=== PATIENT | female | born 1940 | race Caucasian/White ===

== ENCOUNTER → 2019-02-24 | Outpatient (CLI) | payer MEDICARE ==
[2019-02-24 11:57] LABS: African American GFR (CKD) >90 (>60 ml/min/1.73 sqM); Blood Urea Nitrogen 6 mg/dL (7-17); Non-African American GFR(CKD) >90 (>60 ml/min/1.73 sqM)
--- NOTE | 2019-02-24 14:17 | CT ---
EXAMINATION TYPE: CT pelvis w con DATE OF EXAM: 02/24/2019 COMPARISON: None INDICATION: Soft tissue lesion pelvic region DLP: 496.4 mGycm, Automated exposure control for dose reduction was used. CONTRAST: 100 mL of Isovue 300. Study performed with Oral Contrast TECHNIQUE: Axial images were obtained from above the diaphragm to the pubic rami in the axial plane a t 5 mm thick sections. Reconstructed images are reviewed on the computer in the coronal plane. FINDINGS: Limited CT sections are obtained the lung bases. The lung bases are clear. Limited CT ABDOMEN: Portions of the liver within the [id number] is unremarkable. Partial visualization of the gallblad glenroy appears normal. Portion of the pancreas visualized is normal. Inferior poles the kidneys are esse ntially unremarkable. Tiny cortical renal cyst may be on the mid left kidney. Vascular calcifications within the abdominal aorta. Inferior vena cava is unremarkable. CT PELVIS: Loops of bowel within the pelvis are normal. Diverticular changes are noted within the sigmoid colon . There are loops of bowel which are incompletely distended or lack oral contrast limiting their ev aluation. Appendix: Not visualized. No suspicious inflammatory changes or dilated tubular structures are eviden t. Urinary bladder: Normal. Genitourinary structures: There is a 2.0 cm cyst on the right ovary. Uterus is unremarkable. Left adn exal region is clear. Osseous structures: No suspicious lytic or sclerotic lesions. Facet changes are within the lumbar spi ne IMPRESSIONS: 1. Diverticulosis without acute diverticulitis. 2. No suspicious soft tissue masses are identified
== END | disposition home or self-care (01) ==
LOC: RADCTMAIN 10:45
PROVIDERS: ATTEND Internal Medicine
DX: M79.89 Other specified soft tissue disorders (principal); K57.30 Diverticulosis of large intestine without perforation or abscess without bleeding
CPT/HCPCS: 82565; 84520; 72193; 36415; Q9967

== ENCOUNTER → 2019-04-13 | Outpatient (CLI) | payer MEDICARE ==
--- NOTE | 2019-04-13 14:57 | US ---
EXAMINATION TYPE: US transvaginal DATE OF EXAM: 04/13/2019 COMPARISON: CT dated 02/24/2019 CLINICAL HISTORY: N83.0 ovarian cyst. TECHNIQUE: Transvaginal (TV). Date of LMP: postmenopausal, no HRT EXAM MEASUREMENTS: Uterus: 4.6 x 2.0 x 3.1 cm Endometrial Stripe: 0.3 cm Right Ovary: 3.5 x 2.4 x 3.2 cm Left Ovary: not visualized 1. Uterus: Anteverted hetergenous 2. Endometrium: wnl, small cystic area within measures 0.2 x 0.2 cm 3. Right Ovary: cystic structure seen measures 2.9 x 1.9 x 3.0 cm, there a thick wall seen with vasc ular flow and mural nodule seen measuring 6 mm on image 11/05/2003, page 35/43. 4. Left Ovary: not visualized 5. Bilateral Adnexa: extensive peristalsing bowel noted 6. Posterior cul-de-sac: no free fluid IMPRESSION: There is a 3.0 cm right renal cyst. There is also an internal mural nodule measuring 6 mm on image 35/43. Given the internal complexity either follow-up pelvic MRI with contrast or consultat ion with gynecologic/oncologic surgery are recommended.
== END | disposition home or self-care (01) ==
LOC: RADUSWWP 11:50
PROVIDERS: ATTEND Obstetrics & Gynecology
DX: N83.299 Other ovarian cyst, unspecified side (principal)
CPT/HCPCS: 76830

== ENCOUNTER → 2019-09-02 | Outpatient (CLI) | payer MEDICARE ==
--- NOTE | 2019-09-02 14:15 | US ---
EXAMINATION TYPE: US transvaginal DATE OF EXAM: 09/02/2019 COMPARISON: 04/13/2019 CLINICAL HISTORY: N83.201 right ovarian cyst. follow up right ovarian cyst TECHNIQUE: Transvaginal (TV) Date of LMP: unknown EXAM MEASUREMENTS: Uterus: 4.6 x 1.9 x 2.8 cm Endometrial Stripe: 0.2 cm Right Ovary: 3.2 x 2.3 x 3.0 cm Left Ovary: unable to visualize 1. Uterus: Anteverted heterogeneous 2. Endometrium: Trace amount of fluid noted within 3. Right Ovary: cystic area = 2.9 x 2.2 x 2.5cm with hyperechoic mural nodule measuring 0.8 x 0.8cm . This previously measured 2.9 x 1.9 x 3.0 cm on 04/13/2019. 4. Left Ovary: Obscured by overlying bowel gas 5. Bilateral Adnexa: appears wnl 6. Posterior cul-de-sac: wnl IMPRESSION: 1. No overall significant interval growth in comparison to the prior of 04/13/2019 of the complex left ovarian lesion with a mural nodule. Again the mural nodule does make this suspicious for neoplasm. 2. Very trace amount of intramural endometrial fluid may be on the basis of endometrial atrophy as th e endometrium measures only 0.2 cm. Ensure no postmenopausal bleeding clinically.
== END | disposition home or self-care (01) ==
LOC: RADUSWWP 13:22
PROVIDERS: ATTEND Obstetrics & Gynecology
DX: N83.201 Unspecified ovarian cyst, right side (principal); N83.8 Other noninflammatory disorders of ovary, fallopian tube and broad ligament; N83.299 Other ovarian cyst, unspecified side; R19.09 Other intra-abdominal and pelvic swelling, mass and lump
CPT/HCPCS: 36415; 76830; 86304

== ENCOUNTER → 2019-10-21 | Outpatient (CLI) | payer MEDICARE ==
--- NOTE | 2019-10-21 08:00 | US ---
EXAMINATION TYPE: US abdomen complete DATE OF EXAM: 10/21/2019 COMPARISON: None CLINICAL HISTORY: R10.11 RUQ Abd pain. EXAM MEASUREMENTS: Liver Length: 14.2 cm Gallbladder Wall: 0.2 cm CBD: 0.7 cm Spleen: 7.2 cm Right Kidney: 10.1 x 4.2 x 4.6 cm Left Kidney: 9.6 x 5.3 x 3.5 cm Pancreas: Tail obscured by overlying bowel gas, visualized portions appear wnl Liver: wnl Gallbladder: wnl Evidence for sonographic Corley's sign: No CBD: wnl for patient's age Spleen: wnl Right Kidney: No hydronephrosis or masses seen Left Kidney: No hydronephrosis or masses seen Upper IVC: wnl Abd Aorta: Atherosclerotic changes, no AAA IMPRESSION: 1. Limited assessment of the pancreas due to bowel gas otherwise no acute process
== END | disposition home or self-care (01) ==
LOC: RADUSWWP 06:56
PROVIDERS: ATTEND Internal Medicine
DX: R10.11 Right upper quadrant pain (principal)
CPT/HCPCS: 76700

== ENCOUNTER 2019-11-09 19:01 | Inpatient (IN) | payer MEDICARE ==
[2019-11-09] MEDS ORDERED: SODIUM CHLORIDE 0.9% 1,000 ML IV STA (19:10)
[2019-11-09] MEDS ORDERED: MORPHINE SULFATE 4 MG/ML SYRINGE IV STA (19:10)
--- NOTE | 2019-11-09 19:13 | ED ---
Back Pain HPI - General Chief Complaint: Back Pain/Injury Stated Complaint: weight loss/back pain Time Seen by Provider: 11/09/19 19:10 Source: patient, RN notes reviewed, old records reviewed Limitations: no limitations - History of Present Illness Initial Comments: This is an 79-year-old female DF for evaluation. This patient presents today for evaluation regards to pain. Patient has mild nausea no vomiting elevated heart rate heart racing. Significant recent weight losspatient states the pain started 2 weeks ago MD Complaint: back pain -: days(s) Similar Symptoms Previously: No Place: home Radiation: none Severity: moderate Severity scale (1-10): 4 Consistency: constant Improves With: none Worsens With: none Associated Symptoms: nausea/vomiting - Related Data Home Medications Medication Instructions Recorded Confirmed Aspirin EC [Ecotrin Low Dose] 81 mg PO HS 11/09/19 11/09/19 Ergocalciferol [Vitamin D2] 50,000 unit PO FR 11/09/19 11/09/19 L.acidoph,Paracasei, B.lactis 1 cap PO DAILY 11/09/19 11/09/19 [Probiotic] Levothyroxine Sodium [Synthroid] 50 mcg PO DAILY 11/09/19 11/09/19 Lovastatin [Altoprev] 20 mg PO HS 11/09/19 11/09/19 Montelukast Sodium [Singulair] 10 mg PO DAILY 11/09/19 11/09/19 atenoloL [Atenolol] 25 mg PO DAILY 11/09/19 11/09/19 Allergies Allergy/AdvReac Type Severity Reaction Status Date / Time No Known Allergies Allergy Verified 11/09/19 21:50 Review of Systems ROS Statement: Those systems with pertinent positive or pertinent negative responses have been documented in the HPI. ROS Other: All systems not noted in ROS Statement are negative. Past Medical History Past Medical History: Hyperlipidemia, Hypertension, Thyroid Disorder Additional Past Medical History / Comment(s): seasonal allergies History of Any Multi-Drug Resistant Organisms: None Reported Past Surgical History: Appendectomy, Section, Tonsillectomy, Tubal Ligation Past Psychological History: No Psychological Hx Reported Smoking Status: Never smoker Past Alcohol Use History: None Reported Past Drug Use History: None Reported General Exam Limitations: no limitations General appearance: alert, in no apparent distress Head exam: Present: atraumatic, normocephalic, normal inspection Eye exam: Present: normal appearance, PERRL, EOMI. Absent: scleral icterus, conjunctival injection, periorbital swelling ENT exam: Present: normal exam, mucous membranes moist Neck exam: Present: normal inspection. Absent: tenderness, meningismus, lympha denopathy Respiratory exam: Present: normal lung sounds bilaterally. Absent: respiratory distress, wheezes, rales, rhonchi, stridor Cardiovascular Exam: Present: tachycardia, irregular rhythm, normal heart sounds. Absent: systolic murmur, diastolic murmur, rubs, gallop, clicks GI/Abdominal exam: Present: soft, normal bowel sounds. Absent: distended, tenderness, guarding, rebound, rigid Extremities exam: Present: normal inspection, full ROM, normal capillary refill. Absent: tenderness, pedal edema, joint swelling, calf tenderness Back exam: Present: normal inspection Neurological exam: Present: alert, oriented X3, CN II-XII intact Psychiatric exam: Present: normal affect, normal mood Skin exam: Present: warm, dry, intact, normal color. Absent: rash Course Vital Signs 11/09/19 11/09/19 11/09/19 19:04 20:10 21:15 Temperature 97.9 F Pulse Rate 137 H 147 H 105 H Respiratory 18 18 18 Rate Blood Pressure 133/84 132/77 116/81 O2 Sat by Pulse 95 98 96 Oximetry - Reevaluation(s) Reevaluation #1: 11/09/19 20:49 Medical record is reviewed Reevaluation #2: 11/09/19 20:49 heart rate is significantly improved Reevaluation #3: 11/09/19 22:12 Patient still does have severe back pain Reevaluation #4: 11/09/19 22:12 Heart rate is continued remained much improved Medical Decision Making - Medical Decision Making 79 female DF for evaluation she presents today for evaluation of weakness palpitations found to be nature fibrillation with RVR now rate controlled, some shortness of breath and recent weight loss history of smoking with new lung can cer diagnosis. Patient be admitted - Lab Data Result diagrams: 11/09/19 19:40 11/09/19 19:40 Lab Results 11/09/19 11/09/19 11/09/19 Range/Units 19:40 19:40 19:40 WBC 11.4 H (3.8-10.6) k/uL RBC 4.27 (3.80-5.40) m/uL Hgb 13.5 (11.4-16.0) gm/dL Hct 40.5 (34.0-46.0) % MCV 94.7 (80.0-100.0) fL MCH 31.5 (25.0-35.0) pg MCHC 33.3 (31.0-37.0) g/dL RDW 11.5 (11.5-15.5) % Plt Count 291 (150-450) k/uL Neutrophils % 70 % Lymphocytes % 21 % Monocytes % 6 % Eosinophils % 1 % Basophils % 0 % Neutrophils # 8.0 H (1.3-7.7) k/uL Lymphocytes # 2.3 (1.0-4.8) k/uL Monocytes # 0.7 (0-1.0) k/uL Eosinophils # 0.1 (0-0.7) k/uL Basophils # 0.1 (0-0.2) k/uL PT 11.0 (9.0-12.0) sec INR 1.1 (<1.2) APTT 24.6 (22.0-30.0) sec Sodium 131 L (137-145) mmol/L Potassium 4.0 (3.5-5.1) mmol/L Chloride 97 L (98-107) mmol/L Carbon Dioxide 26 (22-30) mmol/L Anion Gap 8 mmol/L BUN 9 (7-17) mg/dL Creatinine 0.44 L (0.52-1.04) mg/dL Est GFR (CKD-EPI)AfAm >90 (>60 ml/min/1.73 sqM) Est GFR (CKD-EPI)NonAf >90 (>60 ml/min/1.73 sqM) Glucose 102 H (74-99) mg/dL Plasma Lactic Acid Imchael (0.7-2.0) mmol/L Calcium 10.7 H (8.4-10.2) mg/dL Phosphorus 3.1 (2.5-4.5) mg/dL Magnesium 1.7 (1.6-2.3) mg/dL Total Bilirubin 0.8 (0.2-1.3) mg/dL AST 23 (14-36) U/L ALT 9 (4-34) U/L Alkaline Phosphatase 67 (38-126) U/L Creatine Kinase 64 (30-135) U/L Troponin I (0.000-0.034) ng/mL Total Protein 6.2 L (6.3-8.2) g/dL Albumin 3.7 (3.5-5.0) g/dL Urine Color Urine Appearance (Clear) Urine pH (5.0-8.0) Ur Specific [place] (1.001-1.035) Urine Protein (Negative) Urine Glucose (UA) (Negative) Urine Ketones (Negative) Urine Blood (Negative) Urine Nitrite (Negative) Urine Bilirubin (Negative) Urine Urobilinogen (<2.0) mg/dL Ur Leukocyte Esterase (Negative) 11/09/19 11/09/19 11/09/19 Range/Units 19:40 19:40 21:37 WBC (3.8-10.6) k/uL RBC (3.80-5.40) m/uL Hgb (11.4-16.0) gm/dL Hct (34.0-46.0) % MCV (80.0-100.0) fL MCH (25.0-35.0) pg MCHC (31.0-37.0) g/dL RDW (11.5-15.5) % Plt Count (150-450) k/uL Neutrophils % % Lymphocytes % % Monocytes % % Eosinophils % % Basophils % % Neutrophils # (1.3-7.7) k/uL Lymphocytes # (1.0-4.8) k/uL Monocytes # (0-1.0) k/uL Eosinophils # (0-0.7) k/uL Basophils # (0-0.2) k/uL PT (9.0-12.0) sec INR (<1.2) APTT (22.0-30.0) sec Sodium (137-145) mmol/L Potassium (3.5-5.1) mmol/L Chloride (98-107) mmol/L Carbon Dioxide (22-30) mmol/L Anion Gap mmol/L BUN (7-17) mg/dL Creatinine (0.52-1.04) mg/dL Est GFR (CKD-EPI)AfAm (>60 ml/min/1.73 sqM) Est GFR (CKD-EPI)NonAf (>60 ml/min/1.73 sqM) Glucose (74-99) mg/dL Plasma Lactic Acid Michael 1.2 (0.7-2.0) mmol/L Calcium (8.4-10.2) mg/dL Phosphorus (2.5-4.5) mg/dL Magnesium (1.6-2.3) mg/dL Total Bilirubin (0.2-1.3) mg/dL AST (14-36) U/L ALT (4-34) U/L Alkaline Phosphatase (38-126) U/L Creatine Kinase (30-135) U/L Troponin I <0.012 (0.000-0.034) ng/mL Total Protein (6.3-8.2) g/dL Albumin (3.5-5.0) g/dL Urine Color Colorless Urine Appearance Clear (Clear) Urine pH 7.0 (5.0-8.0) Ur Specific [place] 1.018 (1.001-1.035) Urine Protein Negative (Negative) Urine Glucose (UA) Negative (Negative) Urine Ketones Trace H (Negative) Urine Blood Negative (Negative) Urine Nitrite Negative (Negative) Urine Bilirubin Negative (Negative) Urine Urobilinogen <2.0 (<2.0) mg/dL Ur Leukocyte Esterase Negative (Negative) - EKG Data -: EKG Interpreted by Me (EKG is A. fib 145 QRS 66 QTC 453) - Radiology Data Radiology results: report reviewed (CTA chest abdomen pelvis does show positive lung cancer no signs of metastasis to spine), image reviewed Critical Care Time Critical Care Time: Yes Total Critical Care Time: 31 Disposition Clinical Impression: Weight loss, Lung cancer, Atrial fibrillation with RVR Disposition: ADMITTED IP TO THIS HOSP Condition: Fair Is patient prescribed a controlled substance at d/c from ED?: No Referrals: Dorita Hoover MD [Primary Care Provider] - 1-2 days
[2019-11-09] MEDS ORDERED: DILTIAZEM DRIP BOLUS FROM BAG 1 MG SOLN IV ONE (19:48)
[2019-11-09 19:52] LABS: Basophils # (A) 0.1 k/uL (0-0.2); Basophils % (A) 0 %; Eosinophils # (A) 0.1 k/uL (0-0.7); Eosinophils % (A) 1 %; HCT 40.5 % (34.0-46.0); HGB 13.5 gm/dL (11.4-16.0); Lymphocytes # (A) 2.3 k/uL (1.0-4.8); Lymphocytes % (A) 21 %; MCH 31.5 pg (25.0-35.0); MCHC 33.3 g/dL (31.0-37.0); MCV 94.7 fL (80.0-100.0); Mean Platelet Volume 8.9; Monocytes # (A) 0.7 k/uL (0-1.0); Monocytes % (A) 6 %; Neutrophils % (A) 70 %; Platelet Count 291 k/uL (150-450); RBC 4.27 m/uL (3.80-5.40); RDW 11.5 % (11.5-15.5); WBC 11.4 k/uL (3.8-10.6)
[2019-11-09 20:04] LABS: INR 1.1 (<1.2); Partial Thromboplastin Time 24.6 sec (22.0-30.0)
[2019-11-09 20:11] LABS: ALT 9 U/L (4-34); AST 23 U/L (14-36); African American GFR (CKD) >90 (>60 ml/min/1.73 sqM); Albumin 3.7 g/dL (3.5-5.0); Alkaline Phosphatase 67 U/L (38-126); Anion Gap 8 mmol/L; Blood Urea Nitrogen 9 mg/dL (7-17); Calcium 10.7 mg/dL (8.4-10.2); Carbon Dioxide 26 mmol/L (22-30); Chloride 97 mmol/L (98-107); Creatine Kinase 64 U/L (30-135); Glucose 102 mg/dL (74-99); Magnesium 1.7 mg/dL (1.6-2.3); Non-African American GFR(CKD) >90 (>60 ml/min/1.73 sqM); Phosphorus 3.1 mg/dL (2.5-4.5); Sodium 131 mmol/L (137-145); Total Bilirubin 0.8 mg/dL (0.2-1.3); Total Protein 6.2 g/dL (6.3-8.2)
[2019-11-09] MEDS ORDERED: DILTIAZEM 125 MG in SODIUM CHLORIDE 0.9% 100 ML IV SCH (20:30)
--- NOTE | 2019-11-09 21:31 | CT ---
EXAMINATION TYPE: CT angio chest DATE OF EXAM: 11/09/2019 COMPARISON: None HISTORY: posterior chest pain CT DLP: 236.1 mGycm Automated exposure control for dose reduction was used. CONTRAST: CTA scan of the thorax is performed with IV Contrast, patient injected with 100 mL of Isovue 370, pul monary embolism protocol. MIP images are created and reviewed. 3D reconstructed images are created on an independent workstation and reviewed. FINDINGS: LUNGS: The lungs are remarkable for a left lower lobe lung mass injury approximately 3.5 x 3.5 cm in AP transverse dimension, the lesion extends from the pleural margin into the left perihilar location shows a transverse dimension of approximately 9.5 cm. Bilateral emphysematous changes are present in the lungs. There is no pleural effusion or pneumothorax seen. The tracheobronchial tree is patent. AORTA: No additional significant abnormality is seen. MEDIASTINUM: There is satisfactory enhancement of the pulmonary artery and its branches, there is no CT evidence for pulmonary embolism. There is bilateral hilar adenopathy, subcarinal adenopathy, retro caval pretracheal adenopathy and prevascular adenopathy. No pericardial effusion is seen. OTHER: Diverticular change seen in the colon. Mild prominence of the adrenal glands noted. Reflux of contrast into the inferior vena cava and hepatic veins may be indicative of right heart failure. The re is a small hiatal hernia. IMPRESSION: PROBABLE LUNG CARCINOMA. Additional findings above.
--- NOTE | 2019-11-09 21:40 | CT ---
EXAMINATION TYPE: CT abdomen pelvis w con DATE OF EXAM: 11/09/2019 COMPARISON: CT chest same date HISTORY: abdominal and flank pain, weight loss CT DLP: 656.6 mGycm Automated exposure control for dose reduction was used. TECHNIQUE: Helical acquisition of images from the lung bases through the pelvis have been completed. CONTRAST: Performed without Oral Contrast and with IV Contrast, patient injected with 100 mL of Isovue 370. FINDINGS: LUNG BASES: Left lower lobe lung mass and subcarinal adenopathy again noted. AORTA: No significant abnormality is appreciated. LIVER/GB: No significant abnormality is appreciated. PANCREAS: No significant abnormality is seen. SPLEEN: No significant abnormality is seen. ADRENALS: Question some minimal prominence of the adrenal glands, nodularity4. KIDNEYS: No significant abnormality is seen. REPRODUCTIVE ORGANS: There is a probable right ovarian cystic mass measuring 2.4 cm BOWEL: Extensive diverticular change noted within the colon FREE AIR: No Free Air visible. ASCITES: None visible. PELVIC ADENOPATHY: None visualized. RETROPERITONEAL ADENOPATHY: No Retroperitoneal Adenopathy visible. URINARY BLADDER: No significant abnormality is seen. OSSEOUS STRUCTURES: Degenerative disc change is present, there are facet arthropathy changes at the lower lumbar spine. IMPRESSION: DIVERTICULOSIS. LEFT LOWER LOBE LUNG MASS. ADDITIONAL FINDINGS ABOVE.
[2019-11-09 21:56] LABS: Appearance,Urine Clear (Clear); Bilirubin,Urine Negative (Negative); Blood,Urine Negative (Negative); Color,Urine Colorless; Glucose,Urine (UA) Negative (Negative); Ketones,Urine Trace (Negative); Leukocyte Esterase,Urine Negative (Negative); Nitrite,Urine Negative (Negative); Protein,Urine Negative (Negative); Specific Gravity,Urine 1.018 (1.001-1.035); Urobilinogen,Urine <2.0 mg/dL (<2.0)
[2019-11-09] MEDS ORDERED: NITROGLYCERIN SL TABS 0.4 MG TAB SUBLINGUAL PRN (22:09)
[2019-11-09] MEDS ORDERED: ASPIRIN 81 MG PO STA (22:09)
[2019-11-10 02:29] LABS: Cholesterol 106 mg/dL (<200); HDL Cholesterol 31 mg/dL (40-60); LDL Cholesterol,Calculated 60 mg/dL (0-99); Triglycerides 74 mg/dL (<150)
[2019-11-10] MEDS ORDERED: ASPIRIN 325 MG TAB PO SCH (09:00)
[2019-11-10] MEDS ORDERED: HEPARIN SODIUM,PORCINE 5,000 UNIT/ML 1 ML VIAL IV ONE (09:18)
[2019-11-10] MEDS ORDERED: HEPARIN SODIUM,PORCINE 5,000 UNIT/ML 1 ML VIAL IV PRN (09:18)
[2019-11-10] MEDS: METOPROLOL TARTRATE 50 MG TAB PO SCH ×2 (10:10→20:51)
[2019-11-10] MEDS: HEPARIN SOD,PORK IN 0.45% NACL 25,000 UNIT in 0.45% NACL 1 250ML.BAG IV SCH (10:11)
--- NOTE | 2019-11-10 10:20 | CONS ---
CONSULTATION Mrs. Harrington is an 79-year-old female who presented to the emergency room with symptoms of palpitations, was noted to be in atrial fibrillation with rapid ventricular response. She subsequently converted to sinus mechanism. She has been feeling fatigued and nauseated and has lost weight. She denies any prior cardiac history. She denies any palpitation in the past. No chest pain. No PND, orthopnea. No peripheral edema. Patient coronary risk factors are remarkable for hyperlipidemia and hypertension. The patient has been losing weight and her CT scan of the chest performed in the emergency room has revealed a lung mass in the left lower lobe highly suggestive of malignancy. Patient has been complaining of back discomfort. She was scheduled to be seen by Dr. Ngo as an outpatient. REVIEW OF SYSTEMS: RESPIRATORY SYSTEM: She has no recent wheezing or cough. She had dyspnea on exertion. GI SYSTEM: No recent nausea, no vomiting. No GI bleeding. SYSTEM: No dysuria or hematuria. NERVOUS SYSTEM: No stroke or seizure. PHYSICAL EXAMINATION: She is an 79-year-old female, alert, oriented, in no apparent distress. Blood pressure 121/60 with a heart rate in the 60s. HEAD: Normocephalic. EYES Sclerae nonicteric. NECK: Good upstroke, no bruit, no jugular venous distention. LUNGS: Clear to auscultation. HEART: Regular rate and rhythm, S1, S2. No S3 with a systolic murmur heard at the base. No diastolic murmur, no rub. ABDOMEN: Soft, nontender, positive bowel sounds, no organomegaly. EXTREMITIES: No edema, intact pulses. LAB DATA: Revealed cholesterol 106, LDL of 60, BUN and creatinine of 9 and 0.44, potassium 4.0, hemoglobin 13.5. Initial EKG in the emergency room revealed atrial fibrillation with rapid ventricular response, a rate of [address]-T wave changes. IMPRESSION: 1. Paroxysmal atrial fibrillation back in sinus mechanism. 2. Lung mass highly suggestive of malignancy with weight loss. 3. History of hypertension. 4. Hyperlipidemia. RECOMMENDATION: I will stop her IV Cardizem. Will continue on the beta rachna, the lovastatin. I will hold on adding oral anticoagulation at this time pending the workup of her lung mass. Will check her thyroid function test and depending on her progress, further condition will be made. Thank you for this consult. Will follow with you. MMODL / IJN: [id number] / MTDD
[2019-11-10] MEDS ORDERED: METOPROLOL TARTRATE 50 MG TAB PO STA (11:18)
--- NOTE | 2019-11-10 14:38 | P.CNPUL ---
History of Present Illness Consult date: 11/10/19 Reason for consult: dyspnea, chest pain, lung mass Chief complaint: left lower lobe lung mass, weight loss, back pain History of present illness: This is a 79-year-old white female patient of Dr. Hoover, with past medical history of hypertension, hyperlipidemia, hypothyroidism, previous history of smoking, in remission for last 30 years, patient quit smoking in her 50s, did smoke 1,5 packs a day for 35 years. patient presented to the emergency department on 11/09/2019 for evaluation of back pain, and elevated heart rate. Her back pain is in her left buttock area traveling across her lower back. EKG showed atrial fibrillation with rapid ventricular response and the rate of 145 BPM, patient was started on Cardizem drip for rate control, she had since converted to sinus rhythm, and it isn't drip has been discontinued, echocardiogram is pending, cardiology has been consulted, patient denies any hemoptysis, no cough, no congestion. However patient has been experiencing weight loss, and she has lost over 20 pounds in the last 3 months, she has been experiencing back pain, and lack of appetite.denied any fever or chills. lab work showed a white blood cell count of 11.4, hemoglobin of 13.5, sodium of 131, potassium is 4.0, chloride is 97, CO2 is 26, BUN of 9 creatinine 0.44, lactic acid was 1.2, LFTs were within normal limits, troponins were less than 0.0123, TSH was within normal limits at 3.0, urinalysis was positive for ketones but negative for any signs of infection. CT angios of the chest was completed showing left lower lobe lung mass measuring 3.5 x 3.5 cm in the AP transverse dimension extending from the pleural margin into the left perihilar location, there were bilateral emphysematous changes present in the lungs, with bilateral hilar adenopathy, subcarinal adenopathy, retrocaval pretracheal adenopathy, and prevascular adenopathy. There was no evidence of pulmonary embolism. Review of Systems All systems: negative Constitutional: Reports anorexia, Reports weight loss, Denies chills, Denies fever Eyes: denies blurred vision, denies pain Ears, nose, mouth and throat: Denies headache, Denies sore throat Cardiovascular: Reports chest pain, Denies shortness of breath Respiratory: Denies cough Gastrointestinal: Denies abdominal pain, Denies diarrhea, Denies nausea, Denies vomiting Genitourinary: Denies dysuria, Denies hematuria Musculoskeletal: Denies myalgias Integumentary: Denies pruritus, Denies rash Neurological: Denies numbness, Denies weakness Psychiatric: Denies anxiety, Denies depression Endocrine: Denies fatigue, Denies weight change Past Medical History Past Medical History: Hyperlipidemia, Hypertension, Thyroid Disorder Additional Past Medical History / Comment(s): seasonal allergies History of Any Multi-Drug Resistant Organisms: None Reported Past Surgical History: Appendectomy, Section, Tonsillectomy, Tubal Ligation Past Anesthesia/Blood Transfusion Reactions: No Reported Reaction Past Psychological History: No Psychological Hx Reported Smoking Status: Former smoker Past Alcohol Use History: None Reported Additional Past Alcohol Use History / Comment(s): quit 30 years ago Past Drug Use History: None Reported Medications and Allergies Home Medications Medication Instructions Recorded Confirmed Type Aspirin EC [Ecotrin Low Dose] 81 mg PO HS 11/09/19 11/09/19 History Ergocalciferol [Vitamin D2] 50,000 unit PO FR 11/09/19 11/09/19 History L.acidoph,Paracasei, B.lactis 1 cap PO DAILY 11/09/19 11/09/19 History [Probiotic] Levothyroxine Sodium [Synthroid] 50 mcg PO DAILY 11/09/19 11/09/19 History Lovastatin [Altoprev] 20 mg PO HS 11/09/19 11/09/19 History Montelukast Sodium [Singulair] 10 mg PO DAILY 11/09/19 11/09/19 History atenoloL [Atenolol] 25 mg PO DAILY 11/09/19 11/09/19 History Allergies Allergy/AdvReac Type Severity Reaction Status Date / Time No Known Allergies Allergy Verified 11/09/19 21:50 Physical Exam Vitals: Vital Signs Temp Pulse Pulse Resp BP BP Pulse Ox 11/10/19 11:05 97.0 F L 118 H 18 139/97 94 L 11/10/19 08:05 97.4 F L 59 L 18 121/62 95 11/10/19 03:21 59 L 16 11/10/19 03:20 59 L 16 109/90 94 L 11/09/19 23:53 75 18 08/11/20 23:51 87 18 125/61 94 L 11/09/19 23:34 87 18 125/61 94 L 11/09/19 22:47 97.3 F L 86 19 106/58 100 11/09/19 21:15 105 H 18 116/81 96 11/09/19 20:10 147 H 18 132/77 98 11/09/19 19:04 97.9 F 137 H 18 133/84 95 Intake and Output 11/09/19 11/10/19 11/10/19 22:59 06:59 14:59 Intake Total 29.417 600 Balance 29.417 600 Intake: Intake, IV Titration 29.417 Amount Diltiazem 125 mg In 29.417 Sodium Chloride 0.9% 100 ml @ 5 MG/HR 5 mls/hr IV .Q24H [facility] Rx#:[id number] Blood Product 600 Other: Voiding Method Toilet # Voids 1 2 Weight 56.155 kg 57.5 kg GENERAL EXAM: Alert, very pleasant, 79-year-old white female, on room air with a pulse ox of 94% , comfortable in no apparent distress. HEAD: Normocephalic/atraumatic. EYES: Normal reaction of pupils, equal size. Conjunctiva pink, sclera white. NOSE: Clear with pink turbinates. THROAT: No erythema or exudates. NECK: No masses, no JVD, no thyroid enlargement, no adenopathy. CHEST: No chest wall deformity. Symmetrical expansion. LUNGS: Equal air entry with no crackles, wheeze, rhonchi or dullness. CVS: Irregular rate and rhythm, normal S1 and S2, no gallops, no murmurs, no rubs ABDOMEN: Soft, nontender. No hepatosplenomegaly, normal bowel sounds, no guarding or rigidity. EXTREMITIES: No clubbing, no edema, no cyanosis, 2+ pulses and upper and lower extremities. MUSCULOSKELETAL: Muscle strength and tone normal. SPINE: No scoliosis or deformity SKIN: No rashes CENTRAL NERVOUS SYSTEM: Alert and oriented -3. No focal deficits, tone is normal in all 4 extremities. PSYCHIATRIC: Alert and oriented -3. Appropriate affect. Intact judgment and insight. Results - Laboratory Findings CBC and BMP: 11/09/19 19:40 11/09/19 19:40 PT/INR, D-dimer PT 11.0 sec (9.0-12.0) 11/09/19 19:40 INR 1.1 (<1.2) 11/09/19 19:40 Abnormal lab findings: Abnormal Labs 11/09/19 11/09/19 11/09/19 19:40 19:40 21:37 WBC 11.4 H Neutrophils # 8.0 H Sodium 131 L Chloride 97 L Creatinine 0.44 L Glucose 102 H Calcium 10.7 H Total Protein 6.2 L HDL Cholesterol Urine Ketones Trace H 11/10/19 01:08 WBC Neutrophils # Sodium Chloride Creatinine Glucose Calcium Total Protein HDL Cholesterol 31 L Urine Ketones - Diagnostic Findings CT scan - chest: report reviewed, image reviewed Assessment and Plan Plan: Assessment: #1. Left lower lobe lung mass measuring 3.5 x 3.5 cm, and subcarinal, bilateral hilar, retrocaval, pretracheal and prevascular adenopathy, concerning for primary lung cancer #2. Back pain, weight loss of 20 pounds in the last 3 months, anorexia likely related to the above #3. Mild hyponatremia with serum sodium of 131, the possibility of SIADH #4. New onset A. fib with RVR, on presentation, patient was treated with IV Cardizem, had since converted to sinus mechanism with slightly tachycardic rate #5. History of hypertension #6. History of hyperlipidemia #7. Former smoker, in remission for last 30 years, carries a 45 year -pack-year smoking history Plan: We'll consult interventional radiology for possibility of CT-guided needle biopsy of the left lower lobe lung mass. hold heparin infusion for 2 hours prior to the procedure. Cardiology consultation has been requested, patient is back in sinus mechanism, rate is better controlled, hemodynamically patient is stable, strongly suspect underlying primary lung cancer. We'll continue to follow I performed a history & physical examination of the patient and discussed their management with my nurse practitioner, Anne-Marie Carter. I reviewed the nurse practitioner's note and agree with the documented findings and plan of care. Lung sounds are positive for diminished breath sounds. The findings and the impression was discussed with the patient. I attest to the documentation by the nurse practitioner. Time with Patient: Greater than 30
[2019-11-10 16:58] LABS: HCT 39.1 % (34.0-46.0); HGB 12.5 gm/dL (11.4-16.0); MCH 30.7 pg (25.0-35.0); MCHC 31.9 g/dL (31.0-37.0); MCV 96.4 fL (80.0-100.0); Mean Platelet Volume 8.3; Platelet Count 277 k/uL (150-450); RBC 4.06 m/uL (3.80-5.40); WBC 9.7 k/uL (3.8-10.6)
[2019-11-10] MEDS ORDERED: DILTIAZEM DRIP BOLUS FROM BAG 1 MG SOLN IV ONE (17:21)
[2019-11-10] MEDS ORDERED: DILTIAZEM 125 MG in SODIUM CHLORIDE 0.9% 100 ML IV SCH (18:00)
[2019-11-10] MEDS: ATORVASTATIN 10 MG TAB PO SCH (20:51)
--- NOTE | 2019-11-10 23:21 | P.HPIM ---
History of Present Illness H&P Date: 11/10/19 Chief Complaint: Acute Low Back pain Ms. Harrington is a 79-year-old female, who follows with Dr. Hoover in the outpatient setting, with a past medical history of hypertension, hyperlipidemia, 40 pack years of previous smoking history, quit 30 years back coming in with a chief complaint of low back pain. Patient complains of pain mostly in the left side of the buttock area radiating to her left leg. She states that it started few weeks back and has worsened over the course of time. She also reports significant weight loss of around 30 pounds in the past 3 months. Patient denies having any pain radiating to her legs. Denies having any tingling or numbness in her lower extremities. She denies loss of bowel or bladder control. She has chronic urinary incontinence that is stable. Patient was also slightly nauseous and felt feeling of warmth but did not throw up. Patient denied having any chest pain or palpitations. No cough or difficulty in breathing. She denied having any abdominal pain nausea or vomiting. No orthopnea PND or lower extremity swelling. She denies having any recent travel. In the emergency patient was found to have atrial fibrillation with rapid ventricular rate and so she was started on IV Cardizem drip. Currently she is in sinus rhythm. In the ED, patient had blood work done showing white count of 11.4, hemoglobin 13.5, platelets 291. Her electrolytes sodium 131, potassium 4, chloride 97, bicarb 26, BUN 9, creatinine 0.44 with a lactic acid of 1.2. She had a UA that is negative for nitrites and leukocyte esterase patient had CTA of the chest that was showing bilateral emphysematous changes in the lungs and a mass in the left lower lobe measuring 3.5 x 3.5 cm in AP transverse dimension, the lesion extends from the pleural margin into the left perihilar location showing a transverse dimension of approximately 9.5 cm. These findings are highly suggestive of malignancy. So the patient is admitted for further work-up with pulmonary and cardiology consults. Review of Systems REVIEW OF SYSTEMS: CONSTITUTIONAL: No fever, no malaise, fatigue and generalized weakness with loss of appetite HEENT: No recent visual problems or hearing problems. Denied any sore throat. CARDIOVASCULAR: No chest pain, palpitations, orthopnea or PND PULMONARY: No cough, difficulty in breathing or hemoptysis GASTROINTESTINAL: No diarrhea, no nausea, no abdominal pain. NEUROLOGICAL: No headaches, no weakness, no numbness. HEMATOLOGICAL: Denies any bleeding or petechiae. GENITOURINARY: Denies any burning micturition, frequency, or urgency. MUSCULOSKELETAL/RHEUMATOLOGICAL: As per HPI ENDOCRINE: Denies any polyuria or polydipsia. The rest of the 13-point review of systems is negative. Past Medical History Past Medical History: Hyperlipidemia, Hypertension, Thyroid Disorder Additional Past Medical History / Comment(s): seasonal allergies History of Any Multi-Drug Resistant Organisms: None Reported Past Surgical History: Appendectomy, Section, Tonsillectomy, Tubal Ligation Past Anesthesia/Blood Transfusion Reactions: No Reported Reaction Past Psychological History: No Psychological Hx Reported Smoking Status: Former smoker Past Alcohol Use History: None Reported Additional Past Alcohol Use History / Comment(s): quit 30 years ago Past Drug Use History: None Reported Medications and Allergies Home Medications Medication Instructions Recorded Confirmed Type Aspirin EC [Ecotrin Low Dose] 81 mg PO HS 11/09/19 11/09/19 History Ergocalciferol [Vitamin D2] 50,000 unit PO FR 11/09/19 11/09/19 History L.acidoph,Paracasei, B.lactis 1 cap PO DAILY 11/09/19 11/09/19 History [Probiotic] Levothyroxine Sodium [Synthroid] 50 mcg PO DAILY 11/09/19 11/09/19 History Lovastatin [Altoprev] 20 mg PO HS 11/09/19 11/09/19 History Montelukast Sodium [Singulair] 10 mg PO DAILY 11/09/19 11/09/19 History atenoloL [Atenolol] 25 mg PO DAILY 11/09/19 11/09/19 History Allergies Allergy/AdvReac Type Severity Reaction Status Date / Time No Known Allergies Allergy Verified 11/09/19 21:50 Physical Exam Vitals: Vital Signs Temp Pulse Pulse Resp BP BP Pulse Ox 11/10/19 11:05 97.0 F L 118 H 18 139/97 94 L 11/10/19 08:05 97.4 F L 59 L 18 121/62 95 11/10/19 03:21 59 L 16 11/10/19 03:20 59 L 16 109/90 94 L 11/09/19 23:53 75 18 11/09/19 23:51 87 18 125/61 94 L 11/09/19 23:34 87 18 125/61 94 L 11/09/19 22:47 97.3 F L 86 19 106/58 100 11/09/19 21:15 105 H 18 116/81 96 11/09/19 20:10 147 H 18 132/77 98 11/09/19 19:04 97.9 F 137 H 18 133/84 95 Intake and Output 11/10/19 11/10/19 11/10/19 06:59 14:59 22:59 Intake Total 29.417 600 Balance 29.417 600 Intake: Intake, IV Titration 29.417 Amount Diltiazem 125 mg In 29.417 Sodium Chloride 0.9% 100 ml @ 5 MG/HR 5 mls/hr IV .Q24H [facility] Rx#:[id number] Blood Product 600 Other: Voiding Method Toilet # Voids 1 2 Weight 57.5 kg PHYSICAL EXAMINATION: GENERAL: elderly female in bed with her at bed side HEENT: Pupils are round and equally reacting to light. EOMI. No scleral icterus. No conjunctival pallor. Normocephalic, atraumatic. No pharyngeal erythema. No thyromegaly. CARDIOVASCULAR: S1 and S2 heard. No additional sounds. PULMONARY: Decreased breath sounds in all lung telles ABDOMEN: Soft, nontender, nondistended, normoactive bowel sounds. MUSCULOSKELETAL: No joint swelling or deformity. No point tenderness on the lumbar spine. EXTREMITIES: No cyanosis, clubbing, or pedal edema. NEUROLOGICAL: Alert awake oriented 3, Gross neurological examination did not reveal any focal deficits. SKIN: No rash Results CBC & Chem 7: 11/10/19 16:21 11/09/19 19:40 Labs: Abnormal Lab Results - Last 24 Hours (Table) 11/09/19 11/09/19 11/09/19 Range/Units 19:40 19:40 21:37 WBC 11.4 H (3.8-10.6) k/uL Neutrophils # 8.0 H (1.3-7.7) k/uL Sodium 131 L (137-145) mmol/L Chloride 97 L (98-107) mmol/L Creatinine 0.44 L (0.52-1.04) mg/dL Glucose 102 H (74-99) mg/dL Calcium 10.7 H (8.4-10.2) mg/dL Total Protein 6.2 L (6.3-8.2) g/dL HDL Cholesterol (40-60) mg/dL Urine Ketones Trace H (Negative) 11/10/19 Range/Units 01:08 WBC (3.8-10.6) k/uL Neutrophils # (1.3-7.7) k/uL Sodium (137-145) mmol/L Chloride (98-107) mmol/L Creatinine (0.52-1.04) mg/dL Glucose (74-99) mg/dL Calcium (8.4-10.2) mg/dL Total Protein (6.3-8.2) g/dL HDL Cholesterol 31 L (40-60) mg/dL Urine Ketones (Negative) Thrombosis Risk Factor Assmnt - Choose All That Apply Any of the Below Risk Factors Present?: No Other Risk Factors: Yes Each Risk Factor Represents 3 Points: Age 75 years or older Other congenital or acquired thrombophilia - If yes, enter type in comment: No Thrombosis Risk Factor Assessment Total Risk Factor Score: 3 Thrombosis Risk Factor Assessment Level: Moderate Risk Assessment and Plan Assessment: ASSESSMENT Acute left buttock pain New onset atrial fibrillation -currently in sinus rhythm CT of the chest showing left lung mass-high possibility of malignancy Unintentional weight loss Hypertension Hyperlipidemia 40 to 45 pack years of smoking Mild hyponatremia PLAN: Patient was given IV Cardizem in the ER and she converted into sinus rhythm. She has been started on anticoagulation with heparin, in view of needing biopsy of the left lower lung mass. Cardiology and pulmonary following the patient. She has been restarted on her home medications. Further recommendations to follow depending on the progress patient.
[2019-11-11] MEDS: LEVOTHYROXINE 50 MCG TAB PO SCH (05:46)
[2019-11-11 06:41] LABS: Basophils % (A) 0 %; Eosinophils # (A) 0.2 k/uL (0-0.7); Eosinophils % (A) 2 %; HCT 40.9 % (34.0-46.0); HGB 13.4 gm/dL (11.4-16.0); Lymphocytes # (A) 1.7 k/uL (1.0-4.8); Lymphocytes % (A) 21 %; MCH 30.9 pg (25.0-35.0); MCHC 32.7 g/dL (31.0-37.0); MCV 94.7 fL (80.0-100.0); Mean Platelet Volume 8.5; Monocytes # (A) 0.6 k/uL (0-1.0); Monocytes % (A) 7 %; Neutrophils # (A) 5.4 k/uL (1.3-7.7); Neutrophils % (A) 67 %; Platelet Count 274 k/uL (150-450); RBC 4.32 m/uL (3.80-5.40); RDW 12.1 % (11.5-15.5); WBC 7.9 k/uL (3.8-10.6)
[2019-11-11 06:49] LABS: African American GFR (CKD) >90 (>60 ml/min/1.73 sqM); Anion Gap 8 mmol/L; Blood Urea Nitrogen 6 mg/dL (7-17); Calcium 10.1 mg/dL (8.4-10.2); Carbon Dioxide 26 mmol/L (22-30); Chloride 99 mmol/L (98-107); Glucose 86 mg/dL (74-99); Non-African American GFR(CKD) >90 (>60 ml/min/1.73 sqM); Potassium 3.3 mmol/L (3.5-5.1); Sodium 133 mmol/L (137-145)
[2019-11-11] MEDS: LACTOBACILLUS ACIDOPH & BULGAR 1 EACH PACKET PO SCH (09:01)
[2019-11-11] MEDS: METOPROLOL TARTRATE 50 MG TAB PO SCH ×2 (09:01→19:58)
[2019-11-11] MEDS: ASPIRIN 81 MG PO SCH (09:01)
[2019-11-11] MEDS: MONTELUKAST 10 MG TAB PO SCH (09:02)
[2019-11-11 11:21] VITALS: BMI 22.5
--- NOTE | 2019-11-11 11:21 | P.PN ---
Subjective Progress Note Date: 11/11/19 CHIEF COMPLAINT: A. fib HISTORY OF PRESENT ILLNESS: Patient examined this morning at the bedside. Patient has been in and out of A. fib since yesterday. Patient was maintaining sinus rhythm until this morning when she got up to the bathroom to brush her teeth and converted back into A. fib with RVR with heart rate in the 140s. Her Cardizem drip was restarted at that time. Patient has since converted back into sinus rhythm. Heart rate is in the 50-60s. She denies shortness of breath. Denies chest pain. Denies palpitations. PHYSICAL EXAM: VITAL SIGNS: Reviewed. GENERAL: Well-developed in no acute distress. NECK: Supple. No JVD or thyromegaly LUNGS: Respirations even and unlabored. Lungs essentially clear to auscultation bilaterally. HEART: Regular rate and rhythm. S1 and S2 heard. EXTREMITIES: Normal range of motion. No clubbing or cyanosis. Peripheral pulses intact. No lower extremity edema ASSESSMENT: 1. Paroxysmal atrial fibrillation 2. Lung mass 3. Hypertension 4. Hyperlipidemia PLAN: -Discontinue IV cardizem -Begin oral Cardizem 30 mg 3 times a day -Continue metoprolol -Continue IV heparin drip. Possible lung biopsy today. Nursing aware heparin drip will need to be held prior to procedure. Nurse practitioner note has been reviewed by physician. Signing provider agrees with the documented findings, assessment, and plan of care. Objective - Vital Signs Vital signs: Vital Signs Temp 97.8 F 11/11/19 08:00 Pulse 112 H 11/11/19 08:00 Resp 18 11/11/19 08:00 BP 127/79 11/11/19 08:00 Pulse Ox 95 11/11/19 08:00 Intake & Output 11/10/19 11/11/19 11/11/19 18:59 06:59 18:59 Intake Total 840 234.278 Balance 840 234.278 Weight 54.1 kg Intake: Intake, IV Titration 234.278 Amount Diltiazem 125 mg In 7.333 Sodium Chloride 0.9% 100 ml @ 5 MG/HR 5 mls/hr IV .Q24H [facility] Rx#:[id number] Heparin Sod,Pork in 0.45% 226.945 NaCl 25,000 unit In 0.45 % NaCl 1 250ml.bag @ 12 UNITS/KG/HR 6.9 mls/hr IV .Q24H [facility] Rx#:[id number] Oral 240 Blood Product 600 Other: Voiding Method Toilet Toilet # Voids 0 1 - Labs CBC & Chem 7: 11/11/19 06:08 11/11/19 06:08 Labs: Abnormal Lab Results - Last 24 Hours (Table) 11/10/19 11/11/19 11/11/19 Range/Units 16:21 06:08 06:08 APTT 51.4 H 40.1 H (22.0-30.0) sec Sodium 133 L (137-145) mmol/L Potassium 3.3 L (3.5-5.1) mmol/L BUN 6 L (7-17) mg/dL Creatinine 0.40 L (0.52-1.04) mg/dL
--- NOTE | 2019-11-11 12:00 | ECHOF ---
Referral Reason:afib MEASUREMENTS -------- HEIGHT: 152.4 cm WEIGHT: 54.9 kg BP: IVSd: 1.0 cm (0.6 - 1.1) LVIDd: 4.0 cm (3.9 - 5.3) LVPWd: 1.2 cm (0.6 - 1.1) EDV(Teich): 71 ml IVSs: 1.2 cm LVIDs: 3.2 cm LVPWs: 1.2 cm %IVS Thck: 27 % ESV(Teich): 42 ml EF(Teich): 41 % %FS: 20 % SV(Teich): 29 ml Ao Diam: 3.5 cm (2.0 - 3.7) AV Cusp: 1.7 cm (1.5 - 2.6) LA Diam: 3.7 cm (2.7 - 3.8) MV EXCURSION: 18.395 mm (> 18.000) MV EF SLOPE: 118 mm/s (70 - 150) EPSS: 1.0 cm TR Vmax: 2.29 m/s TR maxP.99 mmHg RAP: 5.00 mmHg RVSP: 25.99 mmHg FINDINGS -------- Atrial fibrillation. This was a technically good study. LV size, wall thickness and systolic function are normal, with an EF greater than 55%. The left juan jose tricular size is normal. The right ventricle is normal in size. The left atrial size is normal. The right atrial size is normal. The aortic valve is trileaflet, and appears structurally normal. No aortic stenosis or regurgitation. Mild mitral regurgitation is present. Mild tricuspid regurgitation present. Right ventricular systolic pressure is normal at < 35 mmHg. There is no pulmonic regurgitation present. The aortic root size is normal. There is no pericardial effusion. CONCLUSIONS -------- 1. LV size, wall thickness and systolic function are normal, with an EF greater than 55%. 2. The left ventricular size is normal. 3. The right ventricle is normal in size. 4. The left atrial size is normal. 5. The right atrial size is normal. 6. Mild mitral regurgitation is present. 7. Mild tricuspid regurgitation present. 8. Right ventricular systolic pressure is normal at < 35 mmHg. SPRING CLIPPER: Brenda Wilson RDCS
--- NOTE | 2019-11-11 12:38 | P.PN ---
Subjective Progress Note Date: 11/11/19 Principal diagnosis: Left lower lobe lung mass, weight loss, back pain This is a 79-year-old white female patient of Dr. Hoover, with past medical history of hypertension, hyperlipidemia, hypothyroidism, previous history of smoking, in remission for last 30 years, patient quit smoking in her 50s, did smoke 1,5 packs a day for 35 years. patient presented to the emergency depart ent on 11/09/2019 for evaluation of back pain, and elevated heart rate. Her back pain is in her left buttock area traveling across her lower back. EKG showed atrial fibrillation with rapid ventricular response and the rate of 145 BPM, patient was started on Cardizem drip for rate control, she had since converted to sinus rhythm, and it isn't drip has been discontinued, echocardiogram is pending, cardiology has been consulted, patient denies any hemoptysis, no cough, no congestion. However patient has been experiencing weight loss, and she has lost over 20 pounds in the last 3 months, she has been experiencing back pain, and lack of appetite.denied any fever or chills. lab work showed a white blood cell count of 11.4, hemoglobin of 13.5, sodium of 131, potassium is 4.0, chloride is 97, CO2 is 26, BUN of 9 creatinine 0.44, lactic acid was 1.2, LFTs were within normal limits, troponins were less than 0.0123, TSH was within normal limits at 3.0, urinalysis was positive for ketones but n egative for any signs of infection. CT angios of the chest was completed showing left lower lobe lung mass measuring 3.5 x 3.5 cm in the AP transverse dimension extending from the pleural margin into the left perihilar location, there were bilateral emphysematous changes present in the lungs, with bilateral hilar adenopathy, subcarinal adenopathy, retrocaval pretracheal adenopathy, and prevascular adenopathy. There was no evidence of pulmonary embolism. On 11/11/2019 patient seen in follow-up on selective care unit, she has converted to sinus rhythm, Cardizem drip has been discontinued, she remains on heparin infusion and one baby aspirin per day, she denies any pulmonary complaints, she still has some lower back pain when she is up and moving around, but no acute distress, room air pulse ox is 95%, her lungs are clear, no rhonchi or wheezing, she is afebrile. Interventional radiology has been consulted for CT-guided fine-needle biopsy of the left lower lobe lung mass. We spoke to the radiology nurse who stated that her heparin drip needs to be on hold 4 hours and likely the procedure will be scheduled for tomorrow morning. Objective - Vital Signs Vital signs: Vital Signs Temp 97.8 F 11/11/19 08:00 Pulse 112 H 11/11/19 12:00 Resp 18 11/11/19 12:00 BP 127/79 11/11/19 08:00 Pulse Ox 95 11/11/19 08:00 Intake & Output 11/10/19 11/11/19 11/11/19 18:59 06:59 18:59 Intake Total 840 234.278 Balance 840 234.278 Weight 54.1 kg 54.1 kg Intake: Intake, IV Titration 234.278 Amount Diltiazem 125 mg In 7.333 Sodium Chloride 0.9% 100 ml @ 5 MG/HR 5 mls/hr IV .Q24H [facility] Rx#:[id number] Heparin Sod,Pork in 0.45% 226.945 NaCl 25,000 unit In 0.45 % NaCl 1 250ml.bag @ 12 UNITS/KG/HR 6.9 mls/hr IV .Q24H [facility] Rx#:[id number] Oral 240 Blood Product 600 Other: Voiding Method Toilet Toilet # Voids 0 1 - Exam GENERAL EXAM: Alert, very pleasant, 79-year-old white female, on room air with a pulse ox of 95% , comfortable in no apparent distress. HEAD: Normocephalic/atraumatic. EYES: Normal reaction of pupils, equal size. Conjunctiva pink, sclera white. NOSE: Clear with pink turbinates. THROAT: No erythema or exudates. NECK: No masses, no JVD, no thyroid enlargement, no adenopathy. CHEST: No chest wall deformity. Symmetrical expansion. LUNGS: Equal air entry with no crackles, wheeze, rhonchi or dullness. CVS: Irregular rate and rhythm, normal S1 and S2, no gallops, no murmurs, no rubs ABDOMEN: Soft, nontender. No hepatosplenomegaly, normal bowel sounds, no guarding or rigidity. EXTREMITIES: No clubbing, no edema, no cyanosis, 2+ pulses and upper and lower extremities. MUSCULOSKELETAL: Muscle strength and tone normal. SPINE: No scoliosis or deformity SKIN: No rashes CENTRAL NERVOUS SYSTEM: Alert and oriented -3. No focal deficits, tone is normal in all 4 extremities. PSYCHIATRIC: Alert and oriented -3. Appropriate affect. Intact judgment and insight. - Labs CBC & Chem 7: 11/11/19 06:08 11/11/19 06:08 Labs: Abnormal Lab Results - Last 24 Hours (Table) 11/10/19 11/11/19 11/11/19 Range/Units 16:21 06:08 06:08 APTT 51.4 H 40.1 H (22.0-30.0) sec Sodium 133 L (137-145) mmol/L Potassium 3.3 L (3.5-5.1) mmol/L BUN 6 L (7-17) mg/dL Creatinine 0.40 L (0.52-1.04) mg/dL Assessment and Plan Plan: Assessment: #1. Left lower lobe lung mass measuring 3.5 x 3.5 cm, and subcarinal, bilateral hilar, retrocaval, pretracheal and prevascular adenopathy, concerning for primary lung cancer #2. Back pain, weight loss of 20 pounds in the last 3 months, anorexia likely related to the above #3. Mild hyponatremia with serum sodium of 131, the possibility of SIADH #4. New onset A. fib with RVR, on presentation, patient was treated with IV Cardizem, had since converted to sinus mechanism with slightly tachycardic rate #5. History of hypertension #6. History of hyperlipidemia #7. Former smoker, in remission for last 30 years, carries a 45 year -pack-year smoking history Plan: Continue current medical treatment, we spoke to the interventional radiology and they would like the heparin held 4 hours prior to the CT guided needle biopsy of the left lower lung mass, and patient will likely be scheduled for it tomorrow morning. Denies any pulmonary complaints at this time, shortness of breath, no cough, no hemoptysis or chest pain. Continue to follow I performed a history & physical examination of the patient and discussed their management with my nurse practitioner, Anne-Marie Carter. I reviewed the nurse practitioner's note and agree with the documented findings and plan of care. Lung sounds are positive for diminished breath sounds. The findings and the impression was discussed with the patient. I attest to the documentation by the nurse practitioner. Time with Patient: Less than 30
[2019-11-11] MEDS: DILTIAZEM ORAL 30 MG TAB PO SCH ×3 (14:59→19:58)
[2019-11-11] MEDS: ATORVASTATIN 10 MG TAB PO SCH (19:58)
[2019-11-11] MEDS: HEPARIN SOD,PORK IN 0.45% NACL 25,000 UNIT in 0.45% NACL 1 250ML.BAG IV SCH (19:59)
--- NOTE | 2019-11-12 01:27 | P.PN ---
Subjective Progress Note Date: 11/11/19 Principal diagnosis: Afib with RVR and Lung mass Ms. Harrington is a 79-year-old female, who follows with Dr. Hoover in the outpatient setting, with a past medical history of hypertension, hyperlipidemia, 40 pack years of previous smoking history, quit 30 years back coming in with a chief complaint of low back pain. Patient complains of pain mostly in the left side of the buttock area radiating to her left leg. She states that it started few weeks back and has worsened over the course of time. She also reports significant weight loss of around 30 pounds in the past 3 months. Patient denies having any pain radiating to her legs. Denies having any tingling or numbness in her lower extremities. She denies loss of bowel or bladder control. She has chronic urinary incontinence that is stable. Patient was also slightly nauseous and felt feeling of warmth but did not throw up. Patient denied having any chest pain or palpitations. No cough or difficulty in breathing. She denied having any abdominal pain nausea or vomiting. No orthopnea PND or lower extremi ty swelling. She denies having any recent travel. In the emergency patient was found to have atrial fibrillation with rapid ventricular rate and so she was started on IV Cardizem drip. Currently she is in sinus rhythm. In the ED, patient had blood work done showing white count of 11.4, hemoglobin 13.5, platelets 291. Her electrolytes sodium 131, potassium 4, chloride 97, bicarb 26, BUN 9, creatinine 0.44 with a lactic acid of 1.2. She had a UA that is negative for nitrites and leukocyte esterase patient had CTA of the chest that was showing bilateral emphysematous changes in the lungs and a mass in the left lower lobe measuring 3.5 x 3.5 cm in AP transverse dimension, the lesion extends from the pleural margin into the left perihilar location showing a transverse dimension of approximately 9.5 cm. These findings are highly suggestive of malignancy. So the patient is admitted for further work-up with pulmonary and cardiology consults. On 11/11/19 - No acute events reported by nursing staff overnight. Patient is sitting up in the bed and having her dinner. As the patient has been admitted for atrial fibrillation and needs anticoagulation she is currently on heparin. She is currently in sinus rhythm. Her back pain is better today compared to yesterday. Patient is tentatively scheduled for CT-guided fine-needle biopsy of the left lower mass by interventional radiology for tomorrow morning. On review of systems-patient denies having any fevers chills or rigors. No chest pain or palpitations. No cough or difficulty in breathing. No abdominal pain nausea vomiting or diarrhea. No dysuria or hematuria. Active Medications Aspirin (Aspirin) 81 mg PO DAILY [facility] Last Admin: 11/11/19 09:01 Dose: 81 mg Documented by: Atorvastatin Calcium (Lipitor) 10 mg PO HS [facility] Last Admin: 11/11/19 19:58 Dose: 10 mg Documented by: Diltiazem HCl (Cardizem Oral) 30 mg PO TID [facility] Last Admin: 11/11/19 19:58 Dose: 30 mg Documented by: Heparin Sodium (Porcine) (Heparin) 0 unit IV PER PROTOCOL PRN; Protocol PRN Reason: Low PTT Heparin Sodium/Sodium Chloride (25,000 unit/ Sodium Chloride) 250 mls @ 6.9 mls /hr IV .Q24H [facility]; Protocol Last Admin: 11/11/19 19:59 Dose: 14 units/kg/hr, 8.05 mls/hr Documented by: Lactobacillus Acidoph/Bulgaricus (Lactinex) 1 each PO DAILY [facility] Last Admin: 11/11/19 09:01 Dose: 1 each Documented by: Levothyroxine Sodium (Synthroid) 50 mcg PO DAILY@0630 [facility] Last Admin: 11/11/19 05:46 Dose: 50 mcg Documented by: Metoprolol Tartrate (Lopressor) 50 mg PO BID [facility] Last Admin: 11/11/19 19:58 Dose: 50 mg Documented by: Montelukast Sodium (Singulair) 10 mg PO DAILY [facility] Last Admin: 11/11/19 09:02 Dose: 10 mg Documented by: Nitroglycerin (Nitrostat) 0.4 mg SUBLINGUAL Q5M PRN PRN Reason: Chest Pain Objective - Vital Signs Vital signs: Vital Signs Temp 97.8 F 11/11/19 08:00 Pulse 94 11/11/19 15:26 Resp 18 11/11/19 15:26 BP 137/60 11/11/19 15:26 Pulse Ox 95 11/11/19 15:26 Intake & Output 11/10/19 11/11/19 11/11/19 18:59 06:59 18:59 Intake Total 840 234.278 540 Output Total 1600 Balance 840 234.278 -1060 Weight 54.1 kg 54.1 kg Intake: Intake, IV Titration 234.278 Amount Diltiazem 125 mg In 7.333 Sodium Chloride 0.9% 100 ml @ 5 MG/HR 5 mls/hr IV .Q24H [facility] Rx#:[id number] Heparin Sod,Pork in 0.45% 226.945 NaCl 25,000 unit In 0.45 % NaCl 1 250ml.bag @ 12 UNITS/KG/HR 6.9 mls/hr IV .Q24H [facility] Rx#:[id number] Oral 240 540 Blood Product 600 Output: Urine 1600 Other: Voiding Method Toilet Toilet # Voids 0 1 1 - Exam PHYSICAL EXAMINATION: GENERAL: elderly female eating her dinner on the bed HEENT: Pupils are round and equally reacting to light. EOMI. No scleral icterus. No conjunctival pallor. CARDIOVASCULAR: S1 and S2 heard. No additional sounds. PULMONARY: Decreased breath sounds in all lung telles ABDOMEN: Soft, nontender, nondistended, normoactive bowel sounds. MUSCULOSKELETAL: No joint swelling or deformity. No point tenderness on the lumbar spine. EXTREMITIES: No cyanosis, clubbing, or pedal edema. NEUROLOGICAL: Alert awake oriented 3, Gross neurological examination did not reveal any focal deficits. - Labs CBC & Chem 7: 11/11/19 06:08 11/11/19 06:08 Labs: Abnormal Lab Results - Last 24 Hours (Table) 11/11/19 11/11/19 11/11/19 Range/Units 06:08 06:08 12:23 APTT 40.1 H 52.1 H (22.0-30.0) sec Sodium 133 L (137-145) mmol/L Potassium 3.3 L (3.5-5.1) mmol/L BUN 6 L (7-17) mg/dL Creatinine 0.40 L (0.52-1.04) mg/dL Assessment and Plan Assessment: ASSESSMENT New onset atrial fibrillation -currently in sinus rhythm CT of the chest showing left lung mass-high possibility of malignancy Unintentional weight loss Acute left buttock pain - resolving Hypertension Hyperlipidemia 40 to 45 pack years of smoking Mild hyponatremia PLAN: Patient was given IV Cardizem in the ER and she converted into sinus rhythm. She has been started on anticoagulation with heparin, in view of needing biopsy of the left lower lung mass, that is scheduled for tomorrow morning. Cardiology and pulmonary following the patient. Continue with the current medication regimen. Further recommendations to follow depending on the progress patient.
[2019-11-12] MEDS: LEVOTHYROXINE 50 MCG TAB PO SCH (06:21)
[2019-11-12 06:58] LABS: Basophils % (A) 0 %; Eosinophils # (A) 0.1 k/uL (0-0.7); Eosinophils % (A) 1 %; HCT 42.7 % (34.0-46.0); HGB 14.1 gm/dL (11.4-16.0); Lymphocytes # (A) 1.8 k/uL (1.0-4.8); Lymphocytes % (A) 17 %; MCH 31.4 pg (25.0-35.0); MCV 95.2 fL (80.0-100.0); Mean Platelet Volume 8.1; Monocytes # (A) 0.6 k/uL (0-1.0); Monocytes % (A) 6 %; Neutrophils # (A) 7.7 k/uL (1.3-7.7); Neutrophils % (A) 74 %; Platelet Count 276 k/uL (150-450); RBC 4.49 m/uL (3.80-5.40); RDW 12.1 % (11.5-15.5); WBC 10.4 k/uL (3.8-10.6)
[2019-11-12] MEDS: METOPROLOL TARTRATE 50 MG TAB PO SCH ×2 (08:25→20:31)
[2019-11-12] MEDS: MONTELUKAST 10 MG TAB PO SCH (08:25)
[2019-11-12] MEDS: DILTIAZEM ORAL 30 MG TAB PO SCH ×3 (08:25→21:35)
--- NOTE | 2019-11-12 12:08 | CT ---
EXAMINATION TYPE: CT biopsy lung LT DATE OF EXAM: 11/12/2019 COMPARISON: 11/09/2019 HISTORY: Left lung mass CT DLP: 1070 mGycm The procedure is discussed with the patient, the risks, complications, benefits and alternatives, wer e discussed and any questions were answered. Informed consent was obtained. The patient is placed p thompson on the CT table, prepped and draped in the usual sterile fashion. Utilizing a 20-gauge core biopsy needle access into the left lower lobe mass was achieved with 2 pass es performed. Pathology pending. All elements of maximal barrier and sterile technique were utilize d. The patient remained stable throughout the procedure with no immediate postprocedural complicatio n. IMPRESSION: 1. Successful CT guided core biopsy of a left lower lobe lung mass
--- NOTE | 2019-11-12 12:18 | XR ---
EXAMINATION TYPE: XR chest 1V DATE OF EXAM: 11/12/2019 CLINICAL HISTORY: Status post left lung biopsy TECHNIQUE: Frontal view of the chest obtained. COMPARISON: CT lung biopsy 11/12/2019 FINDINGS: Left lower lobe lung mass redemonstrated. No evidence of left pneumothorax status post ana g biopsy. The cardiomediastinal silhouette is within normal limits for size. Pulmonary vasculature is normal. No acute osseous abnormalities. IMPRESSION: Known left lower lobe lung mass. No evidence of left pneumothorax status post lung biopsy .
[2019-11-12] MEDS: LACTOBACILLUS ACIDOPH & BULGAR 1 EACH PACKET PO SCH (13:01)
[2019-11-12] MEDS: HEPARIN SOD,PORK IN 0.45% NACL 25,000 UNIT in 0.45% NACL 1 250ML.BAG IV SCH (13:01)
[2019-11-12] MEDS: ASPIRIN 81 MG PO SCH (13:02)
--- NOTE | 2019-11-12 14:11 | PN ---
PROGRESS NOTE Mrs. Harrington is an 79-year-old female who presented with atrial fibrillation, rapid ventricular response, was noted to have a left lower lobe mass, underwent a CT-guided biopsy today. She continues to have some episode of paroxysmal atrial fibrillation. She is in sinus mechanism at this time. She is feeling well overall. She denies any chest pain. No dizziness. No palpitation. She continued to be on aspirin 81 mg daily, Lipitor 10 mg daily, diltiazem 30 mg 3 times a day, metoprolol tartrate 50 mg twice a day, and Singulair 10 mg daily. PHYSICAL EXAMINATION: Blood pressure running in the 120s to 150s with a heart rate in the 70s. LUNGS: No wheezes. HEART: Regular rate and rhythm, S1, S2. No S3. No rub. ABDOMEN: Soft, nontender. EXTREMITIES: No edema. LAB DATA: Revealed a hemoglobin of 14.1. IMPRESSION: 1. Left lower lobe mass highly consistent with malignancy, underwent a biopsy today. 2. Paroxysmal atrial fibrillation in sinus mechanism at this time. 3. History of hypertension. 4. Hyperlipidemia. RECOMMENDATION: From the cardiac standpoint, will continue present therapy. Will reinitiate anticoagulation when it is acceptable by the Radiology Service. I will switch her to oral anticoagulation tomorrow. If she is stable, she should be able to be discharged home and followed as an outpatient. MMODL / IJN: [id number] /
--- NOTE | 2019-11-12 14:40 | P.PN ---
Subjective Progress Note Date: 11/12/19 Principal diagnosis: Left lower lobe lung mass, weight loss, back pain This is a 79-year-old white female patient of Dr. Hoover, with past medical history of hypertension, hyperlipidemia, hypothyroidism, previous history of smoking, in remission for last 30 years, patient quit smoking in her 50s, did smoke 1,5 packs a day for 35 years. patient presented to the emergency depart ent on 11/09/2019 for evaluation of back pain, and elevated heart rate. Her back pain is in her left buttock area traveling across her lower back. EKG showed atrial fibrillation with rapid ventricular response and the rate of 145 BPM, patient was started on Cardizem drip for rate control, she had since converted to sinus rhythm, and it isn't drip has been discontinued, echocardiogram is pending, cardiology has been consulted, patient denies any hemoptysis, no cough, no congestion. However patient has been experiencing weight loss, and she has lost over 20 pounds in the last 3 months, she has been experiencing back pain, and lack of appetite.denied any fever or chills. lab work showed a white blood cell count of 11.4, hemoglobin of 13.5, sodium of 131, potassium is 4.0, chloride is 97, CO2 is 26, BUN of 9 creatinine 0.44, lactic acid was 1.2, LFTs were within normal limits, troponins were less than 0.0123, TSH was within normal limits at 3.0, urinalysis was positive for ketones but n egative for any signs of infection. CT angios of the chest was completed showing left lower lobe lung mass measuring 3.5 x 3.5 cm in the AP transverse dimension extending from the pleural margin into the left perihilar location, there were bilateral emphysematous changes present in the lungs, with bilateral hilar adenopathy, subcarinal adenopathy, retrocaval pretracheal adenopathy, and prevascular adenopathy. There was no evidence of pulmonary embolism. On 11/11/2019 patient seen in follow-up on selective care unit, she has converted to sinus rhythm, Cardizem drip has been discontinued, she remains on heparin infusion and one baby aspirin per day, she denies any pulmonary complaints, she still has some lower back pain when she is up and moving around, but no acute distress, room air pulse ox is 95%, her lungs are clear, no rhonchi or wheezing, she is afebrile. Interventional radiology has been consulted for CT-guided fine-needle biopsy of the left lower lobe lung mass. We spoke to the radiology nurse who stated that her heparin drip needs to be on hold 4 hours and likely the procedure will be scheduled for tomorrow morning. On 11/12/2019 patient seen in follow-up on selective care unit, she is calm and comfortable, in no acute distress. She had a CT-guided needle biopsy of the left lower lobe lung mass. She tolerated procedure very well, vital signs are stable, she is back in her room, eating lunch. Denies any shortness of breath, denies any distress, room air pulse ox is 96%. Chest x-ray shows no evidence of left pneumothorax status post lung biopsy. Objective - Vital Signs Vital signs: Vital Signs Temp 97.6 F 11/12/19 08:00 Pulse 78 11/12/19 11:49 Resp 16 11/12/19 11:49 BP 121/72 11/12/19 11:49 Pulse Ox 96 11/12/19 11:49 Intake & Output 11/11/19 11/12/19 11/12/19 18:59 06:59 18:59 Intake Total 720 678.907 0 Output Total 1600 500 Balance -880 678.907 -500 Weight 54.1 kg 54.1 kg Intake: IV 10 0.9 10 Intake, IV Titration 188.907 Amount Heparin Sod,Pork in 0.45% 188.907 NaCl 25,000 unit In 0.45 % NaCl 1 250ml.bag @ 12 UNITS/KG/HR 6.9 mls/hr IV .Q24H [facility] Rx#:[id number] Oral 720 480 0 Output: Urine 1600 500 Other: Voiding Method Toilet Toilet # Voids 1 2 - Exam GENERAL EXAM: Alert, very pleasant, 79-year-old white female, on room air with a pulse ox of 95% , comfortable in no apparent distress. HEAD: Normocephalic/atraumatic. EYES: Normal reaction of pupils, equal size. Conjunctiva pink, sclera white. NOSE: Clear with pink turbinates. THROAT: No erythema or exudates. NECK: No masses, no JVD, no thyroid enlargement, no adenopathy. CHEST: No chest wall deformity. Symmetrical expansion. LUNGS: Equal air entry with no crackles, wheeze, rhonchi or dullness. CVS: Irregular rate and rhythm, normal S1 and S2, no gallops, no murmurs, no rubs ABDOMEN: Soft, nontender. No hepatosplenomegaly, normal bowel sounds, no guarding or rigidity. EXTREMITIES: No clubbing, no edema, no cyanosis, 2+ pulses and upper and lower extremities. MUSCULOSKELETAL: Muscle strength and tone normal. SPINE: No scoliosis or deformity SKIN: No rashes CENTRAL NERVOUS SYSTEM: Alert and oriented -3. No focal deficits, tone is nor mal in all 4 extremities. PSYCHIATRIC: Alert and oriented -3. Appropriate affect. Intact judgment and insight. - Labs CBC & Chem 7: 11/12/19 06:44 11/11/19 06:08 Labs: Abnormal Lab Results - Last 24 Hours (Table) 11/12/19 Range/Units 06:44 APTT 45.6 H (22.0-30.0) sec Assessment and Plan Plan: Assessment: #1. Left lower lobe lung mass measuring 3.5 x 3.5 cm, and subcarinal, bilateral hilar, retrocaval, pretracheal and prevascular adenopathy, concerning for prima ry lung cancer #2. Back pain, weight loss of 20 pounds in the last 3 months, anorexia likely related to the above #3. Mild hyponatremia with serum sodium of 131, the possibility of SIADH #4. New onset A. fib with RVR, on presentation, patient was treated with IV Cardizem, had since converted to sinus mechanism with slightly tachycardic rate #5. History of hypertension #6. History of hyperlipidemia #7. Former smoker, in remission for last 30 years, carries a 45 year -pack-year smoking history Plan: Patient is doing well status post left lower lobe CT-guided biopsy, tolerated procedure well, no shortness of breath, vital signs are stable, anticoagulation can be restarted per cardiology recommendations. Clinically stable, can be considered for discharge home with outpatient follow-up in the office in regards to the lung biopsy results with Dr. Lanza. I performed a history & physical examination of the patient and discussed their management with my nurse practitioner, Anne-Marie Carter. I reviewed the nurse practitioner's note and agree with the documented findings and plan of care. Lung sounds are positive for diminished breath sounds. The findings and the impression was discussed with the patient. I attest to the documentation by the nurse practitioner. Time with Patient: Less than 30
[2019-11-12] MEDS: ATORVASTATIN 10 MG TAB PO SCH (20:31)
--- NOTE | 2019-11-13 00:45 | P.PN ---
Subjective Progress Note Date: 11/12/19 Principal diagnosis: Afib with RVR and Lung mass Ms. Harrington is a 79-year-old female, who follows with Dr. Hoover in the outpatient setting, with a past medical history of hypertension, hyperlipidemia, 40 pack years of previous smoking history, quit 30 years back coming in with a chief complaint of low back pain. Patient complains of pain mostly in the left side of the buttock area radiating to her left leg. She states that it started few weeks back and has worsened over the course of time. She also reports significant weight loss of around 30 pounds in the past 3 months. Patient denies having any pain radiating to her legs. Denies having any tingling or numbness in her lower extremities. She denies loss of bowel or bladder control. She has chronic urinary incontinence that is stable. Patient was also slightly nauseous and felt feeling of warmth but did not throw up. Patient denied having any chest pain or palpitations. No cough or difficulty in breathing. She denied having any abdominal pain nausea or vomiting. No orthopnea PND or lower extremi ty swelling. She denies having any recent travel. In the emergency patient was found to have atrial fibrillation with rapid ventricular rate and so she was started on IV Cardizem drip. Currently she is in sinus rhythm. In the ED, patient had blood work done showing white count of 11.4, hemoglobin 13.5, platelets 291. Her electrolytes sodium 131, potassium 4, chloride 97, bicarb 26, BUN 9, creatinine 0.44 with a lactic acid of 1.2. She had a UA that is negative for nitrites and leukocyte esterase patient had CTA of the chest that was showing bilateral emphysematous changes in the lungs and a mass in the left lower lobe measuring 3.5 x 3.5 cm in AP transverse dimension, the lesion extends from the pleural margin into the left perihilar location showing a transverse dimension of approximately 9.5 cm. These findings are highly suggestive of malignancy. So the patient is admitted for further work-up with pulmonary and cardiology consults. On 11/11/19 - No acute events reported by nursing staff overnight. Patient is sitting up in the bed and having her dinner. As the patient has been admitted for atrial fibrillation and needs anticoagulation she is currently on heparin. She is currently in sinus rhythm. Her back pain is better today compared to yesterday. Patient is tentatively scheduled for CT-guided fine-needle biopsy of the left lower mass by interventional radiology for tomorrow morning. On review of systems-patient denies having any fevers chills or rigors. No chest pain or palpitations. No cough or difficulty in breathing. No abdominal pain nausea vomiting or diarrhea. No dysuria or hematuria. On 11/12/2019 -patient is sitting up in the bed with at bedside. She just got back from the CT-guided lung biopsy. Patient complains of mild soreness on the left side of her upper chest, at the site of biopsy. She denies having any cough or difficulty in breathing. On review of other systems she denies having any fevers chills or rigors. No chest pain or palpitations. No dysuria or hematuria. On reviewing the patient's vitals temperature 97.8, heart rate 67, respiratory rate 18, blood pressure 128/60, saturating at 93% on room air. Patient's labs from this morning reviewed showed white count of 10.4, hemoglobin 14.1 and platelets of 276. Active Medications Aspirin (Aspirin) 81 mg PO DAILY [facility] Last Admin: 11/12/19 13:02 Dose: 81 mg Documented by: Atorvastatin Calcium (Lipitor) 10 mg PO HS [facility] Last Admin: 11/12/19 20:31 Dose: 10 mg Documented by: Diltiazem HCl (Cardizem Oral) 30 mg PO TID [facility] Last Admin: 11/12/19 21:35 Dose: 30 mg Documented by: Heparin Sodium (Porcine) (Heparin) 0 unit IV PER PROTOCOL PRN; Protocol PRN Reason: Low PTT Heparin Sodium/Sodium Chloride (25,000 unit/ Sodium Chloride) 250 mls @ 6.9 mls/hr IV .Q24H [facility]; Protocol Last Titration: 11/12/19 18:47 Dose: 14 units/kg/hr, 8.05 mls/hr Documented by: Lactobacillus Acidoph/Bulgaricus (Lactinex) 1 each PO DAILY [facility] Last Admin: 11/12/19 13:01 Dose: Not Given Documented by: Levothyroxine Sodium (Synthroid) 50 mcg PO DAILY@0630 [facility] Last Admin: 11/12/19 06:21 Dose: 50 mcg Documented by: Metoprolol Tartrate (Lopressor) 50 mg PO BID [facility] Last Admin: 11/12/19 20:31 Dose: 50 mg Documented by: Montelukast Sodium (Singulair) 10 mg PO DAILY [facility] Last Admin: 11/12/19 08:25 Dose: 10 mg Documented by: Nitroglycerin (Nitrostat) 0.4 mg SUBLINGUAL Q5M PRN PRN Reason: Chest Pain Objective - Vital Signs Vital signs: Vital Signs Temp 97.8 F 11/12/19 12:15 Pulse 67 11/12/19 12:15 Resp 18 11/12/19 12:15 BP 128/60 11/12/19 12:15 Pulse Ox 93 L 11/12/19 12:15 Intake & Output 11/11/19 11/12/19 11/12/19 18:59 06:59 18:59 Intake Total 720 678.907 0 Output Total 1600 500 Balance -880 678.907 -500 Weight 54.1 kg 54.1 kg Intake: IV 10 0.9 10 Intake, IV Titration 188.907 Amount Heparin Sod,Pork in 0.45% 188.907 NaCl 25,000 unit In 0.45 % NaCl 1 250ml.bag @ 12 UNITS/KG/HR 6.9 mls/hr IV .Q24H [facility] Rx#:[id number] Oral 720 480 0 Output: Urine 1600 500 Other: Voiding Method Toilet Toilet # Voids 1 2 - Exam PHYSICAL EXAMINATION: GENERAL: elderly female eating her dinner on the bed HEENT: Pupils are round and equally reacting to light. EOMI. No scleral icterus. No conjunctival pallor. CARDIOVASCULAR: S1 and S2 heard. No additional sounds. CHEST: Left side of the upper back at the biopsy site - no drainage. Decreased breath sounds in all lung telles ABDOMEN: Soft, nontender, nondistended, normoactive bowel sounds. MUSCULOSKELETAL: No joint swelling or deformity. No point tenderness on the lumbar spine. EXTREMITIES: No cyanosis, clubbing, or pedal edema. NEUROLOGICAL: Alert awake oriented 3, Gross neurological examination did not reveal any focal deficits. - Labs CBC & Chem 7: 11/12/19 06:44 11/11/19 06:08 Labs: Abnormal Lab Results - Last 24 Hours (Table) 11/12/19 Range/Units 06:44 APTT 45.6 H (22.0-30.0) sec Assessment and Plan Assessment: ASSESSMENT New onset atrial fibrillation -currently in sinus rhythm Acute left buttock pain - resolved CT of the chest showing left lung mass-high possibility of malignancy Unintentional weight loss Hypertension Hyperlipidemia 40 to 45 pack years of smoking Mild hyponatremia PLAN: Patient was given IV Cardizem in the ER and she converted into sinus rhythm. She has been started on anticoagulation with heparin, in view of needing biopsy of the left lower lung mass. Status post CT-guided biopsy, the patient is doing well. Patient will be restarted on heparin at 6 PM and tomorrow will be converted to oral anticoagulation as per cardiology recommendation. Continue with the rest of her current medication regimen. Further recommendations to follow depending on the progress of the patient. Further recommendations to follow depending on the progress patient.
[2019-11-13 06:24] LABS: Basophils # (A) 0.1 k/uL (0-0.2); Basophils % (A) 1 %; Eosinophils # (A) 0.1 k/uL (0-0.7); Eosinophils % (A) 1 %; HCT 45.8 % (34.0-46.0); HGB 14.6 gm/dL (11.4-16.0); Lymphocytes % (A) 31 %; MCH 30.5 pg (25.0-35.0); MCHC 31.8 g/dL (31.0-37.0); Mean Platelet Volume 8.5; Monocytes # (A) 0.5 k/uL (0-1.0); Monocytes % (A) 5 %; Neutrophils % (A) 61 %; Platelet Count 307 k/uL (150-450); RBC 4.78 m/uL (3.80-5.40); RDW 12.2 % (11.5-15.5); WBC 9.8 k/uL (3.8-10.6)
[2019-11-13 06:34] LABS: African American GFR (CKD) >90 (>60 ml/min/1.73 sqM); Anion Gap 8 mmol/L; Blood Urea Nitrogen 6 mg/dL (7-17); Calcium 10.5 mg/dL (8.4-10.2); Carbon Dioxide 27 mmol/L (22-30); Chloride 98 mmol/L (98-107); Glucose 102 mg/dL (74-99); Non-African American GFR(CKD) >90 (>60 ml/min/1.73 sqM); Potassium 3.2 mmol/L (3.5-5.1); Sodium 133 mmol/L (137-145)
[2019-11-13] MEDS: LEVOTHYROXINE 50 MCG TAB PO SCH (06:57)
[2019-11-13] MEDS: ASPIRIN 81 MG PO SCH (09:34)
[2019-11-13] MEDS: MONTELUKAST 10 MG TAB PO SCH (09:34)
[2019-11-13] MEDS: METOPROLOL TARTRATE 50 MG TAB PO SCH (09:34)
[2019-11-13] MEDS: HEPARIN SOD,PORK IN 0.45% NACL 25,000 UNIT in 0.45% NACL 1 250ML.BAG IV SCH (09:35)
[2019-11-13] MEDS: DILTIAZEM ORAL 30 MG TAB PO SCH (09:35)
[2019-11-13] MEDS: LACTOBACILLUS ACIDOPH & BULGAR 1 EACH PACKET PO SCH (09:37)
[2019-11-13 10:08] VITALS: TEMP 97.5
[2019-11-13] MEDS ORDERED: POTASSIUM CHLORIDE ER 20 MEQ TAB.ER PO STA (12:24)
--- NOTE | 2019-11-13 13:43 | P.PN ---
Subjective Progress Note Date: 11/13/19 this is a pleasant 79-year-old female patient who presented with atrial fibrillation, rapid ventricular response. Was noted to have left lower lobe mass and underwent a CT-guided biopsy yesterday. She continues to have SOME episodes of paroxysmal atrial fibrillation. She is in sinus mechanism at this time. Overall she is feeling well. She denies any chest pain, dizziness or palpitations. She is currently on aspirin 81 mg by mouth daily, Lipitor 10 mg by mouth daily, diltiazem 30 mg by mouth 3 times a day, metoprolol titrate 50 mg by mouth twice a day and Singulair 10 mg daily. Objective - Vital Signs Vital signs: Vital Signs Temp 97.5 F L 11/13/19 08:00 Pulse 63 11/13/19 08:00 Resp 18 11/13/19 08:00 BP 115/54 11/13/19 08:00 Pulse Ox 95 11/13/19 08:00 Intake & Output 11/12/19 11/13/19 11/13/19 18:59 06:59 18:59 Intake Total 780 359.14 Output Total 500 Balance 280 359.14 Weight 53.8 kg Intake: Intake, IV Titration 0 119.14 Amount Heparin Sod,Pork in 0.45% 0 119.14 NaCl 25,000 unit In 0.45 % NaCl 1 250ml.bag @ 12 UNITS/KG/HR 6.9 mls/hr IV .Q24H [facility] Rx#:[id number] Oral 780 240 Output: Urine 500 Other: Voiding Method Toilet # Voids 2 2 1 - Exam PHYSICAL EXAMINATION: HEENT: [Head is atraumatic, normocephalic. Pupils equal, round. Neck is supple. There is no elevated jugular venous pressure.] HEART EXAMINATION: [Heart sounds regular, S1 and S2 normal. No murmur or gallop heard.] CHEST EXAMINATION:[ Lungs are clear to auscultation and precussion. No chest wall tenderness is noted on palpation or with deep breathing.] ABDOMEN: [ Soft, nontender. Bowel sounds are heard. No organomegaly noted]. EXTREMITIES:[ 2+ peripheral pulses with no evidence of peripheral edema and no calf tenderness noted]. NEUROLOGIC [patient is awake, alert and oriented x3.] . - Labs CBC & Chem 7: 11/13/19 05:55 11/13/19 05:55 Labs: Abnormal Lab Results - Last 24 Hours (Table) 11/13/19 11/13/19 11/13/19 Range/Units 00:57 05:55 05:55 APTT 47.8 H 48.4 H (22.0-30.0) sec Sodium 133 L (137-145) mmol/L Potassium 3.2 L (3.5-5.1) mmol/L BUN 6 L (7-17) mg/dL Creatinine 0.44 L (0.52-1.04) mg/dL Glucose 102 H (74-99) mg/dL Calcium 10.5 H (8.4-10.2) mg/dL Assessment and Plan Assessment: #1 left lower lobe mass highly consistent with malignancy, underwent biopsy yesterday #2 paroxysmal atrial fibrillation currently in sinus mechanism #3 history of hypertension #4 hyperlipidemia Plan: from cardiology's perspective we will continue current medications. We will initiate oral anticoagulation when it is acceptable by radiology service. She will be started on Eliquis 2.5 mg by mouth twice daily based on guidelines according to her age and weight. we will follow-up with the patient in the office within the next 2 weeks. [employer] note has been reviewed, I agree with a documented findings and plan of care. Patient was seen and examined.
--- NOTE | 2019-11-13 13:57 | P.PN ---
Subjective Progress Note Date: 11/13/19 Principal diagnosis: Left lower lobe lung mass, weight loss, back pain This is a 79-year-old white female patient of Dr. Hoover, with past medical history of hypertension, hyperlipidemia, hypothyroidism, previous history of smoking, in remission for last 30 years, patient quit smoking in her 50s, did smoke 1,5 packs a day for 35 years. patient presented to the emergency depart ent on 11/09/2019 for evaluation of back pain, and elevated heart rate. Her back pain is in her left buttock area traveling across her lower back. EKG showed atrial fibrillation with rapid ventricular response and the rate of 145 BPM, patient was started on Cardizem drip for rate control, she had since converted to sinus rhythm, and it isn't drip has been discontinued, echocardiogram is pending, cardiology has been consulted, patient denies any hemoptysis, no cough, no congestion. However patient has been experiencing weight loss, and she has lost over 20 pounds in the last 3 months, she has been experiencing back pain, and lack of appetite.denied any fever or chills. lab work showed a white blood cell count of 11.4, hemoglobin of 13.5, sodium of 131, potassium is 4.0, chloride is 97, CO2 is 26, BUN of 9 creatinine 0.44, lactic acid was 1.2, LFTs were within normal limits, troponins were less than 0.0123, TSH was within normal limits at 3.0, urinalysis was positive for ketones but n egative for any signs of infection. CT angios of the chest was completed showing left lower lobe lung mass measuring 3.5 x 3.5 cm in the AP transverse dimension extending from the pleural margin into the left perihilar location, there were bilateral emphysematous changes present in the lungs, with bilateral hilar adenopathy, subcarinal adenopathy, retrocaval pretracheal adenopathy, and prevascular adenopathy. There was no evidence of pulmonary embolism. On 11/11/2019 patient seen in follow-up on selective care unit, she has converted to sinus rhythm, Cardizem drip has been discontinued, she remains on heparin infusion and one baby aspirin per day, she denies any pulmonary complaints, she still has some lower back pain when she is up and moving around, but no acute distress, room air pulse ox is 95%, her lungs are clear, no rhonchi or wheezing, she is afebrile. Interventional radiology has been consulted for CT-guided fine-needle biopsy of the left lower lobe lung mass. We spoke to the radiology nurse who stated that her heparin drip needs to be on hold 4 hours and likely the procedure will be scheduled for tomorrow morning. On 11/12/2019 patient seen in follow-up on selective care unit, she is calm and comfortable, in no acute distress. She had a CT-guided needle biopsy of the left lower lobe lung mass. She tolerated procedure very well, vital signs are stable, she is back in her room, eating lunch. Denies any shortness of breath, denies any distress, room air pulse ox is 96%. Chest x-ray shows no evidence of left pneumothorax status post lung biopsy. The patient is seen today 11/13/2019 in follow-up on the selective care unit. She is awake and alert in no acute distress. Resting quite comfortably in bed. No worsening shortness of breath cough or congestion. No hemoptysis. Maintaining good O2 saturations in the mid 90s on room air. She's afebrile. Hemodynamically stable. Anxious to go home. Objective - Vital Signs Vital signs: Vital Signs Temp 97.5 F L 11/13/19 08:00 Pulse 63 11/13/19 08:00 Resp 18 11/13/19 08:00 BP 115/54 11/13/19 08:00 Pulse Ox 95 11/13/19 08:00 Intake & Output 11/12/19 11/13/19 11/13/19 18:59 06:59 18:59 Intake Total 780 359.14 Output Total 500 Balance 280 359.14 Weight 53.8 kg Intake: Intake, IV Titration 0 119.14 Amount Heparin Sod,Pork in 0.45% 0 119.14 NaCl 25,000 unit In 0.45 % NaCl 1 250ml.bag @ 12 UNITS/KG/HR 6.9 mls/hr IV .Q24H [facility] Rx#:[id number] Oral 780 240 Output: Urine 500 Other: Voiding Method Toilet # Voids 2 2 1 - Exam GENERAL EXAM: Alert, very pleasant 79-year-old female patient, on room air, active, comfortable in no apparent distress. HEAD: Normocephalic. EYES: Normal reaction of pupils, equal size. NOSE: Clear with pink turbinates. THROAT: No erythema or exudates. NECK: No masses, no JVD. CHEST: No chest wall deformity. LUNGS: Equal air entry with no crackles, wheeze, rhonchi or dullness. CVS: S1 and S2 normal with no audible murmur, regular rhythm. ABDOMEN: No hepatosplenomegaly, normal bowel sounds, no guarding or rigidity. SPINE: No scoliosis or deformity SKIN: No rashes CENTRAL NERVOUS SYSTEM: No focal deficits, tone is normal in all 4 extremities. EXTREMITIES: There is no peripheral edema. No clubbing, no cyanosis. Peripheral pulses are intact. - Labs CBC & Chem 7: 11/13/19 05:55 11/13/19 05:55 Labs: Abnormal Lab Results - Last 24 Hours (Table) 11/13/19 11/13/19 11/13/19 Range/Units 00:57 05:55 05:55 APTT 47.8 H 48.4 H (22.0-30.0) sec Sodium 133 L (137-145) mmol/L Potassium 3.2 L (3.5-5.1) mmol/L BUN 6 L (7-17) mg/dL Creatinine 0.44 L (0.52-1.04) mg/dL Glucose 102 H (74-99) mg/dL Calcium 10.5 H (8.4-10.2) mg/dL Assessment and Plan Assessment: #1. Left lower lobe lung mass measuring 3.5 x 3.5 cm, and subcarinal, bilateral hilar, retrocaval, pretracheal and prevascular adenopathy, concerning for primary lung cancer. Status post CT-guided biopsy on 11/12/2019. Pathology pending. #2. Back pain, weight loss of 20 pounds in the last 3 months, anorexia likely related to the above #3. Mild hyponatremia with serum sodium of 131, the possibility of SIADH #4. New onset A. fib with RVR, on presentation, patient was treated with IV Cardizem, had since converted to sinus mechanism with slightly tachycardic rate #5. History of hypertension #6. History of hyperlipidemia #7. Former smoker, in remission for last 30 years, carries a 45 year -pack-year smoking history Plan: The patient was seen and evaluated by Dr. Corcoran She is stable for discharge from the pulmonary standpoint Follow-up in the office later next week for biopsy results I, the cosigning physician, performed a history & physical examination of the patient. Lungs sounds are clear. Maintaining good O2 saturations in the 90s on room air. I discussed the assessment and plan of care with my nurse practitioner, Eden Sow. I attest to the above note as dictated by her.
[2019-11-13 13:59] VITALS: BP 120/70; PULSE 67; RESP 20
--- NOTE | 2019-11-16 08:37 | CDI ---
Documentation Clarification Form Date: 11/16/19 From: Daxa Marmolejo [facility] Phone: If you have a question about this query, please contact Berna Acuña, Management Consulting at [phone] between 8am and 5pm. Admit Date: 11/09/19 Discharge Date:11/13/19 Patient Name: Kerline Harrington Visit Number: [id number] ATTENTION: The Clinical Documentation Specialists (CDI) and [facility] Coding Staff appreciate your assistance in clarifying documentation. Please respond to the clarification below the line at the bottom and electronically sign. The CDI & [facility] Coding staff will review the response and follow-up if needed. Please note: Queries are made part of the Legal Health Record. If you have any questions, please contact the author of this message via ITS. Dear Dr. Mays, Malnutrition has been documented in Dietary Consult 11/10. Nutrition diagnosis: Malnutrition severe, acute History/Risk Factors: Lung CA, AFIB, Hyponatremia, Emphysema Clinical Indicators: Anorexia, Unintended weight loss Labs: Albumin 3.7, Total Protein 6.2 Current BMI: 22.5 Insufficient energy intake: Intake less than 50% estimated energy intake Weight Loss: 7.5 % involuntary sascha loss UBW in 3 months Treatment: Enlive TID, Monitor PO Dietary Consult: 11/10- Severe PCM Supplements: Enlive TID In your professional opinion, can you please clarify if these findings signify one of the following conditions? Mild Protein-Calorie Malnutrition Moderate Protein-Calorie Malnutrition Severe Protein-Calorie Malnutrition Malnutrition, unspecified Malnutrition following GI surgery Other condition, please specify Unable to determine Severe Protein-Calorie Malnutrition MTDD
== END 2019-11-13 15:41 | disposition home or self-care (01) | DRG 308 ==
LOC: EC 19:01 → 3SCARD 22:09
PROVIDERS: ADMIT Hospitalist; ATTEND Hospitalist
PROC: 0BBJ3ZX Excision of Left Lower Lung Lobe, Percutaneous Approach, Diagnostic (ICD-10-PCS; principal; 2019-11-12)
DX: I48.0 Paroxysmal atrial fibrillation (principal); E43 Unspecified severe protein-calorie malnutrition; E87.1 Hypo-osmolality and hyponatremia; C34.32 Malignant neoplasm of lower lobe, left bronchus or lung; J43.9 Emphysema, unspecified; I10 Essential (primary) hypertension; E78.5 Hyperlipidemia, unspecified; E03.9 Hypothyroidism, unspecified; R32 Unspecified urinary incontinence; J30.2 Other seasonal allergic rhinitis; R59.0 Localized enlarged lymph nodes; M54.5 Low back pain; Z68.22 Body mass index [BMI] 22.0-22.9, adult; Z79.899 Other long term (current) drug therapy; Z79.890 Hormone replacement therapy; Z79.82 Long term (current) use of aspirin; Z90.49 Acquired absence of other specified parts of digestive tract; Z98.890 Other specified postprocedural states; Z98.51 Tubal ligation status; Z87.891 Personal history of nicotine dependence
CPT/HCPCS: 36415; 71045; 71275; 74177; 77012; 80048; 80053; 80061; 81003; 82550; 83605; 83735; 84100; 84443; 84484; 85025; 85027; 85610; 85730; 88305; 88341; 88342; 93005; 93306; 96365; 96366; 96375; 96376; 99291

== ENCOUNTER → 2019-12-03 | Outpatient (CLI) | payer MEDICARE ==
--- NOTE | 2019-12-03 14:21 | PE ---
Nuclear medicine PET/CT HISTORY: Lung carcinoma, initial Patient received 11.6 mCi F-18 FDG intravenously in delayed scanning was performed from the skull bas e to the mid thighs. Localization and attenuation correction CT scan was correlated CT chest abdomen pelvis 11/09/2019 osseous structures are remarkable for lucent lesion present within the L2 vertebral body with associa rita hypermetabolic uptake as well as the posterior element of the right T8 vertebral body a small foc us of lucency with associated uptake. Chest and neck show the mass in the left lower lobe with associated hypermetabolic uptake, there is l eft hilar hypermetabolic uptake, abnormal subcarinal uptake extending towards the left hilar region. No pleural or pericardial effusion. No supraclavicular or cervical uptake. Abdomen shows no suspicious uptake corresponding to patient's adrenal glands. No retroperitoneal loida opathy or liver mass. No ascites. IMPRESSION: Findings compatible with lung carcinoma and metastatic disease to the skeleton.
== END | disposition home or self-care (01) ==
LOC: RADPETMAIN 08:52
PROVIDERS: ATTEND Internal Medicine
DX: C34.82 Malignant neoplasm of overlapping sites of left bronchus and lung (principal); C79.51 Secondary malignant neoplasm of bone
CPT/HCPCS: 78815; A9552

== ENCOUNTER → 2019-12-30 | Outpatient (CLI) | payer MEDICARE ==
--- NOTE | 2019-12-30 15:52 | MR ---
EXAMINATION TYPE: MR thoracic spine wo/w con DATE OF EXAM: 12/30/2019 COMPARISON: Prior PET/CT December 03, 2019. HISTORY: Abnormal PET CT, Mets, newly diagnosed lung cancer TECHNIQUE: Multiplanar, multisequence imaging of thoracic spine is performed without and with IV cont rast, patient injected with 5 cc of Gadavist. FINDINGS: Spinal cord shows normal course, caliber, and signal as it courses the thoracic spine. Ve rtebral body heights and alignment are satisfactory. Disc space heights fairly well maintained. No georges spicious posterior disc herniations are seen. There is large hemangioma involving T9 vertebra sagitta l image 5 with smaller hemangioma posterior to this sagittal image 7. A few scattered smaller hemangi omas are present. Corresponding to PET/CT there is abnormal low T1 and increased T2 signal with enhan cement involving the right T8 lateral elements seen best sagittal image 10. Finding is consistent wit h focal metastatic deposit given additional larger lesion at the L2 vertebra on PET/CT. Review of the axial images shows degradation in the lower thoracic levels due to patient motion. No large disc herniation is present. There is partial visualization of known left hilar mass or neoplas m axial image 1 series 701 with better visualization on series 601 just inferior to this. There is ab normal subcarinal adenopathy demonstrated. Central left lower lobe mass or neoplasm axial image 17 re demonstrated partially imaged on this study. IMPRESSION: As above. Confirmation of osseous metastatic disease lateral elements right T8 level. No osseous breakthrough.
== END | disposition home or self-care (01) ==
LOC: RADMRIMAIN 13:12
PROVIDERS: ATTEND Internal Medicine Hematology & Oncology
DX: C34.32 Malignant neoplasm of lower lobe, left bronchus or lung (principal); C79.51 Secondary malignant neoplasm of bone; D18.09 Hemangioma of other sites
CPT/HCPCS: 72157; A9585

== ENCOUNTER 2020-01-07 11:03 | Inpatient (IN) | payer MEDICARE ==
[2020-01-07] MEDS ORDERED: SODIUM CHLORIDE 0.9% 500 ML 500 ML IV ONE (11:35)
[2020-01-07] MEDS ORDERED: DILTIAZEM DRIP BOLUS FROM BAG 1 MG SOLN IV ONE ×2 (11:36→12:15)
[2020-01-07] MEDS ORDERED: DILTIAZEM 5 MG/ML 5 ML VIAL IVP STA (11:36)
--- NOTE | 2020-01-07 11:42 | ED ---
General Adult HPI - General Chief complaint: Neuro Symptoms/Deficit Stated complaint: CA Pt, Confusion Time Seen by Provider: 01/07/20 11:05 Source: family, RN notes reviewed, old records reviewed Mode of arrival: wheelchair Limitations: altered mental status - History of Present Illness Initial comments: This is an 79-year-old female who presents emergency Department with a recently diagnosed lung cancer for which she has received 2 radiation treatments. Patient also has a history of atrial fibrillation. states last night she became altered and was wandering around the house and not knowing what was going on. Patient's states that he woke up today and she continued to be altered so he decided to bring her into the emergency department. states she has not had any cough she is not had a fever that he knows of and the re is been no nausea vomiting or diarrhea. states the patient is not complaining of any chest or abdominal pain however she is complaining of some back pain which is been ongoing since she's been diagnosed with the lung cancer. Patient is too altered to give any accurate history at this time - Related Data Home Medications Medication Instructions Recorded Confirmed Ergocalciferol [Vitamin D2 50,000 unit PO FR 11/09/19 01/07/20 (DRISDOL)] Levothyroxine Sodium [Synthroid] 50 mcg PO DAILY 11/09/19 01/07/20 Lovastatin [Altoprev] 20 mg PO HS 11/09/19 01/07/20 Montelukast Sodium [Singulair] 10 mg PO HS 11/09/19 01/07/20 dronabinoL [Dronabinol] 5 mg PO HS 01/07/20 01/07/20 Previous Rx's Medication Instructions Recorded Apixaban [Eliquis] 2.5 mg PO BID #60 tab 11/13/19 Diltiazem Oral [Cardizem*] 30 mg PO TID #90 tab 11/13/19 Metoprolol Tartrate [Lopressor] 50 mg PO BID #60 tab 11/13/19 Allergies Allergy/AdvReac Type Severity Reaction Status Date / Time No Known Allergies Allergy Verified 01/07/20 12:38 Review of Systems ROS Statement: Those systems with pertinent positive or pertinent negative responses have been documented in the HPI. ROS Other: All systems not noted in ROS Statement are negative. Past Medical History Past Medical History: Hyperlipidemia, Hypertension, Thyroid Disorder Additional Past Medical History / Comment(s): seasonal allergies History of Any Multi-Drug Resistant Organisms: None Reported Past Surgical History: Appendectomy, Section, Tonsillectomy, Tubal Ligation Past Anesthesia/Blood Transfusion Reactions: No Reported Reaction Past Psychological History: No Psychological Hx Reported Smoking Status: Former smoker Past Alcohol Use History: None Reported Past Drug Use History: None Reported General Exam - General Exam Comments Initial Comments: GENERAL: Patient is well-developed and well-nourished. Patient is nontoxic and well-hydrated and is in no acute distress. ENT: Neck is soft and supple. No significant lymphadenopathy is noted. Oropharynx is clear. Moist mucous membranes. Neck has full range of motion without eliciting any pain. EYES: The sclera were anicteric and conjunctiva were pink and moist. Extraocular movements were intact and pupils were equal round and reactive to light. Eyelids were unremarkable. PULMONARY: Unlabored respirations. Good breath sounds bilaterally. No audible rales rhonchi or wheezing was noted. CARDIOVASCULAR: There is a regular rate and rhythm without any murmurs gallops or rubs. ABDOMEN: Soft and nontender with normal bowel sounds. SKIN: Skin is clear with no lesions or rashes and otherwise unremarkable. NEUROLOGIC: Patient is alert and oriented 2. But is unable to explain why she is here currently. Cranial nerves II through XII are grossly intact. Motor and sensory are also intact. Normal speech, volume and content. Symmetrical smile. MUSCULOSKELETAL: Normal extremities with adequate strength and full range of motion. No lower extremity swelling or edema. No calf tenderness. LYMPHATICS: No significant lymphadenopathy is noted PSYCHIATRIC: Normal psychiatric evaluation. Limitations: altered mental status Course Vital Signs 01/07/20 01/07/20 01/07/20 11:05 11:19 11:30 Temperature 98.6 F Pulse Rate 93 130 H Respiratory 18 21 Rate Blood Pressure 149/78 90/68 118/101 O2 Sat by Pulse 93 L 83 L 99 Oximetry 01/07/20 01/07/20 01/07/20 11:44 12:00 12:30 Temperature Pulse Rate 146 H 144 H 103 H Respiratory 22 14 19 Rate Blood Pressure 119/87 120/84 O2 Sat by Pulse 96 99 99 Oximetry Medical Decision Making - Medical Decision Making EKG shows atrial fibrillation with a rapid ventricular response with an occasional PVC at a rate of 146 beats a minute QRS is 76 QT interval 32 QTC is 439. Chest x-ray shows mild pulmonary edema. CT of the brain shows no acute abnormality. I spoke with because he agreed to admit the patient admitted the patient wrote admitting orders. I started the patient on a Cardizem drip and give the patient a Cardizem bolus. I switched the patient from eliquis to heparin in case cardiology wanted do any intervention. - Lab Data Result diagrams: 01/07/20 11:23 01/07/20 11:23 Lab Results 01/07/20 01/07/20 01/07/20 Range/Units 11:23 11:23 11:23 WBC 16.7 H (3.8-10.6) k/uL RBC 4.13 (3.80-5.40) m/uL Hgb 13.4 (11.4-16.0) gm/dL Hct 41.1 (34.0-46.0) % MCV 99.7 (80.0-100.0) fL MCH 32.6 (25.0-35.0) pg MCHC 32.7 (31.0-37.0) g/dL RDW 12.5 (11.5-15.5) % Plt Count 284 (150-450) k/uL Neutrophils % 91 % Lymphocytes % 4 % Monocytes % 3 % Eosinophils % 1 % Basophils % 0 % Neutrophils # 15.2 H (1.3-7.7) k/uL Lymphocytes # 0.7 L (1.0-4.8) k/uL Monocytes # 0.5 (0-1.0) k/uL Eosinophils # 0.2 (0-0.7) k/uL Basophils # 0.1 (0-0.2) k/uL PT 11.3 (9.0-12.0) sec INR 1.1 (<1.2) APTT 26.2 (22.0-30.0) sec Sodium 133 L (137-145) mmol/L Potassium 3.2 L (3.5-5.1) mmol/L Chloride 95 L (98-107) mmol/L Carbon Dioxide 29 (22-30) mmol/L Anion Gap 9 mmol/L BUN 19 H (7-17) mg/dL Creatinine 0.68 (0.52-1.04) mg/dL Est GFR (CKD-EPI)AfAm >90 (>60 ml/min/1.73 sqM) Est GFR (CKD-EPI)NonAf 82 (>60 ml/min/1.73 sqM) Glucose 146 H (74-99) mg/dL Calcium 12.8 H (8.4-10.2) mg/dL Total Bilirubin 1.5 H (0.2-1.3) mg/dL AST 47 H (14-36) U/L ALT 21 (4-34) U/L Alkaline Phosphatase 102 (38-126) U/L Troponin I (0.000-0.034) ng/mL Total Protein 6.4 (6.3-8.2) g/dL Albumin 3.7 (3.5-5.0) g/dL Urine Color Urine Appearance (Clear) Urine pH (5.0-8.0) Ur Specific [place] (1.001-1.035) Urine Protein (Negative) Urine Glucose (UA) (Negative) Urine Ketones (Negative) Urine Blood (Negative) Urine Nitrite (Negative) Urine Bilirubin (Negative) Urine Urobilinogen (<2.0) mg/dL Ur Leukocyte Esterase (Negative) Urine RBC (0-5) /hpf Urine WBC (0-5) /hpf Urine Mucus (None) /hpf Urine Opiates Screen (NotDetected) Ur Oxycodone Screen (NotDetected) Urine Methadone Screen (NotDetected) Ur Propoxyphene Screen (NotDetected) Ur Barbiturates Screen (NotDetected) U Tricyclic Antidepress (NotDetected) Ur Phencyclidine Scrn (NotDetected) Ur Amphetamines Screen (NotDetected) U Methamphetamines Scrn (NotDetected) U Benzodiazepines Scrn (NotDetected) Urine Cocaine Screen (NotDetected) U Marijuana (THC) Screen (NotDetected) 01/07/20 01/07/20 Range/Units 11:23 11:54 WBC (3.8-10.6) k/uL RBC (3.80-5.40) m/uL Hgb (11.4-16.0) gm/dL Hct (34.0-46.0) % MCV (80.0-100.0) fL MCH (25.0-35.0) pg MCHC (31.0-37.0) g/dL RDW (11.5-15.5) % Plt Count (150-450) k/uL Neutrophils % % Lymphocytes % % Monocytes % % Eosinophils % % Basophils % % Neutrophils # (1.3-7.7) k/uL Lymphocytes # (1.0-4.8) k/uL Monocytes # (0-1.0) k/uL Eosinophils # (0-0.7) k/uL Basophils # (0-0.2) k/uL PT (9.0-12.0) sec INR (<1.2) APTT (22.0-30.0) sec Sodium (137-145) mmol/L Potassium (3.5-5.1) mmol/L Chloride (98-107) mmol/L Carbon Dioxide (22-30) mmol/L Anion Gap mmol/L BUN (7-17) mg/dL Creatinine (0.52-1.04) mg/dL Est GFR (CKD-EPI)AfAm (>60 ml/min/1.73 sqM) Est GFR (CKD-EPI)NonAf (>60 ml/min/1.73 sqM) Glucose (74-99) mg/dL Calcium (8.4-10.2) mg/dL Total Bilirubin (0.2-1.3) mg/dL AST (14-36) U/L ALT (4-34) U/L Alkaline Phosphatase (38-126) U/L Troponin I 0.191 H* (0.000-0.034) ng/mL Total Protein (6.3-8.2) g/dL Albumin (3.5-5.0) g/dL Urine Color Yellow Urine Appearance Clear (Clear) Urine pH 7.0 (5.0-8.0) Ur Specific [place] 1.011 (1.001-1.035) Urine Protein Trace H (Negative) Urine Glucose (UA) Negative (Negative) Urine Ketones Negative (Negative) Urine Blood Small H (Negative) Urine Nitrite Negative (Negative) Urine Bilirubin Negative (Negative) Urine Urobilinogen <2.0 (<2.0) mg/dL Ur Leukocyte Esterase Trace H (Negative) Urine RBC 6 H (0-5) /hpf Urine WBC 7 H (0-5) /hpf Urine Mucus Rare H (None) /hpf Urine Opiates Screen Not Detected (NotDetected) Ur Oxycodone Screen Not Detected (NotDetected) Urine Methadone Screen Not Detected (NotDetected) Ur Propoxyphene Screen Not Detected (NotDetected) Ur Barbiturates Screen Not Detected (NotDetected) U Tricyclic Antidepress Not Detected (NotDetected) Ur Phencyclidine Scrn Not Detected (NotDetected) Ur Amphetamines Screen Not Detected (NotDetected) U Methamphetamines Scrn Not Detected (NotDetected) U Benzodiazepines Scrn Not Detected (NotDetected) Urine Cocaine Screen Not Detected (NotDetected) U Marijuana (THC) Screen Detected H (NotDetected) Critical Care Time Critical Care Time: Yes Total Critical Care Time: 35 Disposition Clinical Impression: Atrial fibrillation with rapid ventricular response, Altered mental status, Elevated troponin, Pulmonary edema Disposition: ADMITTED IP TO THIS HOSP Referrals: Dorita Hoover MD [Primary Care Provider] - 1-2 days Time of Disposition: 12:51
[2020-01-07 11:52] LABS: Basophils # (A) 0.1 k/uL (0-0.2); Basophils % (A) 0 %; Eosinophils # (A) 0.2 k/uL (0-0.7); Eosinophils % (A) 1 %; HCT 41.1 % (34.0-46.0); HGB 13.4 gm/dL (11.4-16.0); Lymphocytes # (A) 0.7 k/uL (1.0-4.8); Lymphocytes % (A) 4 %; MCH 32.6 pg (25.0-35.0); MCHC 32.7 g/dL (31.0-37.0); MCV 99.7 fL (80.0-100.0); Mean Platelet Volume 8.6; Monocytes # (A) 0.5 k/uL (0-1.0); Monocytes % (A) 3 %; Neutrophils # (A) 15.2 k/uL (1.3-7.7); Neutrophils % (A) 91 %; Platelet Count 284 k/uL (150-450); RBC 4.13 m/uL (3.80-5.40); RDW 12.5 % (11.5-15.5); WBC 16.7 k/uL (3.8-10.6)
[2020-01-07 12:01] LABS: ALT 21 U/L (4-34); AST 47 U/L (14-36); African American GFR (CKD) >90 (>60 ml/min/1.73 sqM); Albumin 3.7 g/dL (3.5-5.0); Alkaline Phosphatase 102 U/L (38-126); Anion Gap 9 mmol/L; Blood Urea Nitrogen 19 mg/dL (7-17); Calcium 12.8 mg/dL (8.4-10.2); Carbon Dioxide 29 mmol/L (22-30); Chloride 95 mmol/L (98-107); Glucose 146 mg/dL (74-99); Non-African American GFR(CKD) 82 (>60 ml/min/1.73 sqM); Sodium 133 mmol/L (137-145); Total Bilirubin 1.5 mg/dL (0.2-1.3); Total Protein 6.4 g/dL (6.3-8.2)
[2020-01-07 12:03] LABS: Potassium 3.2 mmol/L (3.5-5.1)
[2020-01-07] MEDS: DILTIAZEM 125 MG in SODIUM CHLORIDE 0.9% 100 ML IV SCH (12:25)
[2020-01-07 12:30] LABS: Amphetamine Screen,Urine Not Detected (NotDetected); Barbiturate Screen,Urine Not Detected (NotDetected); Benzodiazepines Screen,Urine Not Detected (NotDetected); Cocaine Screen,Urine Not Detected (NotDetected); Methadone Screen, Urine Not Detected (NotDetected); Opiate Screen,Urine Not Detected (NotDetected); Oxycodone Screen, Urine Not Detected (NotDetected); Phencyclidine Screen,Urine Not Detected (NotDetected); Tricyclic Antidepressant,Urine Not Detected (NotDetected); Urn Cannabinoid Scrn Detected (NotDetected)
--- NOTE | 2020-01-07 12:30 | XR ---
EXAMINATION TYPE: XR chest 2V DATE OF EXAM: 01/07/2020 CLINICAL HISTORY: Altered mental status . History of lung cancer. TECHNIQUE: Frontal and lateral views of the chest are obtained. COMPARISON: 11/12/2019 chest radiograph FINDINGS: Cardiomegaly. Pulmonary vascular congestion. The known left lower lobe lung mass is less c onspicuous than 11/12/2019 comparison. There is redemonstrated blunting of the left costophrenic angle , without overt pleural effusion. No pneumothorax. Degenerative changes of the shoulders. No displace d osseous fractures. IMPRESSION: 1. Cardiomegaly and pulmonary vascular congestion may represent CHF. 2. Known left lower lobe lung mass is less conspicuous than 11/12/2019 radiograph comparison.
[2020-01-07 12:33] LABS: Appearance,Urine Clear (Clear); Bilirubin,Urine Negative (Negative); Blood,Urine Small (Negative); Color,Urine Yellow; Glucose,Urine (UA) Negative (Negative); Ketones,Urine Negative (Negative); Leukocyte Esterase,Urine Trace (Negative); Mucus,Urine Rare /hpf; Nitrite,Urine Negative (Negative); Protein,Urine Trace (Negative); RBC,Urine 6 /hpf (0-5); Specific Gravity,Urine 1.011 (1.001-1.035); Urobilinogen,Urine <2.0 mg/dL (<2.0); WBC,Urine 7 /hpf (0-5)
--- NOTE | 2020-01-07 12:33 | CT ---
EXAMINATION TYPE: CT brain wo con DATE OF EXAM: 01/07/2020 HISTORY: altered mental status CT DLP: 1098.4 mGycm. Automated Exposure Control for Dose Reduction was Utilized. TECHNIQUE: CT scan of the head is performed without contrast. COMPARISON: None FINDINGS: There is no acute intracranial hemorrhage, midline shift, or mass effect identified. Volume loss. Mod erate patchy white matter hypodensities likely sequela of chronic microvascular ischemic change. The ventricles, sulci, and cisterns are normal in size and configuration. No extra-axial fluid collection. Bones and extracranial soft tissues are intact. The globes are gross ly symmetric with postsurgical changes. Visualized sinuses and mastoid air cells are clear. IMPRESSION: 1. No acute intracranial hemorrhage, midline shift, or mass effect. 2. White matter hypodensities likely sequela of chronic microvascular ischemic change.
[2020-01-07] MEDS: METOPROLOL TARTRATE 50 MG TAB PO SCH ×2 (12:38→20:31)
[2020-01-07] MEDS ORDERED: FUROSEMIDE 10 MG/ML 2 ML VIAL IV ONE (12:40)
[2020-01-07 12:48] LABS: INR 1.1 (<1.2); Partial Thromboplastin Time 26.2 sec (22.0-30.0); Prothrombin Time 11.3 sec (9.0-12.0)
[2020-01-07] MEDS ORDERED: HEPARIN SODIUM,PORCINE 5,000 UNIT/ML 1 ML VIAL IV ONE (12:53)
[2020-01-07] MEDS ORDERED: NITROGLYCERIN SL TABS 0.4 MG TAB SUBLINGUAL PRN (12:53)
[2020-01-07] MEDS ORDERED: HEPARIN SOD,PORK IN 0.45% NACL 25,000 UNIT in 0.45% NACL 1 250ML.BAG IV SCH (13:00)
--- NOTE | 2020-01-07 16:07 | P.HPIM ---
History of Present Illness 79-year-old pleasant female came in with secondary to an episode of altered mental status which are significant and the patient is presently alert oriented 3 which started today morning after she woke up. All the workup is negative for any sepsis UA is not impressive for urinary tract infection. Although patient is found to be in atrial fibrillation with rapid ventricular rate was started on IV Cardizem I started her on home dose of metoprolol which she didn't take today morning if her heart rate comes down the IV Cardizem will be discontinued patient also takes oral Cardizem at home patient denied any chest pain but had mild elevation of troponin 0.1 and the second one 0.2 because of which the patient was started on IV heparin cariology was consulted. Patient usually takes Eliquis 2.5 mg twice a day for atrial fibrillation which is being held if patient needs cardiac catheterization. Patient does have history of l tyrell cancer. Review of Systems REVIEW OF SYSTEMS: CONSTITUTIONAL: No fever, no malaise, no fatigue. HEENT: No recent visual problems or hearing problems. Denied any sore throat. CARDIOVASCULAR: No chest pain, orthopnea, PND, no palpitations, no syncope. PULMONARY: No shortness of breath, no cough, no hemoptysis. GASTROINTESTINAL: No diarrhea, no nausea, no vomiting, no abdominal pain. NEUROLOGICAL: No headaches, no weakness, no numbness. HEMATOLOGICAL: Denies any bleeding or petechiae. GENITOURINARY: Denies any burning micturition, frequency, or urgency. MUSCULOSKELETAL/RHEUMATOLOGICAL: Denies any joint pain, swelling, or any muscle pain. ENDOCRINE: Denies any polyuria or polydipsia. The rest of the 14-point review of systems is negative. Past Medical History Past Medical History: Hyperlipidemia, Hypertension, Thyroid Disorder Additional Past Medical History / Comment(s): seasonal allergies History of Any Multi-Drug Resistant Organisms: None Reported Past Surgical History: Appendectomy, Section, Tonsillectomy, Tubal L igation Past Anesthesia/Blood Transfusion Reactions: No Reported Reaction Past Psychological History: No Psychological Hx Reported Smoking Status: Former smoker Past Alcohol Use History: None Reported Additional Past Alcohol Use History / Comment(s): quit 30 years ago Past Drug Use History: None Reported - Past Family History Mother Family Medical History: No Reported History Additional Family Medical History / Comment(s): pt confused, unknown Father Family Medical History: No Reported History Additional Family Medical History / Comment(s): pt confused, unknown Medications and Allergies Home Medications Medication Instructions Recorded Confirmed Type Ergocalciferol [Vitamin D2 50,000 unit PO FR 11/09/19 01/07/20 History (DRISDOL)] Levothyroxine Sodium [Synthroid] 50 mcg PO DAILY 11/09/19 01/07/20 History Lovastatin [Altoprev] 20 mg PO HS 11/09/19 01/07/20 History Montelukast Sodium [Singulair] 10 mg PO HS 11/09/19 01/07/20 History Apixaban [Eliquis] 2.5 mg PO BID #60 tab 11/13/19 01/07/20 Rx Diltiazem Oral [Cardizem*] 30 mg PO TID #90 tab 11/13/19 01/07/20 Rx Metoprolol Tartrate [Lopressor] 50 mg PO BID #60 tab 11/13/19 01/07/20 Rx dronabinoL [Dronabinol] 5 mg PO HS 01/07/20 01/07/20 History Allergies Allergy/AdvReac Type Severity Reaction Status Date / Time No Known Allergies Allergy Verified 01/07/20 12:38 Physical Exam Vitals: Vital Signs Temp Pulse Pulse Resp BP BP Pulse Ox 01/07/20 14:30 97.3 F L 86 16 138/54 93 L 01/07/20 14:01 98.3 F 84 16 107/71 01/07/20 13:06 105 H 16 124/87 99 01/07/20 12:30 103 H 19 99 01/07/20 12:00 144 H 14 120/84 99 01/07/20 11:44 146 H 22 119/87 96 01/07/20 11:30 130 H 21 118/101 99 01/07/20 11:19 90/68 83 L 01/07/20 11:05 98.6 F 93 18 149/78 93 L Intake and Output 01/07/20 01/07/20 01/07/20 06:59 14:59 22:59 Other: Voiding Method Toilet Weight 54.431 kg PHYSICAL EXAMINATION: GENERAL: The patient is alert and oriented x3, not in any acute distress. Well developed, well nourished. HEENT: Pupils are round and equally reacting to light. EOMI. No scleral icterus. No conjunctival pallor. Normocephalic, atraumatic. No pharyngeal erythema. No thyromegaly. CARDIOVASCULAR: S1 and S2 present. No murmurs, rubs, or gallops. PULMONARY: Chest is clear to auscultation, no wheezing or crackles. ABDOMEN: Soft, nontender, nondistended, normoactive bowel sounds. No palpable organomegaly. MUSCULOSKELETAL: No joint swelling or deformity. EXTREMITIES: No cyanosis, clubbing, or pedal edema. NEUROLOGICAL: Gross neurological examination did not reveal any focal deficits. SKIN: No rashes. Results CBC & Chem 7: 01/07/20 11:23 01/07/20 11:23 Labs: Abnormal Lab Results - Last 24 Hours (Table) 01/07/20 01/07/20 01/07/20 Range/Units 11:23 11:23 11:23 WBC 16.7 H (3.8-10.6) k/uL Neutrophils # 15.2 H (1.3-7.7) k/uL Lymphocytes # 0.7 L (1.0-4.8) k/uL Sodium 133 L (137-145) mmol/L Potassium 3.2 L (3.5-5.1) mmol/L Chloride 95 L (98-107) mmol/L BUN 19 H (7-17) mg/dL Glucose 146 H (74-99) mg/dL Calcium 12.8 H (8.4-10.2) mg/dL Total Bilirubin 1.5 H (0.2-1.3) mg/dL AST 47 H (14-36) U/L Troponin I 0.191 H* (0.000-0.034) ng/mL Urine Protein (Negative) Urine Blood (Negative) Ur Leukocyte Esterase (Negative) Urine RBC (0-5) /hpf Urine WBC (0-5) /hpf Urine Mucus (None) /hpf U Marijuana (THC) Screen (NotDetected) 01/07/20 01/07/20 Range/Units 11:54 13:14 WBC (3.8-10.6) k/uL Neutrophils # (1.3-7.7) k/uL Lymphocytes # (1.0-4.8) k/uL Sodium (137-145) mmol/L Potassium (3.5-5.1) mmol/L Chloride (98-107) mmol/L BUN (7-17) mg/dL Glucose (74-99) mg/dL Calcium (8.4-10.2) mg/dL Total Bilirubin (0.2-1.3) mg/dL AST (14-36) U/L Troponin I 0.222 H* (0.000-0.034) ng/mL Urine Protein Trace H (Negative) Urine Blood Small H (Negative) Ur Leukocyte Esterase Trace H (Negative) Urine RBC 6 H (0-5) /hpf Urine WBC 7 H (0-5) /hpf Urine Mucus Rare H (None) /hpf U Marijuana (THC) Screen Detected H (NotDetected) Thrombosis Risk Factor Assmnt - Choose All That Apply Each Factor Represents 1 point: Abnormal pulmonary function (COPD) Each Risk Factor Represents 3 Points: Age 75 years or older Thrombosis Risk Factor Assessment Total Risk Factor Score: 4 Thrombosis Risk Factor Assessment Level: Moderate Risk Assessment and Plan Plan: Altered mental status: Etiology is not clear rule out sepsis. Can be related to atrial fibrillation or myocardial infarction. Patient's episode is transient and resolved by itself CT of the head did not show any significant abnormality as etiology is not clear and consult neurology. -Elevation of troponin I cannot rule out non-ST elevation microinfarction: Sclerae ALLERGY was consulted will repeat troponins patient will continued on heparin hold off on Eliquis -Hypervolemic hyponatremia secondary to congestive heart failure exacerbation: Patient was started on gentle diuresis patient had a normal ejection fraction the past -Hypothyroidism continue with levothyroxine -Congestive heart failure chronic diastolic dysfunction with mild acute exacerbation -Atrial fibrillation with rapid and regular rate: Continue with IV heparin will try to discontinue IV Cardizem after starting her back on her metoprolol. -Hypothyroidism next and-hypertension -Hyperlipidemia -Lung cancer -DVT prophylaxis patient is on IV heparin. Presently
[2020-01-07] MEDS: DILTIAZEM ORAL 30 MG TAB PO SCH ×2 (17:14→20:32)
[2020-01-07] MEDS: ATORVASTATIN 10 MG TAB PO SCH (20:32)
[2020-01-07] MEDS: FUROSEMIDE 10 MG/ML 2 ML VIAL IV SCH (20:32)
[2020-01-08] MEDS: DILTIAZEM 125 MG in SODIUM CHLORIDE 0.9% 100 ML IV SCH (06:33)
[2020-01-08] MEDS: LEVOTHYROXINE 50 MCG TAB PO SCH (06:34)
[2020-01-08 07:20] LABS: Calcium 11.3 mg/dL (8.4-10.2); Magnesium 1.5 mg/dL (1.6-2.3)
[2020-01-08 07:21] LABS: HCT 36.1 % (34.0-46.0); HGB 12.1 gm/dL (11.4-16.0); MCH 32.7 pg (25.0-35.0); MCHC 33.6 g/dL (31.0-37.0); MCV 97.5 fL (80.0-100.0); Mean Platelet Volume 8.7; Platelet Count 282 k/uL (150-450); RDW 12.5 % (11.5-15.5); WBC 11.9 k/uL (3.8-10.6)
[2020-01-08 07:24] LABS: Potassium 2.7 mmol/L (3.5-5.1)
--- NOTE | 2020-01-08 08:41 | P.CRDCN ---
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 Patient had a recent hospitalization in October of the at which time she was treated for A. fib with RVR. Echocardiogram at that time revealed EF of greater than 55%, mild m itral regurgitation, mild tricuspid regurgitation. Patient presented to [facility] emergency center withConcerns for mental status changesthat worsen onset yesterday. Patient states that she was wandering around confused. She does not really remember anything from yesterday. is at bedside. Patient's mental status is back to baseline. She does deny having any episodes of chest pain, palpitations,shortness of breath, lightheadedness or dizziness. Upon presentation to the emergency center, patient was found to be afebrile, heart rate 93, blood pressure 149/78 pulse ox 93%. EKG is atrial fibrillation with RVRAt rate of 146. Chest x- rayReveals cardiomegaly and pulmonary vascular congestion may reflect heart failure. Known left lower lobe lung mass. CAT scan of the brainRevealed no acute intracranial hemorrhage, midline shift or mass effect. White matter hyp odensities likely sequela of chronic microvascular ischemic change. WBC elevated at 16.7, hemoglobin 13.4. Sodium 133, potassium 3.2, chloride 95, CO2 29, BUN 19 and creatinine 0.68. Blood sugar 146.AST 47, total bilirubin 1.5.Troponin 0.191, 0.2-2, 0.260. Triglycerides 93, cholesterol 119, LDL 50, HDL 50. Urine drug screen Detected marijuana. Urinalysis reveals small amount of blood.Repeat potassium this morning is 2.7.patient was initially started on Cardizem drip which has been subsequently transitioned to oral Cardizem. Eliquis was placed on hold and patient started on heparin drip due to elevated troponins.patient is currently nothing by mouth. Review Of Systems: At the time of evaluation: Constitutional: No fever, no chills. No weakness, fatigue or lethargy. EENT: No headache. No dizziness. Lungs: No shortness of breath, cough, no sputum production. No wheezing. Cardiovascular: No chest pain, no lower extremity edema. No palpitations. No paroxysmal nocturnal dyspnea. No orthopnea. No lightheadedness or dizziness. No syncopal episodes. Abdominal: No abdominal pain. No nausea, vomiting. No diarrhea. No constipation. No bloody or tarry stools. reports loss of appetite. Genitourinary: No dysuria.. No urinary retention. Musculoskeletal: No myalgias. No muscle weakness, no gait dysfunction, no frequent falls. No back pain. No neck pain. Integumentary: No wounds, no lesions. No rash or pruritus. No unusual bruising. Neurologic: No aphasia. No facial droop. No change in mentation. No head injury. No headache. No paralysis. No paresthesia. Psychiatric: No depression. No anxiety. Endocrine: No abnormal blood sugars. Physical examination: Gen: This is a thin 79-year-old female. She is resting in bed and appears to be comfortable and in no acute distress. VS: afebrile, heart rate 98, blood pressure 118/70, pulse ox 90% on 2 L nasal cannula. 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 Pupils equal, round. Sclerae is anicteric. NECK: Supple. No JVD. No lymphadenopathy. No thyromegaly. LUNGS: inspiratory wheeze with scattered rhonchi. No intercostal retractions. HEART: Regular rate and rhythm. systolic murmur at the base. ABDOMEN: Soft. Bowel sounds are present. No masses. No tenderness. EXTREMITIES: No pedal edema. No calf tenderness. dorsalis pedis +2 bilaterally NEUROLOGICAL: Patient is awake, alert and oriented x3. Cranial nerves 2 through 12 are grossly intact. Assessment: Atrial fibrillation with RVR Paroxysmal atrial fibrillation Hypokalemia hyponatremia Elevated troponinsof unclear significance, possibly related to A. fib with RVR Squamous cell carcinoma of the lung Hypertension Hyperlipidemia Plan: Patient is currently on a heparin drip and will be transitioned to eliquis Continue Cardizem 30 mg 3 times daily, Lopressor 50 mg twice daily Obtain 2-D echocardiogram and Doppler study to assess cardiac structure and function Further recommendations to follow based upon clinical course Thank you kindly for this consultation. Nurse practitioner note has been reviewed, I agree with documented findings and plan of care. Patient was seen and examined. Past Medical History Past Medical History: Hyperlipidemia, Hypertension, Thyroid Disorder Additional Past Medical History / Comment(s): seasonal allergies History of Any Multi-Drug Resistant Organisms: None Reported Past Surgical History: Appendectomy, Section, Tonsillectomy, Tubal Ligation Past Anesthesia/Blood Transfusion Reactions: No Reported Reaction Past Psychological History: No Psychological Hx Reported Smoking Status: Former smoker Past Alcohol Use History: None Reported Additional Past Alcohol Use History / Comment(s): quit 30 years ago Past Drug Use History: None Reported - Past Family History Mother Family Medical History: No Reported History Additional Family Medical History / Comment(s): pt confused, unknown Father Family Medical History: No Reported History Additional Family Medical History / Comment(s): pt confused, unknown Medications and Allergies Home Medications Medication Instructions Recorded Confirmed Type Ergocalciferol [Vitamin D2 50,000 unit PO FR 11/09/19 01/07/20 History (DRISDOL)] Levothyroxine Sodium [Synthroid] 50 mcg PO DAILY 11/09/19 01/07/20 History Lovastatin [Altoprev] 20 mg PO HS 11/09/19 01/07/20 History Montelukast Sodium [Singulair] 10 mg PO HS 11/09/19 01/07/20 History Apixaban [Eliquis] 2.5 mg PO BID #60 tab 11/13/19 01/07/20 Rx Diltiazem Oral [Cardizem*] 30 mg PO TID #90 tab 11/13/19 01/07/20 Rx Metoprolol Tartrate [Lopressor] 50 mg PO BID #60 tab 11/13/19 01/07/20 Rx dronabinoL [Dronabinol] 5 mg PO HS 01/07/20 01/07/20 History Allergies Allergy/AdvReac Type Severity Reaction Status Date / Time No Known Allergies Allergy Verified 01/07/20 12:38 Physical Exam Vitals: Vital Signs Temp Pulse Pulse Resp BP BP Pulse Ox 01/08/20 04:00 98.9 F 98 17 118/70 98 01/08/20 00:00 97.8 F 92 19 101/56 98 01/07/20 20:00 97.8 F 96 18 122/76 96 01/07/20 18:15 74 18 128/63 93 L 01/07/20 16:00 16 01/07/20 14:30 97.3 F L 86 16 138/54 93 L 01/07/20 14:01 98.3 F 84 16 107/71 01/07/20 13:06 105 H 16 124/87 99 01/07/20 12:30 103 H 19 99 01/07/20 12:00 144 H 14 120/84 99 01/07/20 11:44 146 H 22 119/87 96 01/07/20 11:30 130 H 21 118/101 99 01/07/20 11:19 90/68 83 L 01/07/20 11:05 98.6 F 93 18 149/78 93 L Intake and Output 01/07/20 01/08/20 01/08/20 22:59 06:59 14:59 Intake Total 125 Balance 125 Intake: Intake, IV Titration 125 Amount Diltiazem 125 mg In 125 Sodium Chloride 0.9% 100 ml @ 10 MG/HR 10 mls/hr IV .[id number] [facility] Rx#: [id number] Other: Voiding Method Diaper Diaper Incontinent Incontinent # Voids 2 2 Weight 50.6 kg Results 01/08/20 06:37 01/08/20 06:37 Cardiac Enzymes 01/07/20 01/07/20 01/07/20 Range/Units 11:23 11:23 13:14 AST 47 H (14-36) U/L Troponin I 0.191 H* 0.222 H* (0.000-0.034) ng/mL 01/07/20 Range/Units 15:49 AST (14-36) U/L Troponin I 0.260 H* (0.000-0.034) ng/mL Coagulation 01/07/20 01/08/20 01/08/20 Range/Units 11:23 00:07 06:37 PT 11.3 (9.0-12.0) sec APTT 26.2 49.1 H 38.8 H (22.0-30.0) sec Lipids 01/08/20 Range/Units 06:37 Triglycerides 93 (<150) mg/dL Cholesterol 119 (<200) mg/dL HDL Cholesterol 50 (40-60) mg/dL CBC 01/07/20 01/08/20 Range/Units 11:23 06:37 WBC 16.7 H 11.9 H (3.8-10.6) k/uL RBC 4.13 3.70 L (3.80-5.40) m/uL Hgb 13.4 12.1 (11.4-16.0) gm/dL Hct 41.1 36.1 (34.0-46.0) % Plt Count 284 282 (150-450) k/uL Comprehensive Metabolic Panel 01/07/20 01/08/20 Range/Units 11:23 06:37 Sodium 133 L 134 L (137-145) mmol/L Potassium 3.2 L 2.7 L* (3.5-5.1) mmol/L Chloride 95 L 96 L (98-107) mmol/L Carbon Dioxide 29 31 H (22-30) mmol/L BUN 19 H 21 H (7-17) mg/dL Creatinine 0.68 0.74 (0.52-1.04) mg/dL Glucose 146 H 90 (74-99) mg/dL Calcium 12.8 H 11.3 H (8.4-10.2) mg/dL AST 47 H (14-36) U/L ALT 21 (4-34) U/L Alkaline Phosphatase 102 (38-126) U/L Total Protein 6.4 (6.3-8.2) g/dL Albumin 3.7 (3.5-5.0) g/dL Current Medications Generic Name Dose Route Start Last Admin Trade Name Freq PRN Reason Stop Dose Admin Aspirin 325 mg 01/08/20 09:00 Aspirin 325 Mg Tab PO DAILY [facility] Atorvastatin Calcium 10 mg 01/07/20 21:00 01/07/20 20:32 Atorvastatin 10 Mg Tab PO 10 mg HS ARIANNE Administration Diltiazem HCl 30 mg 01/07/20 16:00 01/07/20 20:32 Diltiazem Oral 30 Mg Tab PO 30 mg TID ARIANNE Administration Furosemide 20 mg 01/07/20 21:00 01/07/20 20:32 Furosemide 10 Mg/Ml 2 Ml Vial IV 20 mg Q12HR ARIANNE Administration Diltiazem HCl 125 mg/ Sodium 125 mls @ 10 mls/hr 01/07/20 12:30 01/08/20 07:44 Chloride IV Infused .[id number] ARIANNE Infusion 10 MG/HR Heparin Sodium/Sodium Chloride 250 mls @ 6.532 mls/hr 01/07/20 13:00 01/07/20 17:14 25,000 unit/ Sodium Chloride IV 12 units/kg/hr .Q24H ARIANNE 6.532 mls/hr Administration Protocol 12 UNITS/KG/HR Levothyroxine Sodium 50 mcg 01/08/20 06:30 01/08/20 06:34 Levothyroxine 50 Mcg Tab PO 50 mcg DAILY@0630 [facility] Administration Metoprolol Tartrate 50 mg 01/07/20 12:45 01/07/20 20:31 Metoprolol Tartrate 50 Mg Tab PO 50 mg BID ARIANNE Administration Nitroglycerin 0.4 mg 01/07/20 12:53 Nitroglycerin Sl Tabs 0.4 Mg Tab SUBLINGUAL Q5M PRN Chest Pain Intake and Output 01/07/20 01/08/20 01/08/20 22:59 06:59 14:59 Intake Total 125 Balance 125 Intake: Intake, IV Titration 125 Amount Diltiazem 125 mg In 125 Sodium Chloride 0.9% 100 ml @ 10 MG/HR 10 mls/hr IV .[id number] [facility] Rx#: [id number] Other: Voiding Method Diaper Diaper Incontinent Incontinent # Voids 2 2 Weight 50.6 kg 01/08/20 06:37 01/08/20 06:37
[2020-01-08] MEDS ORDERED: Magnesium Replacement Protocol 1 EACH MISC MISCELLANE PRN (08:53)
[2020-01-08] MEDS: ASPIRIN 325 MG TAB PO SCH (09:23)
[2020-01-08] MEDS: DILTIAZEM ORAL 30 MG TAB PO SCH ×3 (09:23→19:02)
[2020-01-08] MEDS: METOPROLOL TARTRATE 50 MG TAB PO SCH ×2 (09:23→19:02)
[2020-01-08] MEDS: FUROSEMIDE 10 MG/ML 2 ML VIAL IV SCH ×2 (09:23→21:34)
[2020-01-08] MEDS: POTASSIUM CHLORIDE ER 20 MEQ TAB.ER PO SCH ×3 (09:24→15:35)
[2020-01-08] MEDS: MAGNESIUM SULFATE-D5W PMX 1 GM in DEXTROSE/WATER 1 100ML.BAG IVPB SCH ×2 (09:25→10:40)
[2020-01-08] MEDS ORDERED: APIXABAN 2.5 MG TABLET PO SCH (10:00)
--- NOTE | 2020-01-08 12:04 | P.PN ---
Subjective patient given with the complaints of altered mental status. Vision is presently alert oriented 3. Patient was also treated for atrial fibrillation with rapid ventricular rate patient is presently on oral Cardizem and metoprolol heart rate is fairly well controlled. Patient's dronabinol was held because of this A. fib and confusion will be resumed on this medication again and will monitor her overnight. Patient was resumed on Eliquis, IV heparin was discontinued. Constitutional: Denied any fatigue denied any fever. Cardio vascular: denied any chest pain, palpitations Gastrointestinal denied any nausea vomiting Pulmonary: Denied any shortness of breath cough Neurologic denied any new focal deficits All inpatient medications were reviewed and appropriate changes in these medications as dictated in the interval history and assessment and plan. Objective - Vital Signs Vital signs: Vital Signs Temp 98.4 F 01/08/20 09:10 Pulse 110 H 01/08/20 09:10 Resp 16 01/08/20 09:10 BP 109/79 01/08/20 09:10 Pulse Ox 98 01/08/20 09:10 Intake & Output 01/07/20 01/08/20 01/08/20 18:59 06:59 18:59 Intake Total 125 Balance 125 Weight 54.431 kg 50.6 kg Intake: Intake, IV Titration 125 Amount Diltiazem 125 mg In 125 Sodium Chloride 0.9% 100 ml @ 10 MG/HR 10 mls/hr IV .[id number] [facility] Rx#: [id number] Other: Voiding Method Toilet Diaper Diaper Incontinent Incontinent # Voids 0 2 - Exam PHYSICAL EXAMINATION: GENERAL: The patient is alert and oriented x3, not in any acute distress. Well developed, well nourished. HEENT: Pupils are round and equally reacting to light. EOMI. No scleral icterus. No conjunctival pallor. Normocephalic, atraumatic. No pharyngeal erythema. No thyromegaly. CARDIOVASCULAR: S1 and S2 present. No murmurs, rubs, or gallops. irregularly irregular rhythm PULMONARY: Chest is clear to auscultation, no wheezing or crackles. ABDOMEN: Soft, nontender, nondistended, normoactive bowel sounds. No palpable or ganomegaly. MUSCULOSKELETAL: No joint swelling or deformity. EXTREMITIES: No cyanosis, clubbing, or pedal edema. NEUROLOGICAL: Gross neurological examination did not reveal any focal deficits. SKIN: No rashes. - Labs CBC & Chem 7: 01/08/20 06:37 01/08/20 06:37 Labs: Abnormal Lab Results - Last 24 Hours (Table) 01/07/20 01/07/20 01/07/20 Range/Units 11:23 11:23 11:54 WBC (3.8-10.6) k/uL RBC (3.80-5.40) m/uL APTT (22.0-30.0) sec Sodium 133 L (137-145) mmol/L Potassium 3.2 L (3.5-5.1) mmol/L Chloride 95 L (98-107) mmol/L Carbon Dioxide (22-30) mmol/L BUN 19 H (7-17) mg/dL Glucose 146 H (74-99) mg/dL Calcium 12.8 H (8.4-10.2) mg/dL Magnesium (1.6-2.3) mg/dL Total Bilirubin 1.5 H (0.2-1.3) mg/dL AST 47 H (14-36) U/L Troponin I 0.191 H* (0.000-0.034) ng/mL Urine Protein Trace H (Negative) Urine Blood Small H (Negative) Ur Leukocyte Esterase Trace H (Negative) Urine RBC 6 H (0-5) /hpf Urine WBC 7 H (0-5) /hpf Urine Mucus Rare H (None) /hpf U Marijuana (THC) Screen Detected H (NotDetected) 01/07/20 01/07/20 01/08/20 Range/Units 13:14 15:49 00:07 WBC (3.8-10.6) k/uL RBC (3.80-5.40) m/uL APTT 49.1 H (22.0-30.0) sec Sodium (137-145) mmol/L Potassium (3.5-5.1) mmol/L Chloride (98-107) mmol/L Carbon Dioxide (22-30) mmol/L BUN (7-17) mg/dL Glucose (74-99) mg/dL Calcium (8.4-10.2) mg/dL Magnesium (1.6-2.3) mg/dL Total Bilirubin (0.2-1.3) mg/dL AST (14-36) U/L Troponin I 0.222 H* 0.260 H* (0.000-0.034) ng/mL Urine Protein (Negative) Urine Blood (Negative) Ur Leukocyte Esterase (Negative) Urine RBC (0-5) /hpf Urine WBC (0-5) /hpf Urine Mucus (None) /hpf U Marijuana (THC) Screen (NotDetected) 01/08/20 01/08/20 01/08/20 Range/Units 06:37 06:37 06:37 WBC 11.9 H (3.8-10.6) k/uL RBC 3.70 L (3.80-5.40) m/uL APTT 38.8 H (22.0-30.0) sec Sodium 134 L (137-145) mmol/L Potassium 2.7 L* (3.5-5.1) mmol/L Chloride 96 L (98-107) mmol/L Carbon Dioxide 31 H (22-30) mmol/L BUN 21 H (7-17) mg/dL Glucose (74-99) mg/dL Calcium 11.3 H (8.4-10.2) mg/dL Magnesium 1.5 L (1.6-2.3) mg/dL Total Bilirubin (0.2-1.3) mg/dL AST (14-36) U/L Troponin I (0.000-0.034) ng/mL Urine Protein (Negative) Urine Blood (Negative) Ur Leukocyte Esterase (Negative) Urine RBC (0-5) /hpf Urine WBC (0-5) /hpf Urine Mucus (None) /hpf U Marijuana (THC) Screen (NotDetected) Assessment and Plan Plan: Altered mental status: Etiology is not clear rule out sepsis. Can be related to atrial fibrillation or myocardial infarction. Patient's episode is transient and resolved by itself CT of the head did not show any significant abnormality as etiology is not clear and consult neurology. -Elevation of troponinprobably related to atrial fibrillation was evaluated by cardiology, no plan for further intervention and patient was started back on the left course IV heparin was discontinued -Hypervolemic hyponatremia secondary to congestive heart failure exacerbation: Patient was started on gentle diuresis patient had a normal ejection fraction the pastnumber improved serum sodium -Hypokalemia secondary to diuresis potassium will be replaced and hypomagnesemia: Magnesium will be replaced -Hypothyroidism continue with levothyroxine -Congestive heart failure chronic diastolic dysfunction with mild acute exacerbation -Atrial fibrillation with rapid and regular rate: Continue with IV heparin will try to discontinue IV Cardizem after starting her back on her metoprolol. -Hypothyroidism next and-hypertension -Hyperlipidemia -Lung cancer -DVT prophylaxis patient is on IV heparin. Presently
--- NOTE | 2020-01-08 15:00 | ECHOF ---
Referral Reason:lvh MEASUREMENTS -------- HEIGHT: 154.9 cm WEIGHT: 50.3 kg BP: 109/79 RVIDd: 3.0 cm (< 3.3) IVSd: 1.3 cm (0.6 - 1.1) LVIDd: 3.3 cm (3.9 - 5.3) LVPWd: 1.4 cm (0.6 - 1.1) IVSs: 1.9 cm LVIDs: 2.3 cm LVPWs: 1.5 cm LAESV Index (A-L): 24.59 ml/m Ao Diam: 3.4 cm (2.0 - 3.7) AV Cusp: 2.0 cm (1.5 - 2.6) MV EXCURSION: 21.996 mm (> 18.000) MV EF SLOPE: 131 mm/s (70 - 150) EPSS: 0.5 cm AR PHT: 607 ms RAP: 5.00 mmHg RVSP: 39.53 mmHg FINDINGS -------- Atrial fibrillation. This was a technically adequate study. The left ventricular size is normal. There is mild concentric left ventricular hypertrophy. Overa ll left ventricular systolic function is normal with, an EF between 55 - 60 %. Left ventricular sterling limg pressure cannot be estimated due to Atrial fibrillation. The right ventricle is normal in size. Normal LA size by volume 22+/-6 ml/m2. The right atrial size is normal. Interatrial and interventricular septum intact. The aortic valve is trileaflet and appears structurally normal. There is mild aortic regurgitation. There is no evidence of aortic stenosis. There is trace mitral regurgitation. Mild tricuspid regurgitation present. There is mild pulmonary hypertension. The right ventricular systolic pressure, as measured by Doppler, is 39.53mmHg. There is no pulmonic regurgitation present. The aortic root size is normal. Normal inferior vena cava with normal inspiratory collapse consistent with estimated right atrial pre ssure of 5 mmHg. There is no pericardial effusion. CONCLUSIONS -------- 1. The left ventricular size is normal. 2. There is mild concentric left ventricular hypertrophy. 3. Overall left ventricular systolic function is normal with, an EF between 55 - 60 %. 4. Left ventricular fillimg pressure cannot be estimated due to Atrial fibrillation. 5. There is mild aortic regurgitation. 6. There is trace mitral regurgitation. 7. Mild tricuspid regurgitation present. 8. There is mild pulmonary hypertension. 9. The right ventricular systolic pressure, as measured by Doppler, is 39.53mmHg. FRANCHISE SPECIALIST: Jennifer De La Cruz RDCS
[2020-01-08] MEDS ORDERED: CALCITONIN INJ 200 UNIT/ML (MDV) VIAL SQ ONE (17:00)
--- NOTE | 2020-01-08 19:31 | P.CNNES ---
History of Present Illness Consult date: 01/08/20 Reason for Consult: mental status changes History of Present Illness: The patient is a pleasant 79-year-old female who is seen in neurologic consultation on January 08, 2020 via teleneurology. The patient reports that she was brought into the hospital because of confusion. She says she does not really recall being confused. She states that her told her that she had gotten up in the middle the night and was wandering around the house. The patient was reportedly confused. The patient does recall getting dressed and coming into the hospital. The patient reports being forgetful. She has a recent diagnosis of lung cancer, status post to radiation treatments. The patient denies a history of stroke. The patient denies headache, difficulty with speech and swallowing, difficulty ambulating, ataxia, weakness and paresthesias. There are no visual changes. The patient has a history of paroxysmal atrial fibrillation with rapid ventricular response. She takes Eliquis 2.5 mg twice daily. Past Medical History Past Medical History: Hyperlipidemia, Hypertension, Thyroid Disorder Additional Past Medical History / Comment(s): seasonal allergies History of Any Multi-Drug Resistant Organisms: None Reported Past Surgical History: Appendectomy, Section, Tonsillectomy, Tubal Ligation Past Anesthesia/Blood Transfusion Reactions: No Reported Reaction Past Psychological History: No Psychological Hx Reported Smoking Status: Former smoker Past Alcohol Use History: None Reported Additional Past Alcohol Use History / Comment(s): quit 30 years ago Past Drug Use History: None Reported - Past Family History Mother Family Medical History: No Reported History Additional Family Medical History / Comment(s): pt confused, unknown Father Family Medical History: No Reported History Additional Family Medical History / Comment(s): pt confused, unknown Medications and Allergies Home Medications Medication Instructions Recorded Confirmed Type Ergocalciferol [Vitamin D2 50,000 unit PO FR 11/09/19 01/07/20 History (DRISDOL)] Levothyroxine Sodium [Synthroid] 50 mcg PO DAILY 11/09/19 01/07/20 History Lovastatin [Altoprev] 20 mg PO HS 11/09/19 01/07/20 History Montelukast Sodium [Singulair] 10 mg PO HS 11/09/19 01/07/20 History Apixaban [Eliquis] 2.5 mg PO BID #60 tab 11/13/19 01/07/20 Rx Diltiazem Oral [Cardizem*] 30 mg PO TID #90 tab 11/13/19 01/07/20 Rx Metoprolol Tartrate [Lopressor] 50 mg PO BID #60 tab 11/13/19 01/07/20 Rx dronabinoL [Dronabinol] 5 mg PO HS 01/07/20 01/07/20 History Allergies Allergy/AdvReac Type Severity Reaction Status Date / Time No Known Allergies Allergy Verified 01/07/20 12:38 Physical Examination - Vital Signs Vital Signs: Vital Signs Temp Pulse Resp BP Pulse Ox 01/08/20 15:39 92 16 01/08/20 15:30 98.2 F 92 16 108/56 93 L 01/08/20 12:50 95 16 130/80 96 01/08/20 09:10 98.4 F 110 H 16 109/79 98 01/08/20 04:00 98.9 F 98 17 118/70 98 01/08/20 00:00 97.8 F 92 19 101/56 98 01/07/20 20:00 97.8 F 96 18 122/76 96 Intake and Output 01/08/20 01/08/20 01/08/20 06:59 14:59 22:59 Intake Total 591 Output Total 600 Balance -9 Intake: Intake, IV Titration 351 Amount Diltiazem 125 mg In 125 Sodium Chloride 0.9% 100 ml @ 10 MG/HR 10 mls/hr IV .[id number] ARIANNE Rx#: [id number] Heparin Sod,Pork in 0.45% 26 NaCl 25,000 unit In 0.45 % NaCl 1 250ml.bag @ 12 UNITS/KG/HR 6.532 mls/hr IV .Q24H ARIANNE Rx#: [id number] Magnesium Sulfate-D5w Pmx 200 1 gm In Dextrose/Water 1 100ml.bag @ 100 mls/hr IVPB Q1H ARIANNE Rx#: [id number] Oral 240 Output: Urine 600 Other: Voiding Method Diaper Diaper Diaper Incontinent Incontinent Incontinent # Voids 2 Weight 50.6 kg Gen.: The patient is reclining in the bed. She is a thin female. She is in no acute distress. HEENT: Head is atraumatic, normocephalic. Fundus not visualized. There is no scleral icterus. Mucous membranes are moist. Neck: Supple Heart: Irregularly irregular Lungs: Clear to auscultation Extremities: Without edema Neurological examination Mental status: The patient is awake, alert and oriented to her name, age, date of , location, current events, the upcoming holiday and the current season. The patient reports that her is "57 years old". She says that he was born in 1938. The patient is not oriented to the current year or month. There is no anomia. The patient is able to accurately follow two-step commands. There is no right left confusion. Patient accurately repeats phrases. The patient's speech is fluent and clear. Cranial nerves: Pupils are equal at 3 mm and reactive. Visual telles are full to confrontation. Extraocular movements are intact. There is no nystagmus. Facial sensations intact. There is mild flattening of the right nasolabial fold. Hearing is grossly intact. Uvula and palate are midline. Shoulder shrug is symmetric. Tongue protrudes to the right of midline. Motor: Strength is 5/5 throughout. Coordination: Finger to nose and rapid alternating movements are intact. Sensation: There is inconsistent subjective sensory loss Deep tendon reflexes: 2+/4+ throughout Results - Laboratory Findings CBC and BMP: 01/08/20 06:37 01/08/20 06:37 Abnormal Lab Findings: Abnormal Labs 01/07/20 01/07/20 01/07/20 11:23 11:23 11:23 WBC 16.7 H RBC Neutrophils # 15.2 H Lymphocytes # 0.7 L APTT Sodium 133 L Potassium 3.2 L Chloride 95 L Carbon Dioxide BUN 19 H Glucose 146 H Calcium 12.8 H Ionized Calcium Isidro Magnesium Total Bilirubin 1.5 H AST 47 H Troponin I 0.191 H* Urine Protein Urine Blood Ur Leukocyte Esterase Urine RBC Urine WBC Urine Mucus U Marijuana (THC) Screen 01/07/20 01/07/20 01/07/20 11:54 13:14 15:49 WBC RBC Neutrophils # Lymphocytes # APTT Sodium Potassium Chloride Carbon Dioxide BUN Glucose Calcium Ionized Calcium Isidro Magnesium Total Bilirubin AST Troponin I 0.222 H* 0.260 H* Urine Protein Trace H Urine Blood Small H Ur Leukocyte Esterase Trace H Urine RBC 6 H Urine WBC 7 H Urine Mucus Rare H U Marijuana (THC) Screen Detected H 01/08/20 01/08/2001/07/20 00:07 06:37 06:37 WBC 11.9 H RBC 3.70 L Neutrophils # Lymphocytes # APTT 49.1 H Sodium 134 L Potassium 2.7 L* Chloride 96 L Carbon Dioxide 31 H BUN 21 H Glucose Calcium 11.3 H Ionized Calcium Isidro Magnesium 1.5 L Total Bilirubin AST Troponin I Urine Protein Urine Blood Ur Leukocyte Esterase Urine RBC Urine WBC Urine Mucus U Marijuana (THC) Screen 01/08/20 01/08/20 06:37 14:50 WBC RBC Neutrophils # Lymphocytes # APTT 38.8 H Sodium Potassium Chloride Carbon Dioxide BUN Glucose Calcium Ionized Calcium Isidro 5.8 H Magnesium Total Bilirubin AST Troponin I Urine Protein Urine Blood Ur Leukocyte Esterase Urine RBC Urine WBC Urine Mucus U Marijuana (THC) Screen Assessment and Plan Assessment: 1. Acute mental status changes-improved, could possibly be related to a paraneoplastic syndrome secondary to lung cancer 2. Possible underlying, mild dementia 3. Hypokalemia and hyponatremia 4. Paroxysmal atrial fibrillation with rapid ventricular response 5. Leukocytosis 6. Recent diagnosis of lung cancer Plan: 1. Continue supportive care 2. Consider checking paraneoplastic antibodies, if mental status changes continue or worsen 3. Consider EEG Time with Patient: Greater than 30 (spent 45 minutes with patient via teleneurology)
[2020-01-08] MEDS ORDERED: DILTIAZEM ORAL 30 MG TAB PO STA (20:50)
[2020-01-08] MEDS: APIXABAN 2.5 MG TABLET PO SCH (21:34)
[2020-01-08] MEDS: ATORVASTATIN 10 MG TAB PO SCH (21:34)
[2020-01-09] MEDS: LEVOTHYROXINE 50 MCG TAB PO SCH (05:53)
[2020-01-09] MEDS: METOPROLOL TARTRATE 50 MG TAB PO SCH ×2 (06:53→19:37)
[2020-01-09] MEDS: DILTIAZEM ORAL 30 MG TAB PO SCH (06:54)
[2020-01-09 07:02] LABS: HCT 40.6 % (34.0-46.0); HGB 13.5 gm/dL (11.4-16.0); MCH 32.5 pg (25.0-35.0); MCHC 33.3 g/dL (31.0-37.0); MCV 97.5 fL (80.0-100.0); Mean Platelet Volume 8.2; Platelet Count 305 k/uL (150-450); RBC 4.17 m/uL (3.80-5.40); RDW 12.5 % (11.5-15.5); WBC 16.5 k/uL (3.8-10.6)
[2020-01-09 07:17] LABS: African American GFR (CKD) >90 (>60 ml/min/1.73 sqM); Anion Gap 8 mmol/L; Blood Urea Nitrogen 21 mg/dL (7-17); Calcium 10.4 mg/dL (8.4-10.2); Carbon Dioxide 25 mmol/L (22-30); Chloride 100 mmol/L (98-107); Glucose 121 mg/dL (74-99); Magnesium 1.9 mg/dL (1.6-2.3); Non-African American GFR(CKD) 82 (>60 ml/min/1.73 sqM); Potassium 3.7 mmol/L (3.5-5.1); Sodium 133 mmol/L (137-145)
[2020-01-09] MEDS: APIXABAN 2.5 MG TABLET PO SCH ×2 (08:20→19:37)
[2020-01-09] MEDS: ASPIRIN 325 MG TAB PO SCH ×2 (08:20→09:49)
[2020-01-09] MEDS: FUROSEMIDE 10 MG/ML 2 ML VIAL IV SCH (08:20)
--- NOTE | 2020-01-09 10:13 | P.DS ---
Providers Date of admission: 01/07/20 12:57 Attending physician: Mar Farrell Consults: 01/07/20 12:57 Consult Physician Urgent Consulting Provider: [facility] Consult Reason/Comments: A. fib with rapid ventricular response, elevated troponin Do you want consulting provider notified?: Yes 01/07/20 15:57 Consult Physician Routine Consulting Provider: Palak Artis Consult Reason/Comments: Altered mental status Do you want consulting provider notified?: Yes 01/08/20 11:09 Consult Physician Routine Consulting Provider: Anderson Rivas Consult Reason/Comments: Known to pt/treating for lung CA Do you want consulting provider notified?: Yes Primary care physician: Dorita Kiko [facility] Course: patient given with the complaints of altered mental status. Vision is presently alert oriented 3. Patient was also treated for atrial fibrillation with rapid ventricular rate patient is presently on oral Cardizem and metoprolol heart rate is fairly well controlled. Patient's dronabinol was held because of this A. fib and confusion will be resumed on this medication again and will monitor her overnight. Patient was resumed on Eliquis, IV heparin was discontinued. 01/09/2020 Patient heart rate is well controlled now but it was elevated earlier today, patient was given her home dose of medications after which her heart rate has come down. No medication changes are being made, if cleared by cardiology patient will be discharged later today if her heart rate remains stable upon ambulation. Patient already has home care. Will ablate the patient and if she doesn't need subacute rehabitation patient will be discharged today. Regarding her confusion it appears that she is confused at nighttime and patient takes Marinol at nighttime and heart heart rate appears to be going up at nighttime as well. Marinol may be contributing to her elevated heart rate as well as confusion. The other possibility is being sundowners considering her age, the possibility of neoplastic syndrome is a consideration but low. EEG was recommended by neurology. If patient is cleared by neurology and cardiology and if patient is able to ambulate well without increase in heart rate. Patient will be discharged today. Constitutional: Denied any fatigue denied any fever. Cardio vascular: denied any chest pain, palpitations Gastrointestinal denied any nausea vomiting Pulmonary: Denied any shortness of breath cough Neurologic denied any new focal deficits All inpatient medications were reviewed and appropriate changes in these medications as dictated in the interval history and assessment and plan. PHYSICAL EXAMINATION: GENERAL: The patient is alert and oriented x3, not in any acute distress. Well developed, well nourished. HEENT: Pupils are round and equally reacting to light. EOMI. No scleral icterus. No conjunctival pallor. Normocephalic, atraumatic. No pharyngeal erythema. No thyromegaly. CARDIOVASCULAR: S1 and S2 present. No murmurs, rubs, or gallops. irregularly irregular rhythm PULMONARY: Chest is clear to auscultation, no wheezing or crackles. ABDOMEN: Soft, nontender, nondistended, normoactive bowel sounds. No palpable organomegaly. MUSCULOSKELETAL: No joint swelling or deformity. EXTREMITIES: No cyanosis, clubbing, or pedal edema. NEUROLOGICAL: Gross neurological examination did not reveal any focal deficits. SKIN: No rashes. Assessment and Plan Plan: Altered mental status: Most probably secondary to Marinol, sundowners possibly a paraneoplastic syndromes is low. Neurology evaluated the patient -Elevation of troponinprobably related to atrial fibrillation was evaluated by cardiology, no plan for further intervention. -Hypervolemic hyponatremia secondary to congestive heart failure exacerbation: Improved initially and started going down again patient was switched to oral Lasix was dropped to in serum sodium to 134 is secondary to Lasix -Hypokalemia secondary to diuresis potassium was replaced -Hypothyroidism continue with levothyroxine -Congestive heart failure chronic diastolic dysfunction with mild acute exacerbation -Atrial fibrillation with rapid and regular rate: Patient will be continued on present regimen along with Eliquis -Hypothyroidism -hypertension -Hyperlipidemia -Lung cancer Plan - Discharge Summary Discharge Rx Participant: Yes New Discharge Prescriptions: New Megestrol [Megace] 40 mg PO DAILY #30 tablet Continue Montelukast Sodium [Singulair] 10 mg PO HS Lovastatin [Altoprev] 20 mg PO HS Ergocalciferol [Vitamin D2 (DRISDOL)] 50,000 unit PO FR Levothyroxine Sodium [Synthroid] 50 mcg PO DAILY Diltiazem Oral [Cardizem*] 30 mg PO TID #90 tab Metoprolol Tartrate [Lopressor] 50 mg PO BID #60 tab Apixaban [Eliquis] 2.5 mg PO BID #60 tab Discontinued dronabinoL [Dronabinol] 5 mg PO HS Discharge Medication List Ergocalciferol [Vitamin D2 (DRISDOL)] 50,000 unit PO FR 11/09/19 [History] Levothyroxine Sodium [Synthroid] 50 mcg PO DAILY 11/09/19 [History] Lovastatin [Altoprev] 20 mg PO HS 11/09/19 [History] Montelukast Sodium [Singulair] 10 mg PO HS 11/09/19 [History] Apixaban [Eliquis] 2.5 mg PO BID #60 tab 11/13/19 [Rx] Diltiazem Oral [Cardizem*] 30 mg PO TID #90 tab 11/13/19 [Rx] Metoprolol Tartrate [Lopressor] 50 mg PO BID #60 tab 11/13/19 [Rx] Megestrol [Megace] 40 mg PO DAILY #30 tablet 01/09/20 [Rx] Follow up Appointment(s)/Referral(s): [facility], [NON-STAFF] - Dorita Hoover MD [Primary Care Provider] - 3 Days Patient Instructions/Handouts: A-fib (Atrial Fibrillation) (DC) Discharge Disposition: HOME WITH HOME HEALTH SERVICES
--- NOTE | 2020-01-09 13:34 | P.PN ---
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 Patient had a recent hospitalization in October of the chair at which time she was treated for A. fib with RVR. Echocardiogram at that time revealed EF of greater than 55%, mild mitral regurgitation, mild tricuspid regurgitation. Patient [facility] emergency center withConcerns for mental status changesthat worsen onset yesterday. Patient states that she was wandering around confused. She does not really remember anything from yesterday. is at bedside. Patient's mental status is back to baseline. She does deny having any episodes of chest pain, palpitations,shortness of breath, lightheadedness or dizziness. Upon presentation to the emergency center, patient was found to be afebrile, heart rate 93, blood pressure 149/78 pulse ox 93%. EKG is atrial fibrillation with RVRAt rate of 146. Chest x- rayReveals cardiomegaly and pulmonary vascular congestion may reflect heart failure. Known left lower lobe lung mass. CAT scan of the brainRevealed no acute intracranial hemorrhage, midline shift or mass effect. White matter hypodensities likely sequela of chronic microvascular ischemic change. WBC elevated at 16.7, hemoglobin 13.4. Sodium 133, potassium 3.2, chloride 95, CO2 29, BUN 19 and creatinine 0.68. Blood sugar 146.AST 47, total bilirubin 1.5.Troponin 0.191, 0.2-2, 0.260. Triglycerides 93, cholesterol 119, LDL 50, HDL 50. Urine drug screen Detected marijuana. Urinalysis reveals small amount of blood.Repeat potassium this morning is 2.7.patient was initially started on Cardizem drip which has been subsequently transitioned to oral Cardizem. Eliquis was placed on hold and patient started on heparin drip due to elevated troponins.patient is currently nothing by mouth. 01/09/2020 Patient seen and examined. Patient states she is doing okay however when she gets up 2 to much of any activity her heart rate does increase in the 140s and 150s. Rates have been somewhat elevated over the last 24 hours withheart rates 110s to 120s. She denies any chest pain or pressure. Denies any lightheadedness. Physical examination: Gen: This is a thin 79-year-old female. She is resting in bed and appears to be comfortable and in no acute distress. VS: afebrile, heart rate 98, blood pressure 118/70, pulse ox 90% on 2 L nasal cannula. monitor worker is HEENT: Head is atraumatic, normocephalic. Pupils equal, round. Sclerae is anicteric. NECK: Supple. No JVD. No lymphadenopathy. No thyromegaly. LUNGS: inspiratory wheeze with scattered rhonchi. No intercostal retractions. HEART: Irregularly irregular rate and rhythm. Tachycardic,systolic murmur at the base. ABDOMEN: Soft. Bowel sounds are present. No masses. No tenderness. EXTREMITIES: No pedal edema. No calf tenderness. dorsalis pedis +2 bilaterally NEUROLOGICAL: Patient is awake, alert and oriented x3. Cranial nerves 2 through 12 are grossly intact. Assessment: Atrial fibrillation with RVR, Increased over the last 24 hours Paroxysmal atrial fibrillation Hypokalemia hyponatremia Elevated troponinsof unclear significance, possibly related to A. fib with RVR Squamous cell carcinoma of the lung Hypertension Hyperlipidemia Plan: Patient transitioned to [facility] yesterday. Unfortunately her her heart rates have been elevated over the last 24 hours. Discussed with and patient. They do live in [place] with a long drive to any hospital or medical care and would like to optimize medical therapy before discharge home. Would recommend another day of titrating medications. We will increase Cardizem to 60 mg 3 times a day and continue Lopressor 50 mg twice a day. Echocardiogram reviewed with ejection fraction 55-60%. Do not believe elevated troponins represent a non-STEMI and likely related to A. fib with RVR Hopeful discharge home tomorrow if heart rates better improved and vitals stable. Objective - Vital Signs Vital signs: Vital Signs Temp 98.2 F 01/09/20 08:15 Pulse 103 H 01/09/20 11:51 Resp 16 01/09/20 11:51 BP 101/56 01/09/20 11:51 Pulse Ox 96 01/09/20 11:51 Intake & Output 10/10/20 10/11/20 10/11/20 18:59 06:59 18:59 Intake Total 591 300 240 Output Total 600 1253 Balance -9 -953 240 Weight 51 kg Intake: Intake, IV Titration 351 Amount Diltiazem 125 mg In 125 Sodium Chloride 0.9% 100 ml @ 10 MG/HR 10 mls/hr IV .[id number] ARIANNE Rx#: [id number] Heparin Sod,Pork in 0.45% 26 NaCl 25,000 unit In 0.45 % NaCl 1 250ml.bag @ 12 UNITS/KG/HR 6.532 mls/hr IV .Q24H ARIANNE Rx#: [id number] Magnesium Sulfate-D5w Pmx 200 1 gm In Dextrose/Water 1 100ml.bag @ 100 mls/hr IVPB Q1H ARIANNE Rx#: [id number] Oral 240 300 240 Output: Urine 600 1251 Stool 2 Other: Voiding Method Diaper Diaper Diaper Incontinent Incontinent Incontinent # Voids 1 - Labs CBC & Chem 7: 01/09/20 06:46 01/09/20 06:46 Labs: Abnormal Lab Results - Last 24 Hours (Table) 01/08/20 01/09/20 01/09/20 Range/Units 14:50 06:46 06:46 WBC 16.5 H (3.8-10.6) k/uL Sodium 133 L (137-145) mmol/L BUN 21 H (7-17) mg/dL Glucose 121 H (74-99) mg/dL Calcium 10.4 H (8.4-10.2) mg/dL Ionized Calcium Isidro 5.8 H (4.5-5.3) mg/dL
--- NOTE | 2020-01-09 13:38 | P.CONS ---
History of Present Illness - Reason for Consult Consult date: 01/08/20 Lung Cancer Requesting physician: Mar Farrell - Chief Complaint AMS - History of Present Illness Kerline is a patient of Dr. Anderson Grande who originally presented with weakness, anorexia, weight loss and lower back pain. She was admitted to [facility], was found to have large LLL mass on CT Scan, seen by Dr Corcoran > CT-Guided Bx revealed Squamous cell Ca. PET Scan revealed metastatic disease to T8 & T12. She also underwent MRI of thoracic no spinal cord involvement. At time of diagnosis she reported loss of stamina, anorexia & 20 lbs weight loss in past 4 month. She went from being fully active & playing golf regularly to having difficulty standing/walking. The patient smoked 1 and half PPD X 20 years, quit smoking 40 years ago, denied ETOH. The patient lost daughter to "brain cancer" and a sister with AML. Unfortunetley her genomic testing did not reveal treatment effectiveness with targeted therapy. PD-L1 0%, gardant study: No actionable mutations. She was seen in office on 01/06/20 and received IV hydration and 4mg of Zometa for hypercalcemia of malignancy. She presented to emergency today with episode of altered mental status. Ragsdale cultures drawn on admission, her calcium level was still increased (secondary to underlying malignancy and likely component dehydration), potassium 2.7 and magnesium 1.5. History of atrial fib and is maintained on eliquis 2.5 BID. Her WBC on admission also increased 16.7. Her calcium has improved after reciv ing hydration overnight, although still increased 11.3. We will add additional treatment with calcitonin x3 days 4iu/kg q12. CT brain was without contrast, but did not reveal any acute events. MRI of the brain is still needed for initial staging of metastatic lung cancer. She is scheduled to start chemotherapy on 01/12/20 Review of Systems All systems: negative Constitutional: Reports as per HPI Past Medical History Past Medical History: Hyperlipidemia, Hypertension, Thyroid Disorder Additional Past Medical History / Comment(s): seasonal allergies History of Any Multi-Drug Resistant Organisms: None Reported Past Surgical History: Appendectomy, Section, Tonsillectomy, Tubal Ligation Past Anesthesia/Blood Transfusion Reactions: No Reported Reaction Past Psychological History: No Psychological Hx Reported Smoking Status: Former smoker Past Alcohol Use History: None Reported Additional Past Alcohol Use History / Comment(s): quit 30 years ago Past Drug Use History: None Reported - Past Family History Mother Family Medical History: No Reported History Additional Family Medical History / Comment(s): pt confused, unknown Father Family Medical History: No Reported History Additional Family Medical History / Comment(s): pt confused, unknown Medications and Allergies Home Medications Medication Instructions Recorded Confirmed Type Ergocalciferol [Vitamin D2 50,000 unit PO FR 11/09/19 01/07/20 History (DRISDOL)] Levothyroxine Sodium [Synthroid] 50 mcg PO DAILY 11/09/19 01/07/20 History Lovastatin [Altoprev] 20 mg PO HS 11/09/19 01/07/20 History Montelukast Sodium [Singulair] 10 mg PO HS 11/09/19 01/07/20 History Apixaban [Eliquis] 2.5 mg PO BID #60 tab 11/13/19 01/07/20 Rx Diltiazem Oral [Cardizem*] 30 mg PO TID #90 tab 11/13/19 01/07/20 Rx Metoprolol Tartrate [Lopressor] 50 mg PO BID #60 tab 11/13/19 01/07/20 Rx dronabinoL [Dronabinol] 5 mg PO HS 01/07/20 01/07/20 History Allergies Allergy/AdvReac Type Severity Reaction Status Date / Time No Known Allergies Allergy Verified 01/07/20 12:38 Physical Exam Vitals: Vital Signs Temp Pulse Pulse Resp BP BP Pulse Ox 01/08/20 12:50 95 16 130/80 96 01/08/20 09:10 98.4 F 110 H 16 109/79 98 01/08/20 04:00 98.9 F 98 17 118/70 98 01/08/20 00:00 97.8 F 92 19 101/56 98 01/07/20 20:00 97.8 F 96 18 122/76 96 01/07/20 18:15 74 18 128/63 93 L 01/07/20 16:00 16 01/07/20 14:30 97.3 F L 86 16 138/54 93 L 01/07/20 14:01 98.3 F 84 16 107/71 Intake and Output 01/07/20 01/08/2020 22:59 06:59 14:59 Intake Total 591 Output Total 600 Balance -9 Intake: Intake, IV Titration 351 Amount Diltiazem 125 mg In 125 Sodium Chloride 0.9% 100 ml @ 10 MG/HR 10 mls/hr IV .[id number] ARIANNE Rx#: [id number] Heparin Sod,Pork in 0.45% 26 NaCl 25,000 unit In 0.45 % NaCl 1 250ml.bag @ 12 UNITS/KG/HR 6.532 mls/hr IV .Q24H ARIANNE Rx#: [id number] Magnesium Sulfate-D5w Pmx 200 1 gm In Dextrose/Water 1 100ml.bag @ 100 mls/hr IVPB Q1H ARIANNE Rx#: [id number] Oral 240 Output: Urine 600 Other: Voiding Method Diaper Diaper Diaper Incontinent Incontinent Incontinent # Voids 2 2 Weight 50.6 kg - Constitutional General appearance: cooperative, no acute distress, thin - EENT Eyes: EOMI ENT: hard of hearing, NA/AT - Neck Neck: normal ROM - Respiratory Respiratory: bilateral: diminished - Cardiovascular Rhythm: irregularly irregular leg Peripheral Edema: bilateral: Trace - Gastrointestinal General gastrointestinal: normal bowel sounds, soft - Integumentary Integumentary: pale - Neurologic Neurologic: CNII-XII intact - Musculoskeletal Musculoskeletal: generalized weakness, strength equal bilaterally - Psychiatric Alert and answers appropriately Results CBC & Chem 7: 01/08/20 06:37 01/08/20 06:37 Labs: Abnormal Lab Results - Last 24 Hours (Table) 01/07/20 01/07/20 01/08/20 Range/Units 13:14 15:49 00:07 WBC (3.8-10.6) k/uL RBC (3.80-5.40) m/uL APTT 49.1 H (22.0-30.0) sec Sodium (137-145) mmol/L Potassium (3.5-5.1) mmol/L Chloride (98-107) mmol/L Carbon Dioxide (22-30) mmol/L BUN (7-17) mg/dL Calcium (8.4-10.2) mg/dL Magnesium (1.6-2.3) mg/dL Troponin I 0.222 H* 0.260 H* (0.000-0.034) ng/mL 01/08/20 01/08/20 01/08/20 Range/Units 06:37 06:37 06:37 WBC 11.9 H (3.8-10.6) k/uL RBC 3.70 L (3.80-5.40) m/uL APTT 38.8 H (22.0-30.0) sec Sodium 134 L (137-145) mmol/L Potassium 2.7 L* (3.5-5.1) mmol/L Chloride 96 L (98-107) mmol/L Carbon Dioxide 31 H (22-30) mmol/L BUN 21 H (7-17) mg/dL Calcium 11.3 H (8.4-10.2) mg/dL Magnesium 1.5 L (1.6-2.3) mg/dL Troponin I (0.000-0.034) ng/mL Chest x-ray: report reviewed Assessment and Plan (1) Metastatic lung cancer (metastasis from lung to other site) Current Visit: Yes Status: Acute Code(s): C34.90 - MALIGNANT NEOPLASM OF UNSP PART OF UNSP BRONCHUS OR LUNG SNOMED Code(s): 68941489 (2) Hypercalcemia of malignancy Current Visit: Yes Status: Acute Code(s): E83.52 - HYPERCALCEMIA SNOMED Code(s): 38090184 (3) Hypokalemia Current Visit: Yes Status: Acute Code(s): E87.6 - HYPOKALEMIA SNOMED Cod e(s): 67468475 (4) Hypomagnesemia Current Visit: Yes Status: Acute Code(s): E83.42 - HYPOMAGNESEMIA SNOMED Code(s): 775630431 (5) Altered mental status Current Visit: Yes Status: Acute Code(s): R41.82 - ALTERED MENTAL STATUS, UNSPECIFIED SNOMED Code(s): 164784120 (6) Atrial fibrillation with RVR Current Visit: Yes Status: Acute Code(s): I48.91 - UNSPECIFIED ATRIAL FIBRILLATION SNOMED Code(s): 248915081213220 (7) Pulmonary edema Current Visit: Yes Status: Acute Code(s): J81.1 - CHRONIC PULMONARY EDEMA SNOMED Code(s): 00629723 Plan: Assessment and recommendations: Squamous Cell Carcinoma Lung - Metastatic disease to Bone: - Has not began treatment as of yet, scheduled for Carboplatin next week - Status Post Zometa on 01/05 Hypercalcemia of Malignancy: Worsened with dehydration - Status Post Zometa on 01/05 - Add Calcitonin x6 doses - Monitor Calcium Daily - Gentle hydration should continue with management of diuretics per cardiology Leukocytosis: - Improving - Afebrile (although given her malignancy and age a fever will not always present) - Ragsdale cultures, Blood cultures ordered today - Urinalysis completed, Culture not resulted - Chest Xray - Pulm Edema/Congestion Hypokalemia: - Supped per protocol and primary team Hypomagnesium: - Supp per primary team Altered Mental Status: - Likely secondary to Hypercalcemia plus or minus infectious etiology - CT brain without acute abnormality - MRI of Brain still recommended for initial staging, will obtain inpatient if mental status does not continue to improve. Thank you for allowing us to participate in the care of this patient, we will follow along with you Kathie Pride NP
[2020-01-09] MEDS: FUROSEMIDE 20 MG TAB PO SCH (15:57)
[2020-01-09] MEDS: DILTIAZEM ORAL 60 MG TAB PO SCH ×2 (15:57→22:59)
[2020-01-09] MEDS: ATORVASTATIN 10 MG TAB PO SCH (19:37)
--- NOTE | 2020-01-10 00:11 | EEG ---
ELECTROENCEPHALOGRAM REPORT DATE OF SERVICE: 01/09/2020 FINDINGS: This EEG is performed using the international 10-20 placement system. The patient is reportedly awake at the onset of the recording. There is a 5 Hz posteriorly dominant background rhythm on the left with a 7 Hz right-sided background rhythm. The background rhythm does attenuate with eye opening. Photic stimulation is performed and does produce a symmetric driving response. Patient does become intermittently drowsy during the recording, as evidenced by further slowing and disorganization of the background rhythm. There are no focal or lateralizing discharges. There are no epileptiform discharges. There is a tremendous amount of movement artifact throughout the recording caused by teeth grinding, jaw clenching and other various movements of the patient. IMPRESSION: This is an abnormal EEG with diffuse slowing, left greater than right consistent with an encephalopathic process and perhaps the area of increased slowly may represent an underlying lesion such as stroke. Clinical correlation is advised. DEA / TAMMYN: [id number] /
[2020-01-10] MEDS: LEVOTHYROXINE 50 MCG TAB PO SCH (05:50)
[2020-01-10 07:15] LABS: Basophils % (A) 0 %; Eosinophils # (A) 0.1 k/uL (0-0.7); Eosinophils % (A) 1 %; HCT 45.1 % (34.0-46.0); HGB 14.7 gm/dL (11.4-16.0); Lymphocytes # (A) 1.5 k/uL (1.0-4.8); Lymphocytes % (A) 9 %; MCHC 32.6 g/dL (31.0-37.0); MCV 98.2 fL (80.0-100.0); Mean Platelet Volume 8.4; Monocytes # (A) 0.7 k/uL (0-1.0); Monocytes % (A) 4 %; Neutrophils # (A) 13.9 k/uL (1.3-7.7); Neutrophils % (A) 85 %; Platelet Count 352 k/uL (150-450); RBC 4.59 m/uL (3.80-5.40); RDW 12.5 % (11.5-15.5); WBC 16.3 k/uL (3.8-10.6)
[2020-01-10 07:27] LABS: Calcium 10.2 mg/dL (8.4-10.2); Potassium 3.4 mmol/L (3.5-5.1)
[2020-01-10] MEDS: FUROSEMIDE 20 MG TAB PO SCH (08:15)
[2020-01-10] MEDS: METOPROLOL TARTRATE 50 MG TAB PO SCH (08:15)
[2020-01-10] MEDS: APIXABAN 2.5 MG TABLET PO SCH (08:15)
[2020-01-10] MEDS: DILTIAZEM ORAL 60 MG TAB PO SCH (08:16)
[2020-01-10 09:34] VITALS: RESP 20
--- NOTE | 2020-01-10 10:29 | P.PN ---
Subjective This is a pleasant 79-year-old female past medical history significant for paroxysmal atrial fibrillation on long-term anticoagulation, recently diagnosed left lower lobe squamous cell carcinoma status post radiation, hypertension and dyslipidemia. She follows in the office with Dr. Gray. She is seen and examined resting comfortably sitting up in bed with her at the bedside. She denies symptoms of chest pain, shortness of breath, dizziness or palpitations. Blood pressure 133/69 heart rate 73. Her rates have been under 100 all-night. Currently maintained on Lopressor 50 mg twice a day, Eliquis 2.5 mg twice a day, atorvastatin 10 mg at bedtime and Lasix 20 mg twice a day and diltiazem 60 mg 3 times a day. Laboratory data reviewed, WBC 16.3, hemoglobin 14.7, platelets 352, sodium 134, potassium 3.4 and creatinine 0.74. She continues to be in atrial fibrillation. GENERAL: Well-appearing, well-nourished and in no acute distress. NECK: Supple without JVD or thyromegaly. LUNGS: Breath sounds clear to auscultation bilaterally. Respiration equal and unlabored. No wheezes, rales or rhonchi. HEART: Irregular rate and rhythm without murmurs, rubs or gallops. S1 and S2 heard. EXTREMITIES: Normal range of motion, no edema. No clubbing or cyanosis. Peripheral pulses intact. ASSESSMENT Paroxysmal atrial fibrillation Elevated troponin of unclear significance, possibly related to A. fib with RVR Hypertension Hypokalemia Hyponatremia Dyslipidemia Squamous cell carcinoma status post radiation PLAN Stable for discharge from a cardiac perspective. Follow-up in the office with Dr. Gray in one to 2 weeks. Daily potassium supplementation has been initiated by the primary care team. Nurse Practitioner note has been reviewed, I agree with a documented findings and plan of care. Patient was seen and examined. Objective - Vital Signs Vital signs: Vital Signs Temp 97.9 F 01/10/20 07:55 Pulse 73 01/10/20 07:55 Resp 20 01/10/20 07:55 BP 118/73 01/10/20 07:55 Pulse Ox 97 01/10/20 07:55 Intake & Output 01/09/20 01/10/20 01/10/20 18:59 06:59 18:59 Intake Total 540 125 Output Total 151 401 Balance 389 -401 125 Weight 52 kg Intake: Oral 540 125 Output: Urine 150 400 Stool 1 1 Other: Voiding Method Diaper Diaper Diaper Incontinent Incontinent Incontinent # Voids 1 1 # Bowel Movements 1 - Labs CBC & Chem 7: 01/10/20 06:37 01/10/20 06:37 Labs: Abnormal Lab Results - Last 24 Hours (Table) 01/10/20 01/10/20 Range/Units 06:37 06:37 WBC 16.3 H (3.8-10.6) k/uL Neutrophils # 13.9 H (1.3-7.7) k/uL Sodium 134 L (137-145) mmol/L Potassium 3.4 L (3.5-5.1) mmol/L Chloride 97 L (98-107) mmol/L BUN 22 H (7-17) mg/dL Glucose 110 H (74-99) mg/dL Microbiology - Last 24 Hours (Table) 01/08/20 14:09 Blood Culture - Preliminary Blood No Growth after 24 hours 01/08/20 13:59 Blood Culture - Preliminary Blood No Growth after 24 hours
[2020-01-10] MEDS ORDERED: POTASSIUM CHLORIDE ER 10 MEQ TAB.ER.PRT PO SCH (10:30)
[2020-01-10] MEDS ORDERED: POTASSIUM CHLORIDE ER 20 MEQ TAB.ER PO STA (10:59)
--- NOTE | 2020-01-10 10:59 | P.DS ---
Providers Date of admission: 01/07/20 12:57 Attending physician: Mar Farrell Consults: 01/07/20 12:57 Consult Physician Urgent Consulting Provider: [facility] Consult Reason/Comments: A. fib with rapid ventricular response, elevated troponin Do you want consulting provider notified?: Yes 01/07/20 15:57 Consult Physician Routine Consulting Provider: Palak Artis Consult Reason/Comments: Altered mental status Do you want consulting provider notified?: Yes 01/08/20 11:09 Consult Physician Routine Consulting Provider: Anderson Rivas Consult Reason/Comments: Known to pt/treating for lung CA Do you want consulting provider notified?: Yes Primary care physician: Dorita [facility] Course: patient given with the complaints of altered mental status. Vision is presently alert oriented 3. Patient was also treated for atrial fibrillation with rapid ventricular rate patient is presently on oral Cardizem and metoprolol heart rate is fairly well controlled. Patient's dronabinol was held because of this A. fib and confusion will be resumed on this medication again and will monitor her overnight. Patient was resumed on Eliquis, IV heparin was discontinued. 01/09/2020 Patient heart rate is well controlled now but it was elevated earlier today, patient was given her home dose of medications after which her heart rate has come down. No medication changes are being made, if cleared by cardiology patient will be discharged later today if her heart rate remains stable upon ambulation. Patient already has home care. Will ablate the patient and if she doesn't need subacute rehabitation patient will be discharged today. Regarding her confusion it appears that she is confused at nighttime and patient takes Marinol at nighttime and heart heart rate appears to be going up at nighttime as well. Marinol may be contributing to her elevated heart rate as well as confusion. The other possibility is being sundowners considering her age, the possibility of neoplastic syndrome is a consideration but low. EEG was recommended by neurology. If patient is cleared by neurology and cardiology and if patient is able to ambulate well without increase in heart rate. Patient will be discharged today. Patient doesn't have any more episodes of altered mental status heart rate is well controlled and patient will be discharged today patient had an EEG which showed encephalopathic changes and there was a concern about stroke although clinically patient doesn't appear to have his troponin and patient is already on Eliquis. PT and OT evaluation and patient is strong enough to discharge patient will be discharged PHYSICAL EXAMINATION: GENERAL: The patient is alert and oriented x3, not in any acute distress. Well developed, well nourished. HEENT: Pupils are round and equally reacting to light. EOMI. No scleral icterus. No conjunctival pallor. Normocephalic, atraumatic. No pharyngeal erythema. No thyromegaly. CARDIOVASCULAR: S1 and S2 present. No murmurs, rubs, or gallops. irregularly irregular rhythm PULMONARY: Chest is clear to auscultation, no wheezing or crackles. ABDOMEN: Soft, nontender, nondistended, normoactive bowel sounds. No palpable organomegaly. MUSCULOSKELETAL: No joint swelling or deformity. EXTREMITIES: No cyanosis, clubbing, or pedal edema. NEUROLOGICAL: Gross neurological examination did not reveal any focal deficits. SKIN: No rashes. Assessment and Plan Plan: Altered mental status: Most probably secondary to Marinol, sundowners possibly a paraneoplastic syndromes is low. Neurology evaluated the patient -Elevation of troponinprobably related to atrial fibrillation was evaluated by cardiology, no plan for further intervention. -Hypervolemic hyponatremia secondary to congestive heart failure exacerbation: Improved initially and started going down again patient was switched to oral Lasix was dropped to in serum sodium to 134 is secondary to Lasix -Hypokalemia secondary to diuresis potassium was replaced -Hypothyroidism continue with levothyroxine -Congestive heart failure chronic diastolic dysfunction with mild acute exacerbation -Atrial fibrillation with rapid and regular rate: Patient will be continued on present regimen along with Eliquis -Hypothyroidism -hypertension -Hyperlipidemia -Lung cancer Plan - Discharge Summary Discharge Rx Participant: Yes New Discharge Prescriptions: New Megestrol [Megace] 40 mg PO DAILY #30 tablet Potassium Chloride ER [K-Dur 20] 20 meq PO DAILY #30 tab Furosemide [Lasix] 20 mg PO BID #60 tab Continue Montelukast Sodium [Singulair] 10 mg PO HS Lovastatin [Altoprev] 20 mg PO HS Ergocalciferol [Vitamin D2 (DRISDOL)] 50,000 unit PO FR Levothyroxine Sodium [Synthroid] 50 mcg PO DAILY Diltiazem Oral [Cardizem*] 30 mg PO TID #90 tab Metoprolol Tartrate [Lopressor] 50 mg PO BID #60 tab Apixaban [Eliquis] 2.5 mg PO BID #60 tab Discontinued dronabinoL [Dronabinol] 5 mg PO HS Discharge Medication List Ergocalciferol [Vitamin D2 (DRISDOL)] 50,000 unit PO FR 11/09/19 [History] Levothyroxine Sodium [Synthroid] 50 mcg PO DAILY 11/09/19 [History] Lovastatin [Altoprev] 20 mg PO HS 11/09/19 [History] Montelukast Sodium [Singulair] 10 mg PO HS 11/09/19 [History] Apixaban [Eliquis] 2.5 mg PO BID #60 tab 11/13/19 [Rx] Diltiazem Oral [Cardizem*] 30 mg PO TID #90 tab 11/13/19 [Rx] Metoprolol Tartrate [Lopressor] 50 mg PO BID #60 tab 11/13/19 [Rx] Furosemide [Lasix] 20 mg PO BID #60 tab 01/09/20 [Rx] Megestrol [Megace] 40 mg PO DAILY #30 tablet 01/09/20 [Rx] Potassium Chloride ER [K-Dur 20] 20 meq PO DAILY #30 tab 01/09/20 [Rx] Follow up Appointment(s)/Referral(s): Tiffanie Gray MD [STAFF PHYSICIAN] - 2 Weeks [facility], [NON-STAFF] - Dorita Hoover MD [Primary Care Provider] - 3 Days Ambulatory/Diagnostic Orders: Basic Metabolic Panel [LAB.AMB] Time Frame: 3 Days, Location: None Selected Patient Instructions/Handouts: A-fib (Atrial Fibrillation) (DC) Discharge Disposition: HOME WITH HOME HEALTH SERVICES
[2020-01-10 12:29] VITALS: BP 106/59; PULSE 96; TEMP 96.9
--- NOTE | 2020-01-11 23:00 | CDI ---
Documentation Clarification Form Date: 01/12/2020 From: Fernando Rodriguez Phone: If you have a question about this query, please contact [address] Train Driver at [phone] between 8am and 5pm. Admit Date: 01/07/2020 Discharge Date: 01/10/2020 Patient Name: Kerline Harrington Visit Number: [id number] ATTENTION: The Clinical Documentation Specialists (CDI) and [facility] Coding Staff appreciate your assistance in clarifying documentation. Please respond to the clarification below the line at the bottom and electronically sign. The CDI & [facility] Coding staff will review the response and follow-up if needed. Please note: Queries are made part of the Legal Health Record. If you have any questions, please contact the author of this message via ITS. Dear Mar Chaney MD., Encephalopathy is documented in the DS as "Patient doesn't have any more episodes of altered mental status heart rate is well controlled and patient will be discharged today patient had an EEG which showed encephalopathic change and there was a concern about stroke although clinically patient doesn't appear to have his troponin and patient is already on Eliquis". History/Risk Factors: AMS, Hyperlipidemia, hyponatremia Labs: Hytonatremia, Hyperlipidemia EEG:Patient doesn't have any more episodes of altered mental status heart rate is well controlled and patient will be discharged today patient had an EEG which showed encephalopathic changes and there was a concern about stroke although clinically patient doesn't appear to have his troponin and patient is already on Eliquis CT/MRI Brain: White matter hypodensities likely sequela of chronic microvascular ischemic change Per DS noted "Altered mental status: Most probably secondary to Marinol, sundowners possibly a paraneoplastic syndromes is low". In your professional opinion, can you please clarify the specific type of Encephalopathy, if known? Metabolic Encephalopathy Toxic Encephalopathy Other, please specify Unable to determine Unable to determine MTDD
== END 2020-01-10 14:15 | disposition home health service (06) | DRG 308 ==
LOC: EC 11:03 → 3SCARD 12:57
PROVIDERS: ADMIT Internal Medicine; ATTEND Internal Medicine
DX: I48.0 Paroxysmal atrial fibrillation (principal); I50.33 Acute on chronic diastolic (congestive) heart failure; E87.1 Hypo-osmolality and hyponatremia; C34.92 Malignant neoplasm of unspecified part of left bronchus or lung; C79.51 Secondary malignant neoplasm of bone; E03.9 Hypothyroidism, unspecified; E78.5 Hyperlipidemia, unspecified; E83.42 Hypomagnesemia; E83.52 Hypercalcemia; E86.0 Dehydration; I49.3 Ventricular premature depolarization; T50.1X5A Adverse effect of loop [high-ceiling] diuretics, initial encounter; T50.2X5A Adverse effect of carbonic-anhydrase inhibitors, benzothiadiazides and other diuretics, initial encounter; I11.0 Hypertensive heart disease with heart failure; E87.6 Hypokalemia; Z79.890 Hormone replacement therapy; Z79.01 Long term (current) use of anticoagulants; Z79.899 Other long term (current) drug therapy; Z90.89 Acquired absence of other organs; Z90.49 Acquired absence of other specified parts of digestive tract; Z98.51 Tubal ligation status; Z98.891 History of uterine scar from previous surgery; Z87.891 Personal history of nicotine dependence; Z92.3 Personal history of irradiation; Z81.8 Family history of other mental and behavioral disorders
CPT/HCPCS: 36415; 70450; 71046; 80048; 80053; 80061; 80306; 81001; 82330; 83735; 83880; 84484; 85025; 85027; 85610; 85730; 87040; 93005; 93306; 95816; 96361; 96365; 96366; 96375; 96376; 99291

== ENCOUNTER 2020-02-14 11:38 | Inpatient (IN) | payer MEDICARE ==
--- NOTE | 2020-02-14 12:27 | ED ---
General Adult HPI - General Chief complaint: Weakness Stated complaint: Dehydrated Time Seen by Provider: 02/14/20 11:46 Source: EMS Mode of arrival: EMS Limitations: no limitations - History of Present Illness Initial comments: Dictation was produced using [employer] dictation software. please excuse any grammatical, word or spelling errors. This patient was cared for during a federal and state declared state of emergency secondary to Covid 19 Chief Complaint: 80-year-old female past medical history of stage III lung carcinoma presents today with hemoptysis History of Present Illness: 80-year-old female she was encouraged by her si gnificant other did come to the emergency department for hemoptysis. Patient reports that today she had an episode where she coughed up 3 large blood clots. Patient states she had a similar episode a couple weeks ago that she did not seek medical attention for. Patient denies any shortness of breath currently. Denies any fever or chills or night sweats. Denies any lower extremity symptoms. She has no chest pain. Patient has history of A. fib. She takes anticoagulation medications. The ROS documented in this emergency department record has been reviewed and confirmed by me. Those systems with pertinent positive or negative responses have been documented in the HPI. All other systems are other negative and/or noncontributory. PHYSICAL EXAM: General Impression: Alert and oriented x3, not in acute distress HEENT: Normocephalic atraumatic, extra-ocular movements intact, pupils equal and reactive to light bilaterally, mucous membranes moist. Cardiovascular: Heart regular rate and rhythm Chest: Able to complete full sentences, no retractions, no tachypnea Abdomen: abdomen soft, non-tender, non-distended, no organomegaly Musculoskeletal: Pulses present and equal in all extremities, no peripheral edema Motor: no focal deficits noted Neurological: CN II-XII grossly intact, no focal motor or sensory deficits noted Skin: Intact with no visualized rashes Psych: Normal affect and mood ED course: 80-year-old female presents with chief complaint of hemoptysis. Vital signs upon arrival shows 90% on room air, worse vital signs within acceptable limits. Laboratory evaluation obtained. Mild leukocytosis of 13.1. Coag panel is unremarkable. Metabolic panel findings within acceptable limits except for some hyponatremia with sodium of 129. Patient given intravenous fluids. Upon reevaluation she did mention that she's been having some palpitations at home. She does take several rate control medications for her A. fib. I bedside patient's heart rate was averaging 120 to 1:30. Clinical presentation concerning for A. fib with rapid ventricular rate. Concern patient has hemoptysis CT of the chest with contrast is ordered showing enlarging left lower lobe pleural based mass with enlarging left hilar mass, increasing left-sided pleural effusion and left lower lobe compressive atelectasis. There is also enlarging subcarinal adenopathy. Patient did not have any episodes of hemoptysis in the ER. Disposition options were discussed with patient. She is told that we have several coronavirus cases in the hospital and there is a risk of being admitted and blas a virus. Patient understands and would prefer to be admitted nonetheless. [facility] Cardiology will be consulted. EKG interpretation: Ventricular rate 106, A. fib, QRS 76, QTC 409. No DC prolongation, no QTC prolongation, no ST or T-wave changes noted. EKG compared to 01/17/2020 showing no changes. Overall, this EKG is unremarkable - Related Data Home Medications Medication Instructions Recorded Confirmed Ergocalciferol [Vitamin D2 50,000 unit PO FR 11/09/19 02/14/20 (DRISDOL)] Levothyroxine Sodium [Synthroid] 50 mcg PO DAILY 11/09/19 02/14/20 Lovastatin [Altoprev] 20 mg PO HS 11/09/19 02/14/20 Montelukast Sodium [Singulair] 10 mg PO HS 11/09/19 02/14/20 Metoprolol Tartrate [Lopressor] 25 mg PO BID 02/14/20 02/14/20 Omeprazole 20 mg PO HS 02/14/20 02/14/20 Potassium Chloride ER [K-Dur 10] 20 meq PO DAILY 02/14/20 02/14/20 Sodium Chloride Tab 1 gm PO AC-SUPPER 02/14/20 02/14/20 Previous Rx's Medication Instructions Recorded Apixaban [Eliquis] 2.5 mg PO BID #60 tab 11/13/19 Diltiazem Oral [Cardizem*] 30 mg PO TID #90 tab 11/13/19 Furosemide [Lasix] 20 mg PO BID #60 tab 01/09/20 Megestrol [Megace] 40 mg PO DAILY #30 tablet 01/09/20 Allergies Allergy/AdvReac Type Severity Reaction Status Date / Time No Known Allergies Allergy Verified 02/14/20 13:44 Review of Systems ROS Statement: Those systems with pertinent positive or pertinent negative responses have been documented in the HPI. ROS Other: All systems not noted in ROS Statement are negative. Past Medical History Past Medical History: Hyperlipidemia, Hypertension, Thyroid Disorder Additional Past Medical History / Comment(s): seasonal allergies History of Any Multi-Drug Resistant Organisms: None Reported Past Surgical History: Appendectomy, Section, Tonsillectomy, Tubal Ligation Past Anesthesia/Blood Transfusion Reactions: No Reported Reaction Past Psychological History: No Psychological Hx Reported Smoking Status: Former smoker Past Alcohol Use History: None Reported Past Drug Use History: None Reported - Past Family History Mother Family Medical History: No Reported History Additional Family Medical History / Comment(s): pt confused, unknown Father Family Medical History: No Reported History Additional Family Medical History / Comment(s): pt confused, unknown General Exam Limitations: no limitations Course Vital Signs 02/14/20 11:41 Temperature 98.0 F Pulse Rate 98 Respiratory 16 Rate Blood Pressure 111/72 O2 Sat by Pulse 93 L Oximetry Medical Decision Making - Lab Data Result diagrams: 02/14/20 12:28 02/14/20 12:28 Lab Results 02/14/20 02/14/20 02/14/20 Range/Units 12:28 12:28 12:28 WBC 13.1 H (3.8-10.6) k/uL RBC 4.89 (3.80-5.40) m/uL Hgb 15.6 (11.4-16.0) gm/dL Hct 47.4 H (34.0-46.0) % MCV 96.8 (80.0-100.0) fL MCH 31.9 (25.0-35.0) pg MCHC 32.9 (31.0-37.0) g/dL RDW 13.9 (11.5-15.5) % Plt Count 393 (150-450) k/uL MPV 8.4 Neutrophils % 85 % Lymphocytes % 10 % Monocytes % 4 % Eosinophils % 1 % Basophils % 0 % Neutrophils # 11.1 H (1.3-7.7) k/uL Lymphocytes # 1.4 (1.0-4.8) k/uL Monocytes # 0.5 (0-1.0) k/uL Eosinophils # 0.1 (0-0.7) k/uL Basophils # 0.0 (0-0.2) k/uL PT 11.6 (9.0-12.0) sec INR 1.1 (<1.2) APTT 25.2 (22.0-30.0) sec Sodium 129 L (137-145) mmol/L Potassium 4.9 (3.5-5.1) mmol/L Chloride 98 (98-107) mmol/L Carbon Dioxide 25 (22-30) mmol/L Anion Gap 6 mmol/L BUN 14 (7-17) mg/dL Creatinine 0.61 (0.52-1.04) mg/dL Est GFR (CKD-EPI)AfAm >90 (>60 ml/min/1.73 sqM) Est GFR (CKD-EPI)NonAf 85 (>60 ml/min/1.73 sqM) Glucose 93 (74-99) mg/dL Calcium 11.5 H (8.4-10.2) mg/dL Total Bilirubin 1.7 H (0.2-1.3) mg/dL AST 57 H (14-36) U/L ALT 22 (4-34) U/L Alkaline Phosphatase 77 (38-126) U/L Total Protein 6.9 (6.3-8.2) g/dL Albumin 3.3 L (3.5-5.0) g/dL Disposition Clinical Impression: Atrial fibrillation with RVR Disposition: ADMITTED IP TO THIS HOSP Condition: Fair Referrals: Dorita Hoover MD [Primary Care Provider] - 1-2 days Decision Time: 14:30
[2020-02-14 12:45] LABS: Basophils % (A) 0 %; Eosinophils # (A) 0.1 k/uL (0-0.7); Eosinophils % (A) 1 %; HCT 47.4 % (34.0-46.0); HGB 15.6 gm/dL (11.4-16.0); Lymphocytes # (A) 1.4 k/uL (1.0-4.8); Lymphocytes % (A) 10 %; MCH 31.9 pg (25.0-35.0); MCHC 32.9 g/dL (31.0-37.0); MCV 96.8 fL (80.0-100.0); Mean Platelet Volume 8.4; Monocytes # (A) 0.5 k/uL (0-1.0); Monocytes % (A) 4 %; Neutrophils # (A) 11.1 k/uL (1.3-7.7); Neutrophils % (A) 85 %; Platelet Count 393 k/uL (150-450); RBC 4.89 m/uL (3.80-5.40); RDW 13.9 % (11.5-15.5); WBC 13.1 k/uL (3.8-10.6)
[2020-02-14 12:58] LABS: ALT 22 U/L (4-34); AST 57 U/L (14-36); African American GFR (CKD) >90 (>60 ml/min/1.73 sqM); Albumin 3.3 g/dL (3.5-5.0); Alkaline Phosphatase 77 U/L (38-126); Anion Gap 6 mmol/L; Blood Urea Nitrogen 14 mg/dL (7-17); Calcium 11.5 mg/dL (8.4-10.2); Carbon Dioxide 25 mmol/L (22-30); Chloride 98 mmol/L (98-107); Glucose 93 mg/dL (74-99); Non-African American GFR(CKD) 85 (>60 ml/min/1.73 sqM); Sodium 129 mmol/L (137-145); Total Bilirubin 1.7 mg/dL (0.2-1.3); Total Protein 6.9 g/dL (6.3-8.2)
[2020-02-14 13:02] LABS: Potassium 4.9 mmol/L (3.5-5.1)
[2020-02-14 13:03] LABS: INR 1.1 (<1.2); Partial Thromboplastin Time 25.2 sec (22.0-30.0); Prothrombin Time 11.6 sec (9.0-12.0)
--- NOTE | 2020-02-14 13:07 | XR ---
EXAMINATION TYPE: XR chest 2V DATE OF EXAM: 02/14/2020 COMPARISON: September 07, 2019 HISTORY: Shortness of breath TECHNIQUE: Frontal and lateral views of the chest are obtained. FINDINGS: Scattered senescent parenchymal changes noted. Hyperinflation compatible with COPD. Increased density left lower lobe may reflect developing pneumonia. There is also a small effusion. C orrelate clinically progress studies recommended. Heart size is stable. Mediastinal structures are stable and grossly unremarkable. No evidence for hilar prominence. Degenerative changes dorsal spine. IMPRESSION: 1. Increased density left lower lobe may reflect developing pneumonia. There is also a small effusion . Correlate clinically progress studies recommended.
[2020-02-14] MEDS ORDERED: RX INFO: IV CONTRAST WAS GIVEN 1 EACH MISC MISCELLANE PRN (13:34)
--- NOTE | 2020-02-14 14:21 | CT ---
EXAMINATION TYPE: CT chest w con DATE OF EXAM: 02/14/2020 COMPARISON: HISTORY: Dehydrated CT DLP: 170 mGycm Automated exposure control for dose reduction was used. CONTRAST: CT scan of the chest is performed with IV Contrast, patient injected with 100 ml mL of Isovue 300. FINDINGS: LUNGS: Enlarging pleural-based mass left lower lobe which currently measures 4.9 x 4.8 cm versus maxi mal measurement of 3.5 cm previously. There is enlarging left hilar mass noted as well which currentl y measures 3.6 x 4.0 cm versus 3.3 x 2.7 cm. There is also new left-sided pleural effusion small in s ize as well as compressive atelectasis. MEDIASTINUM: There is subcarinal adenopathy measuring 3.5 x 5.9 cm. No additional mediastinal adenopa thy noted at this time. Thoracic aorta is of normal caliber. The heart is not enlarged. UPPER ABDOMEN: No significant abnormality appreciated. OTHER: No additional significant abnormality is seen. IMPRESSION: 1. Enlarging left lower lobe pleural-based mass as well as enlarging left hilar mass. Interval develo pment of small left-sided pleural effusion as well as left lower lobe compressive atelectasis. 2. Enlarging subcarinal adenopathy.
[2020-02-14] MEDS ORDERED: SODIUM CHLORIDE 0.9% 500 ML 500 ML IV STA (14:27)
[2020-02-14] MEDS ORDERED: NALOXONE 0.4 MG/ML 1 ML VIAL IV PRN (14:30)
[2020-02-14] MEDS ORDERED: ACETAMINOPHEN TAB 325 MG TAB PO PRN (14:30)
[2020-02-14] MEDS ORDERED: SODIUM CHLORIDE 0.9% 500 ML 1,000 ML IV STA (14:36)
[2020-02-14] MEDS: SODIUM CHLORIDE 0.9% 1,000 ML IV SCH (14:47)
[2020-02-14] MEDS ORDERED: DILTIAZEM 125 MG in SODIUM CHLORIDE 0.9% 100 ML IV SCH (15:00)
--- NOTE | 2020-02-14 20:25 | P.CNPUL ---
History of Present Illness Consult date: 02/14/20 Reason for consult: dyspnea Chief complaint: Weakness, dehydration History of present illness: 80-year-old white female patient who was recently diagnosed with metastatic lung cancer in October 2019 when she initially presented to the hospital with symptoms of weakness, anorexia, weight loss, lower back pain. Computed tomography scan of the chest revealed left lower lobe lung mass, and subcarinal, hilar, retrocaval pretracheal and prevascular adenopathy concerning for primary lung cancer. 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 Outpatient PET scan showed hypermetabolic uptake within the L2 vertebral body as well as posterior element of the right T8 vertebral body, left lower lobe mass with associated hypermetabolic uptake, left hilar hypermetabolic uptake, abnormal subcarinal uptake extending toward the left hilar region, no abnormal retroperitoneal adenopathy with liver masses, no ascites, ringing's were compatible with the lung carcinoma with metastatic disease to the skeleton. Brain CT showed no acute intracranial hemorrhage, midline shift or mass effect. Additional white matter hypodensities likely sequela of chronic microvascular ischemic change. Patient was receiving IV hydration and Zometa for hypercalcemia. She is following with the medical oncology. On 02/14/2020 rossana gamez was brought into the emergency department per EMS for evaluation of hemoptysis. Today she coughed up 3 large blood clots, and she had a similar episode a couple weeks ago however did not seek medical attention for it. 9 any shortness of breath, denied any fever, chills or night sweats. Denied any swelling of lower extremity, or chest pain, she does have a history of A. fib and she takes Eliquis for it. Chest x-ray showed increased density at the left lower lobe echo recently developing pneumonia, with a small effusion. CT chest with contrast showed enlarging left lower lobe pleural-based mass as well as enlarging left hilar mass, interval development of small left-sided pleural effusion as well as left lower lobe compressive atelectasis, enlarging subcarinal adenopathy. Labs reviewed showing white blood cell, 13.1, hemoglobin of 15.6, INR is 1.1, sodium was 129, depressed a lecture lites and renal profile were within normal limits. Room air pulse ox is 95%, patient is afebrile, hemodynamically she stable, she is in atrial fibrillation, at times slightly tachycardic, hemodynamically stable, no complaints of chest pain or shortness of breath. She was given IV hydration for calcium level of 11.5. We were consulted for evaluation of hemoptysis. She follows with Dr. Schmitz from radiation oncology Review of Systems All systems: negative Constitutional: Denies chills, Denies fever Eyes: denies blurred vision, denies pain Ears, nose, mouth and throat: Denies headache, Denies sore throat Cardiovascular: Denies chest pain, Denies shortness of breath Respiratory: Reports dyspnea, Reports hemoptysis, Denies cough Gastrointestinal: Denies abdominal pain, Denies diarrhea, Denies nausea, Denies vomiting Genitourinary: Denies dysuria, Denies hematuria Musculoskeletal: Denies myalgias Integumentary: Denies pruritus, Denies rash Neurological: Denies numbness, Denies weakness Psychiatric: Denies anxiety, Denies depression Endocrine: Denies fatigue, Denies weight change Past Medical History Past Medical History: Hyperlipidemia, Hypertension, Thyroid Disorder Additional Past Medical History / Comment(s): seasonal allergies History of Any Multi-Drug Resistant Organisms: None Reported Past Surgical History: Appendectomy, Section, Tonsillectomy, Tubal Ligation Past Anesthesia/Blood Transfusion Reactions: No Reported Reaction Past Psychological History: No Psychological Hx Reported Smoking Status: Former smoker Past Alcohol Use History: None Reported Past Drug Use History: None Reported - Past Family History Mother Family Medical History: No Reported History Additional Family Medical History / Comment(s): pt confused, unknown Father Family Medical History: No Reported History Additional Family Medical History / Comment(s): pt confused, unknown Medications and Allergies Home Medications Medication Instructions Recorded Confirmed Type Ergocalciferol [Vitamin D2 50,000 unit PO FR 11/09/19 02/14/20 History (DRISDOL)] Levothyroxine Sodium [Synthroid] 50 mcg PO DAILY 11/09/19 02/14/20 History Lovastatin [Altoprev] 20 mg PO HS 11/09/19 02/14/20 History Montelukast Sodium [Singulair] 10 mg PO HS 11/09/19 02/14/20 History Apixaban [Eliquis] 2.5 mg PO BID #60 tab 11/13/19 02/14/20 Rx Diltiazem Oral [Cardizem*] 30 mg PO TID #90 tab 11/13/19 02/14/20 Rx Furosemide [Lasix] 20 mg PO BID #60 tab 01/09/20 02/14/20 Rx Megestrol [Megace] 40 mg PO DAILY #30 tablet 01/09/20 02/14/20 Rx Metoprolol Tartrate [Lopressor] 25 mg PO BID 02/14/20 02/14/20 History Omeprazole 20 mg PO HS 02/14/20 02/14/20 History Potassium Chloride ER [K-Dur 10] 20 meq PO DAILY 02/14/20 02/14/20 History Sodium Chloride Tab 1 gm PO AC-SUPPER 02/14/20 02/14/20 History Allergies Allergy/AdvReac Type Severity Reaction Status Date / Time No Known Allergies Allergy Verified 02/14/20 13:44 Physical Exam Vitals: Vital Signs Temp Pulse Pulse Resp BP BP Pulse Ox 02/14/20 16:55 89 16 103/73 95 02/14/20 16:10 97.6 F 71 16 111/62 92 L 02/14/20 14:48 106 H 16 105/72 95 02/14/20 11:41 98.0 F 98 16 111/72 93 L Intake and Output 02/14/20 02/14/20 02/14/20 06:59 14:59 22:59 Other: # Voids 0 Weight 46.266 kg GENERAL EXAM: Alert, active, room air pulse ox is 95% comfortable in no apparent distress. HEAD: Normocephalic/atraumatic. EYES: Normal reaction of pupils, equal size. Conjunctiva pink, sclera white. NOSE: Clear with pink turbinates. THROAT: No erythema or exudates. NECK: No masses, no JVD, no thyroid enlargement, no adenopathy. CHEST: No chest wall deformity. Symmetrical expansion. LUNGS: Equal air entry with no crackles, wheeze, rhonchi or dullness. CVS: Regular rate and rhythm, normal S1 and S2, no gallops, no murmurs, no rubs ABDOMEN: Soft, nontender. No hepatosplenomegaly, normal bowel sounds, no guarding or rigidity. EXTREMITIES: No clubbing, no edema, no cyanosis, 2+ pulses and upper and lower extremities. MUSCULOSKELETAL: Muscle strength and tone normal. SPINE: No scoliosis or deformity SKIN: No rashes CENTRAL NERVOUS SYSTEM: Alert and oriented -3. No focal deficits, tone is normal in all 4 extremities. PSYCHIATRIC: Alert and oriented -3. Appropriate affect. Intact judgment and insight. Results - Laboratory Findings CBC and BMP: 02/14/20 12:28 02/14/20 12:28 PT/INR, D-dimer PT 11.6 sec (9.0-12.0) 02/14/20 12:28 INR 1.1 (<1.2) 02/14/20 12:28 Abnormal lab findings: Abnormal Labs 02/14/20 02/14/20 12:28 12:28 WBC 13.1 H Hct 47.4 H Neutrophils # 11.1 H Sodium 129 L Calcium 11.5 H Total Bilirubin 1.7 H AST 57 H Albumin 3.3 L - Diagnostic Findings Chest x-ray: report reviewed, image reviewed Additional studies: EKG reviewed Assessment and Plan Plan: Assessment: #1. Hemoptysis related to progression of squamous cell lung cancer, with the bony metastasis, PDL receptor was negative, unclear when she received treatment in the form of carboplatinum and the stoma she never started radiation treatment to T8 metastases #2. Progression of left lower lobe lung mass, enlarging left hilar mass and enlarging subcarinal adenopathy #3. 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 Hypertension #6. Hyperlipidemia #7. Hypothyroidism #8. Previous history of smoking, in remission for last 30 years #9. A. fib on Eliquis Plan: CT chest reviewed, vital signs are stable, no recurrence of hemoptysis, but CT chest findings show progression of the lung cancer and subcarinal adenopathy. We'll hold Eliquis, we will consult radiation oncology, increase IV fluids to 75 ML per hour, we'll continue to follow I performed a history & physical examination of the patient and discussed their management with my nurse practitioner, Anne-Marie Carter. I reviewed the nurse practitioner's note and agree with the documented findings and plan of care. Lung sounds are positive for diminished breath sounds The findings and the impression was discussed with the patient. I attest to the documentation by the nurse practitioner. Time with Patient: Greater than 30
[2020-02-14] MEDS ORDERED: APIXABAN 2.5 MG TABLET PO SCH (21:00)
[2020-02-14] MEDS: METOPROLOL TARTRATE 25 MG TAB PO SCH (21:57)
[2020-02-14] MEDS: MONTELUKAST 10 MG TAB PO SCH (21:58)
[2020-02-14] MEDS: ATORVASTATIN 10 MG TAB PO SCH (21:58)
[2020-02-14] MEDS: PANTOPRAZOLE 40 MG TABLET PO SCH (21:59)
--- NOTE | 2020-02-14 22:46 | P.HPIM ---
History of Present Illness H&P Date: 02/14/20 Chief Complaint: Heart racing up fast Patient is a 80-year-old female with a known history of lung cancer currently undergoing chemotherapy, hypertension, hyperlipidemia, hypothyroidism, paroxysmal atrial fibrillation on anticoagulation with Eliquis and previous history of smoking presents to ER with complaints of coughing up blood clots yesterday evening and today morning. Patient also complains of heart racing or fast and dizziness unable to get out of bed this morning. Patient called EMS and was brought to the hospital. Denied any complaints of chest pain or shortness breath. No complaints of fever or chills. Denied any sputum production. No recent illnesses. Chest x-ray showed increased density left lower lobe may reflect developing pneumonia. There is also a small effusion. Correlate clinically. CT chest showed enlarging left lower lobe pleural-based mass as well as enlarging left hilar mass. Interval development of small left-sided pleural effusion as well as left lower lobe compressive atelectasis. Enlarging subcarinal adenopathy. Laboratory data showed WBC 13.1, hemoglobin 15.6 and platelets 393 Sodium 129, potassium 4.9, BUN 14 and creatinine 0.61 Bilirubin 1.7 and AST 57 ALT 22 and alk phos 77 Calcium 11.5 Albumin 3.3 EKG showed atrial fibrillation with rapid regular rate. Review of Systems Constitutional: Patient denies any fever or chills . generalized weakness, poor appetite weight loss. Abdomen: Patient denied nausea vomiting and diarrhea and abdominal pain. Cardiovascular: Patient denies any chest pain or short of breath no palpitations. Respiratory: patient denied any cough or sputum production. blood in the sputum. No shortness of breath Neurologic: Patient denied any numbness or tingling headache. Musculoskeletal: Patient denies any complaints of joint swelling or deformity. Skin: Negative Psychiatric: Negative Endocrine: No heat or cold intolerance. No recent weight gain. Genitourinary: No dysuria or hematuria. All other 14 point ROS negative except the above Past Medical History Past Medical History: Hyperlipidemia, Hypertension, Thyroid Disorder Additional Past Medical History / Comment(s): seasonal allergies History of Any Multi-Drug Resistant Organisms: None Reported Past Surgical History: Appendectomy, Section, Tonsillectomy, Tubal Li gation Past Anesthesia/Blood Transfusion Reactions: No Reported Reaction Past Psychological History: No Psychological Hx Reported Smoking Status: Former smoker Past Alcohol Use History: None Reported Past Drug Use History: None Reported - Past Family History Mother Family Medical History: No Reported History Additional Family Medical History / Comment(s): pt confused, unknown Father Family Medical History: No Reported History Additional Family Medical History / Comment(s): pt confused, unknown Medications and Allergies Home Medications Medication Instructions Recorded Confirmed Type Ergocalciferol [Vitamin D2 50,000 unit PO FR 11/09/19 02/14/20 History (DRISDOL)] Levothyroxine Sodium [Synthroid] 50 mcg PO DAILY 11/09/19 02/14/20 History Lovastatin [Altoprev] 20 mg PO HS 11/09/19 02/14/20 History Montelukast Sodium [Singulair] 10 mg PO HS 11/09/19 02/14/20 History Apixaban [Eliquis] 2.5 mg PO BID #60 tab 11/13/19 02/14/20 Rx Diltiazem Oral [Cardizem*] 30 mg PO TID #90 tab 11/13/19 02/14/20 Rx Furosemide [Lasix] 20 mg PO BID #60 tab 01/09/20 02/14/20 Rx Megestrol [Megace] 40 mg PO DAILY #30 tablet 01/09/20 02/14/20 Rx Metoprolol Tartrate [Lopressor] 25 mg PO BID 02/14/20 02/14/20 History Omeprazole 20 mg PO HS 02/14/20 02/14/20 History Potassium Chloride ER [K-Dur 10] 20 meq PO DAILY 02/14/20 02/14/20 History Sodium Chloride Tab 1 gm PO AC-SUPPER 02/14/20 02/14/20 History Allergies Allergy/AdvReac Type Severity Reaction Status Date / Time No Known Allergies Allergy Verified 02/14/20 13:44 Physical Exam Vitals: Vital Signs Temp Pulse Resp BP Pulse Ox 02/14/20 14:48 106 H 16 105/72 95 02/14/20 11:41 98.0 F 98 16 111/72 93 L Intake and Output 02/14/20 02/14/20 02/14/20 06:59 14:59 22:59 Other: Weight 46.266 kg PHYSICAL EXAMINATION: Patient is lying in the bed comfortably, no acute distress, awake alert and oriented.. HEENT: Normocephalic. Neck is supple. Pupils reactive. Nostrils clear. Oral cavity is moist. Ears reveal no drainage. Neck reveals no JVD, carotid bruits, or thyromegaly. CHEST EXAMINATION: Trachea is central. Symmetrical expansion. Lung telles clear to auscultation and percussion. CARDIAC: Normal S1, S2 with no gallops. No murmurs. irregular rhythm ABDOMEN: Soft. Bowel sounds normal. No organomegaly. No abdominal bruits. Extremities: reveal no edema. No clubbing or cyanosis Neurologically awake, alert, oriented x3 with well-coordinated movements. No focal deficits noted Skin: No rash or skin lesions. Psychiatric: Coperative. Nonsuicidal Musculoskeletal: No joint swelling or deformity. Normal range of motion. Results CBC & Chem 7: 02/14/20 12:28 02/14/20 12:28 Labs: Abnormal Lab Results - Last 24 Hours (Table) 02/14/20 02/14/20 Range/Units 12:28 12:28 WBC 13.1 H (3.8-10.6) k/uL Hct 47.4 H (34.0-46.0) % Neutrophils # 11.1 H (1.3-7.7) k/uL Sodium 129 L (137-145) mmol/L Calcium 11.5 H (8.4-10.2) mg/dL Total Bilirubin 1.7 H (0.2-1.3) mg/dL AST 57 H (14-36) U/L Albumin 3.3 L (3.5-5.0) g/dL Thrombosis Risk Factor Assmnt - DVT/VTE Prophylaxis DVT/VTE Prophylaxis: Mechanical Prophylaxis ordered Assessment and Plan Assessment: Atrial fibrillation with rapid ventricular rate. Hemoptysis likely due to underlying squamous cell lung cancer. 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 Currently on chemotherapy. Denied any history of radiation treatment. Progressive left lower lobe mass and enlarging left hilar mass. Compressive left lower lobe atelectasis. Hypercalcemia likely related to bone metastasis. Hypovolemic hyponatremia. Possible SIADH. Hypertension Hyperlipidemia Hypothyroidism Prior history of smoking DVT prophylaxis patient is already on Eliquis. Plan: Patient will be continued on telemetry monitoring. Continue with IV hydration. Started back on metoprolol and Cardizem as per home regimen. Cardiology was consulted. Monitor H&H and pulmonary was consulted for hemoptysis. Patient does not have any active bleeding at this time. Anticoagulation is on hold. Further recommendations based on the clinical course. Time with Patient: Greater than 30
[2020-02-14] MEDS: DILTIAZEM ORAL 30 MG TAB PO SCH (23:19)
[2020-02-15] MEDS: LEVOTHYROXINE 50 MCG TAB PO SCH (05:35)
[2020-02-15] MEDS: MEGESTROL 40 MG TAB PO SCH (08:27)
[2020-02-15] MEDS: METOPROLOL TARTRATE 25 MG TAB PO SCH ×2 (08:27→21:10)
[2020-02-15] MEDS: DILTIAZEM ORAL 30 MG TAB PO SCH ×3 (08:27→21:10)
[2020-02-15 08:59] LABS: Basophils % (A) 0 %; Eosinophils # (A) 0.1 k/uL (0-0.7); Eosinophils % (A) 0 %; HCT 41.9 % (34.0-46.0); HGB 13.3 gm/dL (11.4-16.0); Lymphocytes # (A) 1.5 k/uL (1.0-4.8); Lymphocytes % (A) 12 %; MCH 30.7 pg (25.0-35.0); MCHC 31.7 g/dL (31.0-37.0); MCV 96.9 fL (80.0-100.0); Mean Platelet Volume 8.5; Monocytes # (A) 0.7 k/uL (0-1.0); Monocytes % (A) 5 %; Neutrophils # (A) 10.5 k/uL (1.3-7.7); Neutrophils % (A) 82 %; Platelet Count 384 k/uL (150-450); RBC 4.33 m/uL (3.80-5.40); RDW 13.7 % (11.5-15.5); WBC 12.8 k/uL (3.8-10.6)
[2020-02-15 11:00] VITALS: BMI 18.5
[2020-02-15] MEDS: SODIUM CHLORIDE 0.9% 1,000 ML IV SCH (11:20)
[2020-02-15 11:22] LABS: African American GFR (CKD) 104.5 (60.0-200.0); Albumin/Globulin Ratio 1.5 (1.60-3.17); Anion Gap 7.7 mmol/L (4.00-12.00); Calcium 10.4 mg/dL (8.7-10.3); Carbon Dioxide 25.3 mmol/L (21.6-31.8); Non-African American GFR(CKD) 90.1 (60.0-200.0); Potassium 3.3 mmol/L (3.5-5.5); Total Bilirubin 0.8 mg/dL (0.3-1.2)
[2020-02-15] MEDS ORDERED: POTASSIUM CHLORIDE ER 20 MEQ TAB.ER PO STA (12:21)
--- NOTE | 2020-02-15 12:39 | P.CONS ---
History of Present Illness - Reason for Consult Consult date: 02/15/20 - History of Present Illness Ms Harrington is An 80-year-old white female patient of Dr. Rivas, who was seen for initial consult in early 01/17. She had presented with weakness, anorexia, weight loss and lower back pain in 11/17. She was admitted to [facility], was found to have large LLL mass on CT Scan, seen by Dr Corcoran > CT-Guided Bx revealed Squamous cell Ca. PET Scan revealed metastatic disease to T8 & T12. She reported loss of stamina, anorexia & 20 lbs weight loss in past 4 month. She went from being fully active & playing golf regularly to having difficulty standing/walking. The patient smoked 1 and half PPD X 20 years, quit smoking 40 years ago, denied ETOH. The patient lost daughter to "brain cancer" and a sister with AML. 01/04/20: Not doing well, C/O increasing back "spasms" & pain, Marinol ineffecti ve for Rx of anorexia, lost more weight. PD-L1 0%, guardant study: No actionable mutations. The patient was referred to radiation oncology, and had palliative radiation to the spine. She was supposed to start single agent chemotherapy with carboplatin in 01/17 but did not follow-up in the office for the same. The patient was admitted this time with development of coughing up blood over the past 2-3 days. She states that she does not think it is a lot at one time, but she does cough up blood, at least 3-4 times a day. From her description, it appears to be possibly about a tablespoon maximum for episode. She also reports some increasing shortness of breath. Back pain has improved since radiation. Consult was placed for further evaluation and recommendations. Review of Systems Constitutional: Reports fatigue, Reports weakness, Reports weight loss Eyes: denies blurred vision, denies pain Ears: deny: decreased hearing, ear discharge, earache, tinnitus Ears, nose, mouth and throat: Denies headache, Denies sore throat Cardiovascular: Reports dyspnea on exertion Respiratory: Reports cough, Reports dyspnea, Reports hemoptysis Gastrointestinal: Reports constipation Genitourinary: Denies dysuria, Denies hematuria Menstruation: Reports postmenopausal Musculoskeletal: Reports as per HPI Integumentary: Denies pruritus, Denies rash Neurological: Reports weakness Psychiatric: Denies anxiety, Denies depression Endocrine: Reports fatigue, Reports weight change Hematologic/Lymphatic: Reports as per HPI Past Medical History Past Medical History: Hyperlipidemia, Hypertension, Thyroid Disorder Additional Past Medical History / Comment(s): seasonal allergies History of Any Multi-Drug Resistant Organisms: None Reported Past Surgical History: Appendectomy, Section, Tonsillectomy, Tubal Ligation Past Anesthesia/Blood Transfusion Reactions: No Reported Reaction Past Psychological History: No Psychological Hx Reported Smoking Status: Former smoker Past Alcohol Use History: None Reported Past Drug Use History: None Reported - Past Family History Mother Family Medical History: No Reported History Additional Family Medical History / Comment(s): pt confused, unknown Father Family Medical History: No Reported History Additional Family Medical History / Comment(s): pt confused, unknown Medications and Allergies Home Medications Medication Instructions Recorded Confirmed Type Ergocalciferol [Vitamin D2 50,000 unit PO FR 11/09/19 02/14/20 History (DRISDOL)] Levothyroxine Sodium [Synthroid] 50 mcg PO DAILY 11/09/19 02/14/20 History Lovastatin [Altoprev] 20 mg PO HS 11/09/19 02/14/20 History Montelukast Sodium [Singulair] 10 mg PO HS 11/09/19 02/14/20 History Apixaban [Eliquis] 2.5 mg PO BID #60 tab 11/13/19 02/14/20 Rx Diltiazem Oral [Cardizem*] 30 mg PO TID #90 tab 11/13/19 02/14/20 Rx Furosemide [Lasix] 20 mg PO BID #60 tab 01/09/20 02/14/20 Rx Megestrol [Megace] 40 mg PO DAILY #30 tablet 01/09/20 02/14/20 Rx Metoprolol Tartrate [Lopressor] 25 mg PO BID 02/14/20 02/14/20 History Omeprazole 20 mg PO HS 02/14/20 02/14/20 History Potassium Chloride ER [K-Dur 10] 20 meq PO DAILY 02/14/20 02/14/20 History Sodium Chloride Tab 1 gm PO AC-SUPPER 02/14/20 02/14/20 History Allergies Allergy/AdvReac Type Severity Reaction Status Date / Time No Known Allergies Allergy Verified 11/16/20 13:44 Physical Exam Vitals: Vital Signs Temp Pulse Pulse Resp BP BP Pulse Ox 02/15/20 08:35 60 16 02/15/20 07:30 97.8 F 64 18 101/59 93 L 02/15/20 02:20 98.6 F 93 17 103/65 97 02/14/20 22:50 100 106/65 02/14/20 19:10 97.8 F 64 18 96/62 96 02/14/20 16:55 89 16 103/73 95 02/14/20 16:10 97.6 F 71 16 111/62 92 L 02/14/20 14:48 106 H 16 105/72 95 Intake and Output 02/14/20 02/15/20 02/15/20 22:59 06:59 14:59 Other: Voiding Method Bedpan Diaper # Voids 1 1 1 Weight 44.5 kg 44.5 kg - Constitutional General appearance: no acute distress - EENT Eyes: EOMI, PERRLA ENT: hearing grossly normal, normal oropharynx - Neck Neck: no lymphadenopathy Thyroid: bilateral: normal size - Respiratory Respiratory: left: diminished (Air entry Diminished left, Upper half , more so than lower) - Cardiovascular Rhythm: irregularly irregular Heart sounds: normal: S1, S2 - Gastrointestinal General gastrointestinal: normal bowel sounds, soft - Integumentary Integumentary: normal - Neurologic Neurologic: CNII-XII intact - Musculoskeletal Musculoskeletal: generalized weakness, strength equal bilaterally - Psychiatric Diminished recall Psychiatric: A&O x's 3 Results Results: Echo report reviewed CBC & Chem 7: 02/15/20 06:56 02/15/20 06:56 Labs: Abnormal Lab Results - Last 24 Hours (Table) 02/14/20 02/14/20 02/15/20 Range/Units 12:28 12:28 06:56 WBC 13.1 H 12.8 H (3.8-10.6) k/uL Hct 47.4 H (34.0-46.0) % Neutrophils # 11.1 H 10.5 H (1.3-7.7) k/uL Sodium 129 L (137-145) mmol/L Potassium (3.5-5.5) mmol/L Creatinine (0.6-1.5) mg/dL Calcium 11.5 H (8.4-10.2) mg/dL Total Bilirubin 1.7 H (0.2-1.3) mg/dL AST 57 H (14-36) U/L Total Protein (6.2-8.2) g/dL Albumin 3.3 L (3.5-5.0) g/dL Albumin/Globulin Ratio (1.60-3.17) g/dL 02/15/20 Range/Units 06:56 WBC (3.8-10.6) k/uL Hct (34.0-46.0) % Neutrophils # (1.3-7.7) k/uL Sodium (137-145) mmol/L Potassium 3.3 L (3.5-5.5) mmol/L Creatinine 0.5 L (0.6-1.5) mg/dL Calcium 10.4 H (8.4-10.2) mg/dL Total Bilirubin (0.2-1.3) mg/dL AST (14-36) U/L Total Protein 5.0 L (6.2-8.2) g/dL Albumin 3.00 L (3.5-5.0) g/dL Albumin/Globulin Ratio 1.50 L (1.60-3.17) g/dL Chest x-ray: report reviewed CT scan - chest: report reviewed Assessment and Plan (1) Hemoptysis Narrative/Plan: This is a new onset. The patient CT scan shows progression of the tumor in the left upper lobe and the left hilum. Most likely, hemoptysis is due to progression of tumor, exacerbated by ongoing anticoagulant use. However hemoglobin has not shown significant drop. - Hold anticoagulation, currently - Consult radiation oncology for palliative radiation to the lung mass - Defer to pulmonary medicine regarding need for bronchoscopy currently Current Visit: Yes Status: Acute Code(s): R04.2 - HEMOPTYSIS SNOMED Code(s): 36573422 (2) Metastatic lung cancer (metastasis from lung to other site) Narrative/Plan: History as noted above. The patient has not started any systemic therapy so far and has been noncompliant with follow-up. She has missed multiple appointments in the office. She is not a candidate for any targeted therapy upfront. - Patient CT scan shows progression in the lung, which is somewhat expected, given no systemic therapy so far. Start systemic therapy as an outpatient with single agent carboplatin as previously recommended, once her current situation is stabilized Current Visit: No Status: Acute Code(s): C34.90 - MALIGNANT NEOPLASM OF UNSP PART OF UNSP BRONCHUS OR LUNG SNOMED Code(s): 92824106
--- NOTE | 2020-02-15 13:02 | CDI ---
Documentation Clarification Form Date: 02/15/2020 12:36:09 PM From: Teresita Johnson RN CCDS Admit Date: 02/14/2020 02:31:00 PM Patient Name: Kerline Harrington Visit Number: [id number] Discharge Date: ATTENTION: The Clinical Documentation Specialists (CDI) and [facility] Coding Staff appreciate your assistance in clarifying documentation. Please respond to the clarification below the line at the bottom and electronically sign. The CDI & [facility] Coding staff will review the response and follow-up if needed. Please note: Queries are made part of the Legal Health Record. If you have any questions, please contact the author of this message via ITS. Dr. Pricila Mays Poor appetite weight loss is documented in the H&P 02/13 History/Risk Factors: 80-year-old female presents to the ED with hemoptysis. The patient has a Medical history of HTN, Paroxysmal atrial fibrillation, HLD, Hypothyroidism, and Lung CA currently undergoing chemotherapy with metastasis to bone. Clinical Indicators: 02/14 Nutritional Assessment Fair appetite duration of 1-3 months. BMI 18.4 Nutrition intake 50-75% fair. Labs: Wbc 12.8, Na 129, Ca 11.5, Blood sugar 93 Physical Findings: Underweight, Protruding clavicle, subcutaneous fat loss orbital, buccal, temporal region. Anthropometrics: Weight 44.5kg, Hgt 5ft 1in, BMI 18.5, Kcal needed for energy needs 1289 1670 Kcal comment 27-35 kcal /kg for cancer pt. Estimated fluid needs 20-25 ml/kg estimated fluid 1193. Nutrition Diagnosis: Malnutrition chronic, severe. Treatment: Dietary Consult: see Nutritional Assessment Supplements: Ensure Compact TID, Heart Healthy Diet, Monitor PO intake. Lab monitoring: Daily Hematology and Chemistry In your professional opinion, can you please clarify if these findings signify one of the following conditions? Severe Protein-Calorie Malnutrition Other condition, please specify Unable to determine (Last Revision: September 2018) Severe Protein-Calorie Malnutrition MTDD
--- NOTE | 2020-02-15 13:29 | P.CRDCN ---
History of Present Illness Consult date: 02/15/20 Consult reason: atrial fibrillation Chief complaint: Hemoptysis History of present illness: This is a frail 80-year-old female who was recently diagnosed with metastatic lung CA in October at which time she presented with weakness anorexia and weight loss. She currently follows with medical oncology as an outpatient. She presented to the hospital on this admission for evaluation of hemoptysis. Patient had coughed up 3 large blood clots, had a similar episode a couple weeks prior to presentation here but did not seek any medical attention for it. She denies any shortness of breath, no fever, no chills or night sweats. Denies any chest discomfort or palpitations. Patient does have a history of atrial fibrillation for which she takes Eliquis. Chest x-ray showed increased density at the left lower lobe with enlarging subcarinal adenopathy. Lab work was reviewed, white blood cell count 13.1, hemoglobin 15.6, INR 1.1, sodium 129, potassium 4.9, BUN 14, creatinine 0.6. Hemoglobin this morning 13.3. EKG showed atrial fibrillation with moderately rapid ventricular response. Patient had an echo performed in December of this year which revealed a normal left ventricular systolic function. Past Medical History Past Medical History: Hyperlipidemia, Hypertension, Thyroid Disorder Additional Past Medical History / Comment(s): seasonal allergies History of Any Multi-Drug Resistant Organisms: None Reported Past Surgical History: Appendectomy, Section, Tonsillectomy, Tubal Ligation Past Anesthesia/Blood Transfusion Reactions: No Reported Reaction Past Psychological History: No Psychological Hx Reported Smoking Status: Former smoker Past Alcohol Use History: None Reported Past Drug Use History: None Reported - Past Family History Mother Family Medical History: No Reported History Additional Family Medical History / Comment(s): pt confused, unknown Father Family Medical History: No Reported History Additional Family Medical History / Comment(s): pt confused, unknown Medications and Allergies Home Medications Medication Instructions Recorded Confirmed Type Ergocalciferol [Vitamin D2 50,000 unit PO FR 11/09/19 02/14/20 History (DRISDOL)] Levothyroxine Sodium [Synthroid] 50 mcg PO DAILY 11/09/19 02/14/20 History Lovastatin [Altoprev] 20 mg PO HS 11/09/19 02/14/20 History Montelukast Sodium [Singulair] 10 mg PO HS 11/09/19 02/14/20 History Apixaban [Eliquis] 2.5 mg PO BID #60 tab 11/13/19 02/14/20 Rx Diltiazem Oral [Cardizem*] 30 mg PO TID #90 tab 11/13/19 02/14/20 Rx Furosemide [Lasix] 20 mg PO BID #60 tab 01/09/20 02/14/20 Rx Megestrol [Megace] 40 mg PO DAILY #30 tablet 01/09/20 02/14/20 Rx Metoprolol Tartrate [Lopressor] 25 mg PO BID 02/14/20 02/14/20 History Omeprazole 20 mg PO HS 02/14/20 02/14/20 History Potassium Chloride ER [K-Dur 10] 20 meq PO DAILY 02/14/20 02/14/20 History Sodium Chloride Tab 1 gm PO AC-SUPPER 02/14/20 02/14/20 History Allergies Allergy/AdvReac Type Severity Reaction Status Date / Time No Known Allergies Allergy Verified 02/14/20 13:44 Physical Exam Vitals: Vital Signs Temp Pulse Pulse Resp BP BP Pulse Ox 02/15/20 08:35 60 16 02/15/20 07:30 97.8 F 64 18 101/59 93 L 02/15/20 02:20 98.6 F 93 17 103/65 97 02/14/20 22:50 100 106/65 02/14/20 19:10 97.8 F 64 18 96/62 96 02/14/20 16:55 89 16 103/73 95 02/14/20 16:10 97.6 F 71 16 111/62 92 L 02/14/20 14:48 106 H 16 105/72 95 Intake and Output 02/14/20 02/15/20 02/15/20 22:59 06:59 14:59 Other: Voiding Method Bedpan Diaper # Voids 1 1 1 Weight 44.5 kg 44.5 kg PHYSICAL EXAMINATION: GENERAL: 80-year-old female in no acute distress at the time of my examination HEENT: Head is atraumatic, normocephalic. Pupils equal, round. Sclera anicteric. Conjunctiva are clear. Mucous membranes of the mouth are moist. Neck is supple. There is no elevated jugular venous pressure. No carotid bru it is heard. HEART EXAMINATION: S1 and S2 irregularly irregular a systolic murmur is heard CHEST EXAMINATION: Lungs are clear to auscultation and precussion. No chest wall tenderness is noted on palpation or with deep breathing. ABDOMEN: Soft, nontender. Bowel sounds are heard. No organomegaly noted. EXTREMITIES: 2+ peripheral pulses with no evidence of peripheral edema and no calf tenderness noted. NEUROLOGIC patient is awake, alert and oriented 3 . Results 02/15/20 06:56 02/15/20 06:56 Cardiac Enzymes 02/15/20 Range/Units 06:56 AST 33 (13-35) U/L CBC 02/15/20 Range/Units 06:56 WBC 12.8 H (3.8-10.6) k/uL RBC 4.33 (3.80-5.40) m/uL Hgb 13.3 (11.4-16.0) gm/dL Hct 41.9 (34.0-46.0) % Plt Count 384 (150-450) k/uL Comprehensive Metabolic Panel 02/15/20 Range/Units 06:56 Sodium 135 (135-145) mmol/L Potassium 3.3 L (3.5-5.5) mmol/L Chloride 102 (96-109) mmol/L Carbon Dioxide 25.3 (21.6-31.8) mmol/L BUN 9.0 (9.0-27.0) mg/dL Creatinine 0.5 L (0.6-1.5) mg/dL Glucose 74 (70-110) mg/dL Calcium 10.4 H (8.7-10.3) mg/dL AST 33 (13-35) U/L ALT 23 (8-44) U/L Alkaline Phosphatase 86 (41-126) U/L Total Protein 5.0 L (6.2-8.2) g/dL Albumin 3.00 L (3.80-4.90) g/dL Current Medications Generic Name Dose Route Start Last Admin Trade Name Freq PRN Reason Stop Dose Admin Acetaminophen 650 mg 02/14/20 14:30 Acetaminophen Tab 325 Mg Tab PO Q6HR PRN Mild Pain or Fever > 100.5 Atorvastatin Calcium 10 mg 02/14/20 21:00 02/14/20 21:58 Atorvastatin 10 Mg Tab PO 10 mg HS ARIANNE Administration Diltiazem HCl 30 mg 02/14/20 22:00 02/15/20 08:27 Diltiazem Oral 30 Mg Tab PO 30 mg TID ARIANNE Administration Sodium Chloride 1,000 mls @ 50 mls/hr 02/14/20 14:30 02/15/20 11:20 Saline 0.9% IV 50 mls/hr .Q20H ARIANNE Administration Levothyroxine Sodium 50 mcg 02/15/20 06:30 02/15/20 05:35 Levothyroxine 50 Mcg Tab PO 50 mcg DAILY@0630 ARIANNE Administration Megestrol Acetate 40 mg 02/15/20 09:00 02/15/20 08:27 Megestrol 40 Mg Tab PO 40 mg DAILY ARIANNE Administration Metoprolol Tartrate 25 mg 02/14/20 21:00 02/15/20 08:27 Metoprolol Tartrate 25 Mg Tab PO 25 mg BID ARIANNE Administration Miscellaneous Information 1 each 02/14/20 13:34 Rx Info: Iv Contrast Was Given 1 Each Misc MISCELLANE 02/16/20 13:34 DAILY PRN Per Protocol Montelukast Sodium 10 mg 02/14/20 21:00 02/14/20 21:58 Montelukast 10 Mg Tab PO 10 mg HS ARIANNE Administration Naloxone HCl 0.2 mg 02/14/20 14:30 Naloxone 0.4 Mg/Ml 1 Ml Vial IV Q2M PRN Opioid Reversal Pantoprazole Sodium 40 mg 02/14/20 21:00 02/14/20 21:59 Pantoprazole 40 Mg Tablet PO 40 mg HS ARIANNE Administration Intake and Output 02/14/20 02/15/20 02/15/20 22:59 06:59 14:59 Other: Voiding Method Bedpan Diaper # Voids 1 1 1 Weight 44.5 kg 44.5 kg Patient Weight 02/16/20 06:59 Weight 44.5 kg 02/15/20 06:56 02/15/20 06:56 EKG Interpretations (text) EKG shows atrial fibrillation with moderately rapid ventricular response Assessment and Plan Plan: Assessment and plan #1. Hemoptysis related to progression of squamous cell lung cancer, with the bony metastasis, PDL receptor was negative, unclear when she received treatment in the form of carboplatinum and the stoma she never started radiation treatment to T8 metastases #2. Progression of left lower lobe lung mass, enlarging left hilar mass and enlarging subcarinal adenopathy #3. 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 Hypertension #6. Hyperlipidemia #7. Hypothyroidism #8. Previous history of smoking, in remission for last 30 years #9. A. fib, paroxysmal on Eliquis at home, currently on hold Plan From cardiology's perspective, we would recommend at this time to continue to hold the patient's Eliquis, we will reassess the patient in the outpatient setting, if the patient remains stable and hemoglobin remains stable we'll consider the readmission of Eliquis as an outpatient. DNP note has been reviewed, I agree with a documented findings and plan of care. Patient was seen and examined.
--- NOTE | 2020-02-15 14:57 | P.PN ---
Subjective Progress Note Date: 02/15/20 Principal diagnosis: Hemoptysis 80-year-old white female patient who was recently diagnosed with metastatic lung cancer in October 2019 when she initially presented to the hospital with symptoms of weakness, anorexia, weight loss, lower back pain. Computed tomography scan of the chest revealed left lower lobe lung mass, and subcarinal, hilar, retrocaval pretracheal and prevascular adenopathy concerning for primary lung cancer. CT-guided core biopsy of the left lower lobe lung mass on the week 2019 revealed evidence of moderate to poorly differentiated squamous cell car cinoma. Outpatient PET scan showed hypermetabolic uptake within the L2 vertebral body as well as posterior element of the right T8 vertebral body, left lower lobe mass with associated hypermetabolic uptake, left hilar hypermetabolic uptake, abnormal subcarinal uptake extending toward the left hilar region, no abnormal retroperitoneal adenopathy with liver masses, no ascites, ringing's were compatible with the lung carcinoma with metastatic disease to the skeleton. Brain CT showed no acute intracranial hemorrhage, midline shift or mass effect. Additional white matter hypodensities likely sequela of chronic microvascular ischemic change. Patient was receiving IV hydration and Zometa for hy percalcemia. She is following with the medical oncology. On 02/14/2020 patient was brought into the emergency department per EMS for evaluation of hemoptysis. Today she coughed up 3 large blood clots, and she had a similar episode a couple weeks ago however did not seek medical attention for it. 9 any shortness of breath, denied any fever, chills or night sweats. Denied any swelling of lower extremity, or chest pain, she does have a history of A. fib and she takes Eliquis for it. Chest x-ray showed increased density at the left lower lobe echo recently developing pneumonia, with a small effusion. CT chest with contrast showed enlarging left lower lobe pleural-based mass as well as enl arging left hilar mass, interval development of small left-sided pleural effusion as well as left lower lobe compressive atelectasis, enlarging subcarinal adenopathy. Labs reviewed showing white blood cell, 13.1, hemoglobin of 15.6, INR is 1.1, sodium was 129, depressed a lecture lites and renal profile were within normal limits. Room air pulse ox is 95%, patient is afebrile, hemodynamically she stable, she is in atrial fibrillation, at times slightly tachycardic, hemodynamically stable, no complaints of chest pain or shortness of breath. She was given IV hydration for calcium level of 11.5. We were consulted for evaluation of hemoptysis. She follows with Dr. Schmitz from radiation oncology On 02/15/2020 patient seen in follow-up in the [facility]. medical surgical floor. Shee has had no recurrence of hemoptysis overnight, we place her Eliquis on hold, no crackles or chest pain, vital signs have been stable, she is breathing comfortably, she is currently on room air, with pulse ox of 93%, she's been afebrile, her labs have been reviewed, showing white blood cell, 12.8, hemoglobin of 13.3, sodium of 135, potassium is 3.3, and the rest of the electrolytes were within normal limits, BUN was 9 and creatinine 0.5 Objective - Vital Signs Vital signs: Vital Signs Temp 97.8 F 02/15/20 07:30 Pulse 60 02/15/20 08:35 Resp 16 02/15/20 08:35 BP 101/59 02/15/20 07:30 Pulse Ox 93 L 02/15/20 07:30 Intake & Output 02/14/20 02/15/20 02/15/20 18:59 06:59 18:59 Weight 46.266 kg 44.5 kg 44.5 kg Other: Voiding Method Bedpan Diaper # Voids 0 1 1 - Exam GENERAL EXAM: Alert, active, room air pulse ox is 95% comfortable in no apparent distress. HEAD: Normocephalic/atraumatic. EYES: Normal reaction of pupils, equal size. Conjunctiva pink, sclera white. NOSE: Clear with pink turbinates. THROAT: No erythema or exudates. NECK: No masses, no JVD, no thyroid enlargement, no adenopathy. CHEST: No chest wall deformity. Symmetrical expansion. LUNGS: Equal air entry with no crackles, wheeze, rhonchi or dullness. CVS: Regular rate and rhythm, normal S1 and S2, no gallops, no murmurs, no rubs ABDOMEN: Soft, nontender. No hepatosplenomegaly, normal bowel sounds, no guarding or rigidity. EXTREMITIES: No clubbing, no edema, no cyanosis, 2+ pulses and upper and lower extremities. MUSCULOSKELETAL: Muscle strength and tone normal. SPINE: No scoliosis or deformity SKIN: No rashes CENTRAL NERVOUS SYSTEM: Alert and oriented -3. No focal deficits, tone is normal in all 4 extremities. PSYCHIATRIC: Alert and oriented -3. Appropriate affect. Intact judgment and insight. - Labs CBC & Chem 7: 02/15/20 06:56 02/15/20 06:56 Labs: Abnormal Lab Results - Last 24 Hours (Table) 02/15/20 02/15/20 Range/Units 06:56 06:56 WBC 12.8 H (3.8-10.6) k/uL Neutrophils # 10.5 H (1.3-7.7) k/uL Potassium 3.3 L (3.5-5.5) mmol/L Creatinine 0.5 L (0.6-1.5) mg/dL Calcium 10.4 H (8.7-10.3) mg/dL Total Protein 5.0 L (6.2-8.2) g/dL Albumin 3.00 L (3.80-4.90) g/dL Albumin/Globulin Ratio 1.50 L (1.60-3.17) g/dL Assessment and Plan Plan: Assessment: #1. Hemoptysis related to progression of squamous cell lung cancer, with the bony metastasis, PDL receptor was negative, unclear when she received treatment in the form of carboplatinum and the stoma she never started radiation treatment to T8 metastases #2. Progression of left lower lobe lung mass, enlarging left hilar mass and enlarging subcarinal adenopathy #3. 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 Hypertension #6. Hyperlipidemia #7. Hypothyroidism #8. Previous history of smoking, in remission for last 30 years #9. A. fib on Eliquis Plan: Patient has had no recurrence of hemoptysis, Eliquis remains on hold, today's labs have been reviewed, and sodium has improved, calcium is down to 10.4, she's had no acute events overnight, she is awaiting to be evaluated by radiation oncology, medical oncology is following. Breathing is comfortable, stable, pulmonary service will sign off, and follow on as-needed basis, further man agement per medical oncology, radiation oncology, she should develop worsening pulmonary symptoms please don't hesitate to call us. I performed a history & physical examination of the patient and discussed their management with my nurse practitioner, Anne-Marie Carter. I reviewed the nurse practitioner's note and agree with the documented findings and plan of care. Lung sounds are positive for diminished breath sounds The findings and the impression was discussed with the patient. I attest to the documentation by the nurse practitioner. Time with Patient: Less than 30
--- NOTE | 2020-02-15 14:57 | P.CONS ---
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 Staging workup with the PET scan revealed metastatic skeleton metastatic disease involving T8 and L2. 12/30/2019 MRI of the thoracic spine showed enhancement involving the right T8 lateral elements, there was a focal metastatic deposits at L2. Patient started a palliative course of radiotherapy to T8 and L2, she has received 2 treatments out of 5, unfortunately she was transferred to the half-way , her radiotherapy was interrupted and discontinued. At this time the patient was admitted to the hospital for hemoptysis , she was coughing up blood clots in the last 3 days, she does have shortness of breath , she denies pain . CAT of the chest showed enlarged pleural based mass in the left lower lobe measures 4.9 x 4.8 which has increased in the size, there is a left hilar mass as well , now measuring 3.6 x 4 cm , there is subcarinal adenopathy measures 3.5 x 5.9 cm no additional adenopathy in the mediastinum. This Scan was done yesterday 02/14/2020. Review of Systems Constitutional: Denies chills, Denies fever Eyes: denies blurred vision, denies pain Ears, nose, mouth and throat: Denies headache, Denies sore throat Cardiovascular: Denies chest pain, Denies shortness of breath Respiratory: Denies cough Gastrointestinal: Denies abdominal pain, Denies diarrhea, Denies nausea, Denies vomiting Genitourinary: Denies dysuria, Denies hematuria Integumentary: Denies pruritus, Denies rash Neurological: Denies numbness, Denies weakness Psychiatric: Denies anxiety, Denies depression Endocrine: Denies fatigue, Denies weight change Past Medical History Past Medical History: Hyperlipidemia, Hypertension, Thyroid Disorder Additional Past Medical History / Comment(s): seasonal allergies History of Any Multi-Drug Resistant Organisms: None Reported Past Surgical History: Appendectomy, Section, Tonsillectomy, Tubal Ligation Past Anesthesia/Blood Transfusion Reactions: No Reported Reaction Past Psychological History: No Psychological Hx Reported Smoking Status: Former smoker Past Alcohol Use History: None Reported Past Drug Use History: None Reported - Past Family History Mother Family Medical History: No Reported History Additional Family Medical History / Comment(s): pt confused, unknown Father Family Medical History: No Reported History Additional Family Medical History / Comment(s): pt confused, unknown Medications and Allergies Home Medications Medication Instructions Recorded Confirmed Type Ergocalciferol [Vitamin D2 50,000 unit PO FR 11/09/19 02/14/20 History (DRISDOL)] Levothyroxine Sodium [Synthroid] 50 mcg PO DAILY 11/09/19 02/14/20 History Lovastatin [Altoprev] 20 mg PO HS 11/09/19 02/14/20 History Montelukast Sodium [Singulair] 10 mg PO HS 11/09/19 02/14/20 History Apixaban [Eliquis] 2.5 mg PO BID #60 tab 11/13/19 02/14/20 Rx Diltiazem Oral [Cardizem*] 30 mg PO TID #90 tab 11/13/19 02/14/20 Rx Furosemide [Lasix] 20 mg PO BID #60 tab 01/09/20 02/14/20 Rx Megestrol [Megace] 40 mg PO DAILY #30 tablet 01/09/20 02/14/20 Rx Metoprolol Tartrate [Lopressor] 25 mg PO BID 02/14/20 02/14/20 History Omeprazole 20 mg PO HS 02/14/20 02/14/20 History Potassium Chloride ER [K-Dur 10] 20 meq PO DAILY 02/14/20 02/14/20 History Sodium Chloride Tab 1 gm PO AC-SUPPER 02/14/20 02/14/20 History Allergies Allergy/AdvReac Type Severity Reaction Status Date / Time No Known Allergies Allergy Verified 02/14/20 13:44 Physical Exam Vitals: Vital Signs Temp Pulse Pulse Resp BP BP Pulse Ox 02/15/20 08:35 60 16 02/15/20 07:30 97.8 F 64 18 101/59 93 L 02/15/20 02:20 98.6 F 93 17 103/65 97 02/14/20 22:50 100 106/65 02/14/20 19:10 97.8 F 64 18 96/62 96 02/14/20 16:55 89 16 103/73 95 02/14/20 16:10 97.6 F 71 16 111/62 92 L 02/14/20 14:48 106 H 16 105/72 95 Intake and Output 02/14/20 02/15/20 02/15/20 22:59 06:59 14:59 Other: Voiding Method Bedpan Diaper # Voids 1 1 1 Weight 44.5 kg 44.5 kg - Constitutional General appearance: no acute distress - EENT Eyes: EOMI, PERRLA Ears: negative: bulging, bullous, dull, erythema, fluid, myringotomy tube, obstructed by cerumen, scarring, unable to vistualize, other - Neck Neck: no lymphadenopathy - Respiratory Respiratory: left: rales, rhonchi - Cardiovascular Rhythm: irregularly irregular - Gastrointestinal General gastrointestinal: normal bowel sounds, soft - Integumentary Integumentary: normal - Neurologic Neurologic: CNII-XII intact - Psychiatric Psychiatric: A&O x's 3, appropriate affect, intact judgment & insight Results CBC & Chem 7: 02/15/20 06:56 02/15/20 06:56 Labs: Abnormal Lab Results - Last 24 Hours (Table) 02/15/20 02/15/20 Range/Units 06:56 06:56 WBC 12.8 H (3.8-10.6) k/uL Neutrophils # 10.5 H (1.3-7.7) k/uL Potassium 3.3 L (3.5-5.5) mmol/L Creatinine 0.5 L (0.6-1.5) mg/dL Calcium 10.4 H (8.7-10.3) mg/dL Total Protein 5.0 L (6.2-8.2) g/dL Albumin 3.00 L (3.80-4.90) g/dL Albumin/Globulin Ratio 1.50 L (1.60-3.17) g/dL CT scan - chest: pending, report reviewed, image reviewed Assessment and Plan Assessment: Hemoptysis related to progression of locally advanced squamous cell carcinoma of the left lung. (1) Hemoptysis Current Visit: Yes Status: Acute Code(s): R04.2 - HEMOPTYSIS SNOMED Code(s ): 57681059 (2) Metastatic lung cancer (metastasis from lung to other site) Current Visit: No Status: Acute Code(s): C34.90 - MALIGNANT NEOPLASM OF UNSP PART OF UNSP BRONCHUS OR LUNG SNOMED Code(s): 43377603 Plan: Images was reviewed , the patient has progression of lung cancer causing hemoptysis . I offered Mrs Harrington a course of palliative external beam radiation therapy to encamps the primary and subcarinal lymph node, I talked to the patient about the rational , the technique and the potential acute and late late side effects of the treatment. it is a palliative intend to stop the bronchial bleeding , However the patient would like to talk to her first before she can make her decision regarding radiotherapy. If the patient decides to have radiation , she would be simulated tomorrow and start her treatment on Friday for 14 treatments. Time with Patient: Greater than 30
[2020-02-15] MEDS: MONTELUKAST 10 MG TAB PO SCH (21:10)
[2020-02-15] MEDS: ATORVASTATIN 10 MG TAB PO SCH (21:10)
[2020-02-15] MEDS: PANTOPRAZOLE 40 MG TABLET PO SCH (21:10)
[2020-02-16] MEDS: LEVOTHYROXINE 50 MCG TAB PO SCH (05:43)
[2020-02-16] MEDS: METOPROLOL TARTRATE 25 MG TAB PO SCH ×2 (07:37→21:00)
[2020-02-16] MEDS: MEGESTROL 40 MG TAB PO SCH (07:37)
[2020-02-16] MEDS: DILTIAZEM ORAL 30 MG TAB PO SCH ×3 (07:37→21:01)
--- NOTE | 2020-02-16 10:07 | P.PN ---
Subjective Progress Note Date: 02/16/20 This is a frail 80-year-old female who was recently diagnosed with metastatic lung CA in October at which time she presented with weakness anorexia and weight loss. She currently follows with medical oncology as an outpatient. She presented to the hospital on this admission for evaluation of hemoptysis. Patient had coughed up 3 large blood clots, had a similar episode a couple weeks prior to presentation here but did not seek any medical attention for it. She denies any shortness of breath, no fever, no chills or night sweats. Denies any chest discomfort or palpitations. Patient does have a history of atrial fibrillation for which she takes Eliquis. Chest x-ray showed increased density at the left lower lobe with enlarging subcarinal adenopathy. Lab work was reviewed, white blood cell count 13.1, hemoglobin 15.6, INR 1.1, sodium 129, potassium 4.9, BUN 14, creatinine 0.6. Hemoglobin this morning 13.3. EKG showed atrial fibrillation with moderately rapid ventricular response. Patient had an echo performed in December of this year which revealed a normal left ventricular systolic function. 02/16/2020 Patient seen and examined this morning, resting comfortably in bed, no complaints. Blood pressure 105/60 with a heart rate in the 80s, 92% on room air. Labs from this morning are pending. Objective - Vital Signs Vital signs: Vital Signs Temp 98 F 02/16/20 07:58 Pulse 80 02/16/20 07:58 Resp 14 02/16/20 07:58 BP 105/65 02/16/20 07:58 Pulse Ox 92 L 02/16/20 08:20 Intake & Output 02/15/20 02/16/20 02/16/20 18:59 06:59 18:59 Weight 44.5 kg Other: Voiding Method Bedpan Diaper # Voids 2 1 - Exam PHYSICAL EXAMINATION: GENERAL: 80-year-old female in no acute distress at the time of my examination HEENT: Head is atraumatic, normocephalic. Pupils equal, round. Sclera anicteric. Conjunctiva are clear. Mucous membranes of the mouth are moist. Neck is supple. There is no elevated jugular venous pressure. No carotid bruit is heard. HEART EXAMINATION: S1 and S2 irregularly irregular a systolic murmur is heard CHEST EXAMINATION: Lungs are clear to auscultation and precussion. No chest wall tenderness is noted on palpation or with deep breathing. ABDOMEN: Soft, nontender. Bowel sounds are heard. No organomegaly noted. EXTREMITIES: 2+ peripheral pulses with no evidence of peripheral edema and no calf tenderness noted. NEUROLOGIC patient is awake, alert and oriented 3 - Labs CBC & Chem 7: 02/15/20 06:56 02/15/20 06:56 Labs: Abnormal Lab Results - Last 24 Hours (Table) 02/15/20 Range/Units 06:56 Potassium 3.3 L (3.5-5.5) mmol/L Creatinine 0.5 L (0.6-1.5) mg/dL Calcium 10.4 H (8.7-10.3) mg/dL Total Protein 5.0 L (6.2-8.2) g/dL Albumin 3.00 L (3.80-4.90) g/dL Albumin/Globulin Ratio 1.50 L (1.60-3.17) g/dL Assessment and Plan Plan: Assessment and plan #1. Hemoptysis related to progression of squamous cell lung cancer, with the bony metastasis, PDL receptor was negative, unclear when she received treatment in the form of carboplatinum and the stoma she never started radiation treatment to T8 metastases #2. Progression of left lower lobe lung mass, enlarging left hilar mass and enlarging subcarinal adenopathy #3. 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 Hypertension #6. Hyperlipidemia #7. Hypothyroidism #8. Previous history of smoking, in remission for last 30 years #9. A. fib, paroxysmal on Eliquis at home, currently on hold Plan From cardiology's perspective, we would recommend at this time to continue to hold the patient's Eliquis, we will reassess the patient in the outpatient setting, if the patient remains stable and hemoglobin remains stable we'll consider the readmission of Eliquis as an outpatient. DNP note has been reviewed, I agree with a documented findings and plan of care. Patient was seen and examined.
[2020-02-16] MEDS: SODIUM CHLORIDE 0.9% 1,000 ML IV SCH (10:20)
[2020-02-16 11:07] LABS: HCT 40.7 % (34.0-46.0); MCH 31.5 pg (25.0-35.0); MCV 98.5 fL (80.0-100.0); Mean Platelet Volume 8.1; Platelet Count 346 k/uL (150-450); RBC 4.14 m/uL (3.80-5.40); RDW 13.8 % (11.5-15.5); WBC 13.4 k/uL (3.8-10.6)
[2020-02-16] MEDS: PANTOPRAZOLE 40 MG TABLET PO SCH (21:00)
[2020-02-16] MEDS: ATORVASTATIN 10 MG TAB PO SCH (21:00)
[2020-02-16] MEDS: MONTELUKAST 10 MG TAB PO SCH (21:00)
--- NOTE | 2020-02-16 23:50 | P.PN ---
Subjective Progress Note Date: 02/15/20 Principal diagnosis: Atrial fibrillation with rapid ventricular rate. Patient is a 80-year-old female with a known history of lung cancer currently undergoing chemotherapy, hypertension, hyperlipidemia, hypothyroidism, paroxysmal atrial fibrillation on anticoagulation with Eliquis and previous history of smoking presents to ER with complaints of coughing up blood clots yesterday evening and today morning. Patient also complains of heart racing or fast and dizziness unable to get out of bed this morning. Patient called EMS and was brought to the hospital. Denied any complaints of chest pain or shortness breath. No complaints of fever or chills. Denied any sputum production. No recent illnesses. Chest x-ray showed increased density left lower lobe may reflect developing pneumonia. There is also a small effusion. Correlate clinically. CT chest showed enlarging left lower lobe pleural-based mass as well as enlarging left hilar mass. Interval development of small left-sided pleural effusion as well as left lower lobe compressive atelectasis. Enlarging subcarinal adenopathy. Laboratory data showed WBC 13.1, hemoglobin 15.6 and platelets 393 Sodium 129, potassium 4.9, BUN 14 and creatinine 0.61 Bilirubin 1.7 and AST 57 ALT 22 and alk phos 77 Calcium 11.5 Albumin 3.3 EKG showed atrial fibrillation with rapid regular rate. 02/15/2020 Patient is currently lying in the bed comfortably. Denied any further episodes of hemoptysis. Eliquis is on hold. Heart rate is better controlled now. Patient otherwise denied any complaints of chest pain or shortness breath. Saturating well on room air. No headache or dizziness or lightheadedness. [facility] [place]. Laboratory data showed WBC 12.8 and hemoglobin level 13.3 and platelets 38 4 Sodium 135 potassium 3.3 and calcium down to 10.4, albumin 3.0 Sodium level improved to 135 Current medications reviewed. Objective - Vital Signs Vital signs: Vital Signs Temp 97.6 F 02/15/20 18:50 Pulse 97 02/15/20 18:50 Resp 17 02/15/20 18:50 BP 98/61 02/15/20 18:50 Pulse Ox 95 02/15/20 18:50 Intake & Output 02/15/20 02/15/20 02/16/20 06:59 18:59 06:59 Weight 44.5 kg 44.5 kg Other: Voiding Method Bedpan Diaper # Voids 1 2 - Exam PHYSICAL EXAMINATION: Patient is lying in the bed comfortably, no acute distress, awake alert and oriented.. HEENT: Normocephalic. Neck is supple. Pupils reactive. Nostrils clear. Oral cavity is moist. Ears reveal no drainage. Neck reveals no JVD, carotid bruits, or thyromegaly. CHEST EXAMINATION: Trachea is central. Symmetrical expansion. Lung telles clear to auscultation and percussion. CARDIAC: Normal S1, S2 with no gallops. No murmurs. irregular rhythm ABDOMEN: Soft. Bowel sounds normal. No organomegaly. No abdominal bruits. Extremities: reveal no edema. No clubbing or cyanosis Neurologically awake, alert, oriented x3 with well-coordinated movements. No focal deficits noted Skin: No rash or skin lesions. Psychiatric: Coperative. Nonsuicidal Musculoskeletal: No joint swelling or deformity. Normal range of motion. - Labs CBC & Chem 7: 02/16/20 10:31 02/15/20 06:56 Labs: Abnormal Lab Results - Last 24 Hours (Table) 02/15/20 02/15/20 Range/Units 06:56 06:56 WBC 12.8 H (3.8-10.6) k/uL Neutrophils # 10.5 H (1.3-7.7) k/uL Potassium 3.3 L (3.5-5.5) mmol/L Creatinine 0.5 L (0.6-1.5) mg/dL Calcium 10.4 H (8.7-10.3) mg/dL Total Protein 5.0 L (6.2-8.2) g/dL Albumin 3.00 L (3.80-4.90) g/dL Albumin/Globulin Ratio 1.50 L (1.60-3.17) g/dL Assessment and Plan Assessment: Atrial fibrillation with rapid ventricular rate. Hemoptysis likely due to underlying squamous cell lung cancer. 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 Currently on chemotherapy. Denied any history of radiation treatment. Progressive left lower lobe mass and enlarging left hilar mass. Compressive left lower lobe atelectasis. Hypercalcemia likely related to bone metastasis. Hypovolemic hyponatremia. Possible SIADH. Hypertension Hyperlipidemia Hypothyroidism Prior history of smoking DVT prophylaxis patient is already on Eliquis. Plan: Patient will be continued on telemetry monitoring. Continue with IV hydration. Started back on metoprolol and Cardizem as per home regimen. Cardiology was consulted. Monitor H&H and pulmonary was consulted for hemoptysis. Patient does not have any active bleeding at this time. Anticoagulation is on hold. Further recommendations based on the clinical course. Time with Patient: Greater than 30
--- NOTE | 2020-02-16 23:52 | P.PN ---
Subjective Progress Note Date: 02/16/20 Principal diagnosis: Atrial fibrillation with rapid ventricular rate. Patient is a 80-year-old female with a known history of lung cancer currently undergoing chemotherapy, hypertension, hyperlipidemia, hypothyroidism, paroxysmal atrial fibrillation on anticoagulation with Eliquis and previous history of smoking presents to ER with complaints of coughing up blood clots yesterday evening and today morning. Patient also complains of heart racing or fast and dizziness unable to get out of bed this morning. Patient called EMS and was brought to the hospital. Denied any complaints of chest pain or shortness breath. No complaints of fever or chills. Denied any sputum production. No recent illnesses. Chest x-ray showed increased density left lower lobe may reflect developing pneumonia. There is also a small effusion. Correlate clinically. CT chest showed enlarging left lower lobe pleural-based mass as well as enlarging left hilar mass. Interval development of small left-sided pleural effusion as well as left lower lobe compressive atelectasis. Enlarging subcarinal adenopathy. Laboratory data showed WBC 13.1, hemoglobin 15.6 and platelets 393 Sodium 129, potassium 4.9, BUN 14 and creatinine 0.61 Bilirubin 1.7 and AST 57 ALT 22 and alk phos 77 Calcium 11.5 Albumin 3.3 EKG showed atrial fibrillation with rapid regular rate. 02/15/2020 Patient is currently lying in the bed comfortably. Denied any further episodes of hemoptysis. Eliquis is on hold. Heart rate is better controlled now. Patient otherwise denied any complaints of chest pain or shortness breath. Saturating well on room air. No headache or dizziness or lightheadedness. [facility]. Laboratory data showed WBC 12.8 and hemoglobin level 13.3 and platelets 38 4 Sodium 135 potassium 3.3 and calcium down to 10.4, albumin 3.0 Sodium level improved to 135 02/16/2020 Patient denied any complaints of chest pain or shortness of breath. No nausea vomiting abdominal pain or diarrhea. No hemoptysis. No hematemesis or melena. Heart rate is controlled. Eliquis is on hold. Cardiology is on board. Patient was seen by oncology due to metastatic lung cancer and is planning for palliative radiation today. Current medications reviewed. Objective - Vital Signs Vital signs: Vital Signs Temp 97.8 F 02/16/20 15:45 Pulse 70 02/16/20 15:45 Resp 19 02/16/20 15:45 BP 120/70 02/16/20 15:45 Pulse Ox 93 L 02/16/20 15:45 Intake & Output 02/16/20 02/16/20 02/17/20 06:59 18:59 06:59 Other: Voiding Method Bedpan Diaper # Voids 1 - Exam PHYSICAL EXAMINATION: Patient is lying in the bed comfortably, no acute distress, awake alert and oriented.. HEENT: Normocephalic. Neck is supple. Pupils reactive. Nostrils clear. Oral cavity is moist. Ears reveal no drainage. Neck reveals no JVD, carotid bruits, or thyromegaly. CHEST EXAMINATION: Trachea is central. Symmetrical expansion. Lung telels clear to auscultation and percussion. CARDIAC: Normal S1, S2 with no gallops. No murmurs. irregular rhythm ABDOMEN: Soft. Bowel sounds normal. No organomegaly. No abdominal bruits. Extremities: reveal no edema. No clubbing or cyanosis Neurologically awake, alert, oriented x3 with well-coordinated movements. No focal deficits noted Skin: No rash or skin lesions. Psychiatric: Coperative. Nonsuicidal Musculoskeletal: No joint swelling or deformity. Normal range of motion. - Labs CBC & Chem 7: 02/16/20 10:31 02/15/20 06:56 Labs: Abnormal Lab Results - Last 24 Hours (Table) 02/16/20 Range/Units 10:31 WBC 13.4 H (3.8-10.6) k/uL Assessment and Plan Assessment: Atrial fibrillation with rapid ventricular rate. eliquis on hold. Hemoptysis likely due to underlying squamous cell lung cancer. 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 Currently on chemotherapy. Denied any history of radiation treatment. Progressive left lower lobe mass and enlarging left hilar mass. Compressive left lower lobe atelectasis. Hypercalcemia likely related to bone metastasis. Hypovolemic hyponatremia. Possible SIADH. Hypertension Hyperlipidemia Hypothyroidism Prior history of smoking DVT prophylaxis patient is already on Eliquis. Plan: Patient will be continued on telemetry monitoring. Continue with IV hydration. Started back on metoprolol and Cardizem as per home regimen. Patient does not have any active bleeding at this time. Anticoagulation is on hold. Cardiology and pulmonary is following. Oncology is planning for palliative radiation. Further recommendations based on the clinical course. Time with Patient: Greater than 30
[2020-02-17] MEDS: LEVOTHYROXINE 50 MCG TAB PO SCH (05:20)
[2020-02-17] MEDS: SODIUM CHLORIDE 0.9% 1,000 ML IV SCH (06:28)
[2020-02-17] MEDS: METOPROLOL TARTRATE 25 MG TAB PO SCH ×2 (07:46→21:24)
[2020-02-17] MEDS: MEGESTROL 40 MG TAB PO SCH (07:46)
[2020-02-17] MEDS: DILTIAZEM ORAL 30 MG TAB PO SCH ×3 (07:46→21:24)
[2020-02-17] MEDS: PANTOPRAZOLE 40 MG TABLET PO SCH (21:24)
[2020-02-17] MEDS: ATORVASTATIN 10 MG TAB PO SCH (21:24)
[2020-02-17] MEDS: MONTELUKAST 10 MG TAB PO SCH (21:24)
[2020-02-18] MEDS: SODIUM CHLORIDE 0.9% 1,000 ML IV SCH (03:59)
[2020-02-18] MEDS: LEVOTHYROXINE 50 MCG TAB PO SCH (06:00)
[2020-02-18] MEDS: DILTIAZEM ORAL 30 MG TAB PO SCH (07:55)
[2020-02-18] MEDS: MEGESTROL 40 MG TAB PO SCH (07:55)
[2020-02-18] MEDS: METOPROLOL TARTRATE 25 MG TAB PO SCH ×2 (07:55→21:33)
--- NOTE | 2020-02-18 10:41 | P.PN ---
Subjective Progress Note Date: 02/17/20 Principal diagnosis: Atrial fibrillation with rapid ventricular rate. Patient is a 80-year-old female with a known history of lung cancer currently undergoing chemotherapy, hypertension, hyperlipidemia, hypothyroidism, paroxysmal atrial fibrillation on anticoagulation with Eliquis and previous history of smoking presents to ER with complaints of coughing up blood clots yesterday evening and today morning. Patient also complains of heart racing or fast and dizziness unable to get out of bed this morning. Patient called EMS and was brought to the hospital. Denied any complaints of chest pain or shortness breath. No complaints of fever or chills. Denied any sputum production. No recent illnesses. Chest x-ray showed increased density left lower lobe may reflect developing pneumonia. There is also a small effusion. Correlate clinically. CT chest showed enlarging left lower lobe pleural-based mass as well as enlarging left hilar mass. Interval development of small left-sided pleural effusion as well as left lower lobe compressive atelectasis. Enlarging subcarinal adenopathy. Laboratory data showed WBC 13.1, hemoglobin 15.6 and platelets 393 Sodium 129, potassium 4.9, BUN 14 and creatinine 0.61 Bilirubin 1.7 and AST 57 ALT 22 and alk phos 77 Calcium 11.5 Albumin 3.3 EKG showed atrial fibrillation with rapid regular rate. 02/15/2020 Patient is currently lying in the bed comfortably. Denied any further episodes of hemoptysis. Eliquis is on hold. Heart rate is better controlled now. Patient otherwise denied any complaints of chest pain or shortness breath. Saturating well on room air. No headache or dizziness or lightheadedness. [facility]. Laboratory data showed WBC 12.8 and hemoglobin level 13.3 and platelets 38 4 Sodium 135 potassium 3.3 and calcium down to 10.4, albumin 3.0 Sodium level improved to 135 02/16/2020 Patient denied any complaints of chest pain or shortness of breath. No nausea vomiting abdominal pain or diarrhea. No hemoptysis. No hematemesis or melena. Heart rate is controlled. Eliquis is on hold. Cardiology is on board. Patient was seen by oncology due to metastatic lung cancer and is planning for palliative radiation today. 02/17/2020 Patient is currently lying in the bed comfortably. No computer chest pain or shortness of. No hemoptysis. Patient is undergoing palliative radiation. Anticoagulation is on hold Anticipate discharged to extended care facility and continue with radiation. Social work is following. Current medications reviewed. Objective - Vital Signs Vital signs: Vital Signs Temp 98.4 F 02/17/20 14:36 Pulse 97 02/17/20 14:36 Resp 18 02/17/20 14:36 BP 109/67 02/17/20 14:36 Pulse Ox 94 L 02/17/20 14:36 Intake & Output 02/16/20 02/17/20 02/17/20 18:59 06:59 18:59 Weight 46.2 kg Other: Voiding Method Bedpan Bedpan Diaper Diaper # Voids 1 2 - Exam PHYSICAL EXAMINATION: Patient is lying in the bed comfortably, no acute distress, awake alert and oriented.. HEENT: Normocephalic. Neck is supple. Pupils reactive. Nostrils clear. Oral cavity is moist. Ears reveal no drainage. Neck reveals no JVD, carotid bruits, or thyromegaly. CHEST EXAMINATION: Trachea is central. Symmetrical expansion. Lung telles clear to auscultation and percussion. CARDIAC: Normal S1, S2 with no gallops. No murmurs. irregular rhythm ABDOMEN: Soft. Bowel sounds normal. No organomegaly. No abdominal bruits. Extremities: reveal no edema. No clubbing or cyanosis Neurologically awake, alert, oriented x3 with well-coordinated movements. No focal deficits noted Skin: No rash or skin lesions. Psychiatric: Coperative. Nonsuicidal Musculoskeletal: No joint swelling or deformity. Normal range of motion. - Labs CBC & Chem 7: 02/16/20 10:31 02/15/20 06:56 Assessment and Plan Assessment: Atrial fibrillation with rapid ventricular rate. eliquis on hold. Hemoptysis likely due to underlying squamous cell lung cancer. 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 Currently on chemotherapy. Denied any history of radiation treatment. Progressive left lower lobe mass and enlarging left hilar mass. Compressive left lower lobe atelectasis. Hypercalcemia likely related to bone metastasis. Hypovolemic hyponatremia. Possible SIADH. Hypertension Hyperlipidemia Hypothyroidism Prior history of smoking DVT prophylaxis patient is already on Eliquis. Plan: Patient will be continued on telemetry monitoring. Continue with IV hydration. Started back on metoprolol and Cardizem as per home regimen. Patient does not have any active bleeding at this time. Anticoagulation is on hold. Cardiology and pulmonary is following. Oncology is planning for palliative radiation. Further recommendations based on the clinical course. Time with Patient: Greater than 30
[2020-02-18 12:11] LABS: Basophils % (A) 0 %; Eosinophils # (A) 0.2 k/uL (0-0.7); Eosinophils % (A) 1 %; HCT 43.6 % (34.0-46.0); HGB 13.9 gm/dL (11.4-16.0); Lymphocytes # (A) 1.3 k/uL (1.0-4.8); Lymphocytes % (A) 10 %; MCH 31.4 pg (25.0-35.0); MCV 98.1 fL (80.0-100.0); Mean Platelet Volume 7.9; Monocytes # (A) 0.4 k/uL (0-1.0); Monocytes % (A) 3 %; Neutrophils # (A) 10.4 k/uL (1.3-7.7); Neutrophils % (A) 84 %; Platelet Count 362 k/uL (150-450); RBC 4.44 m/uL (3.80-5.40); WBC 12.4 k/uL (3.8-10.6)
[2020-02-18] MEDS ORDERED: DILTIAZEM ORAL 60 MG TAB PO STA (13:31)
[2020-02-18] MEDS: DILTIAZEM ORAL 60 MG TAB PO SCH ×2 (15:37→21:32)
--- NOTE | 2020-02-18 18:23 | P.PN ---
Subjective Progress Note Date: 02/18/20 the patient did agree to radiation, and has started radiation to the lung, as well as the L spine. She appears to be comfortable currently. She'll not had recurrence of hemoptysis. Respiratory status is stable. Objective - Vital Signs Vital signs: Vital Signs Temp 98.1 F 02/18/20 14:40 Pulse 80 02/18/20 14:40 Resp 18 02/18/20 14:40 BP 106/68 02/18/20 14:40 Pulse Ox 95 02/18/20 14:40 Intake & Output 02/17/20 02/18/20 02/18/20 18:59 06:59 18:59 Other: Voiding Method Bedpan Bedpan Diaper Diaper # Voids 2 1 5 - Constitutional General appearance: Present: no acute distress - EENT Eyes: Present: EOMI ENT: Present: hearing grossly normal, normal oropharynx - Neck Thyroid: bilateral: normal size - Respiratory Respiratory: left: diminished (left upper lobe) - Cardiovascular Rhythm: regular Heart sounds: normal: S1, S2 - Gastrointestinal General gastrointestinal: Present: normal bowel sounds, soft - Integumentary Integumentary: Present: normal - Neurologic Neurologic: Present: CNII-XII intact - Musculoskeletal Musculoskeletal: Present: generalized weakness, strength equal bilaterally - Psychiatric Psychiatric Comment(s): patient's affect and comprehension appears to be slow. - Labs CBC & Chem 7: 02/18/20 11:56 02/15/20 06:56 Labs: Abnormal Lab Results - Last 24 Hours (Table) 02/18/20 Range/Units 11:56 WBC 12.4 H (3.8-10.6) k/uL Neutrophils # 10.4 H (1.3-7.7) k/uL Assessment and Plan (1) Hemoptysis Narrative/Plan: this has not recurred at least over the last 24-48 hours. Patient has started radiation to the left lung. If hemoptysis does not recur, then she can likely be started back on and the correlation next week. Hemoglobin remains stable in the normal range. Current Visit: Yes Status: Acute Code(s): R04.2 - HEMOPTYSIS SNOMED Code(s): 58768946 (2) Metastatic lung cancer (metastasis from lung to other site) Narrative/Plan: case was discussed in detail with radiation oncology. The patient did agree for palliative radiation. The plan to treat the left hilar region, as well as the lumbar spine lesion. - It was discussed with the patient that radiation is quite appropriate, but the objective is palliation of symptoms, including hemoptysis. It was also discussed with her again, that her cancer is not curable. The patient was supposed to start systemic therapy with carboplatin, but was unable to make it to the office, missing several appointments due to health reasons. Performance status is quite poor and she is likely to go to rehab on discharge. It was discussed with her that he would not be able to start chemotherapy while she is in rehab. Therefore it would be best to evaluate her 1-2 weeks after discharge in the office. If possible status remains poor, and systemic therapy may not be possible. In that situation it would be reasonable to consider comfort care. - Agents initial comprehension appeared to be somewhat suboptimal, but she subsequently asked appropriate questions and appeared to grasp the above adequately. Continue to monitor while inpatient, and plan for office follow-up after discharge with Dr. Rivas. Current Visit: No Status: Acute Code(s): C34.90 - MALIGNANT NEOPLASM OF UNSP PART OF UNSP BRONCHUS OR LUNG SNOMED Code(s): 77343940
[2020-02-18 19:59] LABS: African American GFR (CKD) 98.4 (60.0-200.0); Anion Gap 9.9 mmol/L (4.00-12.00); Calcium 10.7 mg/dL (8.7-10.3); Carbon Dioxide 21.1 mmol/L (21.6-31.8); Non-African American GFR(CKD) 84.9 (60.0-200.0); Potassium 3.4 mmol/L (3.5-5.5)
[2020-02-18] MEDS: PANTOPRAZOLE 40 MG TABLET PO SCH (21:33)
[2020-02-18] MEDS: MONTELUKAST 10 MG TAB PO SCH (21:33)
[2020-02-18] MEDS: ATORVASTATIN 10 MG TAB PO SCH (21:33)
[2020-02-19] MEDS: SODIUM CHLORIDE 0.9% 1,000 ML IV SCH (03:32)
[2020-02-19] MEDS: LEVOTHYROXINE 50 MCG TAB PO SCH (05:43)
[2020-02-19] MEDS: MEGESTROL 40 MG TAB PO SCH (07:48)
[2020-02-19] MEDS: METOPROLOL TARTRATE 25 MG TAB PO SCH (07:48)
[2020-02-19] MEDS: DILTIAZEM ORAL 60 MG TAB PO SCH (07:48)
[2020-02-19 08:37] VITALS: BP 109/66; RESP 18; TEMP 97.9
[2020-02-19 09:39] VITALS: PULSE 92
--- NOTE | 2020-02-19 12:30 | P.PN ---
Subjective Progress Note Date: 02/18/20 Principal diagnosis: Atrial fibrillation with rapid ventricular rate. Patient is a 80-year-old female with a known history of lung cancer currently undergoing chemotherapy, hypertension, hyperlipidemia, hypothyroidism, paroxysmal atrial fibrillation on anticoagulation with Eliquis and previous history of smoking presents to ER with complaints of coughing up blood clots yesterday evening and today morning. Patient also complains of heart racing or fast and dizziness unable to get out of bed this morning. Patient called EMS and was brought to the hospital. Denied any complaints of chest pain or shortness breath. No complaints of fever or chills. Denied any sputum production. No recent illnesses. Chest x-ray showed increased density left lower lobe may reflect developing pneumonia. There is also a small effusion. Correlate clinically. CT chest showed enlarging left lower lobe pleural-based mass as well as enlarging left hilar mass. Interval development of small left-sided pleural effusion as well as left lower lobe compressive atelectasis. Enlarging subcarinal adenopathy. Laboratory data showed WBC 13.1, hemoglobin 15.6 and platelets 393 Sodium 129, potassium 4.9, BUN 14 and creatinine 0.61 Bilirubin 1.7 and AST 57 ALT 22 and alk phos 77 Calcium 11.5 Albumin 3.3 EKG showed atrial fibrillation with rapid regular rate. 02/15/2020 Patient is currently lying in the bed comfortably. Denied any further episodes of hemoptysis. Eliquis is on hold. Heart rate is better controlled now. Patient otherwise denied any complaints of chest pain or shortness breath. Saturating well on room air. No headache or dizziness or lightheadedness. [facility]. Laboratory data showed WBC 12.8 and hemoglobin level 13.3 and platelets 38 4 Sodium 135 potassium 3.3 and calcium down to 10.4, albumin 3.0 Sodium level improved to 135 02/16/2020 Patient denied any complaints of chest pain or shortness of breath. No nausea vomiting abdominal pain or diarrhea. No hemoptysis. No hematemesis or melena. Heart rate is controlled. Eliquis is on hold. Cardiology is on board. Patient was seen by oncology due to metastatic lung cancer and is planning for palliative radiation today. 02/17/2020 Patient is currently lying in the bed comfortably. No complaints of chest pain or shortness of breath. No hemoptysis. Patient is undergoing palliative radiation. Anticoagulation is on hold Anticipate discharged to extended care facility and continue with radiation. Social work is following. 02/18/2020 Patient is currently lying in the bed comfortably. No complaints of chest pain. Patient did have rapid ventricular rate this afternoon and cardiology has seen the patient. Increase the dose of Cardizem and follow-up another 24 hours. Anticoagulation is on hold currently due to hemoptysis. Patient will be continued on telemetry monitoring and possible discharge once the heart rate is better controlled. Current medications reviewed. Objective - Vital Signs Vital signs: Vital Signs Temp 98.1 F 02/18/20 14:40 Pulse 80 02/18/20 14:40 Resp 18 02/18/20 14:40 BP 106/68 02/18/20 14:40 Pulse Ox 95 02/18/20 14:40 Intake & Output 02/17/20 02/18/20 02/18/20 18:59 06:59 18:59 Other: Voiding Method Bedpan Bedpan Diaper Diaper # Voids 2 1 - Exam PHYSICAL EXAMINATION: Patient is lying in the bed comfortably, no acute distress, awake alert and oriented.. HEENT: Normocephalic. Neck is supple. Pupils reactive. Nostrils clear. Oral cavity is moist. Ears reveal no drainage. Neck reveals no JVD, carotid bruits, or thyromegaly. CHEST EXAMINATION: Trachea is central. Symmetrical expansion. Lung telles clear to auscultation and percussion. CARDIAC: Normal S1, S2 with no gallops. No murmurs. irregular rhythm ABDOMEN: Soft. Bowel sounds normal. No organomegaly. No abdominal bruits. Extremities: reveal no edema. No clubbing or cyanosis Neurologically awake, alert, oriented x3 with well-coordinated movements. No focal deficits noted Skin: No rash or skin lesions. Psychiatric: Coperative. Nonsuicidal Musculoskeletal: No joint swelling or deformity. Normal range of motion. - Labs CBC & Chem 7: 02/18/20 11:56 02/18/20 11:56 Labs: Abnormal Lab Results - Last 24 Hours (Table) 02/18/20 Range/Units 11:56 WBC 12.4 H (3.8-10.6) k/uL Neutrophils # 10.4 H (1.3-7.7) k/uL Assessment and Plan Assessment: Atrial fibrillation with rapid ventricular rate. eliquis on hold. Heart rate is still elevated. Hemoptysis likely due to underlying squamous cell lung cancer. 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 Currently on chemotherapy. Denied any history of radiation treatment. Progressive left lower lobe mass and enlarging left hilar mass. Compressive left lower lobe atelectasis. Hypercalcemia likely related to bone metastasis. Hypovolemic hyponatremia. Possible SIADH. Hypertension Hyperlipidemia Hypothyroidism Prior history of smoking DVT prophylaxis patient is already on Eliquis. Plan: Patient will be continued on telemetry monitoring. Continue with IV hydration. Started back on metoprolol and Cardizem as per home regimen. Increase the dose of Cardizem. Patient does not have any active bleeding at this time. Anticoagulation is on hold. Cardiology and pulmonary is following. Oncology is planning for palliative radiation. Further recommendations based on the clinical course. Time with Patient: Greater than 30
--- NOTE | 2020-02-19 12:32 | P.DS ---
Providers Date of admission: 02/14/20 14:31 Expected date of discharge: 02/19/20 Attending physician: Pricila Mays Consults: 02/14/20 14:29 Consult Physician Routine Consulting Provider: Anderson Rivas Consult Reason/Comments: lung cancer Do you want consulting provider notified?: Yes 02/14/20 14:30 Consult Physician Routine Consulting Provider: Tiffanie Gray Consult Reason/Comments: afib rvr Do you want consulting provider notified?: Yes 02/14/20 14:32 Consult Physician Routine Consulting Provider: Willy Terrazas Consult Reason/Comments: hemoptysis, posible bronch Do you want consulting provider notified?: Yes 02/14/20 20:05 Consult Physician Routine Consulting Provider: Alphonse Ba Consult Reason/Comments: hemoptysis, T8 mets, hypercalcemia Do you want consulting provider notified?: Yes Primary care physician: Dorita Hoover [facility] Course: Discharge diagnosis Atrial fibrillation with rapid ventricular rate. eliquis on hold. Heart rate is better controlled now. Hemoptysis likely due to underlying squamous cell lung cancer. 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 Currently on chemotherapy. Denied any history of radiation treatment. Patient was started on radiation therapy during this admission. Progressive left lower lobe mass and enlarging left hilar mass. Compressive left lower lobe atelectasis. Hypercalcemia likely related to bone metastasis. Hypovolemic hyponatremia. Possible SIADH. Hypertension Hyperlipidemia Hypothyroidism Prior history of smoking DVT prophylaxis Eliquis is on hold. Hospital course Patient is a 80-year-old female with a known history of lung cancer currently undergoing chemotherapy, hypertension, hyperlipidemia, hypothyroidism, paroxysmal atrial fibrillation on anticoagulation with Eliquis and previous history of smoking presents to ER with complaints of coughing up blood clots yesterday evening and today morning. Patient also complains of heart racing or fast and dizziness unable to get out of bed this morning. Patient called EMS and was brought to the hospital. Denied any complaints of chest pain or shortness breath. No complaints of fever or chills. Denied any sputum production. No recent illnesses. Chest x-ray showed increased density left lower lobe may reflect developing pneumonia. There is also a small effusion. Correlate clinically. CT chest showed enlarging left lower lobe pleural-based mass as well as enlarging left hilar mass. Interval development of small left-sided pleural effusion as well as left lower lobe compressive atelectasis. Enlarging subcarinal adenopathy. Laboratory data showed WBC 13.1, hemoglobin 15.6 and platelets 393 Sodium 129, potassium 4.9, BUN 14 and creatinine 0.61 Bilirubin 1.7 and AST 57 ALT 22 and alk phos 77 Calcium 11.5 Albumin 3.3 EKG showed atrial fibrillation with rapid regular rate. 02/15/2020 Patient is currently lying in the bed comfortably. Denied any further episodes of hemoptysis. Eliquis is on hold. Heart rate is better controlled now. Patient otherwise denied any complaints of chest pain or shortness breath. Saturating well on room air. No headache or dizziness or lightheadedness. [facility] cardiology and oncology is on board. Laboratory data showed WBC 12.8 and hemoglobin level 13.3 and platelets 38 4 Sodium 135 potassium 3.3 and calcium down to 10.4, albumin 3.0 Sodium level improved to 135 02/16/2020 Patient denied any complaints of chest pain or shortness of breath. No nausea vomiting abdominal pain or diarrhea. No hemoptysis. No hematemesis or melena. Heart rate is controlled. Eliquis is on hold. Cardiology is on board. Patient was seen by oncology due to metastatic lung cancer and is planning for palliative radiation today. 02/17/2020 Patient is currently lying in the bed comfortably. No complaints of chest pain or shortness of breath. No hemoptysis. Patient is undergoing palliative radiation. Anticoagulation is on hold Anticipate discharged to extended care facility and continue with radiation. Social work is following. 02/18/2020 Patient is currently lying in the bed comfortably. No complaints of chest pain. Patient did have rapid ventricular rate this afternoon and cardiology has seen the patient. Increase the dose of Cardizem and follow-up another 24 hours. Anticoagulation is on hold currently due to hemoptysis. Patient will be continued on telemetry monitoring and possible discharge once the heart rate is better controlled. 02/19/2020 Patient is currently resting in the bed comfortably. No complaints of chest pain or shortness of breath. Heart rate is better controlled now. Patient will be continued on beta blockers and Cardizem. Anticoagulation is on hold due to hemoptysis on admission. Patient will be continued on radiation therapy upon transfer to extended care facility. Follow with primary care physician and oncology as outpatient. Patient is being discharged to rehab today PHYSICAL EXAMINATION: Patient is lying in the bed comfortably, no acute distress, awake alert and oriented.. HEENT: Normocephalic. Neck is supple. Pupils reactive. Nostrils clear. Oral cavity is moist. Ears reveal no drainage. Neck reveals no JVD, carotid bruits, or thyromegaly. CHEST EXAMINATION: Trachea is central. Symmetrical expansion. Lung telles clear to auscultation and percussion. CARDIAC: Normal S1, S2 with no gallops. No murmurs. irregular rhythm ABDOMEN: Soft. Bowel sounds normal. No organomegaly. No abdominal bruits. Extremities: reveal no edema. No clubbing or cyanosis Neurologically awake, alert, oriented x3 with well-coordinated movements. No focal deficits noted Skin: No rash or skin lesions. Psychiatric: Coperative. Nonsuicidal Musculoskeletal: No joint swelling or deformity. Normal range of motion. Vital Signs 02/19/20 02/19/20 02/19/20 08:08 08:36 09:39 Temperature 97.9 F Pulse Rate [ 154 H 100 92 Pricing Clerk ] Respiratory 18 Rate Blood Pressure 109/66 [Left Arm] O2 Sat by Pulse 95 Oximetry Total time taken greater than 35 minutes including 18 minutes for counseling and coordination of care. Patient Condition at Discharge: Fair Plan - Discharge Summary Discharge Rx Participant: No New Discharge Prescriptions: New Diltiazem Oral [Cardizem*] 60 mg PO TID #90 tab Continue Montelukast Sodium [Singulair] 10 mg PO HS Lovastatin [Altoprev] 20 mg PO HS Ergocalciferol [Vitamin D2 (DRISDOL)] 50,000 unit PO FR Levothyroxine Sodium [Synthroid] 50 mcg PO DAILY Megestrol [Megace] 40 mg PO DAILY #30 tablet Metoprolol Tartrate [Lopressor] 25 mg PO BID Omeprazole 20 mg PO HS Sodium Chloride Tab 1 gm PO AC-SUPPER Discontinued Diltiazem Oral [Cardizem*] 30 mg PO TID #90 tab Apixaban [Eliquis] 2.5 mg PO BID #60 tab Furosemide [Lasix] 20 mg PO BID #60 tab Potassium Chloride ER [K-Dur 10] 20 meq PO DAILY Discharge Medication List Ergocalciferol [Vitamin D2 (DRISDOL)] 50,000 unit PO FR 11/09/19 [History] Levothyroxine Sodium [Synthroid] 50 mcg PO DAILY 11/09/19 [History] Lovastatin [Altoprev] 20 mg PO HS 11/09/19 [History] Montelukast Sodium [Singulair] 10 mg PO HS 11/09/19 [History] Megestrol [Megace] 40 mg PO DAILY #30 tablet 01/09/20 [Rx] Metoprolol Tartrate [Lopressor] 25 mg PO BID 02/14/20 [History] Omeprazole 20 mg PO HS 02/14/20 [History] Sodium Chloride Tab 1 gm PO AC-SUPPER 02/14/20 [History] Diltiazem Oral [Cardizem*] 60 mg PO TID #90 tab 02/19/20 [Rx] Follow up Appointment(s)/Referral(s): Feroz Richards, [NON-STAFF] - As Needed Tiffanie Gray MD [STAFF PHYSICIAN] - 1 Week Dorita Hoover MD [Primary Care Provider] - 1-2 days Discharge Disposition: TRANSFER TO SNF/ECF
== END 2020-02-19 14:25 | DRG 180 ==
LOC: EC 11:38 → 3SCARD 14:31 → 4SSUR 17:00
PROVIDERS: ADMIT Internal Medicine; ATTEND Internal Medicine
PROC: DW021ZZ Beam Radiation of Chest using Photons 1 - 10 MeV (ICD-10-PCS; principal; 2020-02-16)
DX: C34.32 Malignant neoplasm of lower lobe, left bronchus or lung (principal); E43 Unspecified severe protein-calorie malnutrition; R04.2 Hemoptysis; C79.51 Secondary malignant neoplasm of bone; E22.2 Syndrome of inappropriate secretion of antidiuretic hormone; J90 Pleural effusion, not elsewhere classified; J98.11 Atelectasis; E86.0 Dehydration; E86.1 Hypovolemia; E03.9 Hypothyroidism, unspecified; E78.5 Hyperlipidemia, unspecified; E83.52 Hypercalcemia; I10 Essential (primary) hypertension; I48.0 Paroxysmal atrial fibrillation; Z79.01 Long term (current) use of anticoagulants; Z79.890 Hormone replacement therapy; Z79.899 Other long term (current) drug therapy; Z87.891 Personal history of nicotine dependence; Z91.19 Patient's noncompliance with other medical treatment and regimen; Z90.49 Acquired absence of other specified parts of digestive tract; Z90.89 Acquired absence of other organs; Z98.51 Tubal ligation status; Z98.890 Other specified postprocedural states
CPT/HCPCS: 36415; 71046; 71260; 77300; 77301; 77338; 77386; 77412; 80048; 80053; 85025; 85027; 85610; 85730; 86850; 86870; 86880; 86900; 86901; 93005; 96360; 99285

== ENCOUNTER 2020-02-28 12:33 | Inpatient (IN) | payer MEDICARE ==
[2020-02-28] MEDS ORDERED: SODIUM CHLORIDE 0.9% 500 ML 500 ML IV STA (13:18)
--- NOTE | 2020-02-28 13:33 | ED ---
General Adult HPI - General Chief complaint: Shortness of Breath Stated complaint: from [facility]con[facility] Covid Time Seen by Provider: 02/28/20 12:40 Source: patient, family, RN notes reviewed, old records reviewed Mode of arrival: wheelchair Limitations: no limitations - History of Present Illness Initial comments: This is an 80-year-old female who presents emergency Department because she short of breath. Patient is a very poor historian he cannot answer all questions. Patient was her car monos and they sent over because she was opening shortness of breath. She states is been going on a week then other times she states she's just really weak and doesn't really know why she is here. No one came with him regarding further history is aware working the patient for weakness and shortness of breath. We have no history of any fevers. - Related Data Home Medications Medication Instructions Recorded Confirmed Levothyroxine Sodium [Synthroid] 50 mcg PO DAILY@0600 11/09/19 02/28/20 Lovastatin [Altoprev] 20 mg PO HS@209911/09/19 02/28/20 Montelukast Sodium [Singulair] 10 mg PO HS@209911/09/19 02/28/20 Metoprolol Tartrate [Lopressor] 25 mg PO BID@0900,1700 02/14/20 02/28/20 Omeprazole 20 mg PO HS@209902/14/20 02/28/20 Sodium Chloride Tab 1 gm PO AC-SUPPER@1700 02/14/20 02/28/20 Acetaminophen Tab [Tylenol] 650 mg PO Q6H PRN 02/28/20 02/28/20 Ascorbic Acid [Vitamin C] 500 mg PO DAILY@0902/28/20 02/28/20 Cholecalciferol [Vitamin D3 (25 5,000 unit PO DAILY@0902/28/20 02/28/20 Mcg = 1000 Iu)] Famotidine [Pepcid] 20 mg PO DAILY@0902/28/20 02/28/20 Megestrol [Megace] 40 mg PO DAILY@0900 02/28/20 02/28/20 Zinc 50 mg PO DAILY@0900 02/28/20 02/28/20 Previous Rx's Medication Instructions Recorded Diltiazem Oral [Cardizem*] 60 mg PO TID #90 tab 02/19/20 Allergies Allergy/AdvReac Type Severity Reaction Status Date / Time No Known Allergies Allergy Verified 02/28/20 14:40 Review of Systems ROS Statement: Those systems with pertinent positive or pertinent negative responses have been documented in the HPI. ROS Other: All systems not noted in ROS Statement are negative. Past Medical History Past Medical History: Cancer, Hyperlipidemia, Hypertension, Thyroid Disorder Additional Past Medical History / Comment(s): seasonal allergies History of Any Multi-Drug Resistant Organisms: None Reported Past Surgical History: Appendectomy, Section, Tonsillectomy, Tubal Ligation Past Anesthesia/Blood Transfusion Reactions: No Reported Reaction Past Psychological History: No Psychological Hx Reported Smoking Status: Former smoker Past Alcohol Use History: None Reported Past Drug Use History: None Reported - Past Family History Mother Family Medical History: No Reported History Additional Family Medical History / Comment(s): pt confused, unknown Father Family Medical History: No Reported History Additional Family Medical History / Comment(s): pt confused, unknown General Exam - General Exam Comments Initial Comments: GENERAL: Patient is well-developed and well-nourished. Patient is nontoxic and well- hydrated and is in mild distress. ENT: Neck is soft and supple. No significant lymphadenopathy is noted. Oropharynx is clear. Moist mucous membranes. Neck has full range of motion without eliciting any pain. EYES: The sclera were anicteric and conjunctiva were pink and moist. Extraocular movements were intact and pupils were equal round and reactive to light. Eyelids were unremarkable. PULMONARY: Unlabored respirations. Good breath sounds bilaterally. Slight expiratory wheezing with some crackles in the bilateral bases CARDIOVASCULAR: Irregular rate and rhythm ABDOMEN: Soft and nontender with normal bowel sounds. SKIN: Skin is clear with no lesions or rashes and otherwise unremarkable. NEUROLOGIC: Patient is alert and oriented 1. Cranial nerves II through XII are grossly intact. Motor and sensory are also intact. Normal speech, volume and content. Symmetrical smile. MUSCULOSKELETAL: Normal extremities with adequate strength and full range of motion. No lower extremity swelling or edema. No calf tenderness. LYMPHATICS: No significant lymphadenopathy is noted PSYCHIATRIC: Unable to assess Limitations: no limitations Course Vital Signs 02/28/20 02/28/20 02/28/20 12:38 13:02 13:59 Temperature 97.9 F Pulse Rate 74 55 L 95 Respiratory 16 24 22 Rate Blood Pressure 117/74 128/93 O2 Sat by Pulse 95 91 L 94 L Oximetry 02/28/20 15:00 Temperature 96.9 F L Pulse Rate 143 H Respiratory 22 Rate Blood Pressure 92/75 O2 Sat by Pulse 91 L Oximetry Medical Decision Making - Medical Decision Making EKG shows atrial fibrillation at a rate of 1 30 bpm QRS is 62 QT interval 300 QTC is 441. EKG shows no ST segment elevation or depression Chest x-ray shows a left-sided pleural effusion. Patient's computed tomography scan shows no pulmonary edema however does show an enlarged mass adenopathy pleural effusion and may be postobstructive pneumonia. She was given Rocephin emergency department. - Lab Data Result diagrams: 02/28/20 13:54 02/28/20 13:54 Lab Results 02/28/20 02/28/20 02/28/20 Range/Units 13:54 13:54 13:54 WBC 13.6 H (3.8-10.6) k/uL RBC 4.27 (3.80-5.40) m/uL Hgb 14.7 (11.4-16.0) gm/dL Hct 43.7 (34.0-46.0) % MCV 102.5 H (80.0-100.0) fL MCH 34.4 (25.0-35.0) pg MCHC 33.6 (31.0-37.0) g/dL RDW 15.0 (11.5-15.5) % Plt Count 234 (150-450) k/uL MPV 9.3 Neutrophils % Not Reportable Neutrophils % (Manual) 90 % Band Neuts % (Manual) 1 % Lymphocytes % Not Reportable Lymphocytes % (Manual) 5 % Monocytes % Not Reportable Monocytes % (Manual) 4 % Eosinophils % Not Reportable Basophils % Not Reportable Neutrophils # Not Reportable Neutrophils # (Manual) 12.30 H (1.3-7.7) k/uL Lymphocytes # Not Reportable Lymphocytes # (Manual) 0.68 L (1.0-4.8) k/uL Monocytes # Not Reportable Monocytes # (Manual) 0.54 (0-1.0) k/uL Eosinophils # Not Reportable Basophils # Not Reportable Nucleated RBCs 0 (0-0) /100 WBC Manual Slide Review Performed Hypochromasia Slight Macrocytosis Slight PT 13.9 H (9.0-12.0) sec INR 1.4 H (<1.2) APTT 22.9 (22.0-30.0) sec D-Dimer 19.34 H (<0.60) mg/L FEU Sodium 133 L (137-145) mmol/L Potassium 4.6 (3.5-5.1) mmol/L Chloride 102 (98-107) mmol/L Carbon Dioxide 16 L (22-30) mmol/L Anion Gap 15 mmol/L BUN 22 H (7-17) mg/dL Creatinine 0.97 (0.52-1.04) mg/dL Est GFR (CKD-EPI)AfAm 63 (>60 ml/min/1.73 sqM) Est GFR (CKD-EPI)NonAf 55 (>60 ml/min/1.73 sqM) Glucose 198 H (74-99) mg/dL Plasma Lactic Acid Michael (0.7-2.0) mmol/L Calcium 11.6 H (8.4-10.2) mg/dL Magnesium 2.3 (1.6-2.3) mg/dL Total Bilirubin 2.4 H (0.2-1.3) mg/dL AST 388 H (14-36) U/L ALT 318 H (4-34) U/L Alkaline Phosphatase 204 H (38-126) U/L Troponin I (0.000-0.034) ng/mL NT-Pro-B Natriuret Pep pg/mL Total Protein 5.9 L (6.3-8.2) g/dL Albumin 2.9 L (3.5-5.0) g/dL Urine Color Urine Appearance (Clear) Urine pH (5.0-8.0) Ur Specific Milo (1.001-1.035) Urine Protein (Negative) Urine Glucose (UA) (Negative) Urine Ketones (Negative) Urine Blood (Negative) Urine Nitrite (Negative) Urine Bilirubin (Negative) Urine Urobilinogen (<2.0) mg/dL Ur Leukocyte Esterase (Negative) Urine RBC (0-5) /hpf Urine WBC (0-5) /hpf Urine WBC Clumps (None) /hpf Ur Squamous Epith Cells (0-4) /hpf Triple Phos Crystals (None) /hpf Urine Bacteria (None) /hpf Hyaline Casts (0-2) /lpf Urine Mucus (None) /hpf Coronavirus (PCR) (Not Detectd) 02/28/20 02/28/20 02/28/20 Range/Units 13:54 13:54 13:54 WBC (3.8-10.6) k/uL RBC (3.80-5.40) m/uL Hgb (11.4-16.0) gm/dL Hct (34.0-46.0) % MCV (80.0-100.0) fL MCH (25.0-35.0) pg MCHC (31.0-37.0) g/dL RDW (11.5-15.5) % Plt Count (150-450) k/uL MPV Neutrophils % Neutrophils % (Manual) % Band Neuts % (Manual) % Lymphocytes % Lymphocytes % (Manual) % Monocytes % Monocytes % (Manual) % Eosinophils % Basophils % Neutrophils # Neutrophils # (Manual) (1.3-7.7) k/uL Lymphocytes # Lymphocytes # (Manual) (1.0-4.8) k/uL Monocytes # Monocytes # (Manual) (0-1.0) k/uL Eosinophils # Basophils # Nucleated RBCs (0-0) /100 WBC Manual Slide Review Hypochromasia Macrocytosis PT (9.0-12.0) sec INR (<1.2) APTT (22.0-30.0) sec D-Dimer (<0.60) mg/L FEU Sodium (137-145) mmol/L Potassium (3.5-5.1) mmol/L Chloride (98-107) mmol/L Carbon Dioxide (22-30) mmol/L Anion Gap mmol/L BUN (7-17) mg/dL Creatinine (0.52-1.04) mg/dL Est GFR (CKD-EPI)AfAm (>60 ml/min/1.73 sqM) Est GFR (CKD-EPI)NonAf (>60 ml/min/1.73 sqM) Glucose (74-99) mg/dL Plasma Lactic Acid Michael 10.3 H* (0.7-2.0) mmol/L Calcium (8.4-10.2) mg/dL Magnesium (1.6-2.3) mg/dL Total Bilirubin (0.2-1.3) mg/dL AST (14-36) U/L ALT (4-34) U/L Alkaline Phosphatase (38-126) U/L Troponin I 0.193 H* (0.000-0.034) ng/mL NT-Pro-B Natriuret Pep 7650 pg/mL Total Protein (6.3-8.2) g/dL Albumin (3.5-5.0) g/dL Urine Color Urine Appearance (Clear) Urine pH (5.0-8.0) Ur Specific Milo (1.001-1.035) Urine Protein (Negative) Urine Glucose (UA) (Negative) Urine Ketones (Negative) Urine Blood (Negative) Urine Nitrite (Negative) Urine Bilirubin (Negative) Urine Urobilinogen (<2.0) mg/dL Ur Leukocyte Esterase (Negative) Urine RBC (0-5) /hpf Urine WBC (0-5) /hpf Urine WBC Clumps (None) /hpf Ur Squamous Epith Cells (0-4) /hpf Triple Phos Crystals (None) /hpf Urine Bacteria (None) /hpf Hyaline Casts (0-2) /lpf Urine Mucus (None) /hpf Coronavirus (PCR) (Not Detectd) 02/28/20 02/28/20 Range/Units 13:54 14:48 WBC (3.8-10.6) k/uL RBC (3.80-5.40) m/uL Hgb (11.4-16.0) gm/dL Hct (34.0-46.0) % MCV (80.0-100.0) fL MCH (25.0-35.0) pg MCHC (31.0-37.0) g/dL RDW (11.5-15.5) % Plt Count (150-450) k/uL MPV Neutrophils % Neutrophils % (Manual) % Band Neuts % (Manual) % Lymphocytes % Lymphocytes % (Manual) % Monocytes % Monocytes % (Manual) % Eosinophils % Basophils % Neutrophils # Neutrophils # (Manual) (1.3-7.7) k/uL Lymphocytes # Lymphocytes # (Manual) (1.0-4.8) k/uL Monocytes # Monocytes # (Manual) (0-1.0) k/uL Eosinophils # Basophils # Nucleated RBCs (0-0) /100 WBC Manual Slide Review Hypochromasia Macrocytosis PT (9.0-12.0) sec INR (<1.2) APTT (22.0-30.0) sec D-Dimer (<0.60) mg/L FEU Sodium (137-145) mmol/L Potassium (3.5-5.1) mmol/L Chloride (98-107) mmol/L Carbon Dioxide (22-30) mmol/L Anion Gap mmol/L BUN (7-17) mg/dL Creatinine (0.52-1.04) mg/dL Est GFR (CKD-EPI)AfAm (>60 ml/min/1.73 sqM) Est GFR (CKD-EPI)NonAf (>60 ml/min/1.73 sqM) Glucose (74-99) mg/dL Plasma Lactic Acid Michael (0.7-2.0) mmol/L Calcium (8.4-10.2) mg/dL Magnesium (1.6-2.3) mg/dL Total Bilirubin (0.2-1.3) mg/dL AST (14-36) U/L ALT (4-34) U/L Alkaline Phosphatase (38-126) U/L Troponin I (0.000-0.034) ng/mL NT-Pro-B Natriuret Pep pg/mL Total Protein (6.3-8.2) g/dL Albumin (3.5-5.0) g/dL Urine Color Yellow Urine Appearance Cloudy H (Clear) Urine pH 6.0 (5.0-8.0) Ur Specific Milo 1.018 (1.001-1.035) Urine Protein 1+ H (Negative) Urine Glucose (UA) Negative (Negative) Urine Ketones Negative (Negative) Urine Blood Negative (Negative) Urine Nitrite Negative (Negative) Urine Bilirubin Negative (Negative) Urine Urobilinogen 6.0 (<2.0) mg/dL Ur Leukocyte Esterase Large H (Negative) Urine RBC 5 (0-5) /hpf Urine WBC 93 H (0-5) /hpf Urine WBC Clumps Few H (None) /hpf Ur Squamous Epith Cells <1 (0-4) /hpf Triple Phos Crystals Rare H (None) /hpf Urine Bacteria Rare H (None) /hpf Hyaline Casts 4 H (0-2) /lpf Urine Mucus Occasional H (None) /hpf Coronavirus (PCR) Not Detected (Not Detectd) Critical Care Time Critical Care Time: Yes Total Critical Care Time: 35 Disposition Clinical Impression: Atrial fibrillation with RVR, Pneumonia, Sepsis, Lung mass, Elevated troponin, Urinary tract infection Disposition: ADMITTED IP TO THIS HOSP Referrals: Dorita Hoover MD [Primary Care Provider] - 1-2 days Time of Disposition: 16:21
--- NOTE | 2020-02-28 14:20 | XR ---
EXAMINATION TYPE: XR chest 2V DATE OF EXAM: 02/28/2020 COMPARISON: 02/14/2020 INDICATION: Weakness TECHNIQUE: Frontal and lateral views of the chest are obtained. FINDINGS: The heart size is normal. The pulmonary vasculature is normal. There is a moderate size left pleural effusion.. May be some mild atelectasis at the right costophre livier angle. IMPRESSION: 1. Moderate left pleural effusion, increasing from comparison. Continued follow-up is recommended.
[2020-02-28 14:29] LABS: Albumin 2.9 g/dL (3.5-5.0); Calcium 11.6 mg/dL (8.4-10.2); Magnesium 2.3 mg/dL (1.6-2.3); Potassium 4.6 mmol/L (3.5-5.1); Total Bilirubin 2.4 mg/dL (0.2-1.3); Total Protein 5.9 g/dL (6.3-8.2)
[2020-02-28 14:50] LABS: INR 1.4 (<1.2); Partial Thromboplastin Time 22.9 sec (22.0-30.0); Prothrombin Time 13.9 sec (9.0-12.0)
[2020-02-28 14:52] LABS: HCT 43.7 % (34.0-46.0); HGB 14.7 gm/dL (11.4-16.0); Hypochromasia Slight; MCH 34.4 pg (25.0-35.0); MCHC 33.6 g/dL (31.0-37.0); MCV 102.5 fL (80.0-100.0); Macrocytosis Slight; Mean Platelet Volume 9.3; Platelet Count 234 k/uL (150-450); RBC 4.27 m/uL (3.80-5.40); WBC 13.6 k/uL (3.8-10.6)
[2020-02-28 14:53] LABS: D-Dimer 19.34 mg/L FEU (<0.60)
[2020-02-28] MEDS ORDERED: SODIUM CHLORIDE 0.9% 1,000 ML IV ONE (15:02)
[2020-02-28] MEDS ORDERED: SODIUM CHLORIDE 0.9% 500 ML 500 ML IV ONE (15:03)
[2020-02-28 15:04] LABS: Appearance,Urine Cloudy (Clear); Bacteria,Urine Rare /hpf; Bilirubin,Urine Negative (Negative); Blood,Urine Negative (Negative); Color,Urine Yellow; Glucose,Urine (UA) Negative (Negative); Hyaline Casts,Urine 4 /lpf (0-2); Ketones,Urine Negative (Negative); Leukocyte Esterase,Urine Large (Negative); Mucus,Urine Occasional /hpf; Nitrite,Urine Negative (Negative); Protein,Urine 1+ (Negative); RBC,Urine 5 /hpf (0-5); Specific Gravity,Urine 1.018 (1.001-1.035); Squamous Epithelial Cell,Urine <1 /hpf (0-4); Triple Phosphate Crystal,Urine Rare /hpf; WBC,Urine 93 /hpf (0-5)
[2020-02-28] MEDS ORDERED: cefTRIAXone IN SWFI 1,000 MG/10 ML SYRINGE IVP STA (15:08)
[2020-02-28 15:18] LABS: Band Neutrophils % 1 %; Lymphocytes # (M) 0.68 k/uL (1.0-4.8); Monocytes # (M) 0.54 k/uL (0-1.0); Neutrophils % (M) 90 %; Nucleated Red Blood Cells 0 /100 WBC (0-0); Total Cells Counted 100
--- NOTE | 2020-02-28 16:08 | CT ---
CT CHEST FOR PULMONARY EMBOLISM. EXAMINATION TYPE: CT chest angio for PE DATE OF EXAM: 02/28/2020 INDICATION: Shortness of breath, elevated d-dimer. CT DLP: 256.5 mGycm, Automated exposure control for dose reduction was used. CONTRAST: Patient injected with 80 mL of Isovue 370. COMPARISON: 02/14/2020 TECHNIQUE: CT of the chest is performed on a spiral scan at 2 mm thick sections. Study is performed with intravenous contrast timed for evaluation for pulmonary embolism. This will limit additional po rtions of the evaluation. 3-D MIP images reconstructed by the technologist are reviewed on the compu ter in the coronal and sagittal planes. FINDINGS: No persistent filling defects are evident to suggest an acute pulmonary embolism. There is an enlarged subcarinal soft tissue density. This may be direct extension from the left lower lobe mass extending into the left hilum. Prominence of the right hilar lymph node may be present as well. The ascending aorta diameter at the level of the main pulmonary artery is 3.4 cm. The main pu lmonary artery diameter at the bifurcation is 2.8 cm. A masslike areas within the left lower lobe appears larger than the comparison. Additional subpleural densities may be within the lingular region. This may have direct extension into the left hilar and subcarinal region. There is narrowing of the left main bronchus. Limited CT section through the upper abdomen are unremarkable. IMPRESSIONS: 1. Increasing masslike density left lower lobe with additional new subpleural masses within the lingu la. 2. This appears to have direct extension into the left hilar and subcarinal region. 3. Bilateral hilar adenopathy may be present. 4. No acute pulmonary embolism
[2020-02-28] MEDS ORDERED: VANCOMYCIN IV PER PHARMACY 1 EACH MISC MISCELLANE PRN (16:25)
[2020-02-28] MEDS ORDERED: PIPERACILLIN-TAZOBACTAM 3.375 GM in SODIUM CHLORIDE 0.9% 100 ML IVPB STA (16:27)
[2020-02-28] MEDS ORDERED: HYDROCORTISONE SUCCINATE 100 MG/2 ML VIAL IV SCH (16:30)
[2020-02-28] MEDS ORDERED: VANCOMYCIN 1,000 MG in SODIUM CHLORIDE 0.9% 250 ML IVPB STA (16:35)
[2020-02-28] MEDS: DILTIAZEM 125 MG in SODIUM CHLORIDE 0.9% 100 ML IV SCH (16:45)
[2020-02-28] MEDS: SODIUM CHLORIDE 0.9% 1,000 ML IV SCH (16:45)
[2020-02-28] MEDS ORDERED: ACETAMINOPHEN TAB 325 MG TAB PO PRN (17:56)
[2020-02-28] MEDS ORDERED: HYDROcodone/APAP 5-325MG 1 EACH TAB PO PRN (18:04)
[2020-02-28] MEDS: SYMBICORT 160-4.5 MCG INHALER INHALATION SCH (19:08)
[2020-02-28] MEDS ORDERED: IPRATROPIUM-ALBUTEROL 3 ML NEB INHALATION SCH (20:00)
[2020-02-28] MEDS ORDERED: IPRATROPIUM-ALBUTEROL 3 ML NEB INHALATION PRN (21:08)
[2020-02-28] MEDS: HEPARIN SODIUM,PORCINE 5,000 UNIT/ML 1 ML VIAL SQ SCH (21:44)
[2020-02-28] MEDS: ATORVASTATIN 10 MG TAB PO SCH (21:47)
[2020-02-28] MEDS: MONTELUKAST 10 MG TAB PO SCH ×2 (21:47→21:48)
[2020-02-28] MEDS: PANTOPRAZOLE 40 MG TABLET PO SCH (21:48)
--- NOTE | 2020-02-29 00:39 | HP ---
HISTORY AND PHYSICAL CHIEF COMPLAINTS: Shortness of breath. HISTORY OF PRESENT ILLNESS: This 80-year-old woman with a past medical history of hypertension, hyperlipidemia, hypothyroidism, appendectomy, section, history of lung cancer, being followed at [facility] in the outpatient setting and is being followed by Dr. Hoover in the outpatient setting. The patient apparently in [facility] today and the patient has shortness of breath and the patient subsequently sent to [facility] for further evaluation and treatment. Chest x-ray showed possibly left-sided opacities. CT scan showed pneumonia. Patient is mildly confused. Patient is admitted for further evaluation. Patient unable to give a coherent history. The blood work showed evidence of hyponatremia and evidence of sepsis. The lactic acid 10.3. Troponin elevated up to 0.193. There is no history of any chest pain. The patient also had some evidence of UTI also. The COVID-19 rapid test was negative. There is no history of trauma. No history of fever, rigors, chills, headache, loss of consciousness and seizures. PAST MEDICAL HISTORY: History of lung cancer, hyperlipidemia, hypertension, hypothyroidism, appendectomy. MEDICATIONS: Medications prior to admission include home medications are: 1. Zinc. 2. Sodium chloride. 3. Omeprazole. 4. Singulair. 5. Lopressor. 6. Megace. 7. Lovastatin. 8. Synthroid. 9. Pepcid. 10.Cardizem. 11.Vitamin D3. 12.Vitamin C. 13.Tylenol. ALLERGIES: None. FAMILY HISTORY, SOCIAL HISTORY, REVIEW OF SYSTEMS: Could not be taken because the patient is confused. PHYSICAL EXAMINATION: Pulse is 115, regular, atrial fibrillation with fast ventricular rate. Blood pressure 99/81, respiration 18, temperature 96.9, pulse ox 94% on 4 L. HEENT: Conjunctivae normal. NECK: No jugular venous distention. CARDIOVASCULAR: S1, S2, irregular, tachycardiac. RESPIRATORY: Breath sounds diminished at the bases. Scattered rhonchi and crackles. ABDOMEN: Soft, nontender. No mass palpable. LEGS: No edema, no swelling. NERVOUS SYSTEM: Higher functions as mentioned earlier. Moves all 4 limbs. No focal motor or sensory deficits. LYMPHATICS: No lymphadenopathy of the neck, axillae or groin. SKIN: No ulcer, rash or bleeding. JOINTS: No active deforming arthropathy. LABS: WBC 13.6. Sodium is 133. INR 1.4. Lactic acid 10.3. Troponin 0.193. ASSESSMENT: 1. Shortness of breath, possible chronic obstructive pulmonary disease acute exacerbation with left lower lobe pneumonia, postobstructive with possible sepsis present on admission. 2. Change in mental status, metabolic encephalopathy secondary to sepsis. 3. Atrial fibrillation with fast ventricular rate. 4. COVID-19 ruled out. 5. Elevated lactic acid secondary to sepsis. 6. Elevated bilirubin, AST, ALT. 7. Troponin 0.193. Rule out acute qqn-MV-wqjjeyu-elevation myocardial infarction. 8. Acute urinary tract infection, present on admission. 9. Hyponatremia. 10.Mild coagulopathy. 11.Increased WBC. 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 13.History of hypertension. 14.Hyperlipidemia. 15.History of hypothyroidism. 16.History of appendectomy. 17.Remote history of nicotine dependence. RECOMMENDATIONS AND DISCUSSION: This 80-year-old woman presented with multiple complex medical issues, will monitor the patient closely, continue the current medications, continue symptomatic treatment. Will initiate broad-spectrum antibiotics, bronchodilators, IV steroids, pulmonary consultation. COVID-19 has been negative. We will continue to monitor. Would also recommend Cardiortiz madrigalip slowly and follow with Cardiology, a 2-D echo with Doppler. Overall prognosis extremely guarded because of multiple complex medical issues as mentioned earlier. We will follow the patient closely with Dr. Hoover. I would recommend the patient to follow up with Dr. Hoover in the outpatient setting. Prognosis guarded. MMODL / IJN: [id number] / MTDD
[2020-02-29] MEDS: SODIUM CHLORIDE 0.9% 1,000 ML IV SCH ×2 (00:54→17:10)
[2020-02-29] MEDS: methylPREDNISolone SOD SUCCI 125 MG/2 ML VIAL IV SCH ×4 (00:55→18:00)
[2020-02-29] MEDS: PIPERACILLIN-TAZOBACTAM 3.375 GM in SODIUM CHLORIDE 0.9% 100 ML IVPB SCH ×3 (00:55→14:40)
[2020-02-29 03:18] LABS: Anisocytosis Slight; Basophils % (A) 0 %; Eosinophils % (A) 0 %; HCT 41.5 % (34.0-46.0); Hypochromasia Slight; Lymphocytes # (A) 0.3 k/uL (1.0-4.8); Lymphocytes % (A) 3 %; MCH 32.6 pg (25.0-35.0); MCHC 31.2 g/dL (31.0-37.0); MCV 104.4 fL (80.0-100.0); Macrocytosis Moderate; Monocytes # (A) 0.3 k/uL (0-1.0); Monocytes % (A) 2 %; Neutrophils # (A) 10.7 k/uL (1.3-7.7); Neutrophils % (A) 94 %; Platelet Count 178 k/uL (150-450); RBC 3.98 m/uL (3.80-5.40); RDW 18.5 % (11.5-15.5); WBC 11.4 k/uL (3.8-10.6)
[2020-02-29 03:25] LABS: African American GFR (CKD) >90 (>60 ml/min/1.73 sqM); Anion Gap 5 mmol/L; Blood Urea Nitrogen 20 mg/dL (7-17); Calcium 9.5 mg/dL (8.4-10.2); Carbon Dioxide 22 mmol/L (22-30); Chloride 112 mmol/L (98-107); Glucose 98 mg/dL (74-99); Non-African American GFR(CKD) 84 (>60 ml/min/1.73 sqM); Potassium 3.9 mmol/L (3.5-5.1); Sodium 139 mmol/L (137-145)
[2020-02-29] MEDS: LEVOTHYROXINE 50 MCG TAB PO SCH (05:35)
[2020-02-29] MEDS ORDERED: POTASSIUM CHLORIDE ER 10 MEQ TAB.ER.PRT PO STA (06:18)
[2020-02-29 06:56] LABS: Glucose,Whole Blood 80 mg/dL (75-99)
[2020-02-29] MEDS: SYMBICORT 160-4.5 MCG INHALER INHALATION SCH ×2 (07:51→22:01)
[2020-02-29] MEDS: IPRATROPIUM-ALBUTEROL 3 ML NEB INHALATION SCH ×4 (07:51→22:01)
--- NOTE | 2020-02-29 08:54 | P.CNPUL ---
History of Present Illness Consult date: 02/29/20 Requesting physician: Adolfo Petty Reason for consult: dyspnea, other Chief complaint: Confusion, shortness of breath, weakness History of present illness: 80-year-old white female patient of Dr. Dorita Hoover, with history of poorly differentiated squamous cell lung carcinoma, with skeletal metastasis, who we recently saw in consultation on 02/14/2024 hemoptysis related to progression of squamous cell lung cancer. Computed tomography scan of the chest showed enlarging left lower lobe pleural-based mass as well as enlarging left hilar mass, with interval development of a small left-sided pleural effusion as well as left lower lobe compressive atelectasis and enlarging subcarinal adenopathy. Patient was on Eliquis for history of chronic atrial fibrillation, and the Eliquis was held in view of hemoptysis. He also had hyponatremia related to SIADH and hypercalcemia likely related to skeletal metastasis during that admission. She was discharged to [facility] on 02/19/2020 with the plan to start on palliative radiation treatment to the left hilar region as well as the lumbar spine lesion. Performance status was quite poor overall. She was supposed to start systemic chemotherapy with carboplatin however she was not able to make it to the office due to health reasons. Supposed to follow up with medical oncology in 1-2 weeks after discharge in the office for reevaluation of candidacy for systemic chemotherapy. However in view of her overall declining physical condition systemic therapy was not thought to be possible and consideration was to be given to comfort care. On 02/28/2020 patient comes into the emergency department from [facility], for evaluation of shortness of breath, confusion, weakness. Patient was quite confused, she doesn't really know why she was brought in. Is a poor historian, no history of any fevers, has remained afebrile while in the emergency department, she is however in A. fib with RVR with a rate of 120-140 BPM, she is currently on 5 L of oxygen and her pulse ox is 99%, blood pressure is 112/79. She appears quite weak and pale, she is confused. Chest x-ray shows a moderate left pleural effusion increasing from previous chest x-ray on 02/14/2020. CTA chest was obtained for elevated d-dimer showing increasing masslike density in the left lower lobe with additional new subpleural masses within the lingula, that appears to have direct extension into the left hilar and subcarinal region. Bilateral hilar adenopathy, but no evidence of acute pulmonary embolism. She was found to have elevated lactic acid of 10.3, urinalysis showed evidence of urinary tract infection, blood cell, 13.6, hemoglobin of 14.7, d-dimer was significantly elevated at 19.3, INR was 1.3, sodium was 133, potassium is 4.6, CO2 is 16, BUN is 22, creatinine is 0.97, calcium was 11.6, AST was elevated at 388, ALT was 318, alkaline phosphatase was 204, troponin was elevated at 0.193, proBNP was 7650, her COVID19 PCR was negative. She was given 2 L in IV fluid boluses in the emergency department, currently IV fluids infusing at a rate of 1:30 ML per hour, she was started on empiric antibiotics with Rocephin and vancomycin, blood cultures have been sent, urine culture has been sent, follow-up lactic acid this morning is down to 1.9, patient has also been started on Cardizem infusion currently running at 5 mg per hour, patient is still tachycardic, remains in A. fib, echocardiogram is in progress, cardiology consultation is pending, patient remains confused, she is quite frail, debilitated and appears to be in no acute respiratory distress. Review of Systems All systems: negative Constitutional: Reports weakness, Denies chills, Denies fever Eyes: denies blurred vision, denies pain Ears, nose, mouth and throat: Denies headache, Denies sore throat Cardiovascular: Denies chest pain, Denies shortness of breath Respiratory: Reports dyspnea, Reports respiratory infections, Denies cough Gastrointestinal: Denies abdominal pain, Denies diarrhea, Denies nausea, Denies vomiting Genitourinary: Denies dysuria, Denies hematuria Musculoskeletal: Denies myalgias Integumentary: Denies pruritus, Denies rash Neurological: Denies numbness, Denies weakness Psychiatric: Denies anxiety, Denies depression Endocrine: Denies fatigue, Denies weight change Past Medical History Past Medical History: Cancer, Hyperlipidemia, Hypertension, Thyroid Disorder Additional Past Medical History / Comment(s): seasonal allergies History of Any Multi-Drug Resistant Organisms: None Reported Past Surgical History: Appendectomy, Section, Tonsillectomy, Tubal Ligation Past Anesthesia/Blood Transfusion Reactions: No Reported Reaction Past Psychological History: No Psychological Hx Reported Smoking Status: Former smoker Past Alcohol Use History: None Reported Additional Past Alcohol Use History / Comment(s): quit 40 years ago Past Drug Use History: None Reported - Past Family History Mother Family Medical History: No Reported History Additional Family Medical History / Comment(s): pt confused, unknown Father Family Medical History: No Reported History Additional Family Medical History / Comment(s): pt confused, unknown Medications and Allergies Home Medications Medication Instructions Recorded Confirmed Type Levothyroxine Sodium [Synthroid] 50 mcg PO DAILY@0600 11/09/19 02/28/20 History Lovastatin [Altoprev] 20 mg PO HS@209911/09/19 02/28/20 History Montelukast Sodium [Singulair] 10 mg PO HS@209911/09/19 02/28/20 History Metoprolol Tartrate [Lopressor] 25 mg PO BID@0900,1700 02/14/20 02/28/20 History Omeprazole 20 mg PO HS@209902/14/20 02/28/20 History Sodium Chloride Tab 1 gm PO AC-SUPPER@1700 02/14/20 02/28/20 History Diltiazem Oral [Cardizem*] 60 mg PO TID #90 tab 02/19/20 02/28/20 Rx Acetaminophen Tab [Tylenol] 650 mg PO Q6H PRN 02/28/20 02/28/20 History Ascorbic Acid [Vitamin C] 500 mg PO DAILY@0902/28/20 02/28/20 History Cholecalciferol [Vitamin D3 (25 5,000 unit PO DAILY@0902/28/20 02/28/20 History Mcg = 1000 Iu)] Famotidine [Pepcid] 20 mg PO DAILY@0900 02/28/20 02/28/20 History Megestrol [Megace] 40 mg PO DAILY@0902/28/20 02/28/20 History Zinc 50 mg PO DAILY@0902/28/20 02/28/20 History Allergies Allergy/AdvReac Type Severity Reaction Status Date / Time No Known Allergies Allergy Verified 02/28/20 14:40 Physical Exam Vitals: Vital Signs Temp Pulse Pulse Resp BP BP Pulse Ox 02/29/20 08:04 129 H 02/29/20 07:51 129 H 02/29/20 07:01 14 98 02/29/20 04:00 97.6 F 111 H 18 112/79 99 02/29/20 03:00 18 99 02/29/20 02:00 111 H 19 99 02/29/20 01:00 18 99 02/29/20 00:00 97.6 F 111 H 16 116/71 100 02/28/20 22:00 110 H 18 100/61 99 02/28/20 20:00 105 H 16 105/74 99 02/28/20 19:18 129 H 16 02/28/20 19:08 102 H 18 02/28/20 18:00 98 16 108/95 94 L 02/28/20 17:00 115 H 18 99/81 94 L 02/28/20 16:00 134 H 22 100/81 91 L 02/28/20 15:00 96.9 F L 143 H 22 92/75 91 L 02/28/20 13:59 95 22 128/93 94 L 02/28/20 13:02 55 L 24 91 L 02/28/20 12:38 97.9 F 74 16 117/74 95 Intake and Output 02/28/20 02/29/20 02/29/20 22:59 06:59 14:59 Intake Total 100 Output Total 150 Balance -50 Intake: Intake, IV Titration 100 Amount Piperacillin-Tazobactam 3 100 .375 gm In Sodium Chloride 0.9% 100 ml @ 25 mls/hr IVPB Q8HR [facility] Rx# :[id number] Oral 0 Output: Urine 150 Other: Voiding Method Indwelling Catheter Weight 58.1 kg GENERAL EXAM: Alert, 80-year-old chronically ill-appearing, weak, pale, confu sed, white female, on 2 L of oxygen with a pulse ox of 98%, resting on the gurney in the emergency department, currently have an echocardiogram done comfortable in no apparent distress. HEAD: Normocephalic/atraumatic. EYES: Normal reaction of pupils, equal size. Conjunctiva pink, sclera white. NOSE: Clear with pink turbinates. THROAT: No erythema or exudates. NECK: No masses, no JVD, no thyroid enlargement, no adenopathy. CHEST: No chest wall deformity. Symmetrical expansion. LUNGS: Equal air entry with no crackles, wheeze, rhonchi or dullness. CVS: Irregular rate and rhythm, normal S1 and S2, no gallops, no murmurs, no rubs ABDOMEN: Soft, nontender. No hepatosplenomegaly, normal bowel sounds, no guarding or rigidity. EXTREMITIES: No clubbing, no edema, no cyanosis, 2+ pulses and upper and lower extremities. MUSCULOSKELETAL: Muscle strength and tone normal. SPINE: No scoliosis or deformity SKIN: No rashes CENTRAL NERVOUS SYSTEM: Alert and oriented -1. No focal deficits, tone is n ormal in all 4 extremities. PSYCHIATRIC: Alert and oriented -1. Appropriate affect. Intact judgment and insight. Results - Laboratory Findings CBC and BMP: 02/29/20 02:49 02/29/20 02:49 PT/INR, D-dimer PT 13.9 sec (9.0-12.0) H 02/28/20 13:54 INR 1.4 (<1.2) H 02/28/20 13:54 D-Dimer 19.34 mg/L FEU (<0.60) H 02/28/20 13:54 Abnormal lab findings: Abnormal Labs 02/28/20 02/28/20 02/28/20 13:54 13:54 13:54 WBC 13.6 H MCV 102.5 H RDW Neutrophils # Neutrophils # (Manual) 12.30 H Lymphocytes # Lymphocytes # (Manual) 0.68 L PT 13.9 H INR 1.4 H D-Dimer 19.34 H Sodium 133 L Chloride Carbon Dioxide 16 L BUN 22 H Glucose 198 H Plasma Lactic Acid Michael Calcium 11.6 H Total Bilirubin 2.4 H AST 388 H ALT 318 H Alkaline Phosphatase 204 H Troponin I Total Protein 5.9 L Albumin 2.9 L Urine Appearance Urine Protein Ur Leukocyte Esterase Urine WBC Urine WBC Clumps Triple Phos Crystals Urine Bacteria Hyaline Casts Urine Mucus 02/28/20 02/28/20 02/28/20 13:54 13:54 14:48 WBC MCV RDW Neutrophils # Neutrophils # (Manual) Lymphocytes # Lymphocytes # (Manual) PT INR D-Dimer Sodium Chloride Carbon Dioxide BUN Glucose Plasma Lactic Acid Michael 10.3 H* Calcium Total Bilirubin AST ALT Alkaline Phosphatase Troponin I 0.193 H* Total Protein Albumin Urine Appearance Cloudy H Urine Protein 1+ H Ur Leukocyte Esterase Large H Urine WBC 93 H Urine WBC Clumps Few H Triple Phos Crystals Rare H Urine Bacteria Rare H Hyaline Casts 4 H Urine Mucus Occasional H 02/28/20 02/28/20 02/29/20 18:16 21:09 00:13 WBC MCV RDW Neutrophils # Neutrophils # (Manual) Lymphocytes # Lymphocytes # (Manual) PT INR D-Dimer Sodium Chloride Carbon Dioxide BUN Glucose Plasma Lactic Acid Michael 6.7 H* 2.9 H* 2.1 H* Calcium Total Bilirubin AST ALT Alkaline Phosphatase Troponin I Total Protein Albumin Urine Appearance Urine Protein Ur Leukocyte Esterase Urine WBC Urine WBC Clumps Triple Phos Crystals Urine Bacteria Hyaline Casts Urine Mucus 02/29/20 02/29/20 02:49 02:49 WBC 11.4 H MCV 104.4 H RDW 18.5 H Neutrophils # 10.7 H Neutrophils # (Manual) Lymphocytes # 0.3 L Lymphocytes # (Manual) PT INR D-Dimer Sodium Chloride 112 H Carbon Dioxide BUN 20 H Glucose Plasma Lactic Acid Michael Calcium Total Bilirubin AST ALT Alkaline Phosphatase Troponin I Total Protein Albumin Urine Appearance Urine Protein Ur Leukocyte Esterase Urine WBC Urine WBC Clumps Triple Phos Crystals Urine Bacteria Hyaline Casts Urine Mucus - Diagnostic Findings Chest x-ray: report reviewed, image reviewed CT scan - chest: report reviewed, image reviewed Additional studies: EKG reviewed Assessment and Plan Plan: Assessment: #1. Acute hypoxic respiratory failure related to possibility of sepsis related to urinary tract infection #2. 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 CTA chest showed progression of the left lower lobe lung mass with additional new subpleural masses within the lingula, with direct extension into the left hilar and subcarinal region and bilateral hilar adenopathy. Possibility of postobstructive pneumonia is not excluded, Covid 19 PCR was negative #3. Lactic acidosis related to sepsis, improved with IV fluid resuscitation #4. Elevated D-dimer of 19.34, with no evidence of pulmonary embolism on the CT chest #5. Elevated troponin rule out non-ST elevated [place] #6. A. fib with RVR currently on Cardizem drip #7. Acute metabolic encephalopathy, acute mental status change related to sepsis #8. History of metastatic lung cancer diagnosed in October 2019 with skeletal metastasis to the spine, was unable to start chemotherapy, patient is currently receiving palliative radiation treatments to the left lung mass as well as lumbar spine #9. Hypercalcemia related to skeletal metastases #10. Elevated liver enzymes possibly related to sepsis, elevated alk phos possibly related to skeletal metastasis #11. Hypertension #12. Hyperlipidemia #13. Hypothyroidism #14. Previous history of smoking in remission for last 30 years #15. History of chronic atrial fibrillation, currently not on anticoagulation in view of recent history of hemoptysis Plan: Continue current antibiotics, continue fluid resuscitation, lactic acid has improved, blood and urine cultures have been sent. Cardiology consultation is pending, consult medical oncology, radiation oncology, echocardiogram is pending, continue bronchodilators. Covid 19 was ruled out. Anticoagulation per cardiology. CODE STATUS needs to be addressed, patient is quite weak and debilitated, she has not been able to start systemic chemotherapy, currently receiving palliative radiation therapy, and CT of the chest shows progression of the left lung mass with postobstructive changes. Continue supportive medical treatment. We'll continue to follow I performed a history & physical examination of the patient and discussed their management with my nurse practitioner, Anne-Marie Carter. I reviewed the nurse practitioner's note and agree with the documented findings and plan of care. Lung sounds are positive for diminished breath sounds. The findings and the impression was discussed with the patient. I attest to the documentation by the nurse practitioner. Time with Patient: Greater than 30
[2020-02-29] MEDS ORDERED: VANCOMYCIN 1,000 MG in SODIUM CHLORIDE 0.9% 250 ML IVPB SCH ×2 (09:00→16:00)
[2020-02-29] MEDS ORDERED: METOPROLOL TARTRATE 25 MG TAB PO SCH (09:00)
--- NOTE | 2020-02-29 11:00 | ECHOF ---
Referral Reason:afib MEASUREMENTS -------- HEIGHT: 154.9 cm WEIGHT: 58.1 kg BP: 112/79 RVIDd: 2.5 cm (< 3.3) IVSd: 1.0 cm (0.6 - 1.1) LVIDd: 3.3 cm (3.9 - 5.3) LVPWd: 1.0 cm (0.6 - 1.1) IVSs: 1.3 cm LVIDs: 2.3 cm LVPWs: 1.2 cm LA Diam: 2.5 cm (2.7 - 3.8) LAESV Index (A-L): 17.79 ml/m Ao Diam: 3.4 cm (2.0 - 3.7) AV Cusp: 1.7 cm (1.5 - 2.6) MV EXCURSION: 16.920 mm (> 18.000) MV EF SLOPE: 334 mm/s (70 - 150) EPSS: 0.3 cm AR PHT: 460 ms RAP: 5.00 mmHg RVSP: 31.57 mmHg FINDINGS -------- Atrial fibrillation. This was a technically adequate study. The left ventricular size is normal. Left ventricular wall thickness is normal. There is moderate global hypokinesis of LV . Overall left ventricular systolic function is moderately impaired with, an EF between 35 - 40 %. The right ventricle is normal in size. Normal LA size by volume 22+/-6 ml/m2. The right atrial size is normal. Interatrial and interventricular septum intact. There is mild aortic valve sclerosis. There is ducn-ue-tiuvitof aortic regurgitation. Mild mitral annular calcification present. Mild mitral regurgitation is present. Moderate tricuspid regurgitation present. Right ventricular systolic pressure is normal at < 35 mmH g. Trace/mild (physiologic) pulmonic regurgitation. The aortic root size is normal. Normal inferior vena cava with normal inspiratory collapse consistent with estimated right atrial pre ssure of 5 mmHg. There is no pericardial effusion. CONCLUSIONS -------- 1. Atrial fibrillation. 2. There is moderate global hypokinesis of LV . 3. Overall left ventricular systolic function is moderately impaired with, an EF between 35 - 40 %. 4. There is [id number] aortic regurgitation. 5. Mild mitral annular calcification present. 6. Mild mitral regurgitation is present. 7. Moderate tricuspid regurgitation present. 8. Trace/mild (physiologic) pulmonic regurgitation. 9. There is no pericardial effusion. POLISHING WHEEL REPAIRER: Savi Oquendo RDCS
[2020-02-29] MEDS ORDERED: DIGOXIN 250 MCG/ML 2 ML AMP IVP ONE (13:44)
--- NOTE | 2020-02-29 14:07 | P.CRDCN ---
History of Present Illness History of present illness: HISTORY OF PRESENTING ILLNESS This is a pleasant 80-year-old female past medical history significant for with metastatic lung cancer diagnosed in October, paroxysmal atrial fibrilla tion, hypertension and dyslipidemia. She is lethargic and answering questions appropriately. Information is obtained from the nursing staff and medical record. She was sent here from [facility] yesterday secondary to shortness of breath and weakness. She was recently discharged from the hospital secondary to hemoptysis and her eliquis was discontinued. She has been started on antibiotics for suspected pneumonia along with IV diuretics. Echocardiogram obtained reveals impaired LV systolic function with ejection fraction 35-40%, moderate global LV hypokinesia, mild to moderate aortic regurgitation, mild MR and moderate TR. DIAGNOSTICS EKG reveals atrial fibrillation with rapid ventricular response heart rate of 130. Chest xray moderate left pleural effusion. CTA reveals increasing masslike density of left lower lobe and no acute PE. Laboratory reviewed, WBC 11.4, hemoglobin 13, platelets 178, sodium 139, potassium 3.9, creatinine 0.63, troponin 0.193, magnesium 2.3, AST 388, ALT 318, total bilirubin 2.4, and T proBNP 7650, lactic acid on admission 10.3 repeat today 1.9. Current cardiac medications include diltiazem 60 mg 3 times a day, lovastatin 20 mg at bedtime and Lopressor 25 mg twice a day. Most recent echocardiogram obtained 01/08/2020 revealed preserved LV systolic function with ejection fraction 55-60%. REVIEW OF SYSTEMS At the time of my exam: Unable to obtain accurate review of systems secondary to altered mental status. PHYSICAL EXAMINATION Blood pressure 112/79 heart rate 129 afebrile and maintaining oxygen saturation on high flow nasal cannula. CONSTITUTIONAL: No apparent distress. HEENT: Head is normocephalic. Pupils are equal, round. Sclerae anicteric. Mucous membranes of the mouth are moist. No JVD. No carotid bruit. CHEST EXAMINATION: Course rales. No chest wall tenderness is noted on palpation or with deep breathing. HEART EXAMINATION: Irregular rate and rhythm. S1, S2 heard. Systolic ejection murmur at the left sternal border, no gallops or rub. ABDOMEN: Soft, nontender. Positive bowel sounds. EXTREMITIES: 2+ peripheral pulses, no lower extremity edema and no calf tenderness. NEUROLOGIC EXAMINATION: Lethargic. 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 Continue beta blockers and IV diuresis. Prognosis guarded given her underlying history of lung cancer with metastasis. Consider palliative care. Thank you kindly for this consultation. Nurse Practitioner note has been reviewed, I agree with a documented findings and plan of care. Patient was seen and examined. Past Medical History Past Medical History: Cancer, Hyperlipidemia, Hypertension, Thyroid Disorder Additional Past Medical History / Comment(s): seasonal allergies History of Any Multi-Drug Resistant Organisms: None Reported Past Surgical History: Appendectomy, Section, Tonsillectomy, Tubal Ligation Past Anesthesia/Blood Transfusion Reactions: No Reported Reaction Past Psychological History: No Psychological Hx Reported Smoking Status: Former smoker Past Alcohol Use History: None Reported Additional Past Alcohol Use History / Comment(s): quit 40 years ago Past Drug Use History: None Reported - Past Family History Mother Family Medical History: No Reported History Additional Family Medical History / Comment(s): pt confused, unknown Father Family Medical History: No Reported History Additional Family Medical History / Comment(s): pt confused, unknown Medications and Allergies Home Medications Medication Instructions Recorded Confirmed Type Levothyroxine Sodium [Synthroid] 50 mcg PO DAILY@0600 11/09/19 02/28/20 History Lovastatin [Altoprev] 20 mg PO HS@209911/09/19 02/28/20 History Montelukast Sodium [Singulair] 10 mg PO HS@209911/09/19 02/28/20 History Metoprolol Tartrate [Lopressor] 25 mg PO BID@0900,1700 02/14/20 02/28/20 History Omeprazole 20 mg PO HS@209902/14/20 02/28/20 History Sodium Chloride Tab 1 gm PO AC-SUPPER@1700 02/14/20 02/28/20 History Diltiazem Oral [Cardizem*] 60 mg PO TID #90 tab 02/19/20 02/28/20 Rx Acetaminophen Tab [Tylenol] 650 mg PO Q6H PRN 02/28/20 02/28/20 History Ascorbic Acid [Vitamin C] 500 mg PO DAILY@0900 02/28/20 02/28/20 History Cholecalciferol [Vitamin D3 (25 5,000 unit PO DAILY@0900 02/28/20 02/28/20 History Mcg = 1000 Iu)] Famotidine [Pepcid] 20 mg PO DAILY@0900 02/28/20 02/28/20 History Megestrol [Megace] 40 mg PO DAILY@0900 02/28/20 02/28/20 History Zinc 50 mg PO DAILY@0900 02/28/20 02/28/20 History Allergies Allergy/AdvReac Type Severity Reaction Status Date / Time No Known Allergies Allergy Verified 02/28/20 14:40 Physical Exam Vitals: Vital Signs Temp Pulse Pulse Resp BP BP Pulse Ox 02/29/20 08:04 129 H 02/29/20 07:51 129 H 02/29/20 07:01 14 98 02/29/20 04:00 97.6 F 111 H 18 112/79 99 02/29/20 03:00 18 99 02/29/20 02:00 111 H 19 99 02/29/20 01:00 18 99 02/29/20 00:00 97.6 F 111 H 16 116/71 100 02/28/20 22:00 110 H 18 100/61 99 02/28/20 20:00 105 H 16 105/74 99 02/28/20 19:18 129 H 16 02/28/20 19:08 102 H 18 02/28/20 18:00 98 16 108/95 94 L 02/28/20 17:00 115 H 18 99/81 94 L 02/28/20 16:00 134 H 22 100/81 91 L 02/28/20 15:00 96.9 F L 143 H 22 92/75 91 L 02/28/20 13:59 95 22 128/93 94 L 02/28/20 13:02 55 L 24 91 L 02/28/20 12:38 97.9 F 74 16 117/74 95 Intake and Output 02/28/20 02/29/20 02/29/20 22:59 06:59 14:59 Intake Total 100 Output Total 150 Balance -50 Intake: Intake, IV Titration 100 Amount Piperacillin-Tazobactam 3 100 .375 gm In Sodium Chloride 0.9% 100 ml @ 25 mls/hr IVPB Q8HR [facility] Rx# :[id number] Oral 0 Output: Urine 150 Other: Voiding Method Indwelling Catheter Weight 58.1 kg Results 02/29/20 02:49 02/29/20 02:49 Cardiac Enzymes 02/28/20 02/28/20 Range/Units 13:54 13:54 AST 388 H (14-36) U/L Troponin I 0.193 H* (0.000-0.034) ng/mL Coagulation 02/28/20 Range/Units 13:54 PT 13.9 H (9.0-12.0) sec APTT 22.9 (22.0-30.0) sec CBC 02/28/20 02/29/20 Range/Units 13:54 02:49 WBC 13.6 H 11.4 H (3.8-10.6) k/uL RBC 4.27 3.98 (3.80-5.40) m/uL Hgb 14.7 13.0 (11.4-16.0) gm/dL Hct 43.7 41.5 (34.0-46.0) % Plt Count 234 178 (150-450) k/uL Comprehensive Metabolic Panel 02/28/20 02/29/20 Range/Units 13:54 02:49 Sodium 133 L 139 (137-145) mmol/L Potassium 4.6 3.9 (3.5-5.1) mmol/L Chloride 102 112 H (98-107) mmol/L Carbon Dioxide 16 L 22 (22-30) mmol/L BUN 22 H 20 H (7-17) mg/dL Creatinine 0.97 0.63 (0.52-1.04) mg/dL Glucose 198 H 98 (74-99) mg/dL Calcium 11.6 H 9.5 (8.4-10.2) mg/dL AST 388 H (14-36) U/L ALT 318 H (4-34) U/L Alkaline Phosphatase 204 H (38-126) U/L Total Protein 5.9 L (6.3-8.2) g/dL Albumin 2.9 L (3.5-5.0) g/dL Current Medications Generic Name Dose Route Start Last Admin Trade Name Freq PRN Reason Stop Dose Admin Acetaminophen 650 mg 02/28/20 17:56 Acetaminophen Tab 325 Mg Tab PO Q6H PRN Mild Pain Hydrocodone Bitart/Acetaminophen 1 each 02/28/20 18:04 Hydrocodone/Apap 5-325mg 1 Each Tab PO Q6HR PRN Pain Albuterol/Ipratropium 3 ml 02/29/20 08:00 02/29/20 07:51 Ipratropium-Albuterol 3 Ml Neb INHALATION 3 ml RT-TID ARIANNE Administration Albuterol/Ipratropium 3 ml 02/28/20 21:08 Ipratropium-Albuterol 3 Ml Neb INHALATION RT-Q2H PRN Shortness Of Breath Or Wheezing Ascorbic Acid 500 mg 02/29/20 09:00 Ascorbic Acid 500 Mg Tab PO DAILY@0900 [facility] Atorvastatin Calcium 10 mg 02/28/20 21:00 02/28/20 21:47 Atorvastatin 10 Mg Tab PO Not Given HS@2100 [facility] Budesonide/Formoterol Fumarate 2 puff 02/28/20 20:00 02/29/20 07:51 Symbicort 160-4.5 Mcg Inhaler INHALATION 2 puff RT-BID ARIANNE Administration Cholecalciferol 5,000 unit 02/29/20 09:00 Cholecalciferol 1,000 Unit Tab PO DAILY@0900 [facility] Furosemide 20 mg 02/29/20 09:00 Furosemide 10 Mg/Ml 2 Ml Vial IV DAILY [facility] Heparin Sodium (Porcine) 5,000 unit 02/28/20 21:00 02/28/20 21:44 Heparin Sodium,Porcine 5,000 Unit/Ml 1 Ml Vial SQ 5,000 unit Q12HR ARIANNE Administration Piperacillin Sod/Tazobactam 100 mls @ 25 mls/hr 02/29/20 00:00 02/29/20 00:55 Sod 3.375 gm/ Sodium Chloride IVPB 25 mls/hr Q8HR ARIANNE Administration Sodium Chloride 1,000 mls @ 130 mls/hr 02/28/20 16:30 02/29/20 00:54 Saline 0.9% IV 130 mls/hr .Q7H42M ARIANNE Administration Diltiazem HCl 125 mg/ Sodium 125 mls @ 5 mls/hr 02/28/20 16:30 02/28/20 16:45 Chloride IV 5 mg/hr .Q24H ARIANNE 5 mls/hr Administration 5 MG/HR Vancomycin HCl 1,000 mg/ 250 mls @ 125 mls/hr 02/29/20 09:00 Sodium Chloride IVPB Q24HR [facility] Levothyroxine Sodium 50 mcg 02/29/20 06:00 02/29/20 05:35 Levothyroxine 50 Mcg Tab PO Not Given DAILY@0600 [facility] Megestrol Acetate 40 mg 02/29/20 09:00 Megestrol 40 Mg Tab PO DAILY@0900 [facility] Methylprednisolone Sodium Succinate 60 mg 02/29/20 00:00 02/29/20 05:15 Methylprednisolone Sod Succi 125 Mg/2 Ml Vial IV 60 mg Q6HR [facility] Administration Metoprolol Tartrate 25 mg 02/29/20 09:00 Metoprolol Tartrate 25 Mg Tab PO TID [facility] Montelukast Sodium 10 mg 02/28/20 21:00 02/28/20 21:48 Montelukast 10 Mg Tab PO Not Given HS@2100 [facility] Multivitamins 1 each 02/29/20 12:00 Multivitamins, Thera 1 Each Tab PO DAILY@1200 [facility] Pantoprazole Sodium 40 mg 02/28/20 21:00 02/28/20 21:48 Pantoprazole 40 Mg Tablet PO Not Given HS@2100 [facility] Sodium Chloride 1 gm 02/29/20 17:00 Sodium Chloride Tab 1 Gm Tab PO AC-SUPPER@1700 [facility] Zinc Sulfate 220 mg 02/29/20 09:00 Zinc Sulfate 220 Mg Cap PO DAILY@0900 [facility] Intake and Output 02/28/20 02/29/20 02/29/20 22:59 06:59 14:59 Intake Total 100 Output Total 150 Balance -50 Intake: Intake, IV Titration 100 Amount Piperacillin-Tazobactam 3 100 .375 gm In Sodium Chloride 0.9% 100 ml @ 25 mls/hr IVPB Q8HR [facility] Rx# :[id number] Oral 0 Output: Urine 150 Other: Voiding Method Indwelling Catheter Weight 58.1 kg 02/29/20 02:49 02/29/20 02:49
[2020-02-29] MEDS: CHOLECALCIFEROL 1,000 UNIT TAB PO SCH (14:34)
[2020-02-29] MEDS: ASCORBIC ACID 500 MG TAB PO SCH (14:34)
[2020-02-29] MEDS: METOPROLOL TARTRATE 25 MG TAB PO SCH ×3 (14:34→21:34)
[2020-02-29] MEDS: MEGESTROL 40 MG TAB PO SCH (14:34)
[2020-02-29] MEDS: HEPARIN SODIUM,PORCINE 5,000 UNIT/ML 1 ML VIAL SQ SCH ×2 (14:41→21:36)
[2020-02-29] MEDS: ZINC SULFATE 220 MG CAP PO SCH (14:49)
[2020-02-29] MEDS: MULTIVITAMINS, THERA 1 EACH TAB PO SCH (14:50)
[2020-02-29] MEDS: FUROSEMIDE 10 MG/ML 2 ML VIAL IV SCH (15:03)
[2020-02-29] MEDS: DILTIAZEM 125 MG in SODIUM CHLORIDE 0.9% 100 ML IV SCH ×2 (16:45→18:31)
[2020-02-29] MEDS: SODIUM CHLORIDE TAB 1 GM TAB PO SCH (17:56)
[2020-02-29 18:00] LABS: Glucose,Whole Blood 95 mg/dL (75-99)
[2020-02-29] MEDS: INSULIN ASPART (NovoLOG) 100 UNIT/ML VIAL SQ SCH ×2 (18:01→21:35)
--- NOTE | 2020-02-29 18:01 | PN ---
PROGRESS NOTE DATE OF SERVICE: 02/29/2020 This 80-year-old woman who was admitted with significant shortness of breath. thought to be a combination of COPD and pneumonia, also had atrial fibrillation with fast ventricular rate. The patient being closely monitored at this time. A chest CTA showed increasing masslike density in the left lower lobe subpleural mass. The patient also had atrial fibrillation. Cardiology and pulmonology following the patient closely. Bilateral hilar lymphadenopathy was also noted. Pulmonary has seen the patient and recommended continued supportive medical treatment with antibiotics and bronchodilators. Past medical history reviewed. The patient had a 2D echo with Doppler which was done during the present admission showed ejection fraction 35-40 percent and [id number] regurgitation also. REVIEW OF SYSTEMS: Cardiovascular: As mentioned earlier. Respiration as mentioned earlier. GI mentioned earlier. : No dysuria. NERVOUS SYSTEM: No numbness, weakness. CURRENT MEDICATIONS: Reviewed and include: 1. Tylenol. 2. [place]. 3. DuoNeb. 4. Lipitor. 5. Heparin. 6. Doses reviewed. 7. Lasix 20 mg IV daily. PHYSICAL EXAM: Patient is alert, oriented x 2. Pulse is 149, blood pressure 110/60, respirations 18, temp 97.8, pulse ox 99% on 10 L. HEENT: Conjunctivae normal. NECK: No JVD. CARDIOVASCULAR: S1, S2 tachycardia. RESPIRATIONS: Breath sounds diminished in the bases. Bilateral scattered rhonchi and crackles. ABDOMEN: Soft, nontender. LEGS are no edema. No swelling. NERVOUS SYSTEM: No focal deficits. LABORATORY DATA: At this time shows WBC 11.2, hemoglobin 13, sodium 138, potassium 3.9. Lactic acid noted. ASSESSMENT: 1. Shortness of breath, possibly multifactorial, chronic obstructive pulmonary disease acute exacerbation also congestive heart failure acute exacerbation with acute on chronic systolic dysfunction, ejection fraction 35-40 percent. 2. Left lower pneumonia possibly postobstructive gram-negative with possibly postobstructive with possible sepsis present on admission. 3. Change in mental status, metabolic encephalopathy secondary to sepsis. 4. Atrial fibrillation with fast ventricular rate. 5. Lung cancer with skeletal METS. Squamous cell lung cancer. 6. COVID-19 ruled out. 7. Elevated lactic acid secondary to sepsis present on admission. 8. Elevated bilirubin, AST/ALT. 9. Troponin 0.193 indeterminate, rule out acute [id number]-elevation myocardial infarction. 10.Acute urinary tract infection present on admission. 11.Hyponatremia. 12.Mild coagulopathy. 13.Increased WBC. 14.Hypertension. 15.Hyperlipidemia. 16.History of hypothyroidism. 17.History of appendectomy. 18.Remote history of nicotine dependence. RECOMMENDATIONS AND DISCUSSION: I recommend to continue current medications, management and symptomatic treatments. Otherwise, at this time, I recommend continue with bronchodilators. Continue with antibiotics. Continue with steroids. Monitor blood sugars closely. Increase the dose of Cardizem to 7.5 mg/hour. Digoxin has been initiated by cardiology. Guarded prognosis. Further recommendations to follow. MMODL / IJN: [id number] /
[2020-02-29 20:49] LABS: Glucose,Whole Blood 121 mg/dL (75-99)
[2020-02-29] MEDS: ATORVASTATIN 10 MG TAB PO SCH (21:34)
[2020-02-29] MEDS: PANTOPRAZOLE 40 MG TABLET PO SCH (21:34)
[2020-02-29] MEDS: MONTELUKAST 10 MG TAB PO SCH (21:34)
--- NOTE | 2020-02-29 23:09 | P.CONS ---
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 with re cent admission at this facility with hemoptysis with evidence of progression of her metastatic, cell carcinoma in view of overall poor status patient was considered for either palliative treatment versus comfort patient has not been brought back to the ER on 02/28/2020 for evaluation of increasing shortness of breath confusion weakness patient symptom is getting worse for the last few days patient denies having any chest pain she did have a cough recently moderate intensity not able to bring up any sputum but denies any nausea no vomiting no shortness of food no abdominal pain or any diarrhea with the symptom the patient was evaluated by ER physician on arrival to the ER the patient was afebrile patient did have mild count of 13.6 D-dimer was 19.34 creatinine was normal urine mildly positive conti PCR was negative patient did have a chest x-ray moderate left effusion increased from comparison patient did have a CT angiogram of the chest increasing masslike density left lower lobe with additional new subpleural masses within the lingula with direct extension to the left hilar and subcarinal region patient has been admitted to the hospital with the patient was started on Zosyn and vancomycin infectious was consulted for further management of antibiotic therapy most information has been obtained from review the chart diagnosis of the patient was evaluated good historian. Review of Systems Positive point has been mentioned in HPI complete review could not be obtained because of underlying mental status Past Medical History Past Medical History: Cancer, Hyperlipidemia, Hypertension, Thyroid Disorder Additional Past Medical History / Comment(s): seasonal allergies History of Any Multi-Drug Resistant Organisms: None Reported Past Surgical History: Appendectomy, Section, Tonsillectomy, Tubal Ligation Past Anesthesia/Blood Transfusion Reactions: No Reported Reaction Past Psychological History: No Psychological Hx Reported Smoking Status: Former smoker Past Alcohol Use History: None Reported Additional Past Alcohol Use History / Comment(s): quit 40 years ago Past Drug Use History: None Reported - Past Family History Mother Family Medical History: No Reported History Additional Family Medical History / Comment(s): pt confused, unknown Father Family Medical History: No Reported History Additional Family Medical History / Comment(s): pt confused, unknown Medications and Allergies Home Medications Medication Instructions Recorded Confirmed Type Levothyroxine Sodium [Synthroid] 50 mcg PO DAILY@0600 11/09/19 02/28/20 History Lovastatin [Altoprev] 20 mg PO HS@209911/09/19 02/28/20 History Montelukast Sodium [Singulair] 10 mg PO HS@209911/09/19 02/28/20 History Metoprolol Tartrate [Lopressor] 25 mg PO BID@0900,1700 02/14/20 02/28/20 History Omeprazole 20 mg PO HS@209902/14/20 02/28/20 History Sodium Chloride Tab 1 gm PO AC-SUPPER@1700 02/14/20 02/28/20 History Diltiazem Oral [Cardizem*] 60 mg PO TID #90 tab 02/19/20 02/28/20 Rx Acetaminophen Tab [Tylenol] 650 mg PO Q6H PRN 02/28/20 02/28/20 History Ascorbic Acid [Vitamin C] 500 mg PO DAILY@0900 02/28/20 02/28/20 History Cholecalciferol [Vitamin D3 (25 5,000 unit PO DAILY@0900 02/28/20 02/28/20 History Mcg = 1000 Iu)] Famotidine [Pepcid] 20 mg PO DAILY@0900 02/28/20 02/28/20 History Megestrol [Megace] 40 mg PO DAILY@0900 02/28/20 02/28/20 History Zinc 50 mg PO DAILY@0900 02/28/20 02/28/20 History Allergies Allergy/AdvReac Type Severity Reaction Status Date / Time No Known Allergies Allergy Verified 02/28/20 14:40 Physical Exam Vitals: Vital Signs Temp Pulse Pulse Resp BP BP Pulse Ox 02/29/20 17:10 158 H 20 111/61 92 L 02/29/20 16:48 97.5 F L 141 H 18 122/70 99 02/29/20 14:29 97.8 F 18 110/68 99 02/29/20 14:00 149 H 18 02/29/20 12:25 133 H 02/29/20 12:14 130 H 02/29/20 12:00 135 H 18 101/68 99 02/29/20 08:04 129 H 02/29/20 08:00 125 H 17 109/72 98 02/29/20 07:51 129 H 02/29/20 07:01 14 98 02/29/20 04:00 97.6 F 111 H 18 112/79 99 02/29/20 03:00 18 99 02/29/20 02:00 111 H 19 99 02/29/20 01:00 18 99 02/29/20 00:00 97.6 F 111 H 16 116/71 100 Intake and Output 02/29/20 02/29/20 02/29/20 06:59 14:59 22:59 Intake Total 100 0 120 Output Total 150 720 Balance -50 0 -600 Intake: Intake, IV Titration 100 120 Amount Diltiazem 125 mg In 120 Sodium Chloride 0.9% 100 ml @ 5 MG/HR 5 mls/hr IV .Q24H ARIANNE Rx#:[id number] Piperacillin-Tazobactam 3 100 .375 gm In Sodium Chloride 0.9% 100 ml @ 25 mls/hr IVPB Q8HR [facility]ANNE Rx# :[id number] Oral 0 0 Output: Urine 150 720 Other: Voiding Method Indwelling Catheter Indwelling Catheter Weight 58.1 kg GENERAL DESCRIPTION: Elderly female lying in bed, no distress. No tachypnea or accessory muscle of respiration use. HEENT: Shows Pallor , no scleral icterus. Oral mucous membrane is dry. NECK: Trachea central, no thyromegaly. LUNGS: Unlabored breathing. Decreased breath sound at the base. No wheeze or crackle. HEART: S1, S2, regular rate and rhythm. ABDOMEN: Soft, no tenderness , guarding or rigidity EXTREMITIES: No edema of feet. SKIN: No rash, no masses palpable. NEUROLOGICAL: The patient is awake, alert, oriented x2, mood and affect normal. Results CBC & Chem 7: 02/29/20 02:49 02/29/20 02:49 Labs: Abnormal Lab Results - Last 24 Hours (Table) 02/29/20 02/29/20 02/29/20 Range/Units 00:13 02:49 02:49 WBC 11.4 H (3.8-10.6) k/uL MCV 104.4 H (80.0-100.0) fL RDW 18.5 H (11.5-15.5) % Neutrophils # 10.7 H (1.3-7.7) k/uL Lymphocytes # 0.3 L (1.0-4.8) k/uL Chloride 112 H (98-107) mmol/L BUN 20 H (7-17) mg/dL POC Glucose (mg/dL) (75-99) mg/dL Plasma Lactic Acid Michael 2.1 H* (0.7-2.0) mmol/L 02/29/20 Range/Units 20:47 WBC (3.8-10.6) k/uL MCV (80.0-100.0) fL RDW (11.5-15.5) % Neutrophils # (1.3-7.7) k/uL Lymphocytes # (1.0-4.8) k/uL Chloride (98-107) mmol/L BUN (7-17) mg/dL POC Glucose (mg/dL) 121 H (75-99) mg/dL Plasma Lactic Acid Michael (0.7-2.0) mmol/L Microbiology - Last 24 Hours (Table) 02/28/20 14:48 Urine Culture - Final Urine,Catheterized 02/28/20 15:57 Blood Culture - Preliminary Blood No Growth after 24 hours Assessment and Plan Assessment: -Patient presented to hospital with increasing shortness of breath generalized weakness in this patient who did have a metastatic squamous cell carcinoma with a chest x-ray as well as CT has been suggestive of extension of her metastatic disease underlying pneumonia less likely but antibiotics loaded would be related to possible gram-negative less likely gram-positive infection (1) Pneumonia Current Visit: Yes Status: Acute Code(s): J18.9 - PNEUMONIA, UNSPECIFIED ORGANISM SNOMED Code(s): 593439239 Plan: 1-we will try to obtain a sputum for Gram stain and culture 2-check a CRP and procalcitonin level 3-continue the Zosyn however discontinue vancomycin decrease risk of nephrotoxicity 4-may benefit from comfort/palliative care We will follow on clinical condition and cultures to further adjust medication if needed Thank you for this consultation we will follow the patient along with you Time with Patient: Greater than 30
[2020-03-01] MEDS: methylPREDNISolone SOD SUCCI 125 MG/2 ML VIAL IV SCH ×4 (00:04→17:33)
[2020-03-01] MEDS: PIPERACILLIN-TAZOBACTAM 3.375 GM in SODIUM CHLORIDE 0.9% 100 ML IVPB SCH ×3 (00:04→15:33)
[2020-03-01] MEDS: SODIUM CHLORIDE 0.9% 1,000 ML IV SCH ×3 (00:05→15:22)
[2020-03-01 06:19] LABS: Glucose,Whole Blood 108 mg/dL (75-99)
[2020-03-01] MEDS: LEVOTHYROXINE 50 MCG TAB PO SCH (06:37)
[2020-03-01] MEDS: INSULIN ASPART (NovoLOG) 100 UNIT/ML VIAL SQ SCH ×4 (06:44→21:30)
[2020-03-01] MEDS: DILTIAZEM 125 MG in SODIUM CHLORIDE 0.9% 100 ML IV SCH ×3 (06:50→21:29)
[2020-03-01] MEDS: FUROSEMIDE 10 MG/ML 2 ML VIAL IV SCH (08:16)
[2020-03-01] MEDS: HEPARIN SODIUM,PORCINE 5,000 UNIT/ML 1 ML VIAL SQ SCH ×2 (08:17→21:30)
[2020-03-01] MEDS: ASCORBIC ACID 500 MG TAB PO SCH (08:21)
[2020-03-01] MEDS: MEGESTROL 40 MG TAB PO SCH (08:21)
[2020-03-01] MEDS: METOPROLOL TARTRATE 25 MG TAB PO SCH ×3 (08:21→21:31)
[2020-03-01] MEDS: CHOLECALCIFEROL 1,000 UNIT TAB PO SCH (08:21)
[2020-03-01] MEDS: ZINC SULFATE 220 MG CAP PO SCH (08:21)
[2020-03-01 08:45] LABS: Basophils % (A) 0 %; Eosinophils # (A) 0.2 k/uL (0-0.7); Eosinophils % (A) 1 %; HCT 42.3 % (34.0-46.0); Lymphocytes # (A) 0.2 k/uL (1.0-4.8); Lymphocytes % (A) 1 %; MCH 31.1 pg (25.0-35.0); MCHC 30.8 g/dL (31.0-37.0); MCV 100.8 fL (80.0-100.0); Macrocytosis Slight; Mean Platelet Volume 8.7; Monocytes # (A) 0.2 k/uL (0-1.0); Monocytes % (A) 1 %; Neutrophils # (A) 16.1 k/uL (1.3-7.7); Neutrophils % (A) 96 %; Platelet Count 192 k/uL (150-450); RDW 15.8 % (11.5-15.5); WBC 16.7 k/uL (3.8-10.6)
[2020-03-01] MEDS: IPRATROPIUM-ALBUTEROL 3 ML NEB INHALATION SCH ×3 (09:04→21:58)
[2020-03-01] MEDS: SYMBICORT 160-4.5 MCG INHALER INHALATION SCH ×2 (09:05→21:58)
[2020-03-01 09:16] LABS: African American GFR (CKD) >90 (>60 ml/min/1.73 sqM); Anion Gap 8 mmol/L; Blood Urea Nitrogen 14 mg/dL (7-17); Calcium 8.2 mg/dL (8.4-10.2); Carbon Dioxide 21 mmol/L (22-30); Chloride 115 mmol/L (98-107); Glucose 144 mg/dL (74-99); Non-African American GFR(CKD) 82 (>60 ml/min/1.73 sqM); Potassium 2.9 mmol/L (3.5-5.1); Sodium 144 mmol/L (137-145)
[2020-03-01] MEDS ORDERED: Potassium Replacement Protocol 1 EACH MISC MISCELLANE PRN (09:45)
[2020-03-01] MEDS: POTASSIUM CHLORIDE 10 MEQ in WATER FOR INJECTION 1 100ML.BAG IVPB SCH ×6 (09:53→16:57)
--- NOTE | 2020-03-01 10:52 | P.CONS ---
History of Present Illness - Reason for Consult Consult date: 03/01/20 Metastatic Squamous Cell Carcinoma Requesting physician: Adolfo Petty - History of Present Illness Mrs. Harrington is a patient known to us for her recent diagnosis of metastatic Non- Small Cell Lung Cancer - Squamous (Primary site LLL Mass). Unfortunetly she has not been able to start systemic treatment as she has had difficulties resulting in re-hospitalizations. Primary Oncologist Dr. Anderson Paez. She has known Metastatic Disease to T8 and T12, in which she received Zometa 4mg on 01/06/2020. Last hospitalization was for complaints of hemoptysis in which she received palliative radiation. [id number] with further shortness of breath, weakness and confusion. On admission Liver function increased (AST = 388, ALT = 318, T.Bili 2.4). She was seen and evaluated today and presents with further declining mental status and performance status. CTA reveals further progression of Left Lower Lobe Lung Mass, As well as, Chest Xray revealing increasing moderate left pleural effusion. Clinically her LLL with increased Rhonchi and increased respiratory effort. She is malnourished and has continued to lose weight through diagnosis without improvement with marinol 9prescribed outpatient). Potassium 2.9 today, awaiting on repeat hepatic function, coags, and Magnesium level. Review of Systems ROS unobtainable: due to mental status Past Medical History Past Medical History: Cancer, Hyperlipidemia, Hypertension, Thyroid Disorder Additional Past Medical History / Comment(s): seasonal allergies History of Any Multi-Drug Resistant Organisms: None Reported Past Surgical History: Appendectomy, Section, Tonsillectomy, Tubal Ligation Past Anesthesia/Blood Transfusion Reactions: No Reported Reaction Past Psychological History: No Psychological Hx Reported Smoking Status: Former smoker Past Alcohol Use History: None Reported Additional Past Alcohol Use History / Comment(s): quit 40 years ago Past Drug Use History: None Reported - Past Family History Mother Family Medical History: No Reported History Additional Family Medical History / Comment(s): pt confused, unknown Father Family Medical History: No Reported History Additional Family Medical History / Comment(s): pt confused, unknown Medications and Allergies Home Medications Medication Instructions Recorded Confirmed Type Levothyroxine Sodium [Synthroid] 50 mcg PO DAILY@0600 11/09/19 02/28/20 History Lovastatin [Altoprev] 20 mg PO HS@209911/09/19 02/28/20 History Montelukast Sodium [Singulair] 10 mg PO HS@209911/09/19 02/28/20 History Metoprolol Tartrate [Lopressor] 25 mg PO BID@0900,1700 02/14/20 02/28/20 History Omeprazole 20 mg PO HS@209902/14/20 02/28/20 History Sodium Chloride Tab 1 gm PO AC-SUPPER@1700 02/14/20 02/28/20 History Diltiazem Oral [Cardizem*] 60 mg PO TID #90 tab 02/19/20 02/28/20 Rx Acetaminophen Tab [Tylenol] 650 mg PO Q6H PRN 02/28/20 02/28/20 History Ascorbic Acid [Vitamin C] 500 mg PO DAILY@0900 02/28/20 02/28/20 History Cholecalciferol [Vitamin D3 (25 5,000 unit PO DAILY@0900 02/28/20 02/28/20 History Mcg = 1000 Iu)] Famotidine [Pepcid] 20 mg PO DAILY@0900 02/28/20 02/28/20 History Megestrol [Megace] 40 mg PO DAILY@0900 02/28/20 02/28/20 History Zinc 50 mg PO DAILY@0900 02/28/20 02/28/20 History Allergies Allergy/AdvReac Type Severity Reaction Status Date / Time No Known Allergies Allergy Verified 02/28/20 14:40 Physical Exam Vitals: Vital Signs Temp Pulse Pulse Resp BP BP Pulse Ox 03/01/20 09:17 100 03/01/20 09:05 100 03/01/20 08:41 100 03/01/20 08:35 88 100 03/01/20 08:18 100 03/01/20 08:00 98.0 F 100 16 123/71 100 03/01/20 04:00 116 H 18 114/59 99 03/01/20 00:00 94 17 113/60 93 L 02/29/20 20:00 98.3 F 130 H 18 98/60 94 L 02/29/20 17:10 158 H 20 111/61 92 L 02/29/20 16:48 97.5 F L 141 H 18 122/70 99 02/29/20 14:29 97.8 F 18 110/68 99 02/29/20 14:00 149 H 18 02/29/20 12:25 133 H 02/29/20 12:14 130 H 02/29/20 12:00 135 H 18 101/68 99 Intake and Output 02/29/20 03/01/20 03/01/20 22:59 06:59 14:59 Intake Total 120 123.167 Output Total 720 400 Balance -600 -276.833 Intake: Intake, IV Titration 120 123.167 Amount Diltiazem 125 mg In 123.167 Sodium Chloride 0.9% 100 ml @ 10 MG/HR 10 mls/hr IV .[id number] [facility] Rx#: [id number] Diltiazem 125 mg In 120 Sodium Chloride 0.9% 100 ml @ 5 MG/HR 5 mls/hr IV .Q24H [facility] Rx#:[id number] Output: Urine 720 400 Other: Voiding Method Indwelling Catheter Indwelling Catheter Weight 57 kg Gen: Lethargic, does follow some commands inconsistently Head: NC/AT Mucous Membranes: Dry HR: Tachy Lungs: Left Lung with Rhonchi and diminished air exchange - Diffuse wheezing throughout Abdomen: ND, NT Psych: Confused and lethargic Skin: Mild jaundice Strength: Weakness in all extremities Results CBC & Chem 7: 03/01/20 08:21 03/01/20 08:21 Labs: Abnormal Lab Results - Last 24 Hours (Table) 02/29/20 03/01/20 03/01/20 Range/Units 20:47 06:18 08:21 WBC 16.7 H (3.8-10.6) k/uL MCV 100.8 H (80.0-100.0) fL MCHC 30.8 L (31.0-37.0) g/dL RDW 15.8 H (11.5-15.5) % Neutrophils # 16.1 H (1.3-7.7) k/uL Lymphocytes # 0.2 L (1.0-4.8) k/uL Potassium (3.5-5.1) mmol/L Chloride (98-107) mmol/L Carbon Dioxide (22-30) mmol/L Glucose (74-99) mg/dL POC Glucose (mg/dL) 121 H 108 H (75-99) mg/dL Calcium (8.4-10.2) mg/dL C-Reactive Protein (<10.0) mg/L 03/01/20 Range/Units 08:21 WBC (3.8-10.6) k/uL MCV (80.0-100.0) fL MCHC (31.0-37.0) g/dL RDW (11.5-15.5) % Neutrophils # (1.3-7.7) k/uL Lymphocytes # (1.0-4.8) k/uL Potassium 2.9 L (3.5-5.1) mmol/L Chloride 115 H (98-107) mmol/L Carbon Dioxide 21 L (22-30) mmol/L Glucose 144 H (74-99) mg/dL POC Glucose (mg/dL) (75-99) mg/dL Calcium 8.2 L (8.4-10.2) mg/dL C-Reactive Protein 77.0 H (<10.0) mg/L Microbiology - Last 24 Hours (Table) 02/28/20 14:48 Urine Culture - Final Urine,Catheterized 02/28/20 15:57 Blood Culture - Preliminary Blood No Growth after 24 hours Assessment and Plan (1) Squamous cell carcinoma of lung, stage IV Narrative/Plan: - Details of diagnosis reviewed in HPI - Unable to begin systemic treatment secondary to progressive declining status and re-hospitalizations - Imaging from 02/27 - revealing further progression in LLL mass and Increasing moderate Left Pleural Effusion - MRI of the Brain today, if progressive disease shows further distant mets and unable to improve baseline performance patient overall prognosis even in picture of palliative treatment is poor. I will discuss with patients and await pleuracentesis and repeat imaging. In the interim patient is a no CPR which is resonable. Current Visit: Yes Status: Acute Code(s): C34.90 - MALIGNANT NEOPLASM OF UNSP PART OF UNSP BRONCHUS OR LUNG SNOMED Code(s): 077409911 (2) Bone metastasis Narrative/Plan: - Evidence of disease at T8 and T12 from initial PET scan - Status Post Zometa on 01/06/20. Calcium is stable. This was due in January but secondary to re-hospitalizations this was not able to be given. Current Visit: Yes Status: Acute Code(s): C79.51 - SECONDARY MALIGNANT N EOPLASM OF BONE SNOMED Code(s): 18387630 (3) Abnormal LFTs (liver function tests) Narrative/Plan: - Unknown Etiology - Likely contributing to increased mental status decline - Repeat Hepatic function today and check coags - Metastatic disease was not initially seen within liver, progression is possible - Risk of aspiration with lactulose, will await repeat labs and other imaging prior Current Visit: Yes Status: Acute Code(s): R94.5 - ABNORMAL RESULTS OF LIVER FUNCTION STUDIES SNOMED Code(s): 041145271 (4) Metabolic encephalopathy Narrative/Plan: - Secondary to above under increasing LFTs - MRI brain to further assess for distant metastatic disease and if positive will assist in further support of goals of care. Current Visit: Yes Status: Acute Code(s): G93.41 - METABOLIC ENCEPHALOPATHY SNOMED Code(s): 61900011 (5) Altered mental status Current Visit: No Status: Acute Code(s): R41.82 - ALTERED MENTAL STATUS, UNSPECIFIED SNOMED Code(s): 093133769 (6) Pleural effusion Narrative/Plan: - Dr. Adams has asked IR to perform thoracensis for therapeutic and diagnostic circumstances - Cytology on pleural fluid from left moderate effusion - Clinical evidence of worsening effusion evident - Thoracentesis will hopefully assist in improved breathing. Current Visit: Yes Status: Acute Code(s): J90 - PLEURAL EFFUSION, NOT ELSEWHERE CLASSIFIED SNOMED Code(s): 30112259 (7) Declining performance status Current Visit: Yes Status: Acute Code(s): R53.81 - OTHER MALAISE SNOMED Code(s): 569167779381261 (8) Hypokalemia Narrative/Plan: - Supp per protocol and Primary team - Recheck this afternoon and check Magnesium please - Secondary to malnutrition and decreased overall PO intake Current Visit: No Status: Acute Code(s): E87.6 - HYPOKALEMIA SNOMED Code(s): 82477508 Plan: Physician Attest: I have completed the full history and physical and agree with above dictation, dictated as a scribe.
[2020-03-01 10:57] LABS: INR 1.2 (<1.2); Prothrombin Time 11.7 sec (9.0-12.0)
--- NOTE | 2020-03-01 11:41 | P.PN ---
Subjective HISTORY OF PRESENTING ILLNESS This is a pleasant 80-year-old female past medical history significant for with metastatic lung cancer diagnosed in October, paroxysmal atrial fibrillation, hypertension and dyslipidemia. She is seen and examined resting comfortably in bed. She is more alert today and answering questions appropriately. Heart rates are better controlled between 88-114 on telemetry. She is continued on cardizem infusion and oral beta blockers. Blood pressure 123/71. Laboratory data reviewed, WBC 16.7, hemoglobin 13, platelets 192, sodium 144, potassium 2.9 and creatinine 0.67. Currently maintained on atorvastatin 10 mg at bedtime, Cardizem infusion, Lasix 20 mg IV daily and lopressor 25 mg TID. PHYSICAL EXAMINATION CONSTITUTIONAL: No apparent distress. HEENT: Head is normocephalic. Pupils are equal, round. Sclerae anicteric. Mucous membranes of the mouth are moist. No JVD. No carotid bruit. CHEST EXAMINATION: Course rales. No chest wall tenderness is noted on palpation or with deep breathing. HEART EXAMINATION: Irregular rate and rhythm. S1, S2 heard. Systolic ejection murmur at the left sternal border, no gallops or rub. EXTREMITIES: 2+ peripheral pulses, no lower extremity edema and no calf tenderness. ASSESSMENT Acute systolic heart failure Hypokalemia Paroxysmal atrial fibrillation with rapid ventricular response Acute hypoxic respiratory failure Increasing left lower lobe pulmonary mass Squamous cell lung CA with metastasis to the spine Lactic acidosis Altered mental status Hypertension Dyslipidemia PLAN Replace potassium per protocol. Heart rates continue to fluctuate on IV cardizem. Add oral digoxin. Will try and transition to oral cardizem tomorrow if her rates improve. Nurse Practitioner note has been reviewed, I agree with a documented findings and plan of care. Patient was seen and examined. Objective - Vital Signs Vital signs: Vital Signs Temp 98.0 F 03/01/20 08:00 Pulse 100 03/01/20 09:17 Resp 16 03/01/20 08:00 BP 123/71 03/01/20 08:00 Pulse Ox 100 03/01/20 08:41 Intake & Output 02/29/20 03/01/20 03/01/20 18:59 06:59 18:59 Intake Total 120 123.167 Output Total 1120 Balance 120 -996.833 Weight 57 kg Intake: Intake, IV Titration 120 123.167 Amount Diltiazem 125 mg In 123.167 Sodium Chloride 0.9% 100 ml @ 10 MG/HR 10 mls/hr IV .[id number] [facility] Rx#: [id number] Diltiazem 125 mg In 120 Sodium Chloride 0.9% 100 ml @ 5 MG/HR 5 mls/hr IV .Q24H [facility] Rx#:[id number] Oral 0 Output: Urine 1120 Other: Voiding Method Indwelling Catheter Indwelling Catheter - Labs CBC & Chem 7: 03/01/20 08:21 03/01/20 08:21 Labs: Abnormal Lab Results - Last 24 Hours (Table) 02/29/20 03/01/20 03/01/20 Range/Units 20:47 06:18 08:21 WBC 16.7 H (3.8-10.6) k/uL MCV 100.8 H (80.0-100.0) fL MCHC 30.8 L (31.0-37.0) g/dL RDW 15.8 H (11.5-15.5) % Neutrophils # 16.1 H (1.3-7.7) k/uL Lymphocytes # 0.2 L (1.0-4.8) k/uL Potassium (3.5-5.1) mmol/L Chloride (98-107) mmol/L Carbon Dioxide (22-30) mmol/L Glucose (74-99) mg/dL POC Glucose (mg/dL) 121 H 108 H (75-99) mg/dL Calcium (8.4-10.2) mg/dL C-Reactive Protein (<10.0) mg/L 03/01/20 Range/Units 08:21 WBC (3.8-10.6) k/uL MCV (80.0-100.0) fL MCHC (31.0-37.0) g/dL RDW (11.5-15.5) % Neutrophils # (1.3-7.7) k/uL Lymphocytes # (1.0-4.8) k/uL Potassium 2.9 L (3.5-5.1) mmol/L Chloride 115 H (98-107) mmol/L Carbon Dioxide 21 L (22-30) mmol/L Glucose 144 H (74-99) mg/dL POC Glucose (mg/dL) (75-99) mg/dL Calcium 8.2 L (8.4-10.2) mg/dL C-Reactive Protein 77.0 H (<10.0) mg/L Microbiology - Last 24 Hours (Table) 02/28/20 14:48 Urine Culture - Final Urine,Catheterized 02/28/20 15:57 Blood Culture - Preliminary Blood No Growth after 24 hours
[2020-03-01] MEDS ORDERED: DIGOXIN 125 MCG TAB PO SCH (11:45)
[2020-03-01] MEDS: DIGOXIN 250 MCG/ML 2 ML AMP IVP SCH ×2 (12:10→17:33)
[2020-03-01] MEDS: MULTIVITAMINS, THERA 1 EACH TAB PO SCH (12:16)
[2020-03-01 12:24] LABS: Glucose,Whole Blood 136 mg/dL (75-99)
[2020-03-01 14:44] LABS: ALT 154 U/L (4-34); AST 69 U/L (14-36); African American GFR (CKD) >90 (>60 ml/min/1.73 sqM); Albumin 2.4 g/dL (3.5-5.0); Alkaline Phosphatase 131 U/L (38-126); Anion Gap 8 mmol/L; Bilirubin, Delta 0.8 mg/dL (0.0-0.2); Bilirubin,Unconjugated 0.3 mg/dL (0.0-1.1); Blood Urea Nitrogen 13 mg/dL (7-17); Calcium 8.2 mg/dL (8.4-10.2); Carbon Dioxide 21 mmol/L (22-30); Chloride 114 mmol/L (98-107); Glucose 140 mg/dL (74-99); Magnesium 1.6 mg/dL (1.6-2.3); Non-African American GFR(CKD) 83 (>60 ml/min/1.73 sqM); Sodium 143 mmol/L (137-145); Total Bilirubin 1.1 mg/dL (0.2-1.3); Total Protein 4.9 g/dL (6.3-8.2)
--- NOTE | 2020-03-01 14:55 | P.PN ---
Subjective Progress Note Date: 03/01/20 Principal diagnosis: Confusion, shortness of breath, weakness 80-year-old white female patient of Dr. Dorita Hoover, with history of poorly differentiated squamous cell lung carcinoma, with skeletal metastasis, who we recently saw in consultation on 02/14/2024 hemoptysis related to progression of squamous cell lung cancer. Computed tomography scan of the chest showed enlarging left lower lobe pleural-based mass as well as enlarging left hilar mass, with interval development of a small left-sided pleural effusion as well as left lower lobe compressive atelectasis and enlarging subcarinal adenopathy. Patient was on Eliquis for history of chronic atrial fibrillation, and the Eliquis was held in view of hemoptysis. He also had hyponatremia related to SIADH and hypercalcemia likely related to skeletal metastasis during that admission. She was discharged to [facility] on 02/19/2020 with the plan to start on palliative radiation treatment to the left hilar region as well as the lumbar spine lesion. Performance status was quite poor overall. She was supposed to start systemic chemotherapy with carboplatin however she was not able to make it to the office due to health reasons. Supposed to follow up with medical oncology in 1-2 weeks after discharge in the office for reevaluation of candidacy for systemic chemotherapy. However in view of her overall declining physical condition systemic therapy was not thought to be possible and consideration was to be given to comfort care. On 02/28/2020 patient comes into the emergency department from [facility], for evaluation of shortness of breath, confusion, weakness. Patient was quite confused, she doesn't really k now why she was brought in. Is a poor historian, no history of any fevers, has remained afebrile while in the emergency department, she is however in A. fib with RVR with a rate of 120-140 BPM, she is currently on 5 L of oxygen and her pulse ox is 99%, blood pressure is 112/79. She appears quite weak and pale, she is confused. Chest x-ray shows a moderate left pleural effusion increasing from previous chest x-ray on 02/14/2020. CTA chest was obtained for elevated d-dimer showing increasing masslike density in the left lower lobe with additional new subpleural masses within the lingula, that appears to have direct extension into the left hilar and subcarinal region. Bilateral hilar adenopathy, but no evidence of acute pulmonary embolism. She was found to have elevated lactic acid of 10.3, urinalysis showed evidence of urinary tract infection, blood cell, 13.6, hemoglobin of 14.7, d-dimer was significantly elevated at 19.3, INR was 1.3, sodium was 133, potassium is 4.6, CO2 is 16, BUN is 22, creatinine is 0.97, calcium was 11.6, AST was elevated at 388, ALT was 318, alkaline phosphatase was 204, troponin was elevated at 0.193, proBNP was 7650, her COVID19 PCR was negative. She was given 2 L in IV fluid boluses in the emergency department, currently IV fluids infusing at a rate of 1:30 ML per hour, she was started on empiric antibiotics with Rocephin and vancomycin, blood cultures have been sent, urine culture has been sent, follow-up lactic acid this morning is down to 1.9, patient has also been started on Cardizem infusion currently running at 5 mg per hour, patient is still tachycardic, remains in A. fib, echocardiogram is in progress, cardiology consultation is pending, patient remains confused, she is quite frail, debilitated and appears to be in no acute respiratory distress. On 2019 patient seen in follow-up on selective care unit, she is awake, is still very quite weak, appears to be in no acute distress, appears to be more awake, she appears to be very weak and debilitated, lung sounds are positive for a few scattered rhonchi, appears to be in no acute distress, mucous membranes are extremely dry, patient is too weak to even suck on a straw to drink water, she remains on 0.9 normal saline. A 10 mL per hour, Cardizem drip is at 10 mL. She is on 4 L of oxygen pulse ox is 100%, she's been afebrile. She continues IV hydration with 0.9 normal saline at a rate of 1:30 ML per hour, coverage is with Zosyn, and urine cultures show no growth. His labs have been reviewed, showing white blood cell, 16.7, hemoglobin of 13, INR is 1.2, sodium is 143, potassium is 3.0, chloride is 114, CO2 is 21, BUN of 13, creatinine is 0.6, her AST ALT and alkaline phosphatase are trending down, her COVID 19 test was negative. Has a weak cough, unable to clear any secretions, she denies any chest pain, she is a poor historian. No nausea vomiting or diarrhea, producing urine, and she made 1.1 L and urine output in the last 24 hours. Objective - Vital Signs Vital signs: Vital Signs Temp 98.0 F 03/01/20 08:00 Pulse 100 03/01/20 12:09 Resp 18 03/01/20 11:15 BP 110/62 03/01/20 11:15 Pulse Ox 100 03/01/20 08:41 Intake & Output 02/29/20 03/01/20 03/01/20 18:59 06:59 18:59 Intake Total 120 123.167 Output Total 1120 500 Balance 120 -996.833 -500 Weight 57 kg Intake: Intake, IV Titration 120 123.167 Amount Diltiazem 125 mg In 123.167 Sodium Chloride 0.9% 100 ml @ 10 MG/HR 10 mls/hr IV .[id number] [facility] Rx#: [id number] Diltiazem 125 mg In 120 Sodium Chloride 0.9% 100 ml @ 5 MG/HR 5 mls/hr IV .Q24H [facility] Rx#:[id number] Oral 0 Output: Urine 1120 500 Other: Voiding Method Indwelling Catheter Indwelling Catheter Indwelling Catheter - Exam GENERAL EXAM: Alert, 80-year-old chronically ill-appearing, weak, pale, confused, white female, on 4 L of oxygen with a pulse ox of 100%, resting on the gurney in the emergency department, currently have an echocardiogram done comfortable in no apparent distress. HEAD: Normocephalic/atraumatic. EYES: Normal reaction of pupils, equal size. Conjunctiva pink, sclera white. NOSE: Clear with pink turbinates. THROAT: No erythema or exudates. NECK: No masses, no JVD, no thyroid enlargement, no adenopathy. CHEST: No chest wall deformity. Symmetrical expansion. LUNGS: Equal air entry with no crackles, wheeze, rhonchi or dullness. CVS: Irregular rate and rhythm, normal S1 and S2, no gallops, no murmurs, no rubs ABDOMEN: Soft, nontender. No hepatosplenomegaly, normal bowel sounds, no guarding or rigidity. EXTREMITIES: No clubbing, no edema, no cyanosis, 2+ pulses and upper and lower extremities. MUSCULOSKELETAL: Muscle strength and tone normal. SPINE: No scoliosis or deformity SKIN: No rashes CENTRAL NERVOUS SYSTEM: Alert and oriented -1. No focal deficits, tone is normal in all 4 extremities. PSYCHIATRIC: Alert and oriented -1. Appropriate affect. Intact judgment and insight. - Labs CBC & Chem 7: 03/01/20 08:21 03/01/20 14:08 Labs: Abnormal Lab Results - Last 24 Hours (Table) 02/29/20 03/01/20 03/01/20 Range/Units 20:47 06:18 08:21 WBC 16.7 H (3.8-10.6) k/uL MCV 100.8 H (80.0-100.0) fL MCHC 30.8 L (31.0-37.0) g/dL RDW 15.8 H (11.5-15.5) % Neutrophils # 16.1 H (1.3-7.7) k/uL Lymphocytes # 0.2 L (1.0-4.8) k/uL INR (<1.2) Potassium (3.5-5.1) mmol/L Chloride (98-107) mmol/L Carbon Dioxide (22-30) mmol/L Glucose (74-99) mg/dL POC Glucose (mg/dL) 121 H 108 H (75-99) mg/dL Calcium (8.4-10.2) mg/dL Delta Bilirubin (0.0-0.2) mg/dL AST (14-36) U/L ALT (4-34) U/L Alkaline Phosphatase (38-126) U/L C-Reactive Protein (<10.0) mg/L Total Protein (6.3-8.2) g/dL Albumin (3.5-5.0) g/dL 03/01/20 03/01/20 03/01/20 Range/Units 08:21 08:21 12:22 WBC (3.8-10.6) k/uL MCV (80.0-100.0) fL MCHC (31.0-37.0) g/dL RDW (11.5-15.5) % Neutrophils # (1.3-7.7) k/uL Lymphocytes # (1.0-4.8) k/uL INR 1.2 H (<1.2) Potassium 2.9 L (3.5-5.1) mmol/L Chloride 115 H (98-107) mmol/L Carbon Dioxide 21 L (22-30) mmol/L Glucose 144 H (74-99) mg/dL POC Glucose (mg/dL) 136 H (75-99) mg/dL Calcium 8.2 L (8.4-10.2) mg/dL Delta Bilirubin (0.0-0.2) mg/dL AST (14-36) U/L ALT (4-34) U/L Alkaline Phosphatase (38-126) U/L C-Reactive Protein 77.0 H (<10.0) mg/L Total Protein (6.3-8.2) g/dL Albumin (3.5-5.0) g/dL 03/01/20 Range/Units 14:08 WBC (3.8-10.6) k/uL MCV (80.0-100.0) fL MCHC (31.0-37.0) g/dL RDW (11.5-15.5) % Neutrophils # (1.3-7.7) k/uL Lymphocytes # (1.0-4.8) k/uL INR (<1.2) Potassium 3.0 L (3.5-5.1) mmol/L Chloride 114 H (98-107) mmol/L Carbon Dioxide 21 L (22-30) mmol/L Glucose 140 H (74-99) mg/dL POC Glucose (mg/dL) (75-99) mg/dL Calcium 8.2 L (8.4-10.2) mg/dL Delta Bilirubin 0.8 H (0.0-0.2) mg/dL AST 69 H (14-36) U/L ALT 154 H (4-34) U/L Alkaline Phosphatase 131 H (38-126) U/L C-Reactive Protein (<10.0) mg/L Total Protein 4.9 L (6.3-8.2) g/dL Albumin 2.4 L (3.5-5.0) g/dL Microbiology - Last 24 Hours (Table) 02/28/20 14:48 Urine Culture - Final Urine,Catheterized 02/28/20 15:57 Blood Culture - Preliminary Blood No Growth after 24 hours Assessment and Plan Plan: Assessment: #1. Acute hypoxic respiratory failure related to possibility of sepsis related to urinary tract infection #2. 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 CTA chest showed progression of the left lower lobe lung mass with additional new subpleural masses within the lingula, with direct extension into the left hilar and subcarinal region and bilateral hilar adenopathy. Possibility of postobstructive pneumonia is not excluded, Covid 19 PCR was negative #3. Lactic acidosis related to sepsis, improved with IV fluid resuscitation #4. Elevated D-dimer of 19.34, with no evidence of pulmonary embolism on the CT chest #5. Elevated troponin rule out non-ST elevated IA #6. A. fib with RVR currently on Cardizem drip #7. Acute metabolic encephalopathy, acute mental status change related to sepsis #8. History of metastatic lung cancer diagnosed in October 2019 with skeletal metastasis to the spine, was unable to start chemotherapy, patient is currently receiving palliative radiation treatments to the left lung mass as well as lumbar spine #9. Hypercalcemia related to skeletal metastases #10. Elevated liver enzymes possibly related to sepsis, elevated alk phos possibly related to skeletal metastasis #11. Hypertension #12. Hyperlipidemia #13. Hypothyroidism #14. Previous history of smoking in remission for last 30 years #15. History of chronic atrial fibrillation, currently not on anticoagulation in view of recent history of hemoptysis Plan: Continue IV hydration, continue antibiotics, blood and urine cultures have shown no growth thus far. Maintain aspiration precautions, overall patient is quite weak and debilitated, appears to be no acute distress, no nausea vomiting diarrhea, follow-up chest x-ray in the morning, she ruled out for Covid 19. I performed a history & physical examination of the patient and discussed their management with my nurse practitioner, Anne-Marie Carter. I reviewed the nurse practitioner's note and agree with the documented findings and plan of care. Lung sounds are positive for diminished breath sounds. The findings and the impression was discussed with the patient. I attest to the documentation by the nurse practitioner. Time with Patient: Less than 30
[2020-03-01] MEDS: SODIUM CHLORIDE TAB 1 GM TAB PO SCH (15:42)
[2020-03-01] MEDS: POTASSIUM CHLORIDE ER 20 MEQ TAB.ER PO SCH ×3 (15:42→21:31)
[2020-03-01 16:35] LABS: Glucose,Whole Blood 136 mg/dL (75-99)
--- NOTE | 2020-03-01 16:55 | PN ---
PROGRESS NOTE DATE OF SERVICE: 03/01/2020 This 80-year-old woman was admitted with shortness of breath, possibly multifactorial, COPD acute exacerbation, congestive heart failure acute exacerbation also left lower pneumonia. The possibility of possible pneumonia was considered with possible sepsis, which is present on admission. Multiple consultants are following the patient closely, including Hematology/Oncology and as well as Cardiology and Infectious Disease. Medications are adjusted. Patient is on broad spectrum IV antibiotics. Sensorium was slightly improved. The patient is still confused. The patient had squamous cell carcinoma of the lung, stage IV, with bone METS. PAST MEDICAL HISTORY: Reviewed. REVIEW OF SYSTEMS: Could not be taken, the patient is still confused. CURRENT MEDICATIONS: Reviewed and include: 1. Tylenol. 2. [place]. 3. DuoNeb. 4. Vitamin C. 5. Lipitor. 6. Symbicort/. 7. Vitamin D3. 8. Diltiazem. 9. Lasix. 10.NovoLog. 11.Synthroid. 12.Megace. 13.Solu-Medrol. 14.Singulair. 15.Protonix. 16.IV Zosyn. PHYSICAL EXAM: Patient is conscious but confused, pulse 105, blood pressure 102/68, respiration 18, temperature normal, pulse ox is 100% on 4 L. HEENT: Conjunctivae normal. NECK: No jugular venous distension. CARDIOVASCULAR SYSTEM: S1, S2, muffled. RESPIRATION: Breath sounds diminished at the bases, bilateral scattered rhonchi, no crackles. ABDOMEN: Soft, nontender. LEGS: No edema. No swelling. NERVOUS SYSTEM: No focal deficits. LABS: WBC 16.2, hemoglobin 13. Otherwise, INR 1.2. Sodium 144, potassium 2.9 and 3, AST is 154, ALT is 131. C-reactive protein 77, albumin is 24. ASSESSMENT: 1. Shortness of breath, possibly multifactorial with COPD exacerbation as well as congestive heart failure acute exacerbation, acute on chronic systolic dysfunction, ejection fraction 35%-40%. 2. Left lower lobe pneumonia possibly postobstructive or gram-negative with possibly sepsis, present on admission. 3. Change in mental status, acute metabolic encephalopathy secondary to sepsis. 4. Atrial fibrillation with fast ventricular rate. 5. Squamous cell carcinoma of the lung with stage IV with bony metastases. 6. COVID-19 ruled out. 7. Elevated lactic acid, secondary to sepsis, present on admission. 8. Elevated bilirubin AST, ALT secondary to malignancy. 9. Troponin 0.193, indeterminate, rule out acute cda-ZO-bhdgxvs-elevation myocardial infarction. 10.Acute urinary tract infection, present on admission. 11.Hyponatremia. 12.Mild coagulopathy. 13.Increased WBC. 14.Hypertension, hyperlipidemia. 15.History of hypothyroidism. 16.History of appendectomy. 17.Remote history of nicotine dependence. 18.Hypokalemia. 19.NO CODE, NO CPR, NO VENT. RECOMMENDATION: I recommend to continue current management and symptomatic treatment. The cultures are negative so far. Current antibiotics, bronchodilators, steroids I would recommend continue with potassium supplementation. Guarded prognosis because of multiple complex medical issues and further recommendations to follow. Stop the IV fluids. DEA / TAMMYN: [id number] /
[2020-03-01 21:01] LABS: Glucose,Whole Blood 138 mg/dL (75-99)
[2020-03-01] MEDS: PANTOPRAZOLE 40 MG TABLET PO SCH (21:30)
[2020-03-01] MEDS: MONTELUKAST 10 MG TAB PO SCH (21:30)
[2020-03-01] MEDS: ATORVASTATIN 10 MG TAB PO SCH (21:30)
--- NOTE | 2020-03-01 23:27 | PN ---
PROGRESS NOTE DATE OF SERVICE: 03/01/2020 REASON FOR FOLLOWUP: Pneumonia. INTERVAL HISTORY: The patient is currently afebrile. The patient is more awake and alert today. She is breathing comfortably. seemed to be slightly pleasantly confused. Denies having any chest pain. Minimal cough. No abdominal pain or diarrhea. PHYSICAL EXAMINATION: Blood pressure 112/56, pulse of 83, temperature 97.7. She is 98% on 4 L nasal cannula. General description is an elderly female lying in bed in no distress. RESPIRATORY SYSTEM: Unlabored breathing, decreased breath sounds at the bases. No wheeze. HEART: S1, S2. Regular rate and rhythm. ABDOMEN: Soft, no tenderness. LABS: Hemoglobin is 13, white count 16.7. [place] PCR came back negative. Blood culture so far negative. DIAGNOSTIC IMPRESSION AND PLAN: Patient presented to the hospital with shortness of breath which is likely multifactorial with possible component of pneumonia. The patient at this time is covered with Zosyn to continue and monitor clinical course closely. Continue with supportive care. MMODL / IJN: [id number] /
[2020-03-02] MEDS: DIGOXIN 250 MCG/ML 2 ML AMP IVP SCH ×2 (00:04→12:57)
[2020-03-02] MEDS: methylPREDNISolone SOD SUCCI 125 MG/2 ML VIAL IV SCH ×5 (00:05→23:47)
[2020-03-02] MEDS: PIPERACILLIN-TAZOBACTAM 3.375 GM in SODIUM CHLORIDE 0.9% 100 ML IVPB SCH ×4 (00:05→23:47)
[2020-03-02 05:56] LABS: Glucose,Whole Blood 133 mg/dL (75-99)
[2020-03-02] MEDS: INSULIN ASPART (NovoLOG) 100 UNIT/ML VIAL SQ SCH ×4 (06:35→21:45)
[2020-03-02] MEDS: LEVOTHYROXINE 50 MCG TAB PO SCH (06:35)
[2020-03-02] MEDS: SYMBICORT 160-4.5 MCG INHALER INHALATION SCH ×2 (07:56→21:55)
[2020-03-02] MEDS: IPRATROPIUM-ALBUTEROL 3 ML NEB INHALATION SCH ×3 (07:56→21:56)
[2020-03-02] MEDS: CHOLECALCIFEROL 1,000 UNIT TAB PO SCH (09:00)
[2020-03-02] MEDS: FUROSEMIDE 10 MG/ML 2 ML VIAL IV SCH (09:00)
[2020-03-02] MEDS: HEPARIN SODIUM,PORCINE 5,000 UNIT/ML 1 ML VIAL SQ SCH ×2 (09:00→21:45)
[2020-03-02] MEDS: ASCORBIC ACID 500 MG TAB PO SCH (09:00)
[2020-03-02] MEDS: MEGESTROL 40 MG TAB PO SCH (09:01)
[2020-03-02] MEDS: METOPROLOL TARTRATE 25 MG TAB PO SCH ×3 (09:01→21:46)
[2020-03-02] MEDS: ZINC SULFATE 220 MG CAP PO SCH (09:01)
[2020-03-02 10:58] LABS: Anisocytosis Moderate; Basophils % (A) 0 %; Eosinophils # (A) 0.3 k/uL (0-0.7); Eosinophils % (A) 1 %; HCT 38.3 % (34.0-46.0); HGB 12.4 gm/dL (11.4-16.0); Hypochromasia Slight; Lymphocytes # (A) 0.1 k/uL (1.0-4.8); Lymphocytes % (A) 1 %; MCH 33.8 pg (25.0-35.0); MCHC 32.4 g/dL (31.0-37.0); MCV 104.4 fL (80.0-100.0); Macrocytosis Moderate; Monocytes # (A) 0.2 k/uL (0-1.0); Monocytes % (A) 1 %; Neutrophils # (A) 17.4 k/uL (1.3-7.7); Neutrophils % (A) 97 %; Platelet Count 158 k/uL (150-450); RBC 3.67 m/uL (3.80-5.40); RDW 20.6 % (11.5-15.5)
[2020-03-02 11:17] LABS: ALT 121 U/L (4-34); AST 45 U/L (14-36); African American GFR (CKD) >90 (>60 ml/min/1.73 sqM); Albumin 2.3 g/dL (3.5-5.0); Alkaline Phosphatase 125 U/L (38-126); Anion Gap 6 mmol/L; Blood Urea Nitrogen 10 mg/dL (7-17); Calcium 7.7 mg/dL (8.4-10.2); Carbon Dioxide 25 mmol/L (22-30); Chloride 113 mmol/L (98-107); Glucose 138 mg/dL (74-99); Magnesium 1.6 mg/dL (1.6-2.3); Non-African American GFR(CKD) 83 (>60 ml/min/1.73 sqM); Potassium 3.3 mmol/L (3.5-5.1); Sodium 144 mmol/L (137-145); Total Bilirubin 1.1 mg/dL (0.2-1.3); Total Protein 4.6 g/dL (6.3-8.2)
--- NOTE | 2020-03-02 11:42 | MR ---
EXAMINATION TYPE: MR brain wo/w con DATE OF EXAM: 03/02/2020 COMPARISON: CT brain January 07, 2020 HISTORY: Lung cancer, Confusion, evaluate for metastatic disease TECHNIQUE: Multiplanar, multisequence images of the brain and brainstem is performed without and with IV contras t, utilizing 6 mL intravenous Gadavist . FINDINGS: Exam noted suboptimal due to patient confusion fast protocol had to be utilized. This preve nts ability to do thin 1 mm cuts. Diffusion weighted images demonstrate no evidence of a recent infar ct or other diffusion abnormality. There is no worrisome extra-axial fluid collection. Diffuse ventr icular and sulcal prominence. Areas of T2 hyperintensity throughout the deep and periventricular whit e matter. Midline structures demonstrate normal morphology. The craniocervical junction appears within normal limits. Post contrast images demonstrate no suspicious enhancing masses. The dural venous sinuses ap pear patent. The visualized sinuses are clear and the globes are intact. IMPRESSION: Suboptimal study but no suspicious enhancing masses to suggest metastatic disease to the brain. Background mild diffuse cerebral atrophy and moderate chronic small vessel ischemic change. No MRI evidence for recent infarct.
[2020-03-02 11:44] LABS: Glucose,Whole Blood 127 mg/dL (75-99)
--- NOTE | 2020-03-02 11:51 | P.PN ---
Subjective HISTORY OF PRESENTING ILLNESS This is a pleasant 80-year-old female past medical history significant for with metastatic lung cancer diagnosed in October, paroxysmal atrial fibrillation, hypertension and dyslipidemia. She is seen and examined resting comfortably in bed. She is more alert today and answering questions appropriately. Heart rates are better controlled between 88-114 on telemetry. She is continued on cardizem infusion and oral beta blockers. Blood pressure 123/71. Laboratory data reviewed, WBC 16.7, hemoglobin 13, platelets 192, sodium 144, potassium 2.9 and creatinine 0.67. Currently maintained on atorvastatin 10 mg at bedtime, Cardizem infusion, Lasix 20 mg IV daily and lopressor 25 mg TID. 03/02/2020 Pt seen and examined sitting up in bed in no acute distress. Heart rates are better controlled on IV cardizem. She is still NPO. Blood pressure 111/53 heart rate 100. x-ray data reviewed, WBC 18, hemoglobin 12.4, platelets 158, sodium 144, creatinine 0.64 and potassium 3.3. Brain MRI revealed no suspicious en hancing mass to suggest metastatic disease. PHYSICAL EXAMINATION CONSTITUTIONAL: No apparent distress. HEENT: Head is normocephalic. Pupils are equal, round. Sclerae anicteric. Mucous membranes of the mouth are moist. No JVD. No carotid bruit. CHEST EXAMINATION: Course rales. No chest wall tenderness is noted on palpation or with deep breathing. HEART EXAMINATION: Irregular rate and rhythm. S1, S2 heard. Systolic ejection murmur at the left sternal border, no gallops or rub. EXTREMITIES: 2+ peripheral pulses, no lower extremity edema and no calf tenderness. ASSESSMENT Acute systolic heart failure Hypokalemia Paroxysmal atrial fibrillation with rapid ventricular response Acute hypoxic respiratory failure Increasing left lower lobe pulmonary mass Squamous cell lung CA with metastasis to the spine Lactic acidosis Altered mental status Hypertension Dyslipidemia PLAN Replace potassium per protocol. Continue IV Cardizem for rate control given she is nothing by mouth. Continue IV diuretics. Repeat BMP in the morning. Nurse Practitioner note has been reviewed, I agree with a documented findings and plan of care. Patient was seen and examined. Objective - Vital Signs Vital signs: Vital Signs Temp 98.5 F 03/02/20 08:00 Pulse 100 03/02/20 08:06 Resp 14 03/02/20 08:00 BP 111/53 03/02/20 08:00 Pulse Ox 99 03/02/20 08:00 Intake & Output 03/01/20 03/02/20 03/02/20 18:59 06:59 18:59 Intake Total 125 Output Total 500 1100 Balance -500 -975 Weight 58 kg Intake: Intake, IV Titration 125 Amount Diltiazem 125 mg In 125 Sodium Chloride 0.9% 100 ml @ 10 MG/HR 10 mls/hr IV .[id number] [facility] Rx#: [id number] Output: Urine 500 1100 Other: Voiding Method Indwelling Catheter Indwelling Catheter - Labs CBC & Chem 7: 03/02/20 10:04 03/02/20 10:04 Labs: Abnormal Lab Results - Last 24 Hours (Table) 03/01/20 03/01/20 03/01/20 Range/Units 08:21 12:22 14:08 WBC (3.8-10.6) k/uL RBC (3.80-5.40) m/uL MCV (80.0-100.0) fL RDW (11.5-15.5) % Neutrophils # (1.3-7.7) k/uL Lymphocytes # (1.0-4.8) k/uL Potassium 3.0 L (3.5-5.1) mmol/L Chloride 114 H (98-107) mmol/L Carbon Dioxide 21 L (22-30) mmol/L Glucose 140 H (74-99) mg/dL POC Glucose (mg/dL) 136 H (75-99) mg/dL Calcium 8.2 L (8.4-10.2) mg/dL Delta Bilirubin 0.8 H (0.0-0.2) mg/dL AST 69 H (14-36) U/L ALT 154 H (4-34) U/L Alkaline Phosphatase 131 H (38-126) U/L Total Protein 4.9 L (6.3-8.2) g/dL Albumin 2.4 L (3.5-5.0) g/dL Procalcitonin 0.66 H (0.02-0.09) ng/mL 03/01/20 03/01/20 03/02/20 Range/Units 16:34 20:56 05:55 WBC (3.8-10.6) k/uL RBC (3.80-5.40) m/uL MCV (80.0-100.0) fL RDW (11.5-15.5) % Neutrophils # (1.3-7.7) k/uL Lymphocytes # (1.0-4.8) k/uL Potassium (3.5-5.1) mmol/L Chloride (98-107) mmol/L Carbon Dioxide (22-30) mmol/L Glucose (74-99) mg/dL POC Glucose (mg/dL) 136 H 138 H 133 H (75-99) mg/dL Calcium (8.4-10.2) mg/dL Delta Bilirubin (0.0-0.2) mg/dL AST (14-36) U/L ALT (4-34) U/L Alkaline Phosphatase (38-126) U/L Total Protein (6.3-8.2) g/dL Albumin (3.5-5.0) g/dL Procalcitonin (0.02-0.09) ng/mL 03/02/20 03/02/20 03/02/20 Range/Units 10:04 10:04 11:42 WBC 18.0 H (3.8-10.6) k/uL RBC 3.67 L (3.80-5.40) m/uL MCV 104.4 H (80.0-100.0) fL RDW 20.6 H (11.5-15.5) % Neutrophils # 17.4 H (1.3-7.7) k/uL Lymphocytes # 0.1 L (1.0-4.8) k/uL Potassium 3.3 L (3.5-5.1) mmol/L Chloride 113 H (98-107) mmol/L Carbon Dioxide (22-30) mmol/L Glucose 138 H (74-99) mg/dL POC Glucose (mg/dL) 127 H (75-99) mg/dL Calcium 7.7 L (8.4-10.2) mg/dL Delta Bilirubin (0.0-0.2) mg/dL AST 45 H (14-36) U/L ALT 121 H (4-34) U/L Alkaline Phosphatase (38-126) U/L Total Protein 4.6 L (6.3-8.2) g/dL Albumin 2.3 L (3.5-5.0) g/dL Procalcitonin (0.02-0.09) ng/mL Microbiology - Last 24 Hours (Table) 02/28/20 15:57 Blood Culture - Preliminary Blood No Growth after 48 hours
--- NOTE | 2020-03-02 12:08 | US ---
EXAMINATION TYPE: US chest DATE OF EXAM: 03/02/2020 COMPARISON: CT February 28, 2020 CLINICAL HISTORY: Pleural Effusion. left pleural effusion TECHNIQUE: Targeted ultrasound of the posterior chest EXAM MEASUREMENTS: Right Pleural Effusion pocket size: 1.4 cm A/P Left Pleural Effusion pocket size: 1.0 cm Right side was not marked for possible thoracentesis outside the dept. Left side was not marked for possible thoracentesis outside the dept. Pulmonologists are able to review the images in the patient?s EMR. Trace bilateral pleural effusions on ultrasound images saved to correlate with CT 3 days earlier. IMPRESSIONS: As above.
[2020-03-02] MEDS: MULTIVITAMINS, THERA 1 EACH TAB PO SCH (12:44)
[2020-03-02] MEDS: DILTIAZEM 125 MG in SODIUM CHLORIDE 0.9% 100 ML IV SCH (12:56)
[2020-03-02] MEDS ORDERED: DIGOXIN 250 MCG/ML 2 ML AMP IVP ONE (15:31)
[2020-03-02] MEDS: POTASSIUM CHLORIDE 10 MEQ in WATER FOR INJECTION 1 100ML.BAG IVPB SCH ×4 (15:39→21:22)
[2020-03-02] MEDS: SODIUM CHLORIDE TAB 1 GM TAB PO SCH (15:47)
[2020-03-02 16:56] LABS: Glucose,Whole Blood 155 mg/dL (75-99)
--- NOTE | 2020-03-02 17:59 | PN ---
PROGRESS NOTE DATE OF SERVICE: 03/02/2020 This 80-year-old woman was admitted with shortness of breath, possibly multifactorial, COPD, acute exacerbation, and CHF, acute exacerbation. Patient also left lower lobe pneumonia, possibly obstructive. The patient has lung cancer as well. The patient also had tachycardia. Multiple consultants are following the patient closely. The patient continues to be confused. Brain MRI was suboptimal, showing no Kathie, the STAMPING MACHINE OPERATOR from Hematology/Oncology, is going to talk with regarding the further course of action. Currently the patient is NO CODE. Past medical history reviewed. Review of systems could not be taken. The patient is confused. CURRENT MEDICATIONS: Reviewed. They include Tylenol, [place] 5 mg, DuoNeb, vitamin C, Lipitor, Symbicort, vitamin D3, digoxin, Cardizem, NovoLog, Synthroid, Solu-Medrol. Other medications are reviewed. PHYSICAL EXAMINATION: Patient is confused. Pulse is 153, irregular, blood pressure 98/61, respirations 16, temperature 98.8, pulse ox 98% on 3 L. HEENT: Conjunctivae normal. NECK: No jugular venous distention. CARDIOVASCULAR SYSTEM: S1, S2 muffled. RESPIRATORY SYSTEM: Breath sounds diminished at the bases. Bilateral scattered rhonchi and crackles. ABDOMEN: Soft, non-tender. LEGS: No edema. No swelling. NERVOUS SYSTEM: No focal deficit. LABS: WBC 18, hemoglobin 12.4. Sodium 142, potassium 3.3. ASSESSMENT: 1. Shortness of breath, possibly multifactorial, with COPD, acute exacerbation, as well as congestive heart failure, acute exacerbation, with acute on chronic systolic dysfunction, ejection fraction 35% to 40%. 2. Left lower lobe pneumonia, possibly postobstructive or Gram-negative with possibly sepsis, present on admission. 3. Change in mental status, acute metabolic encephalopathy secondary to sepsis. 4. Atrial fibrillation with fast ventricular rate. 5. Squamous cell carcinoma of the lung, stage IV, with bony metastases. 6. COVID-19 ruled out. 7. Elevated lactic acid secondary to sepsis, present on admission. 8. Elevated AST, ALT, bilirubin secondary to malignancy. 9. Troponin 0.193, indeterminate. Rule out acute kyk-VY-tdbawqd-elevation myocardial infarction. 10.Acute urinary tract infection, present on admission. 11.Hyponatremia. 12.Mild coagulopathy. 13.Increased white count. 14.Hypertension. 15.Hyperlipidemia. 16.Hypothyroidism. 17.History of appendectomy. 18.Remote history of nicotine dependence. 19.Hypokalemia. 20.NO CODE, NO CPR, NO VENT. RECOMMENDATIONS AND DISCUSSION: I recommend to continue current medications, continue with the monitoring, symptomatic treatment. Continue with the antibiotics. Continue with the digoxin. Follow closely with Cardiology regarding the increased heart rate. Continue with IV steroids. Otherwise, oncology team to discuss code status and final course of action with the family. Prognosis guarded. Further recommendations to follow. MMODL / IJN: [id number] / MTDD
[2020-03-02 20:38] LABS: Glucose,Whole Blood 147 mg/dL (75-99)
[2020-03-02] MEDS: ATORVASTATIN 10 MG TAB PO SCH (21:45)
[2020-03-02] MEDS: MONTELUKAST 10 MG TAB PO SCH (21:45)
[2020-03-02] MEDS: PANTOPRAZOLE 40 MG TABLET PO SCH (21:45)
--- NOTE | 2020-03-02 22:12 | PN ---
PROGRESS NOTE DATE OF SERVICE: 03/02/2020 REASON FOR FOLLOWUP: Pneumonia. INTERVAL HISTORY: The patient is currently afebrile. The patient is breathing comfortably. Denies any chest pain. Did have a cough, not bringing up any sputum. No nausea, no vomiting. No abdominal pain or diarrhea. PHYSICAL EXAMINATION: Blood pressure 98/61 with a pulse of 104, temperature 98.8. She is 98% on 3 L nasal cannula. General description is an elderly female up in the bed in no distress. RESPIRATORY SYSTEM: Unlabored breathing with decreased breath sounds at the base. No wheeze. HEART: S1, S2. rate and rhythm. ABDOMEN: Soft. No tenderness. LABS: Hemoglobin is 12.4, white count 18, BUN of 10, creatinine 0.64. Blood culture negative. DIAGNOSTIC IMPRESSION AND PLAN: Patient admitted to hospital with difficulty breathing which is multifactorial in this patient who does have a component of pneumonia and effusion. The patient is currently covered with Zosyn; to continue. Monitor her clinical course closely. Continue supportive care. MMODL / TAMMYN: [id number] /
[2020-03-03] MEDS: DILTIAZEM 125 MG in SODIUM CHLORIDE 0.9% 100 ML IV SCH ×3 (02:45→21:29)
[2020-03-03] MEDS: LEVOTHYROXINE 50 MCG TAB PO SCH (05:53)
[2020-03-03] MEDS: methylPREDNISolone SOD SUCCI 125 MG/2 ML VIAL IV SCH ×4 (05:54→23:16)
[2020-03-03 06:26] LABS: Glucose,Whole Blood 132 mg/dL (75-99)
[2020-03-03] MEDS: INSULIN ASPART (NovoLOG) 100 UNIT/ML VIAL SQ SCH ×4 (06:31→21:28)
--- NOTE | 2020-03-03 08:24 | XR ---
EXAMINATION TYPE: XR chest 1V portable DATE OF EXAM: 03/03/2020 COMPARISON: 02/28/2020 INDICATION: CHF TECHNIQUE: Single frontal view of the chest is obtained. FINDINGS: The heart size is enlarged. The pulmonary vasculature is normal. Left pleural effusion is present. Minimal right infiltrate is at the base. There is slight worsening over the interval. IMPRESSION: 1. Moderate left pleural effusion. 2. Left basilar infiltrate and right costophrenic angle infiltrates slightly worsening
[2020-03-03] MEDS: FUROSEMIDE 10 MG/ML 2 ML VIAL IV SCH (08:45)
[2020-03-03] MEDS: HEPARIN SODIUM,PORCINE 5,000 UNIT/ML 1 ML VIAL SQ SCH ×2 (08:45→21:28)
[2020-03-03] MEDS: DIGOXIN 250 MCG/ML 2 ML AMP IVP SCH (08:47)
[2020-03-03] MEDS: PIPERACILLIN-TAZOBACTAM 3.375 GM in SODIUM CHLORIDE 0.9% 100 ML IVPB SCH ×3 (08:47→23:16)
[2020-03-03] MEDS: IPRATROPIUM-ALBUTEROL 3 ML NEB INHALATION SCH ×3 (08:49→19:20)
[2020-03-03] MEDS: ASCORBIC ACID 500 MG TAB PO SCH (08:49)
[2020-03-03] MEDS: CHOLECALCIFEROL 1,000 UNIT TAB PO SCH (08:49)
[2020-03-03] MEDS: SYMBICORT 160-4.5 MCG INHALER INHALATION SCH ×2 (08:49→19:21)
[2020-03-03] MEDS: ZINC SULFATE 220 MG CAP PO SCH (08:49)
[2020-03-03] MEDS: MEGESTROL 40 MG TAB PO SCH (08:49)
[2020-03-03 11:46] LABS: Glucose,Whole Blood 161 mg/dL (75-99)
[2020-03-03 12:12] LABS: African American GFR (CKD) >90 (>60 ml/min/1.73 sqM); Anion Gap 7 mmol/L; Blood Urea Nitrogen 10 mg/dL (7-17); Calcium 7.6 mg/dL (8.4-10.2); Carbon Dioxide 27 mmol/L (22-30); Chloride 110 mmol/L (98-107); Glucose 145 mg/dL (74-99); Magnesium 1.6 mg/dL (1.6-2.3); Non-African American GFR(CKD) 85 (>60 ml/min/1.73 sqM); Potassium 3.3 mmol/L (3.5-5.1); Sodium 144 mmol/L (137-145)
[2020-03-03] MEDS: MULTIVITAMINS, THERA 1 EACH TAB PO SCH (12:25)
--- NOTE | 2020-03-03 12:56 | P.PN ---
Subjective HISTORY OF PRESENTING ILLNESS This is a pleasant 80-year-old female past medical history significant for with metastatic lung cancer diagnosed in October, paroxysmal atrial fibrillation, hypertension and dyslipidemia. She is seen and examined resting comfortably in bed. She is more alert today and answering questions appropriately. Heart rates are better controlled between 88-114 on telemetry. She is continued on cardizem infusion and oral beta blockers. Blood pressure 123/71. Laboratory data reviewed, WBC 16.7, hemoglobin 13, platelets 192, sodium 144, potassium 2.9 and creatinine 0.67. Currently maintained on atorvastatin 10 mg at bedtime, Cardizem infusion, Lasix 20 mg IV daily and lopressor 25 mg TID. 03/03/2020 Pt is seen and examined sitting up in bed in no acute distress. Her heart rates continue to be difficult to control. Yesterday evening her rates were controlled and her blood pressure dropped so the cardizem was decreased. She also is on digoxin. There is a discussion currently regarding hospice. She continues to be NPO due to probable aspiration. Blood pressure 105/67 heart rate between 80-160. Labs currently pending. PHYSICAL EXAMINATION CONSTITUTIONAL: No apparent distress. HEENT: Head is normocephalic. Pupils are equal, round. Sclerae anicteric. Mucous membranes of the mouth are moist. No JVD. No carotid bruit. CHEST EXAMINATION: Course rales. No chest wall tenderness is noted on palpation or with deep breathing. HEART EXAMINATION: Irregular rate and rhythm. S1, S2 heard. Systolic ejection murmur at the left sternal border, no gallops or rub. EXTREMITIES: 2+ peripheral pulses, no lower extremity edema and no calf tenderness. ASSESSMENT Acute systolic heart failure Hypokalemia Paroxysmal atrial fibrillation with rapid ventricular response Acute hypoxic respiratory failure Increasing left lower lobe pulmonary mass Squamous cell lung CA with metastasis to the spine Lactic acidosis Altered mental status Hypertension Dyslipidemia PLAN Continue cardizem and digoxin for rate control. Replace potassium per protocol. Nurse Practitioner note has been reviewed, I agree with a documented findings and plan of care. Patient was seen and examined. Objective - Vital Signs Vital signs: Vital Signs Temp 97.3 F L 03/03/20 08:40 Pulse 88 03/03/20 09:03 Resp 16 03/03/20 08:40 BP 105/67 03/03/20 10:07 Pulse Ox 97 12/04/20 08:40 Intake & Output 03/02/20 03/03/20 03/03/20 18:59 06:59 18:59 Intake Total 235.667 114.333 67.0 Output Total 800 750 Balance -564.333 -635.667 67.0 Intake: Intake, IV Titration 135.667 114.333 67.0 Amount Diltiazem 125 mg In 135.667 114.333 67.0 Sodium Chloride 0.9% 100 ml @ 10 MG/HR 10 mls/hr IV .[id number] [facility] Rx#: [id number] Oral 100 Output: Urine 800 750 Other: Voiding Method Indwelling Catheter Indwelling Catheter Indwelling Catheter - Labs CBC & Chem 7: 03/02/20 10:04 03/03/20 10:48 Labs: Abnormal Lab Results - Last 24 Hours (Table) 03/02/20 03/02/20 03/02/20 Range/Units 10:04 10:04 11:42 WBC 18.0 H (3.8-10.6) k/uL RBC 3.67 L (3.80-5.40) m/uL MCV 104.4 H (80.0-100.0) fL RDW 20.6 H (11.5-15.5) % Neutrophils # 17.4 H (1.3-7.7) k/uL Lymphocytes # 0.1 L (1.0-4.8) k/uL Potassium 3.3 L (3.5-5.1) mmol/L Chloride 113 H (98-107) mmol/L Glucose 138 H (74-99) mg/dL POC Glucose (mg/dL) 127 H (75-99) mg/dL Calcium 7.7 L (8.4-10.2) mg/dL AST 45 H (14-36) U/L ALT 121 H (4-34) U/L Total Protein 4.6 L (6.3-8.2) g/dL Albumin 2.3 L (3.5-5.0) g/dL 03/02/20 03/02/20 03/03/20 Range/Units 16:54 20:36 06:24 WBC (3.8-10.6) k/uL RBC (3.80-5.40) m/uL MCV (80.0-100.0) fL RDW (11.5-15.5) % Neutrophils # (1.3-7.7) k/uL Lymphocytes # (1.0-4.8) k/uL Potassium (3.5-5.1) mmol/L Chloride (98-107) mmol/L Glucose (74-99) mg/dL POC Glucose (mg/dL) 155 H 147 H 132 H (75-99) mg/dL Calcium (8.4-10.2) mg/dL AST (14-36) U/L ALT (4-34) U/L Total Protein (6.3-8.2) g/dL Albumin (3.5-5.0) g/dL Microbiology - Last 24 Hours (Table) 02/28/20 15:57 Blood Culture - Preliminary Blood No Growth after 72 hours
--- NOTE | 2020-03-03 14:16 | P.PN ---
Subjective Progress Note Date: 03/03/20 Principal diagnosis: Confusion, shortness of breath, weakness 80-year-old white female patient of Dr. Dorita Hoover, with history of poorly differentiated squamous cell lung carcinoma, with skeletal metastasis, who we recently saw in consultation on 02/14/2024 hemoptysis related to progression of squamous cell lung cancer. Computed tomography scan of the chest showed enlarging left lower lobe pleural-based mass as well as enlarging left hilar mass, with interval development of a small left-sided pleural effusion as well as left lower lobe compressive atelectasis and enlarging subcarinal adenopathy. Patient was on Eliquis for history of chronic atrial fibrillation, and the Eliquis was held in view of hemoptysis. He also had hyponatremia related to SIADH and hypercalcemia likely related to skeletal metastasis during that admission. She was discharged to [facility] on 02/19/2020 with the plan to start on palliative radiation treatment to the left hilar region as well as the lumbar spine lesion. Performance status was quite poor overall. She was supposed to start systemic chemotherapy with carboplatin however she was not able to make it to the office due to health reasons. Supposed to follow up with medical oncology in 1-2 weeks after discharge in the office for reevaluation of candidacy for systemic chemotherapy. However in view of her overall declining physical condition systemic therapy was not thought to be possible and consideration was to be given to comfort care. On 02/28/2020 patient comes into the emergency department from [facility], for evaluation of shortness of breath, confusion, weakness. Patient was quite confused, she doesn't really k now why she was brought in. Is a poor historian, no history of any fevers, has remained afebrile while in the emergency department, she is however in A. fib with RVR with a rate of 120-140 BPM, she is currently on 5 L of oxygen and her pulse ox is 99%, blood pressure is 112/79. She appears quite weak and pale, she is confused. Chest x-ray shows a moderate left pleural effusion increasing from previous chest x-ray on 02/14/2020. CTA chest was obtained for elevated d-dimer showing increasing masslike density in the left lower lobe with additional new subpleural masses within the lingula, that appears to have direct extension into the left hilar and subcarinal region. Bilateral hilar adenopathy, but no evidence of acute pulmonary embolism. She was found to have elevated lactic acid of 10.3, urinalysis showed evidence of urinary tract infection, blood cell, 13.6, hemoglobin of 14.7, d-dimer was significantly elevated at 19.3, INR was 1.3, sodium was 133, potassium is 4.6, CO2 is 16, BUN is 22, creatinine is 0.97, calcium was 11.6, AST was elevated at 388, ALT was 318, alkaline phosphatase was 204, troponin was elevated at 0.193, proBNP was 7650, her COVID19 PCR was negative. She was given 2 L in IV fluid boluses in the emergency department, currently IV fluids infusing at a rate of 1:30 ML per hour, she was started on empiric antibiotics with Rocephin and vancomycin, blood cultures have been sent, urine culture has been sent, follow-up lactic acid this morning is down to 1.9, patient has also been started on Cardizem infusion currently running at 5 mg per hour, patient is still tachycardic, remains in A. fib, echocardiogram is in progress, cardiology consultation is pending, patient remains confused, she is quite frail, debilitated and appears to be in no acute respiratory distress. On 2019 patient seen in follow-up on selective care unit, she is awake, is still very quite weak, appears to be in no acute distress, appears to be more awake, she appears to be very weak and debilitated, lung sounds are positive for a few scattered rhonchi, appears to be in no acute distress, mucous membranes are extremely dry, patient is too weak to even suck on a straw to drink water, she remains on 0.9 normal saline. A 10 mL per hour, Cardizem drip is at 10 mL. She is on 4 L of oxygen pulse ox is 100%, she's been afebrile. She continues IV hydration with 0.9 normal saline at a rate of 1:30 ML per hour, coverage is with Zosyn, and urine cultures show no growth. His labs have been reviewed, showing white blood cell, 16.7, hemoglobin of 13, INR is 1.2, sodium is 143, potassium is 3.0, chloride is 114, CO2 is 21, BUN of 13, creatinine is 0.6, her AST ALT and alkaline phosphatase are trending down, her COVID 19 test was negative. Has a weak cough, unable to clear any secretions, she denies any chest pain, she is a poor historian. No nausea vomiting or diarrhea, producing urine, and she made 1.1 L and urine output in the last 24 hours. On 03/03/2020 patient seen in follow-up on selective care unit, she is awake, she is extremely weak, she is currently on 3 L of oxygen pulse ox is 93%, she is very pale, very weak, but does not appear to be in any acute distress, she had a MRI of the brain yesterday, which did not show acute findings to suggest met astatic disease to the brain. Ultrasound the chest did not reveal enough fluid for drainage. Today's chest x-ray shows moderate left pleural effusion, left basilar infiltrate and right costophrenic angle infiltrates, slightly worsening. Patient denies any acute distress, she is tachycardic, remains on 0.7 at 10 ML per hour, and Cardizem is at 10 mg per hour for rate control. She's had no fever or chills, no cough or congestion. She is currently on IV Lasix 20 mg daily, daily basis, she is on bronchodilators, and IV steroids. Her blood AND urine culture have shown no growth. Objective - Vital Signs Vital signs: Vital Signs Temp 97.6 F 03/03/20 12:32 Pulse 150 H 03/03/20 12:32 Resp 16 03/03/20 12:32 BP 104/63 03/03/20 12:32 Pulse Ox 97 03/03/20 08:40 Intake & Output 03/02/20 03/03/20 03/03/20 18:59 06:59 18:59 Intake Total 235.667 114.333 90.0 Output Total 800 750 Balance -564.333 -635.667 90.0 Intake: Intake, IV Titration 135.667 114.333 90.0 Amount Diltiazem 125 mg In 135.667 114.333 90.0 Sodium Chloride 0.9% 100 ml @ 10 MG/HR 10 mls/hr IV .[id number] [facility] Rx#: [id number] Oral 100 Output: Urine 800 750 Other: Voiding Method Indwelling Catheter Indwelling Catheter Indwelling Catheter - Exam GENERAL EXAM: Alert, 80-year-old chronically ill-appearing, weak, pale, confused, white female, on 4 L of oxygen with a pulse ox of 100%, resting on the gurney in the emergency department, currently have an echocardiogram done comfortable in no apparent distress. HEAD: Normocephalic/atraumatic. EYES: Normal reaction of pupils, equal size. Conjunctiva pink, sclera white. NOSE: Clear with pink turbinates. THROAT: No erythema or exudates. NECK: No masses, no JVD, no thyroid enlargement, no adenopathy. CHEST: No chest wall deformity. Symmetrical expansion. LUNGS: Equal air entry with no crackles, wheeze, rhonchi or dullness. CVS: Irregular rate and rhythm, normal S1 and S2, no gallops, no murmurs, no rubs ABDOMEN: Soft, nontender. No hepatosplenomegaly, normal bowel sounds, no guarding or rigidity. EXTREMITIES: No clubbing, no edema, no cyanosis, 2+ pulses and upper and lower extremities. MUSCULOSKELETAL: Muscle strength and tone normal. SPINE: No scoliosis or deformity SKIN: No rashes CENTRAL NERVOUS SYSTEM: Alert and oriented -1. No focal deficits, tone is normal in all 4 extremities. PSYCHIATRIC: Alert and oriented -1. Appropriate affect. Intact judgment and insight. - Labs CBC & Chem 7: 03/02/20 10:04 03/03/20 10:48 Labs: Abnormal Lab Results - Last 24 Hours (Table) 03/02/20 03/02/20 03/03/20 Range/Units 16:54 20:36 06:24 Potassium (3.5-5.1) mmol/L Chloride (98-107) mmol/L Glucose (74-99) mg/dL POC Glucose (mg/dL) 155 H 147 H 132 H (75-99) mg/dL Calcium (8.4-10.2) mg/dL 03/03/20 03/03/20 Range/Units 10:48 11:45 Potassium 3.3 L (3.5-5.1) mmol/L Chloride 110 H (98-107) mmol/L Glucose 145 H (74-99) mg/dL POC Glucose (mg/dL) 161 H (75-99) mg/dL Calcium 7.6 L (8.4-10.2) mg/dL Microbiology - Last 24 Hours (Table) 02/28/20 15:57 Blood Culture - Preliminary Blood No Growth after 72 hours Assessment and Plan Plan: Assessment: #1. Acute hypoxic respiratory failure related to possibility of sepsis related to urinary tract infection #2. 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 CTA chest showed progression of the left lower lobe lung mass with additional new subpleural masses within the lingula, with direct extension into the left hilar and subcarinal region and bilateral hilar adenopathy. Possibility of postobstructive pneumonia is not excluded, Covid 19 PCR was negative #3. Lactic acidosis related to sepsis, improved with IV fluid resuscitation #4. Elevated D-dimer of 19.34, with no evidence of pulmonary embolism on the CT chest #5. Elevated troponin rule out non-ST elevated IN #6. A. fib with RVR currently on Cardizem drip #7. Acute metabolic encephalopathy, acute mental status change related to sepsis #8. History of metastatic lung cancer diagnosed in October 2019 with skeletal metastasis to the spine, was unable to start chemotherapy, patient is currently receiving palliative radiation treatments to the left lung mass as well as lumbar spine #9. Hypercalcemia related to skeletal metastases #10. Elevated liver enzymes possibly related to sepsis, elevated alk phos possibly related to skeletal metastasis #11. Hypertension #12. Hyperlipidemia #13. Hypothyroidism #14. Previous history of smoking in remission for last 30 years #15. History of chronic atrial fibrillation, currently not on anticoagulation in view of recent history of hemoptysis Plan: We'll continue supportive treatment, no acute issues overnight, ultrasound the chest did not show significant fluid for drainage, we'll continue medical treatment, overall patient is quite debilitated, and we are told that oncology has recommended hospice consultation which is appropriate given the patient's multiple medical comorbidities, quite debilitated state, AND advanced malignancy. I performed a history & physical examination of the patient and discussed their management with my nurse practitioner, Anne-Marie Carter. I reviewed the nurse practitioner's note and agree with the documented findings and plan of care. Lung sounds are positive for diminished breath sounds. The findings and the impression was discussed with the patient. I attest to the documentation by the nurse practitioner. Time with Patient: Less than 30
[2020-03-03] MEDS: POTASSIUM CHLORIDE 10 MEQ in WATER FOR INJECTION 1 100ML.BAG IVPB SCH ×4 (14:35→19:57)
--- NOTE | 2020-03-03 14:39 | P.PN ---
Subjective Progress Note Date: 03/03/20 Spoke with and will plan to sign on with hospice this admission - Goal as comfort Objective - Vital Signs Vital signs: Vital Signs Temp 97.6 F 03/03/20 12:32 Pulse 150 H 03/03/20 12:32 Resp 16 03/03/20 12:32 BP 104/63 03/03/20 12:32 Pulse Ox 97 03/03/20 08:40 Intake & Output 03/02/20 03/03/20 03/03/20 18:59 06:59 18:59 Intake Total 235.667 114.333 240.0 Output Total 800 750 Balance -564.333 -635.667 240.0 Intake: Intake, IV Titration 135.667 114.333 190.0 Amount Diltiazem 125 mg In 135.667 114.333 90.0 Sodium Chloride 0.9% 100 ml @ 10 MG/HR 10 mls/hr IV .[id number] [facility] Rx#: [id number] Piperacillin-Tazobactam 3 100 .375 gm In Sodium Chloride 0.9% 100 ml @ 25 mls/hr IVPB Q8HR [facility] Rx# :[id number] Oral 100 50 Output: Urine 800 750 Other: Voiding Method Indwelling Catheter Indwelling Catheter Indwelling Catheter - Exam Gen: Lethargic, does follow some commands inconsistently Head: NC/AT Mucous Membranes: Dry HR: Tachy Lungs: Left Lung with Rhonchi and diminished air exchange - Diffuse wheezing throughout Abdomen: ND, NT Psych: Confused and lethargic Skin: Mild jaundice Strength: Weakness in all extremities - Labs CBC & Chem 7: 03/02/20 10:04 03/03/20 10:48 Labs: Abnormal Lab Results - Last 24 Hours (Table) 03/02/20 03/02/20 03/03/20 Range/Units 16:54 20:36 06:24 Potassium (3.5-5.1) mmol/L Chloride (98-107) mmol/L Glucose (74-99) mg/dL POC Glucose (mg/dL) 155 H 147 H 132 H (75-99) mg/dL Calcium (8.4-10.2) mg/dL 03/03/20 03/03/20 Range/Units 10:48 11:45 Potassium 3.3 L (3.5-5.1) mmol/L Chloride 110 H (98-107) mmol/L Glucose 145 H (74-99) mg/dL POC Glucose (mg/dL) 161 H (75-99) mg/dL Calcium 7.6 L (8.4-10.2) mg/dL Microbiology - Last 24 Hours (Table) 02/28/20 15:57 Blood Culture - Preliminary Blood No Growth after 72 hours Assessment and Plan (1) Squamous cell carcinoma of lung, stage IV Narrative/Plan: - Details of diagnosis reviewed in HPI - Unable to begin systemic treatment secondary to progressive declining status and re-hospitalizations - Imaging from 02/27 - revealing further progression in LLL mass and Increasing moderate Left Pleural Effusion - MRI of the Brain negative for metastatic disease. Although her current performance status is very poor and continues to decline along with the difficulty of keeping her heart rate and rhythm managed. O have called her twice and left message on home number. Patient's overall prognosis is poor with her continued declining status, hospice is appropriate. Current Visit: Yes Status: Acute Code(s): C34.90 - MALIGNANT NEOPLASM OF UNSP PART OF UNSP BRONCHUS OR LUNG SNOMED Code(s): 433539455 (2) Bone metastasis Narrative/Plan: - Evidence of disease at T8 and T12 from initial PET scan - Status Post Zometa on 01/06/20. Calcium is stable. This was due in January but secondary to re-hospitalizations this was not able to be given. Current Visit: Yes Status: Acute Code(s): C79.51 - SECONDARY MALIGNANT NEOPLASM OF BONE SNOMED Code(s): 90501619 (3) Abnormal LFTs (liver function tests) Narrative/Plan: - Unknown Etiology - Likely contributing to increased mental status decline - Repeat Hepatic function today and check coags - Metastatic disease was not initially seen within liver, progression is possible - Risk of aspiration with lactulose, will await repeat labs and other imaging prior Current Visit: Yes Status: Acute Code(s): R94.5 - ABNORMAL RESULTS OF LIVER FUNCTION STUDIES SNOMED Code(s): 234603531 (4) Metabolic encephalopathy Narrative/Plan: - Secondary to above under increasing LFTs - MRI brain repeated this admission neg Current Visit: Yes Status: Acute Code(s): G93.41 - METABOLIC ENCEPHALOPATHY SNOMED Code(s): 79523347 (5) Altered mental status Current Visit: No Status: Acute Code(s): R41.82 - ALTERED MENTAL STATUS, UNSPECIFIED SNOMED Code(s): 015150434 (6) Pleural effusion Narrative/Plan: - Dr. Adams has asked IR to perform thoracensis for therapeutic and diagnostic circumstances - Cytology on pleural fluid from left moderate effusion - Clinical evidence of worsening effusion evident - Thoracentesis was unable to be performed due to lack of pocket per Radiology. Current Visit: Yes Status: Acute Code(s): J90 - PLEURAL EFFUSION, NOT ELSEWHERE CLASSIFIED SNOMED Code(s): 72771074 (7) Declining performance status Current Visit: Yes Status: Acute Code(s): R53.81 - OTHER MALAISE SNOMED Code(s): 902223645814645 (8) Hypokalemia Narrative/Plan: - Supp per protocol and Primary team - Recheck this afternoon and check Magnesium please - Secondary to malnutrition and decreased overall PO intake Current Visit: No Status: Acute Code(s): E87.6 - HYPOKALEMIA SNOMED Code(s ): 03518128 Plan: Discussed with , will plan for hospice admission. would like placement closer to home. Physician attest: I have completed full history and physical and agree with above dictation, dictated as a scribe
[2020-03-03] MEDS ORDERED: DIGOXIN 250 MCG/ML 2 ML AMP IVP ONE (14:50)
[2020-03-03] MEDS: SODIUM CHLORIDE TAB 1 GM TAB PO SCH (15:56)
--- NOTE | 2020-03-03 16:28 | PN ---
PROGRESS NOTE DATE OF SERVICE: 03/03/2020 This is an 80-year-old woman who was admitted with multiple medical problems including multifactor shortness of breath, COPD, CHF acute exacerbation, pneumonia also. The patient also had tachycardia also, multiple consultants are following the patient closely. Pulmonary and Hematology/Oncology are considering possibly comfort measures also. The patient continues to be confused. The patient is currently NO CODE. PAST MEDICAL HISTORY: Reviewed. REVIEW OF SYSTEMS: Could not be taken the patient, the patient is confused. CURRENT MEDICATIONS: Reviewed and include: 1. Tylenol. 2. [place]. 3. DuoNeb. 4. Vitamin C. 5. Symbicort. 6. Vitamin D3. 7. Lanoxin. 8. Cardizem drip not given. 9. Heparin. The rest of the medication doses are reviewed. PHYSICAL EXAM: The patient is conscious, confused. Pulse 150, regular. Blood pressure 105/60, respirations 16, temperature 97.6, pulse ox is 97% on 3 L. HEENT: Conjunctivae normal. NECK: No jugular venous distension. CARDIOVASCULAR SYSTEM: S1, S2, muffled. RESPIRATION: Breath sounds diminished at the bases, bilateral scattered rhonchi. ABDOMEN: Soft, nontender. LEGS: No edema. No swelling. LABS: Sodium 140, potassium 3.8. ASSESSMENT: 1. Shortness of breath, possibly multifactorial with COPD acute exacerbation as well as congestive heart failure exacerbation with acute on chronic systolic dysfunction, ejection fraction 35%-40%. 2. Left lower lobe pneumonia possibly postobstructive or gram-negative with possible sepsis, present on admission. 3. Change in mental status, acute metabolic encephalopathy secondary to sepsis. 4. Atrial fibrillation with fast ventricular rate. 5. Squamous cell carcinoma of the lung, stage IV, with bony metastatic. 6. COVID-19 ruled out. 7. Elevated lactic acid secondary to sepsis, present on admission. 8. Increased AST, ALT, bilirubin secondary to malignancy. 9. Troponin 0.193, indeterminate, rule out acute gvg-EM-dtcqxvo-elevation myocardial infarction. 10.Acute urinary tract infection present on admission. 11.Hyponatremia. 12.Mild coagulopathy. 13.Increased WBC. 14.Hypertension. 15.Hyperlipidemia. 16.Hypothyroidism. 17.History of appendectomy. 18.History of remote history of nicotine dependence. 19.Hypokalemia. 20.NO CODE, NO CPR, NO VENT. RECOMMENDATION: Recommend to continue current medications. Patient is on digoxin. Continue with the bronchodilators. Continue with IV steroids, continue with empiric antibiotics. Closely follow with Pulmonary, and as well as Hematology/Oncology. Cardiology following the patient closely. We will follow the patient closely with Hematology, Oncology regarding the code status. Mirtha Pride is to talk with family regarding the further course of action. Further recommendations to follow. MMODL / IJN: [id number] /
[2020-03-03 20:46] LABS: Glucose,Whole Blood 175 mg/dL (75-99)
[2020-03-03] MEDS: MONTELUKAST 10 MG TAB PO SCH (21:28)
[2020-03-03] MEDS: PANTOPRAZOLE 40 MG TABLET PO SCH (21:28)
--- NOTE | 2020-03-03 23:03 | PN ---
PROGRESS NOTE DATE OF SERVICE: 03/03/2020 REASON FOR FOLLOWUP: Pneumonia. INTERVAL HISTORY: Patient is currently afebrile. Patient is breathing comfortably on nasal cannula oxygen. Denies having chest pain, cough but not bringing up any sputum. No nausea, no vomiting. No abdominal pain. No diarrhea. PHYSICAL EXAMINATION: Blood pressure 107/60, pulse 85, temperature 98.8. General description is an elderly female lying in bed in no distress. Respiratory system: Unlabored breathing, decreased breath sounds in the bases. No wheeze. HEART: S1, S2. Regular rate and rhythm. ABDOMEN: Soft, no tenderness. LABS: BUN of 10, creatinine 0.60. Blood culture negative. Sputum not collected. DIAGNOSTIC IMPRESSION/PLAN: The patient admitted to the hospital with shortness of breath with concern for possible left lower lobe pneumonia somewhat postobstructive. Patient is covered with Zosyn. Try to obtain a sputum to narrow down antibiotics. Continue supportive care. MMODL / IJN: [id number] /
[2020-03-04 06:05] LABS: Glucose,Whole Blood 114 mg/dL (75-99)
[2020-03-04] MEDS: LEVOTHYROXINE 50 MCG TAB PO SCH (06:11)
[2020-03-04] MEDS: methylPREDNISolone SOD SUCCI 125 MG/2 ML VIAL IV SCH ×2 (06:11→11:44)
[2020-03-04] MEDS: INSULIN ASPART (NovoLOG) 100 UNIT/ML VIAL SQ SCH ×4 (06:34→21:05)
[2020-03-04] MEDS: IPRATROPIUM-ALBUTEROL 3 ML NEB INHALATION SCH ×2 (08:49→13:11)
[2020-03-04] MEDS: SYMBICORT 160-4.5 MCG INHALER INHALATION SCH (08:49)
[2020-03-04] MEDS: CHOLECALCIFEROL 1,000 UNIT TAB PO SCH (10:15)
[2020-03-04] MEDS: DIGOXIN 250 MCG/ML 2 ML AMP IVP SCH (10:15)
[2020-03-04] MEDS: ASCORBIC ACID 500 MG TAB PO SCH (10:15)
[2020-03-04] MEDS: ZINC SULFATE 220 MG CAP PO SCH (10:16)
[2020-03-04] MEDS: MEGESTROL 40 MG TAB PO SCH (10:16)
[2020-03-04] MEDS: DILTIAZEM 125 MG in SODIUM CHLORIDE 0.9% 100 ML IV SCH ×2 (10:17→16:34)
[2020-03-04] MEDS: PIPERACILLIN-TAZOBACTAM 3.375 GM in SODIUM CHLORIDE 0.9% 100 ML IVPB SCH ×3 (10:18→23:43)
[2020-03-04] MEDS: FUROSEMIDE 10 MG/ML 2 ML VIAL IV SCH (10:19)
[2020-03-04] MEDS: MULTIVITAMINS, THERA 1 EACH TAB PO SCH (10:19)
[2020-03-04] MEDS: HEPARIN SODIUM,PORCINE 5,000 UNIT/ML 1 ML VIAL SQ SCH ×2 (10:19→21:04)
[2020-03-04 11:12] LABS: Basophils % (A) 0 %; Eosinophils # (A) 0.2 k/uL (0-0.7); Eosinophils % (A) 1 %; HCT 40.2 % (34.0-46.0); HGB 12.9 gm/dL (11.4-16.0); Hypochromasia Slight; Lymphocytes # (A) 0.1 k/uL (1.0-4.8); Lymphocytes % (A) 0 %; MCH 32.6 pg (25.0-35.0); MCHC 32.1 g/dL (31.0-37.0); MCV 101.5 fL (80.0-100.0); Macrocytosis Slight; Mean Platelet Volume 10.1; Monocytes # (A) 0.2 k/uL (0-1.0); Monocytes % (A) 1 %; Neutrophils # (A) 23.8 k/uL (1.3-7.7); Neutrophils % (A) 98 %; Platelet Count 108 k/uL (150-450); RBC 3.96 m/uL (3.80-5.40); RDW 15.9 % (11.5-15.5); WBC 24.4 k/uL (3.8-10.6)
[2020-03-04 11:28] LABS: ALT 79 U/L (4-34); AST 48 U/L (14-36); African American GFR (CKD) >90 (>60 ml/min/1.73 sqM); Albumin 2.4 g/dL (3.5-5.0); Alkaline Phosphatase 125 U/L (38-126); Anion Gap 7 mmol/L; Blood Urea Nitrogen 12 mg/dL (7-17); Calcium 7.5 mg/dL (8.4-10.2); Carbon Dioxide 27 mmol/L (22-30); Chloride 106 mmol/L (98-107); Glucose 155 mg/dL (74-99); Magnesium 1.5 mg/dL (1.6-2.3); Non-African American GFR(CKD) 88 (>60 ml/min/1.73 sqM); Potassium 3.3 mmol/L (3.5-5.1); Sodium 140 mmol/L (137-145); Total Bilirubin 1.2 mg/dL (0.2-1.3); Total Protein 4.8 g/dL (6.3-8.2)
[2020-03-04] MEDS: POTASSIUM CHLORIDE ER 20 MEQ TAB.ER PO SCH ×2 (11:44→12:02)
[2020-03-04 11:56] LABS: Glucose,Whole Blood 143 mg/dL (75-99)
[2020-03-04] MEDS: POTASSIUM CHLORIDE 10 MEQ in WATER FOR INJECTION 1 100ML.BAG IVPB SCH ×6 (12:15→19:06)
--- NOTE | 2020-03-04 13:28 | P.PN ---
Subjective Progress Note Date: 03/04/20 This is a pleasant 80-year-old female patient with past medical history significant for metastatic lung cancer diagnosed in October, paroxysmal atrial fibrillation, hypertension and hyperlipidemia. She is seen and examined this morning resting in bed. She is quite nauseous and vomiting. She overall is feeling "about the same". She is maintained on Cardizem infusion and has also been on digoxin 250 g IV push daily. She has been nothing by mouth due to probable aspiration. Labs this morning showed a dig level of 2.7. It is anticipated the patient will be discharged on hospice. Objective - Vital Signs Vital signs: Vital Signs Temp 97.6 F 03/04/20 09:00 Pulse 88 03/04/20 13:22 Resp 16 03/04/20 09:00 BP 109/56 03/04/20 09:00 Pulse Ox 100 03/04/20 09:00 Intake & Output 03/03/20 03/04/20 03/04/20 18:59 06:59 18:59 Intake Total 615.0 125 242 Output Total 600 575 575 Balance 15.0 -450 -333 Weight 53 kg Intake: IV 20 Invasive Line 4 10 Invasive Line 5 10 Intake, IV Titration 225.0 125 Amount Diltiazem 125 mg In 125.0 125 Sodium Chloride 0.9% 100 ml @ 10 MG/HR 10 mls/hr IV .[id number] [facility] Rx#: [id number] Piperacillin-Tazobactam 3 100 .375 gm In Sodium Chloride 0.9% 100 ml @ 25 mls/hr IVPB Q8HR [facility] Rx# :[id number] Oral 390 222 Output: Urine 600 575 575 Other: Voiding Method Indwelling Catheter Indwelling Catheter Indwelling Catheter # Bowel Movements 1 1 - Exam PHYSICAL EXAMINATION: HEENT: Head is atraumatic, normocephalic. Pupils equal, round. Neck is supple. There is no elevated jugular venous pressure. HEART EXAMINATION: Heart sounds irregular irregular, S1 and S2 with a systolic ejection murmur. CHEST EXAMINATION: Lungs reveal coarse crackles. No chest wall tenderness is noted on palpation or with deep breathing. ABDOMEN: Soft, nontender. Bowel sounds are heard. No organomegaly noted. EXTREMITIES: 2+ peripheral pulses with no evidence of peripheral edema and no calf tenderness noted. NEUROLOGIC patient is awake, alert and oriented x3. . - Labs CBC & Chem 7: 03/04/20 10:39 03/04/20 10:39 Labs: Abnormal Lab Results - Last 24 Hours (Table) 03/03/20 03/04/20 03/04/20 Range/Units 20:45 06:03 07:34 WBC (3.8-10.6) k/uL MCV (80.0-100.0) fL RDW (11.5-15.5) % Plt Count (150-450) k/uL Neutrophils # (1.3-7.7) k/uL Lymphocytes # (1.0-4.8) k/uL Potassium (3.5-5.1) mmol/L Glucose (74-99) mg/dL POC Glucose (mg/dL) 175 H 114 H (75-99) mg/dL Calcium (8.4-10.2) mg/dL Magnesium (1.6-2.3) mg/dL AST (14-36) U/L ALT (4-34) U/L Total Protein (6.3-8.2) g/dL Albumin (3.5-5.0) g/dL Digoxin 2.7 H* ng/mL 03/04/20 03/04/20 03/04/20 Range/Units 10:39 10:39 11:48 WBC 24.4 H (3.8-10.6) k/uL MCV 101.5 H (80.0-100.0) fL RDW 15.9 H (11.5-15.5) % Plt Count 108 L (150-450) k/uL Neutrophils # 23.8 H (1.3-7.7) k/uL Lymphocytes # 0.1 L (1.0-4.8) k/uL Potassium 3.3 L (3.5-5.1) mmol/L Glucose 155 H (74-99) mg/dL POC Glucose (mg/dL) 143 H (75-99) mg/dL Calcium 7.5 L (8.4-10.2) mg/dL Magnesium 1.5 L (1.6-2.3) mg/dL AST 48 H (14-36) U/L ALT 79 H (4-34) U/L Total Protein 4.8 L (6.3-8.2) g/dL Albumin 2.4 L (3.5-5.0) g/dL Digoxin ng/mL Microbiology - Last 24 Hours (Table) 02/28/20 15:57 Blood Culture - Preliminary Blood No Growth after 96 hours Assessment and Plan Assessment: #1 acute systolic heart failure #2 hypokalemia #3 paroxysmal atrial fibrillation with rapid ventricular response, currently controlled with Cardizem and digoxin #4 digoxin toxicity #5 acute hypoxic respiratory failure 6 increasing left lower lobe pulmonary mass #7 lactic acidosis #8 probable aspiration Plan: From cardiology's perspective since he Cardizem IV for rate control. We will stop digoxin. We will continue to follow the patient provide further recommendations accordingly. The above dictated assessment and findings were discussed with signing physician. The impression and plan of care have been directed as dictated. Cathi Connors, Nurse Practitioner, acting as scribe for signing physician.
[2020-03-04] MEDS: SODIUM CHLORIDE TAB 1 GM TAB PO SCH (14:07)
--- NOTE | 2020-03-04 14:14 | PN ---
PROGRESS NOTE 80-year-old female admitted back on February 27. 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 The patient apparently is considering hospice on Friday. More recent CT scan show progression of her left lower lobe mass, as well as extension into the left hilum and subcarinal region. There is also possibility of postobstructive pneumonia. COVID testing was negative. In addition, she has a history of hypertension, hyperlipidemia, hypothyroidism, elevated liver enzymes, hypercalcemia, and atrial fibrillation with RVR, among other things. Currently, the patient is resting comfortably. She is very frail. She appears to be very weak. PHYSICAL EXAMINATION: VITAL SIGNS: Currently, temperature 97.6. Heart rate 86. Respiratory rate 16, blood pressure 109/56 mean 73. 3 L saturation is 100%. GENERAL: She appears in no acute distress. HEENT: Examination is grossly unremarkable. Nasal O2 in place. NECK: Supple. Full range of motion. No adenopathy. Neck veins are flat. CARDIOVASCULAR: Examination reveals regular rhythm and rate. Heart rate about mid 80s. S1, S2 normal. Heart sounds are distant. No murmur. LUNGS: Reveal diminished breath sounds throughout. There is some rhonchi in the left lung. No wheezes. No crackles. Breath sounds are definitely diminished on the left side. ABDOMEN: Soft. Bowel sounds are heard. EXTREMITIES are intact. No cyanosis, clubbing, or edema. SKIN: Without rash. NEUROLOGIC: Examination is nonfocal. LABS: Reviewed. White count 24.4, hemoglobin 12.9, hematocrit 40.2. Platelet count 108,000. Sodium 140, potassium 3.3, chloride 106. CO2 27. Anion gap is 7. BUN and creatinine were 12 and 0.54, calcium 7.5, magnesium 1.5, bilirubin 1.2, albumin 2.4. AST and ALT were 48 and 79 respectively. Microbiology is currently negative. No recent chest x-ray. The x-ray from March 03 shows moderate-sized left pleural effusion and left basilar infiltrate and right costophrenic angle infiltrate or atelectasis. CURRENT MEDICATIONS: Reviewed. She is on a number of medications including Tylenol, vitamin C, Symbicort, Cardizem, vitamin D3, Lasix, heparin, hydrocodone/Tylenol, insulin, DuoNeb, levothyroxine, Megace, Solu-Medrol, Singulair, multivitamins, Protonix, potassium replacement and zinc. ASSESSMENT: 1. Acute hypoxemic respiratory failure, likely related to underlying lung cancer, which is squamous cell carcinoma, poorly differentiated, with skeletal metastasis, and significant progression including direct extension into the left hilum, subcarinal region, and bilateral hilar adenopathy. In addition, postobstructive pneumonia is suspected. 2. Rule out acute sepsis secondary to urinary tract infection. 3. Lactic acidosis, resolved. 4. No evidence of PE on CT angiogram. 5. Atrial fibrillation with rapid ventricular response, currently on Cardizem drip. 6. Acute metabolic encephalopathy. 7. History of metastatic lung cancer. 8. Hypercalcemia, related to skeletal metastasis. 9. Hypertension by history. 10.Hyperlipidemia by history. 11.Hypothyroidism. 12.Previous history of tobacco use. 13.History of chronic atrial fibrillation. PLAN: Apparently, the patient may go hospice on Friday. Would encourage limiting blood draws and also discontinuing any unnecessary medications. For my part, I will go through and discontinue any pulmonary medications which are unnecessary. No additional recommendations are made. Focus should be mostly on palliation and comfort. MMODL / IJN: [id number] /
[2020-03-04 16:50] LABS: Glucose,Whole Blood 124 mg/dL (75-99)
[2020-03-04] MEDS ORDERED: Magnesium Replacement Protocol 1 EACH MISC MISCELLANE PRN (17:46)
[2020-03-04 20:09] LABS: Glucose,Whole Blood 115 mg/dL (75-99)
[2020-03-04] MEDS: MAGNESIUM SULFATE-D5W PMX 1 GM in DEXTROSE/WATER 1 100ML.BAG IVPB SCH ×2 (21:05→22:18)
[2020-03-04] MEDS: PANTOPRAZOLE 40 MG TABLET PO SCH (21:05)
--- NOTE | 2020-03-04 23:02 | PN ---
PROGRESS NOTE DATE OF SERVICE: 03/04/2020 REASON FOR FOLLOW UP: Postobstructive pneumonia. INTERVAL HISTORY: Patient is currently afebrile. The patient is breathing more comfortably. Denies any chest pain. She did have a cough, not bringing up any sputum. No abdominal pain no diarrhea. EXAMINATION: Blood pressure is 112/80 with a pulse of 90, temperature 97.6. She is 99% on 2 L nasal cannula. General description is an elderly female up in the bed in no distress. Respiratory system: Unlabored breathing, decreased breath sounds. No wheeze. HEART: S1, S2. Regular rate and rhythm. LABORATORY DATA: White count 12.1, 24.4, BUN of 12, creatinine 0.54. Blood culture has been negative. No sputum collected. DIAGNOSTIC IMPRESSION AND PLAN: Patient with underlying lung cancer and concern for possible postobstructive pneumonia and elevated white count more likely related to steroids, has been discontinued. The patient is covered with Zosyn to continue and monitor clinical course closely. MMODL / IJN: [id number] /
[2020-03-05 06:17] LABS: Glucose,Whole Blood 120 mg/dL (75-99)
[2020-03-05] MEDS: LEVOTHYROXINE 50 MCG TAB PO SCH (06:19)
[2020-03-05] MEDS: INSULIN ASPART (NovoLOG) 100 UNIT/ML VIAL SQ SCH ×4 (06:20→20:56)
[2020-03-05] MEDS: DILTIAZEM 125 MG in SODIUM CHLORIDE 0.9% 100 ML IV SCH ×2 (06:35→21:30)
[2020-03-05] MEDS: PIPERACILLIN-TAZOBACTAM 3.375 GM in SODIUM CHLORIDE 0.9% 100 ML IVPB SCH ×3 (09:08→23:17)
[2020-03-05] MEDS: MEGESTROL 40 MG TAB PO SCH (09:08)
[2020-03-05] MEDS: HEPARIN SODIUM,PORCINE 5,000 UNIT/ML 1 ML VIAL SQ SCH ×2 (09:08→20:56)
[2020-03-05] MEDS: FUROSEMIDE 10 MG/ML 2 ML VIAL IV SCH (09:08)
[2020-03-05 09:13] LABS: Basophils % (A) 0 %; Eosinophils # (A) 0.3 k/uL (0-0.7); Eosinophils % (A) 1 %; HCT 40.6 % (34.0-46.0); HGB 13.2 gm/dL (11.4-16.0); Hypochromasia Slight; Lymphocytes # (A) 0.1 k/uL (1.0-4.8); Lymphocytes % (A) 0 %; MCH 32.8 pg (25.0-35.0); MCHC 32.5 g/dL (31.0-37.0); Macrocytosis Slight; Mean Platelet Volume 10.1; Monocytes # (A) 0.2 k/uL (0-1.0); Monocytes % (A) 1 %; Neutrophils # (A) 24.3 k/uL (1.3-7.7); Neutrophils % (A) 97 %; Platelet Count 100 k/uL (150-450); RBC 4.01 m/uL (3.80-5.40); RDW 15.8 % (11.5-15.5)
[2020-03-05 09:18] VITALS: BMI 17.9
[2020-03-05 09:33] LABS: ALT 69 U/L (4-34); African American GFR (CKD) >90 (>60 ml/min/1.73 sqM); Albumin 2.4 g/dL (3.5-5.0); Anion Gap 3 mmol/L; Blood Urea Nitrogen 9 mg/dL (7-17); Calcium 7.1 mg/dL (8.4-10.2); Carbon Dioxide 25 mmol/L (22-30); Chloride 110 mmol/L (98-107); Glucose 144 mg/dL (74-99); Non-African American GFR(CKD) >90 (>60 ml/min/1.73 sqM); Sodium 138 mmol/L (137-145); Total Bilirubin 1.2 mg/dL (0.2-1.3); Total Protein 4.8 g/dL (6.3-8.2)
[2020-03-05 09:34] LABS: AST 47 U/L (14-36); Alkaline Phosphatase 124 U/L (38-126); Magnesium 2.2 mg/dL (1.6-2.3); Potassium 4.6 mmol/L (3.5-5.1)
--- NOTE | 2020-03-05 10:52 | CDI ---
Documentation Clarification Form Date: 03/06/2020 10:49:38 AM From: Cait Saul RN, CCDS Admit Date: 02/28/2020 04:26:00 PM Patient Name: Kerline Harrington Visit Number: [id number] ATTENTION: The Clinical Documentation Specialists (CDI) and [facility] Coding Staff appreciate your assistance in clarifying documentation. Please respond to the clarification below the line at the bottom and electronically sign. The CDI & [facility] Coding staff will review the response and follow-up if needed. Please note: Queries are made part of the Legal Health Record. If you have any questions, please contact the author of this message via ITS. Dr. Mays Malnutrition has been documented in the Oncology Consult and progress notes and requires further specificity. 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 appears underweight, no documentation of weight loss Treatment: Dietary Consult: 03/05 completed Supplements: none ordered as hospice is consulted Lab monitoring: AM daily In your professional opinion, can you please clarify if these findings signify one of the following conditions? Mild Protein-Calorie Malnutrition Moderate Protein-Calorie Malnutrition Severe Protein-Calorie Malnutrition Other condition, please specify Unable to determine (Last Revision: September 2018) MTDD
--- NOTE | 2020-03-05 11:29 | P.PN ---
Subjective Progress Note Date: 03/05/20 This is a pleasant 80-year-old female patient with past medical history significant for metastatic lung cancer diagnosed in October, paroxysmal atrial fibrillation, hypertension and hyperlipidemia. She is seen and examined this morning resting in bed. She is quite nauseous and vomiting. She overall is feeling "about the same". She is maintained on Cardizem infusion and has also been on digoxin 250 g IV push daily. She has been nothing by mouth due to probable aspiration. Labs this morning showed a dig level of 2.7. It is anticipated the patient will be discharged on hospice. 03/05/2020 Patient appears to be much more comfortable today. She currently denies any complaints of nausea or vomiting. She is resting comfortably in bed and denies any chest discomfort, palpitations, dizziness or lightheadedness. Her is at her bedside. She continues on IV Lasix, Cardizem drip at 10 mg an hour. She remains nothing by mouth. Over 20 values were reviewed and show a white blo od cell count of 25,000, potassium 4.6, BUN 9 and creatinine 0.9. Signs are stable and her heart rate is reasonably well controlled on Cardizem drip. We continued anticipate the patient will be discharged home on hospice. Objective - Vital Signs Vital signs: Vital Signs Temp 97.8 F 03/05/20 08:51 Pulse 96 03/05/20 08:51 Resp 16 03/05/20 08:51 BP 112/61 03/05/20 08:51 Pulse Ox 98 03/05/20 08:51 Intake & Output 03/04/20 03/05/20 03/05/20 18:59 06:59 18:59 Intake Total 1249.833 465 20 Output Total 575 400 Balance 674.833 65 20 Weight 43 kg 43 kg Intake: IV 840 140 20 Invasive Line 4 20 20 10 Invasive Line 5 20 20 10 Piperacillin-Tazobactam 3 200 .375 gm In Sodium Chloride 0.9% 100 ml @ 25 mls/hr IVPB Q8HR [facility] Rx# :[id number] Potassium Chloride 10 meq 600 100 In Water For Injection 1 100ml.bag @ 100 mls/hr IVPB Q1H [facility] Rx#: [id number] Intake, IV Titration 187.833 325 Amount Diltiazem 125 mg In 187.833 125 Sodium Chloride 0.9% 100 ml @ 10 MG/HR 10 mls/hr IV .[id number] [facility] Rx#: [id number] Magnesium Sulfate-D5w Pmx 200 1 gm In Dextrose/Water 1 100ml.bag @ 100 mls/hr IVPB Q[facility]H [facility] Rx#: [id number] Oral 222 Output: Urine 575 400 Other: Voiding Method Indwelling Catheter Indwelling Catheter Indwelling Catheter # Bowel Movements 1 - Exam PHYSICAL EXAMINATION: HEENT: Head is atraumatic, normocephalic. Pupils equal, round. Neck is supple. There is no elevated jugular venous pressure. HEART EXAMINATION: Heart sounds irregular irregular, S1 and S2 with a systolic ejection murmur. CHEST EXAMINATION: Lungs reveal coarse crackles. No chest wall tenderness is noted on palpation or with deep breathing. ABDOMEN: Soft, nontender. Bowel sounds are heard. No organomegaly noted. EXTREMITIES: 2+ peripheral pulses with no evidence of peripheral edema and no calf tenderness noted. NEUROLOGIC patient is awake, alert and oriented x3. - Labs CBC & Chem 7: 03/05/20 08:55 03/05/20 08:55 Labs: Abnormal Lab Results - Last 24 Hours (Table) 03/04/20 03/04/20 03/04/20 Range/Units 10:39 11:48 16:47 WBC (3.8-10.6) k/uL MCV (80.0-100.0) fL RDW (11.5-15.5) % Plt Count (150-450) k/uL Neutrophils # (1.3-7.7) k/uL Lymphocytes # (1.0-4.8) k/uL Potassium 3.3 L (3.5-5.1) mmol/L Chloride (98-107) mmol/L Creatinine (0.52-1.04) mg/dL Glucose 155 H (74-99) mg/dL POC Glucose (mg/dL) 143 H 124 H (75-99) mg/dL Calcium 7.5 L (8.4-10.2) mg/dL Magnesium 1.5 L (1.6-2.3) mg/dL AST 48 H (14-36) U/L ALT 79 H (4-34) U/L Total Protein 4.8 L (6.3-8.2) g/dL Albumin 2.4 L (3.5-5.0) g/dL 03/04/20 03/05/20 03/05/20 Range/Units 20:07 06:16 08:55 WBC 25.0 H (3.8-10.6) k/uL MCV 101.0 H (80.0-100.0) fL RDW 15.8 H (11.5-15.5) % Plt Count 100 L (150-450) k/uL Neutrophils # 24.3 H (1.3-7.7) k/uL Lymphocytes # 0.1 L (1.0-4.8) k/uL Potassium (3.5-5.1) mmol/L Chloride (98-107) mmol/L Creatinine (0.52-1.04) mg/dL Glucose (74-99) mg/dL POC Glucose (mg/dL) 115 H 120 H (75-99) mg/dL Calcium (8.4-10.2) mg/dL Magnesium (1.6-2.3) mg/dL AST (14-36) U/L ALT (4-34) U/L Total Protein (6.3-8.2) g/dL Albumin (3.5-5.0) g/dL 03/05/20 Range/Units 08:55 WBC (3.8-10.6) k/uL MCV (80.0-100.0) fL RDW (11.5-15.5) % Plt Count (150-450) k/uL Neutrophils # (1.3-7.7) k/uL Lymphocytes # (1.0-4.8) k/uL Potassium (3.5-5.1) mmol/L Chloride 110 H (98-107) mmol/L Creatinine 0.40 L (0.52-1.04) mg/dL Glucose 144 H (74-99) mg/dL POC Glucose (mg/dL) (75-99) mg/dL Calcium 7.1 L (8.4-10.2) mg/dL Magnesium (1.6-2.3) mg/dL AST 47 H (14-36) U/L ALT 69 H (4-34) U/L Total Protein 4.8 L (6.3-8.2) g/dL Albumin 2.4 L (3.5-5.0) g/dL Microbiology - Last 24 Hours (Table) 02/28/20 15:57 Blood Culture - Preliminary Blood No Growth after 120 hours Assessment and Plan Assessment: #1 acute systolic heart failure #2 hypokalemia #3 paroxysmal atrial fibrillation with rapid ventricular response, currently controlled with Cardizem #4 digoxin toxicity, digoxin has been discontinued #5 acute hypoxic respiratory failure 6 increasing left lower lobe pulmonary mass #7 lactic acidosis #8 probable aspiration Plan: From cardiology's perspective since the patient continues to be nothing by mouth we will continue Cardizem IV for rate control. We will continue to follow the patient provide further recommendations accordingly. The above dictated assessment and findings were discussed with signing physician. The impression and plan of care have been directed as dictated. Cathi Connors, Nurse Practitioner, acting as scribe for signing physician.
[2020-03-05 11:56] LABS: Glucose,Whole Blood 130 mg/dL (75-99)
[2020-03-05] MEDS: SODIUM CHLORIDE TAB 1 GM TAB PO SCH (15:42)
[2020-03-05 17:12] LABS: Glucose,Whole Blood 117 mg/dL (75-99)
[2020-03-05 20:07] LABS: Glucose,Whole Blood 152 mg/dL (75-99)
--- NOTE | 2020-03-05 20:54 | PN ---
PROGRESS NOTE DATE OF SERVICE: 03/05/2020 REASON FOR FOLLOWUP: Postobstructive pneumonia. INTERVAL HISTORY: Patient is currently afebrile. She is breathing comfortably on room air. No chest pain or shortness of breath. Minimal cough. No abdominal pain. No diarrhea. ( ) poor per the family. PHYSICAL EXAMINATION: Blood pressure 106/62 with a pulse of 81, temperature 98.6. She is 93% on room air. General description is an elderly female lying in bed in no distress. Respiratory system: Unlabored breathing, decreased breath sounds in the base, with no wheeze. Heart S1, S2. Regular rate and rhythm. Abdomen soft, no tenderness. LABS: Hemoglobin 13.1, white count 25, BUN of 9, creatinine 0.40. DIAGNOSTIC IMPRESSION AND PLAN: Patient with underlying lung cancer and a component of possible acute pneumonia. Patient is covered with Zosyn. White count slightly worse. However, possible plan for hospice tomorrow. Hence, will hold on adding any further treatment or investigation at this point. Continue supportive care. MMODL / IJN: [id number] /
[2020-03-05] MEDS: PANTOPRAZOLE 40 MG TABLET PO SCH (21:08)
--- NOTE | 2020-03-05 23:40 | P.PN ---
Subjective Progress Note Date: 03/04/20 Principal diagnosis: Shortness of breath which is multifactorial due to COPD exacerbation, CHF exacerbation. Patient is a 80-year-old female was admitted with multiple medical problems including shortness of breath which is multifactorial secondary to COPD, CHF exacerbation and pneumonia. Patient otherwise continues to be confused and currently DNR/DNI.Patient does have history of metastatic lung cancer diagnosed in October, paroxysmal atrial fibrillation, hypertension, hyperlipidemia. 03/04/2020 Patient is currently resting in the bed comfortably. Patient did have nausea and episodes of vomiting. Currently maintained on Cardizem drip and also on digoxin IV push daily. Patient is nothing by mouth due to aspiration. Family is considering discharge to hospice care on Friday. Current medications reviewed. Objective - Vital Signs Vital signs: Vital Signs Temp 97.7 F 03/04/20 16:45 Pulse 115 H 03/04/20 16:45 Resp 16 03/04/20 16:45 BP 95/52 03/04/20 16:45 Pulse Ox 100 03/04/20 16:45 Intake & Output 03/03/20 03/04/20 03/04/20 18:59 06:59 18:59 Intake Total 615.0 449.833 Output Total 600 575 575 Balance 15.0 -575 -125.167 Weight 53 kg Intake: IV 40 Invasive Line 4 20 Invasive Line 5 20 Intake, IV Titration 225.0 187.833 Amount Diltiazem 125 mg In 125.0 187.833 Sodium Chloride 0.9% 100 ml @ 10 MG/HR 10 mls/hr IV .[id number] [facility] Rx#: [id number] Piperacillin-Tazobactam 3 100 .375 gm In Sodium Chloride 0.9% 100 ml @ 25 mls/hr IVPB Q8HR [facility] Rx# :[id number] Oral 390 222 Output: Urine 600 575 575 Other: Voiding Method Indwelling Catheter Indwelling Catheter Indwelling Catheter # Bowel Movements 1 1 - Exam PHYSICAL EXAMINATION: HEENT: Head is atraumatic, normocephalic. Pupils equal, round. Neck is supple. There is no elevated jugular venous pressure. HEART EXAMINATION: Heart sounds irregular irregular, S1 and S2 with a systolic ejection murmur. CHEST EXAMINATION: Lungs reveal coarse crackles. No chest wall tenderness is noted on palpation or with deep breathing. ABDOMEN: Soft, nontender. Bowel sounds are heard. No organomegaly noted. EXTREMITIES: 2+ peripheral pulses with no evidence of peripheral edema and no calf tenderness noted. NEUROLOGIC patient is awake, alert and oriented x1. - Labs CBC & Chem 7: 03/05/20 08:55 03/05/20 08:55 Labs: Abnormal Lab Results - Last 24 Hours (Table) 03/03/20 03/04/20 03/04/20 Range/Units 20:45 06:03 07:34 WBC (3.8-10.6) k/uL MCV (80.0-100.0) fL RDW (11.5-15.5) % Plt Count (150-450) k/uL Neutrophils # (1.3-7.7) k/uL Lymphocytes # (1.0-4.8) k/uL Potassium (3.5-5.1) mmol/L Glucose (74-99) mg/dL POC Glucose (mg/dL) 175 H 114 H (75-99) mg/dL Calcium (8.4-10.2) mg/dL Magnesium (1.6-2.3) mg/dL AST (14-36) U/L ALT (4-34) U/L Total Protein (6.3-8.2) g/dL Albumin (3.5-5.0) g/dL Digoxin 2.7 H* ng/mL 03/04/20 03/04/20 03/04/20 Range/Units 10:39 10:39 11:48 WBC 24.4 H (3.8-10.6) k/uL MCV 101.5 H (80.0-100.0) fL RDW 15.9 H (11.5-15.5) % Plt Count 108 L (150-450) k/uL Neutrophils # 23.8 H (1.3-7.7) k/uL Lymphocytes # 0.1 L (1.0-4.8) k/uL Potassium 3.3 L (3.5-5.1) mmol/L Glucose 155 H (74-99) mg/dL POC Glucose (mg/dL) 143 H (75-99) mg/dL Calcium 7.5 L (8.4-10.2) mg/dL Magnesium 1.5 L (1.6-2.3) mg/dL AST 48 H (14-36) U/L ALT 79 H (4-34) U/L Total Protein 4.8 L (6.3-8.2) g/dL Albumin 2.4 L (3.5-5.0) g/dL Digoxin ng/mL 03/04/20 Range/Units 16:47 WBC (3.8-10.6) k/uL MCV (80.0-100.0) fL RDW (11.5-15.5) % Plt Count (150-450) k/uL Neutrophils # (1.3-7.7) k/uL Lymphocytes # (1.0-4.8) k/uL Potassium (3.5-5.1) mmol/L Glucose (74-99) mg/dL POC Glucose (mg/dL) 124 H (75-99) mg/dL Calcium (8.4-10.2) mg/dL Magnesium (1.6-2.3) mg/dL AST (14-36) U/L ALT (4-34) U/L Total Protein (6.3-8.2) g/dL Albumin (3.5-5.0) g/dL Digoxin ng/mL Microbiology - Last 24 Hours (Table) 02/28/20 15:57 Blood Culture - Preliminary Blood No Growth after 96 hours Assessment and Plan Assessment: Shortness of breath which is multifactorial due to COPD exacerbation, CHF exacerbation. Acute on chronic CHF systolic function is intact 35 to 40% Atrial fibrillation with rapid regular rate. Paroxysmal. Left lower lobe pneumonia possible postobstructive or gram-negative with possible sepsis present on admission. 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 COVID-19 ruled out Elevated lactic acid secondary to sepsis present on admission Increase AST ALT bilirubin secondary to malignancy Elevated troponin level intermittent level rule out acute non-ST right ND Acute urinary tract infection present on admission Hyponatremia Mild coagulopathy Hypertension Hyperlipidemia Hypothyroidism Remote history decubitus Currently CODE STATUS is DNR/DNI Plan: Patient will be continued on Cardizem drip and also on digoxin. Cardiology and pulmonary and ID is on board. Patient is being continued on antibiotics in the form of Zosyn. Prognosis poor due to multiple problems and comorbid conditions. Family is considering hospice transfer. Time with Patient: Greater than 30
--- NOTE | 2020-03-05 23:42 | P.PN ---
Subjective Progress Note Date: 03/05/20 Principal diagnosis: Shortness of breath which is multifactorial due to COPD exacerbation, CHF exacerbation. Patient is a 80-year-old female was admitted with multiple medical problems including shortness of breath which is multifactorial secondary to COPD, CHF exacerbation and pneumonia. Patient otherwise continues to be confused and currently DNR/DNI.Patient does have history of metastatic lung cancer diagnosed in October, paroxysmal atrial fibrillation, hypertension, hyperlipidemia. 03/04/2020 Patient is currently resting in the bed comfortably. Patient did have nausea and episodes of vomiting. Currently maintained on Cardizem drip and also on digoxin IV push daily. Patient is nothing by mouth due to aspiration. Family is considering discharge to hospice care on Friday. 03/05/2020 Patient is currently resting in the bed comfortably. No complaints of nausea or vomiting today. Denies any dizziness or lightheadedness. Currently being continued on Cardizem drip and also IV Lasix. Patient is nothing by mouth. Laboratory data showed WBC 25.0, hemoglobin 13.1 platelets 100 BUN 19 creatinine 0.4 prognosis guarded due to multiple medical problems and underlying comorbid conditions. Patient is unable to provide any history at this time. Anticipate discharge to hospice care in the next 24 to 48 hours. Discussed with family at bedside in detail. Current medications reviewed. Objective - Vital Signs Vital signs: Vital Signs Temp 98.6 F 03/05/20 15:20 Pulse 81 03/05/20 15:20 Resp 16 03/05/20 15:20 BP 106/62 03/05/20 15:20 Pulse Ox 93 L 03/05/20 15:20 Intake & Output 03/04/20 03/05/20 03/05/20 18:59 06:59 18:59 Intake Total 1249.833 465 440 Output Total 575 400 Balance 674.833 65 440 Weight 43 kg 43 kg Intake: IV 840 140 140 Invasive Line 4 20 20 20 Invasive Line 5 20 20 20 Piperacillin-Tazobactam 3 200 100 .375 gm In Sodium Chloride 0.9% 100 ml @ 25 mls/hr IVPB Q8HR [facility] Rx# :[id number] Potassium Chloride 10 meq 600 100 In Water For Injection 1 100ml.bag @ 100 mls/hr IVPB Q1H [facility] Rx#: [id number] Intake, IV Titration 187.833 325 Amount Diltiazem 125 mg In 187.833 125 Sodium Chloride 0.9% 100 ml @ 10 MG/HR 10 mls/hr IV .[id number] [facility] Rx#: [id number] Magnesium Sulfate-D5w Pmx 200 1 gm In Dextrose/Water 1 100ml.bag @ 100 mls/hr IVPB Q1H [facility] Rx#: [id number] Oral 222 300 Output: Urine 575 400 Other: Voiding Method Indwelling Catheter Indwelling Catheter Indwelling Catheter # Bowel Movements 1 - Exam PHYSICAL EXAMINATION: HEENT: Head is atraumatic, normocephalic. Pupils equal, round. Neck is supple. There is no elevated jugular venous pressure. HEART EXAMINATION: Heart sounds irregular irregular, S1 and S2 with a systolic ejection murmur. CHEST EXAMINATION: Lungs reveal coarse crackles. No chest wall tenderness is noted on palpation or with deep breathing. ABDOMEN: Soft, nontender. Bowel sounds are heard. No organomegaly noted. EXTREMITIES: 2+ peripheral pulses with no evidence of peripheral edema and no calf tenderness noted. NEUROLOGIC patient is awake, alert and oriented x1. - Labs CBC & Chem 7: 03/05/20 08:55 03/05/20 08:55 Labs: Abnormal Lab Results - Last 24 Hours (Table) 03/04/20 03/05/20 03/05/20 Range/Units 20:07 06:16 08:55 WBC 25.0 H (3.8-10.6) k/uL MCV 101.0 H (80.0-100.0) fL RDW 15.8 H (11.5-15.5) % Plt Count 100 L (150-450) k/uL Neutrophils # 24.3 H (1.3-7.7) k/uL Lymphocytes # 0.1 L (1.0-4.8) k/uL Chloride (98-107) mmol/L Creatinine (0.52-1.04) mg/dL Glucose (74-99) mg/dL POC Glucose (mg/dL) 115 H 120 H (75-99) mg/dL Calcium (8.4-10.2) mg/dL AST (14-36) U/L ALT (4-34) U/L Total Protein (6.3-8.2) g/dL Albumin (3.5-5.0) g/dL 12/09/1703/05/20 03/05/20 Range/Units 08:55 11:37 17:01 WBC (3.8-10.6) k/uL MCV (80.0-100.0) fL RDW (11.5-15.5) % Plt Count (150-450) k/uL Neutrophils # (1.3-7.7) k/uL Lymphocytes # (1.0-4.8) k/uL Chloride 110 H (98-107) mmol/L Creatinine 0.40 L (0.52-1.04) mg/dL Glucose 144 H (74-99) mg/dL POC Glucose (mg/dL) 130 H 117 H (75-99) mg/dL Calcium 7.1 L (8.4-10.2) mg/dL AST 47 H (14-36) U/L ALT 69 H (4-34) U/L Total Protein 4.8 L (6.3-8.2) g/dL Albumin 2.4 L (3.5-5.0) g/dL Microbiology - Last 24 Hours (Table) 02/28/20 15:57 Blood Culture - Preliminary Blood No Growth after 120 hours Assessment and Plan Assessment: Shortness of breath which is multifactorial due to COPD exacerbation, CHF exacerbation. Acute on chronic CHF systolic function is intact 35 to 40% Atrial fibrillation with rapid regular rate. Paroxysmal. Left lower lobe pneumonia possible postobstructive or gram-negative with possible sepsis present on admission. 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 COVID-19 ruled out Elevated lactic acid secondary to sepsis present on admission Increase AST ALT bilirubin secondary to malignancy Elevated troponin level intermittent level rule out acute non-ST right ND Acute urinary tract infection present on admission Hyponatremia Mild coagulopathy Hypertension Hyperlipidemia Hypothyroidism Remote history decubitus Currently CODE STATUS is DNR/DNI Plan: Patient will be continued on Cardizem drip and also on iv lasix. Cardiology and pulmonary and ID is on board. Patient is being continued on antibiotics in the form of Zosyn. Prognosis poor due to multiple problems and comorbid conditions. Family is considering hospice transfer. Time with Patient: Greater than 30
[2020-03-06 06:15] LABS: Glucose,Whole Blood 137 mg/dL (75-99)
[2020-03-06] MEDS: INSULIN ASPART (NovoLOG) 100 UNIT/ML VIAL SQ SCH ×2 (06:25→12:09)
[2020-03-06] MEDS: LEVOTHYROXINE 50 MCG TAB PO SCH (06:27)
[2020-03-06] MEDS: MEGESTROL 40 MG TAB PO SCH (08:09)
[2020-03-06] MEDS: PIPERACILLIN-TAZOBACTAM 3.375 GM in SODIUM CHLORIDE 0.9% 100 ML IVPB SCH (08:22)
[2020-03-06] MEDS: FUROSEMIDE 10 MG/ML 2 ML VIAL IV SCH (08:23)
[2020-03-06] MEDS: HEPARIN SODIUM,PORCINE 5,000 UNIT/ML 1 ML VIAL SQ SCH (08:23)
[2020-03-06] MEDS: DILTIAZEM 125 MG in SODIUM CHLORIDE 0.9% 100 ML IV SCH (08:23)
[2020-03-06 08:44] VITALS: RESP 18
[2020-03-06 11:29] LABS: Glucose,Whole Blood 103 mg/dL (75-99)
--- NOTE | 2020-03-06 13:31 | P.DS ---
Providers Date of admission: 02/28/20 16:26 Expected date of discharge: 03/06/20 Attending physician: Adolfo Petty Consults: 02/28/20 16:24 Consult Physician Urgent Consulting Provider: Imtiaz Lee Consult Reason/Comments: Shortness of breath Do you want consulting provider notified?: Yes 02/28/20 16:25 Consult Physician Stat Consulting Provider: [facility] Consult Reason/Comments: Elevated troponin Do you want consulting provider notified?: Yes 02/28/20 16:26 Consult Physician Urgent Consulting Provider: Luis Armando Herman Consult Reason/Comments: high heart rate Do you want consulting provider notified?: Yes 02/28/20 18:02 Consult Physician Routine Consulting Provider: Sincere Navarro Consult Reason/Comments: sepsis Do you want consulting provider notified?: Yes 02/29/20 13:56 Consult Physician Stat Consulting Provider: Guillermo Adams Consult Reason/Comments: lung CA Do you want consulting provider notified?: Yes Primary care physician: Dortia Hoover Hospital Course: Final diagnosis Shortness of breath which is multifactorial due to COPD exacerbation, CHF exacerbation. Moderate protein calorie malnutrition due to poor oral intake Acute on chronic CHF systolic function is intact 35 to 40% Atrial fibrillation with rapid regular rate. Paroxysmal. Left lower lobe pneumonia possible postobstructive or gram-negative with possible sepsis present on admission. 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 COVID-19 ruled out Elevated lactic acid secondary to sepsis present on admission Increase AST ALT bilirubin secondary to malignancy Elevated troponin level intermittent level rule out acute non-ST right [place] Acute urinary tract infection present on admission Hyponatremia Mild coagulopathy Hypertension Hyperlipidemia Hypothyroidism Remote history decubitus Currently CODE STATUS is DNR/DNI Discharge disposition Patient is being discharged in a stable condition with guarded prognosis to hospice [facility] in [place]. Patient will be receiving hospice care in the outpatient setting upon discharge. Total time taken is greater than 35 minutes. History of present illness This is an 80-year-old female who was recently admitted with shortness of breath due to acute COPD exacerbation along with CHF exacerbation and pneumonia and wa s being closely monitored. She also has history of metastatic lung cancer and family has decided to have her go to hospice house in [place] for comfort care. During hospitalization patient was atrial fibrillation and RVR and was maintained on a Cardizem drip. Patient continued to have poor oral intake and clinical status has deteriorated. Patient remained nothing by mouth as risk of aspiration. Family has decided for hospice and will be going there today. Prognosis is guarded and poor. Please refer to previous dictations for further HPI. On exam vital signs are stable. Temp is 97.6F, pulse is 84, respirations are 18, blood pressure is 117/62, oxygen saturation is 96% on 3 L via nasal cannula. Cardio S1, S2 are muffled. Respiratory system shows diminished breath sounds at the bases with some scattered rhonchi noted. Abdomen is soft and nontender. Nervous system shows diffuse weakness. Please refer to medication reconciliation sheet for a list of medications. Patient Condition at Discharge: Poor Plan - Discharge Summary New Discharge Prescriptions: Continue Levothyroxine Sodium [Synthroid] 50 mcg PO DAILY@0600 Omeprazole 20 mg PO HS@2100 Acetaminophen Tab [Tylenol] 650 mg PO Q6H PRN PRN Reason: Mild Pain Famotidine [Pepcid] 20 mg PO DAILY@0900 Megestrol [Megace] 40 mg PO DAILY@0900 Discontinued Montelukast Sodium [Singulair] 10 mg PO HS@2100 Lovastatin [Altoprev] 20 mg PO HS@2100 Metoprolol Tartrate [Lopressor] 25 mg PO BID@0900,1700 Sodium Chloride Tab 1 gm PO AC-SUPPER@1700 Diltiazem Oral [Cardizem*] 60 mg PO TID #90 tab Zinc 50 mg PO DAILY@0900 Cholecalciferol [Vitamin D3 (25 Mcg = 1000 Iu)] 5,000 unit PO DAILY@0900 Ascorbic Acid [Vitamin C] 500 mg PO DAILY@0900 Discharge Medication List Levothyroxine Sodium [Synthroid] 50 mcg PO DAILY@0600 11/09/19 [History] Omeprazole 20 mg PO HS@2100 02/14/20 [History] Acetaminophen Tab [Tylenol] 650 mg PO Q6H PRN 02/28/20 [History] Famotidine [Pepcid] 20 mg PO DAILY@0900 02/28/20 [History] Megestrol [Megace] 40 mg PO DAILY@0900 02/28/20 [History] Follow up Appointment(s)/Referral(s): Dorita Hoover MD [Primary Care Provider] - 1-2 days Activity/Diet/Wound Care/Special Instructions: Patient is going to the hospice house in [place] Discharge Disposition: [facility]
[2020-03-06 13:40] VITALS: BP 128/78; PULSE 87; TEMP 97.2
== END 2020-03-06 15:03 | disposition hospice, home (50) | DRG 871 ==
LOC: EC 12:33 → 3SCARD 16:26
PROVIDERS: ADMIT Hospitalist; ATTEND Hospitalist
DX: A41.50 Gram-negative sepsis, unspecified (principal); I50.23 Acute on chronic systolic (congestive) heart failure; J96.01 Acute respiratory failure with hypoxia; G93.41 Metabolic encephalopathy; J15.6 Pneumonia due to other Gram-negative bacteria; J44.1 Chronic obstructive pulmonary disease with (acute) exacerbation; J44.0 Chronic obstructive pulmonary disease with (acute) lower respiratory infection; E44.0 Moderate protein-calorie malnutrition; E87.2 Acidosis; N39.0 Urinary tract infection, site not specified; J98.11 Atelectasis; D68.9 Coagulation defect, unspecified; C79.51 Secondary malignant neoplasm of bone; C34.90 Malignant neoplasm of unspecified part of unspecified bronchus or lung; E87.1 Hypo-osmolality and hyponatremia; R17 Unspecified jaundice; I48.0 Paroxysmal atrial fibrillation; Z66 Do not resuscitate; Z51.5 Encounter for palliative care; I11.0 Hypertensive heart disease with heart failure; T46.0X5A Adverse effect of cardiac-stimulant glycosides and drugs of similar action, initial encounter; Z20.828 Contact with and (suspected) exposure to other viral communicable diseases; E78.5 Hyperlipidemia, unspecified; E83.52 Hypercalcemia; E87.6 Hypokalemia; I35.1 Nonrheumatic aortic (valve) insufficiency; E03.9 Hypothyroidism, unspecified; Z79.890 Hormone replacement therapy; Z79.899 Other long term (current) drug therapy; Z87.891 Personal history of nicotine dependence; Z90.49 Acquired absence of other specified parts of digestive tract; Z85.118 Personal history of other malignant neoplasm of bronchus and lung; Z90.89 Acquired absence of other organs; Z98.51 Tubal ligation status; Z98.891 History of uterine scar from previous surgery; Z81.8 Family history of other mental and behavioral disorders
CPT/HCPCS: 36415; 70553; 71045; 71046; 71275; 76604; 80048; 80053; 80076; 80162; 81001; 83605; 83735; 83880; 84132; 84145; 84484; 85025; 85379; 85610; 85730; 86140; 87040; 87086; 87635; 93005; 93306; 94640; 96361; 96365; 96366; 96367; 96368; 96372; 96375; 96376; 99291